=== PATIENT | male | born 1980 | race Caucasian/White ===

== ENCOUNTER 2016-06-22 21:22 | Emergency (ER) | payer BC ==
[~2016-06-22 21:22] MED LIST: BUPR1MIS; BUPR1SUB SL; DICL75 PO; LEVE500 PO; NORC10TA2 PO
[2016-06-22 21:25] VITALS: BP 119/68; PULSE 79; RESP 18; TEMP 97.7; O2SAT 98
[2016-06-22] MEDS ORDERED: SODIUM CHLOR 0.9% 1000 ML INJ 1,000 ML IV ONE (21:30)
[2016-06-22 21:33] VITALS: O2SAT 94
[2016-06-22 21:56] LABS: AUTOMATED NEUTROPHIL # 2.4 TH/MM3 (1.8-7.7); BASOPHIL % 0.5 % (0.0-2.0); EOSINOPHIL # 0.1 TH/MM3 (0-0.4); EOSINOPHIL % 1.9 % (0.0-4.0); HEMATOCRIT 40.3 % (39.0-51.0); HEMO FLAGS DIFF FINAL; LYMPH % 39.9 % (9.0-44.0); MEAN CORPUSCULAR HEMOGLOBIN 29.4 PG (27.0-34.0); MONO % 8.8 % (0.0-8.0); NEUT % 48.9 % (16.0-70.0); PLATELET COUNT 145 TH/MM3 (150-450); RED BLOOD COUNT 4.79 MIL/MM3 (4.50-5.90); RED CELL DISTRIBUTION WIDTH 13.3 % (11.6-17.2); WHITE BLOOD COUNT 4.9 TH/MM3 (4.0-11.0)
--- NOTE | 2016-06-22 21:57 | RADRPT ---
EXAM DATE/TIME: 06/22/2016 21:44 [place] COMPARISON: No previous studies available for comparison. INDICATIONS : Altered mental status, possible overdose. RADIATION DOSE: 47.03 CTDIvol (mGy) MEDICAL HISTORY : Seizures. Substance abuse. SURGICAL HISTORY : None. ENCOUNTER: Initial ACUITY: 1 day PAIN SCALE: 0/10 LOCATION: cranial TECHNIQUE: Multiple contiguous axial images were obtained of the head. Using automated exposure control and adj ustment of the mA and/or kV according to patient size, radiation dose was kept as low as reasonably a chievable to obtain optimal diagnostic quality images. FINDINGS: CEREBRUM: The ventricles are normal for age. No evidence of midline shift, mass lesion, hemorrhage or acute in farction. No extra-axial fluid collections are seen. POSTERIOR FOSSA: The cerebellum and brainstem are intact. The 4th ventricle is midline. The cerebellopontine angle i s unremarkable. EXTRACRANIAL: The visualized portion of the orbits is intact. Old nasal fractures. SKULL: The calvaria is intact. No evidence of skull fracture. CONCLUSION: 1. Unremarkable CT brain. Júnior Miner MD on June 22, 2016 at 21:54 Board Certified Radiologist. This report was verified electronically.
--- NOTE | 2016-06-22 22:04 | PD ---
HPI Chief Complaint: Altered Mental Status Time Seen by Provider: 21:56 Travel History International Travel<30 days: No Contact w/Intl Traveler<30days: No Traveled to known affect area: No History of Present Illness HPI 35-year-old male that presents to the ED for evaluation of fatigue. Apparently patient was found by ambulance sleeping on his car. Apparently patient complained that he's been feeling fatigued has been working a lot. Patient was also found to have an empty bottle of Ambien which is prescribed to him on the of this month. Patient was asked multiple times by me and other staff if he took more than his allow Ambien for the day and he states that now. He does have a remote history of IV drug abuse. He states that he's been feeling fatigued. History is difficult because of patient's somnolence and he doesn't appear to answer questions. Properly. He does answer some yes or no questions and seems to follow some commands but remained sleeping most of the time. Patient is arousable but continues to sleep. Patient denies any complaint to me. No pain. No allergies to medication. No signs of trauma. Again patient' s history is limited secondary to his somnolence. PFSH Past Medical History Autoimmune Disease: No Anxiety: Yes Depression: Yes Cancer: No Cardiovascular Problems: No Endocrine: No Genitourinary: No Immune Disorder: No Implanted Vascular Access Dvce: Yes (RUE PICC LINE) Musculoskeletal: Yes (CHRONIC BACK PAIN) Neurologic: Yes Psychiatric: Yes Reproductive: No Respiratory: No Migraines: Yes Seizures: Yes Tetanus Vaccination: Unknown Influenza Vaccination: No PNEUMOCCOCAL Vaccine (Year): 2 Past Surgical History Abdominal Surgery: No Cardiac Surgery: No Ear Surgery: No Endocrine Surgery: No Eye Surgery: No Genitourinary Surgery: No Gynecologic Surgery: No Neurologic Surgery: Yes (LAMINECTOMY ) Oral Surgery: No Thoracic Surgery: No Social History Alcohol Use: Yes (OCC) Tobacco Use: Yes (PPD) Substance Use: No (previous) Allergies-Medications (Allergen,Severity, Reaction): Coded Allergies: No Known Allergies (Verified , 06/22/16) Reported Meds & Prescriptions Reported Meds & Active Scripts Active Keppra (Levetriacetam) 500 Mg Tab 500 Mg PO BID 30 Days [place] 10-325 mg (Hydrocodone-Acetaminophen) 1 Tab Tab 1 Tab PO Q3H PRN Reported Zubsolv 5.7-1.4 mg 1 Sub Sub 1 Tab SL TID [place] 6.3-1 mg (Buprenorphine HCl-Naloxone HCl) 1 Mis Mis Diclofenac Sodium 75 Mg Tab 75 Mg PO BID Review of Systems ROS Limitations: Intoxication, Poor Historian General / Constitutional: No: Fever, Chills, Weight Gain, Weight Loss, Other Eyes: No: Diploplia, Blurred Vision, Photophobia, Drainage, Redness, Foreign Body Sensation, Pain, Tearing, Blind Spots, Visual changes, Blindness, Other HENT: No: Headaches, Vertigo, Lightheadedness, Sore Throat, Rhinitis, Rhinorrhea, Congestion, Nosebleed, Neck Stiffness, Neck Pain, Masses, Gingival Bleeding, Dental Difficulties, Ear Discharge, Earache, Other Cardiovascular: No: Chest Pain or Discomfort, Palpitations, Irregular Rhythm, Tachycardia, Diaphoresis, Syncope, Dyspnea on exertion, Varicosities, Edema, Cyanosis, Varicosities, Phlebitis, Claudication, Other Respiratory: No: Cough, Shortness of Breath, Wheezing, Sneezing, Orthopnea, Hemoptysis, Stridor, Night Sweats, Pleuritic Pain, Other Gastrointestinal: No: Nausea, Vomiting, Diarrhea, Abdominal Pain, Hematemesis, Hematochezia, Constipation, Changes in Bowel Habits, Indigestion, Dysphagia, Loss of Appetite, Other Genitourinary: No: Urgency, Frequency, Dysuria, Nocturia, Hematuria, Decreased Urinary Output, Oliguria, Hesitancy, Dribbling, Incontinence, Pelvic Pain, Flank Pain, Dyspareunia, Discharge, Dysmenorrhea, Menorrhagia, Metorrhagia, Vaginal Bleeding, Other Musculoskeletal: No: Myalgias, Arthralgias, Limited ROM, Weakness, Cramping, Edema, Pain, Atrophy, Other Skin: No Rash, No Itching, No Dryness, No Lumps, No Hives, No Change in Pigmentation, No Change in nails, No Alopecia, No Lesions, No Breast Lumps, No Breast Tenderness, No Breast Swelling, No Other Neurologic: Positive: Weakness, Change in Mentation, No: Dizziness, Syncope, Focal Abnormalities, Coordination Problem, Tremor, Ataxia, Headache, Slurred Speech, Paresthesia, Incontinence, Seizures, Sensory Disturbance, Other Psychiatric: Positive: Substance Abuse, No: Anxiety, Depression, Suicidal Ideations, Disorder of Thought, Mood Disorder, Homicidal Ideation, Other Endocrine: No: Heat Intolerance, Cold Intolerance, Polyuria, Polydipsia, Other Hematologic/Lymphatic: No: Easy Bruising, Lymph Node Enlargement, Other Physical Exam Exam Limitations: Intoxication, Poor Historian Narrative GENERAL: SKIN: Warm and dry. HEAD: Atraumatic. Normocephalic. EYES: Pupils equal and round. No scleral icterus. No injection or drainage. ENT: No nasal bleeding or discharge. Mucous membranes pink and moist. Tongue is midline. No uvula deviation. NECK: Trachea midline. No JVD. CARDIOVASCULAR: Regular rate and rhythm. No murmurs, S3, S4. RESPIRATORY: No accessory muscle use. Clear to auscultation. Breath sounds equal bilaterally. GASTROINTESTINAL: Abdomen soft, non-tender, nondistended. Hepatic and splenic margins not palpable. MUSCULOSKELETAL: Extremities without clubbing, cyanosis, or edema. No obvious deformities. Full range of motion of the upper and lower extremities bilaterally. Pupils pulses bilaterally. NEUROLOGICAL: Awake and alert to commands but continues to go to sleep. Alert and oriented to person and place. No obvious cranial nerve deficits. Motor grossly within normal limits. Five out of 5 muscle strength in the arms and legs. Normal speech. PSYCHIATRIC: Somnolent mood and affect; insight and judgment unable to asses Data Data Last Documented VS Vital Signs Date Time Temp Pulse Resp B/P Pulse Ox O2 Delivery O2 Flow Rate FiO2 06/22/16 21:33 94 Room Air 06/22/16 21:25 97.7 79 18 119/68 Orders Electrocardiogram (06/22/16 21:30) Complete Blood Count With Diff (06/22/16 21:30) Comprehensive Metabolic Panel (06/22/16 21:30) Prothrombin Time / Inr (Pt) (06/22/16 21:30) Act Partial Throm Time (Ptt) (06/22/16 21:30) Urinalysis - C+S If Indicated (06/22/16 21:30) Ct Brain W/O Iv Contrast(Rout) (06/22/16 21:30) Iv Access Insert/Monitor (06/22/16 21:30) Cath For Specimen (06/22/16 21:30) Ecg Monitoring (06/22/16 21:30) Oximetry (06/22/16 21:30) Sodium Chlor 0.9% 1000 Ml Inj (Ns 1000 M (06/22/16 21:30) Drug Screen, Random Urine (06/22/16 21:30) Alcohol (Ethanol) (06/22/16 21:30) Salicylates (Aspirin) (06/22/16 21:30) Tylenol (Acetaminophen) (06/22/16 21:30) Labs Laboratory Tests Test 06/22/16 06/22/16 21:30 21:50 White Blood Count 4.9 TH/MM3 Red Blood Count 4.79 MIL/MM3 Hemoglobin 14.1 GM/DL Hematocrit 40.3 % Mean Corpuscular Volume 84.0 FL Mean Corpuscular Hemoglobin 29.4 PG Mean Corpuscular Hemoglobin 35.0 % Concent Red Cell Distribution Width 13.3 % Platelet Count 145 TH/MM3 Mean Platelet Volume 8.3 FL Neutrophils (%) (Auto) 48.9 % Lymphocytes (%) (Auto) 39.9 % Monocytes (%) (Auto) 8.8 % Eosinophils (%) (Auto) 1.9 % Basophils (%) (Auto) 0.5 % Neutrophils # (Auto) 2.4 TH/MM3 Lymphocytes # (Auto) 2.0 TH/MM3 Monocytes # (Auto) 0.4 TH/MM3 Eosinophils # (Auto) 0.1 TH/MM3 Basophils # (Auto) 0.0 TH/MM3 CBC Comment DIFF FINAL Differential Comment Prothrombin Time 11.0 SEC Prothromb Time International 1.0 RATIO Ratio Activated Partial 28.7 SEC Thromboplast Time Sodium Level 143 MEQ/L Potassium Level 5.2 MEQ/L Chloride Level 108 MEQ/L Carbon Dioxide Level 25.1 MEQ/L Anion Gap 10 MEQ/L Blood Urea Nitrogen 15 MG/DL Creatinine 0.84 MG/DL Estimat Glomerular Filtration 105 ML/MIN Rate Random Glucose 92 MG/DL Calcium Level 8.7 MG/DL Total Bilirubin 0.7 MG/DL Aspartate Amino Transf 56 U/L (AST/SGOT) Alanine Aminotransferase 48 U/L (ALT/SGPT) Alkaline Phosphatase 67 U/L Total Protein 7.5 GM/DL Albumin 3.9 GM/DL Salicylates Level 2.2 MG/DL Acetaminophen Level LESS THAN 2.0 MCG/ML Ethyl Alcohol Level LESS THAN 3 MG/DL Urine Color YELLOW Urine Turbidity HAZY Urine pH 5.5 Urine Specific [place] 1.024 Urine Protein NEG mg/dL Urine Glucose (UA) NEG mg/dL Urine Ketones 10 mg/dL Urine Occult Blood TRACE Urine Nitrite NEG Urine Bilirubin NEG Urine Urobilinogen LESS THAN 2.0 MG/DL Urine Leukocyte Esterase NEG Urine RBC 4 /hpf Urine WBC 1 /hpf Urine Mucus FEW /lpf Microscopic Urinalysis Comment CULT NOT INDICATED Urine Opiates Screen POS Urine Barbiturates Screen NEG Urine Amphetamines Screen POS Urine Benzodiazepines Screen POS Urine Cocaine Screen POS Urine Cannabinoids Screen NEG MDM Medical Decision Making Medical Screen Exam Complete: Yes Emergency Medical Condition: Yes Medical Record Reviewed: Yes Interpretation(s) CBC & BMP Diagram 06/22/16 21:30 LFTS WNL Tox screen positive for cocaine, opiates, amphetamines, benzos. Urine negative. EKG shows sinus rhythm with no sign of acute ischemia or arrhythmia read by me and attending. PT and PTT within normal limits. Last Impressions Head CT 06/22/162129 Signed Impressions: Service Date/Time: Wednesday, June 22, 2016 21:44 - CONCLUSION: 1. Unremarkable CT brain. Júnior Miner MD Differential Diagnosis Overdose versus somnolence versus fatigue versus substance abuse Narrative Course 35-year-old male that presents to the ED for evaluation of possible upper mental status. Patient was properly examined and was found to have signs and symptoms consistent with appears to be possible overdose. I actually look up patient on the [employer] system for narcotics in [place] and patient has had multiple recent prescriptions of narcotics. I'll from 2 different doctors which appear to be chronic but he does take significant doses of narcotics. Patient completely denies abuse in the Ambien but his whole bottle that was given to him which was 30 pills on the 20 is completely gone. I suspect overdose. At this time patient is arousable with commands as well as with painful stimuli. Labs and imaging will be done. Labs and imaging were unremarkable other than for positive tox screen for benzos, opiates, amphetamines, cocaine. From history and physical this obvious overdose likely accidental. He denies any suicidal ideation. At this time patient is too somnolent to go home. Patient will be allowed to sleep off his intoxication out of the monitor with the clinically sober to go home or someone who is sober can come pick him up. Case will be signed out to my attending pending disposition. Diagnosis Primary Impression: Substance abuse Patient Instructions: General Instructions Additional Instructions: Stop using drugs. Follow with PCP. See ED worsening symptoms. Med/Other Pt SpecificInfo: No Change to Meds Disposition: 01 DISCHARGE HOME Condition: Abdirizak Gutierrez Jun 22, 2016 22:04
--- NOTE | 2016-06-22 22:07 | PD ---
Physical Exam Narrative General: The patient is a well-developed well-nourished male in no acute distress. The patient is drowsy on examination and has to be frequently awakened to answer questions. The patient is cooperative on exam. Head and Neck exam: Head is normocephalic atraumatic. Eyes: EOMI, pupils are equal round and reactive to light. Nose: Midline septum with pink mucous membranes Mouth: Dentition unremarkable. Moist mucus membranes. Posterior oropharynx is not erythematous. No tonsillar hypertrophy. Uvula midline. Airway patent. Neck: No palpable lymphadenopathy. No nuchal rigidity. No thyromegaly. Cardiovascular: Regular rate and rhythm without murmurs, gallops, or rubs. No pulse deficit to the extremities. Lungs: Clear to auscultation bilaterally. No wheezes, rhonchi, or rales. Abdomen: Soft, without tenderness to palpation in all 4 quadrants of the abdomen. No guarding, rebound, or rigidity. Normal bowel sounds are audible. Extremities: No clubbing, cyanosis, or edema. 2+ pulses in all 4 extremities. Back: No spinous process tenderness to palpation. No costovertebral angle tenderness to palpation. Neurologic Exam: Cranial nerves 2-12 were intact on exam. Strength is 5/5 in all 4 extremities. No sensory deficits noted. The patient is oriented to person, place, time, and situation. The patient has slightly slurred speech. Skin Exam: No rash noted. Intact skin that is warm and dry. Data Data Last Documented VS Vital Signs Date Time Temp Pulse Resp B/P Pulse Ox O2 Delivery O2 Flow Rate FiO2 06/22/16 21:33 94 Room Air 06/22/16 21:25 97.7 79 18 119/68 Orders Electrocardiogram (06/22/16 21:30) Complete Blood Count With Diff (06/22/16 21:30) Comprehensive Metabolic Panel (06/22/16 21:30) Prothrombin Time / Inr (Pt) (06/22/16 21:30) Act Partial Throm Time (Ptt) (06/22/16 21:30) Urinalysis - C+S If Indicated (06/22/16 21:30) Ct Brain W/O Iv Contrast(Rout) (06/22/16 21:30) Iv Access Insert/Monitor (06/22/16 21:30) Cath For Specimen (06/22/16 21:30) Ecg Monitoring (06/22/16 21:30) Oximetry (06/22/16 21:30) Sodium Chlor 0.9% 1000 Ml Inj (Ns 1000 M (06/22/16 21:30) Drug Screen, Random Urine (06/22/16 21:30) Alcohol (Ethanol) (06/22/16 21:30) Salicylates (Aspirin) (06/22/16 21:30) Tylenol (Acetaminophen) (06/22/16 21:30) Labs Laboratory Tests Test 06/22/16 06/22/16 21:30 21:50 White Blood Count 4.9 TH/MM3 Red Blood Count 4.79 MIL/MM3 Hemoglobin 14.1 GM/DL Hematocrit 40.3 % Mean Corpuscular Volume 84.0 FL Mean Corpuscular Hemoglobin 29.4 PG Mean Corpuscular Hemoglobin 35.0 % Concent Red Cell Distribution Width 13.3 % Platelet Count 145 TH/MM3 Mean Platelet Volume 8.3 FL Neutrophils (%) (Auto) 48.9 % Lymphocytes (%) (Auto) 39.9 % Monocytes (%) (Auto) 8.8 % Eosinophils (%) (Auto) 1.9 % Basophils (%) (Auto) 0.5 % Neutrophils # (Auto) 2.4 TH/MM3 Lymphocytes # (Auto) 2.0 TH/MM3 Monocytes # (Auto) 0.4 TH/MM3 Eosinophils # (Auto) 0.1 TH/MM3 Basophils # (Auto) 0.0 TH/MM3 CBC Comment DIFF FINAL Differential Comment Prothrombin Time 11.0 SEC Prothromb Time International 1.0 RATIO Ratio Activated Partial 28.7 SEC Thromboplast Time Sodium Level 143 MEQ/L Potassium Level 5.2 MEQ/L Chloride Level 108 MEQ/L Carbon Dioxide Level 25.1 MEQ/L Anion Gap 10 MEQ/L Blood Urea Nitrogen 15 MG/DL Creatinine 0.84 MG/DL Estimat Glomerular Filtration 105 ML/MIN Rate Random Glucose 92 MG/DL Calcium Level 8.7 MG/DL Total Bilirubin 0.7 MG/DL Aspartate Amino Transf 56 U/L (AST/SGOT) Alanine Aminotransferase 48 U/L (ALT/SGPT) Alkaline Phosphatase 67 U/L Total Protein 7.5 GM/DL Albumin 3.9 GM/DL Salicylates Level 2.2 MG/DL Acetaminophen Level LESS THAN 2.0 MCG/ML Ethyl Alcohol Level LESS THAN 3 MG/DL Urine Color YELLOW Urine Turbidity HAZY Urine pH 5.5 Urine Specific [place] 1.024 Urine Protein NEG mg/dL Urine Glucose (UA) NEG mg/dL Urine Ketones 10 mg/dL Urine Occult Blood TRACE Urine Nitrite NEG Urine Bilirubin NEG Urine Urobilinogen LESS THAN 2.0 MG/DL Urine Leukocyte Esterase NEG Urine RBC 4 /hpf Urine WBC 1 /hpf Urine Mucus FEW /lpf Microscopic Urinalysis Comment CULT NOT INDICATED Urine Opiates Screen POS Urine Barbiturates Screen NEG Urine Amphetamines Screen POS Urine Benzodiazepines Screen POS Urine Cocaine Screen POS Urine Cannabinoids Screen NEG [facility] Medical Record Reviewed: Yes Supervised Visit with BK: Yes Interpretation(s) Laboratory Tests Test 06/22/16 06/22/16 21:30 21:50 White Blood Count 4.9 TH/MM3 Red Blood Count 4.79 MIL/MM3 Hemoglobin 14.1 GM/DL Hematocrit 40.3 % Mean Corpuscular Volume 84.0 FL Mean Corpuscular Hemoglobin 29.4 PG Mean Corpuscular Hemoglobin 35.0 % Concent Red Cell Distribution Width 13.3 % Platelet Count 145 TH/MM3 Mean Platelet Volume 8.3 FL Neutrophils (%) (Auto) 48.9 % Lymphocytes (%) (Auto) 39.9 % Monocytes (%) (Auto) 8.8 % Eosinophils (%) (Auto) 1.9 % Basophils (%) (Auto) 0.5 % Neutrophils # (Auto) 2.4 TH/MM3 Lymphocytes # (Auto) 2.0 TH/MM3 Monocytes # (Auto) 0.4 TH/MM3 Eosinophils # (Auto) 0.1 TH/MM3 Basophils # (Auto) 0.0 TH/MM3 CBC Comment DIFF FINAL Differential Comment Prothrombin Time 11.0 SEC Prothromb Time International 1.0 RATIO Ratio Activated Partial 28.7 SEC Thromboplast Time Sodium Level 143 MEQ/L Potassium Level 5.2 MEQ/L Chloride Level 108 MEQ/L Carbon Dioxide Level 25.1 MEQ/L Anion Gap 10 MEQ/L Blood Urea Nitrogen 15 MG/DL Creatinine 0.84 MG/DL Estimat Glomerular Filtration 105 ML/MIN Rate Random Glucose 92 MG/DL Calcium Level 8.7 MG/DL Total Bilirubin 0.7 MG/DL Aspartate Amino Transf 56 U/L (AST/SGOT) Alanine Aminotransferase 48 U/L (ALT/SGPT) Alkaline Phosphatase 67 U/L Total Protein 7.5 GM/DL Albumin 3.9 GM/DL Salicylates Level 2.2 MG/DL Acetaminophen Level LESS THAN 2.0 MCG/ML Ethyl Alcohol Level LESS THAN 3 MG/DL Urine Color YELLOW Urine Turbidity HAZY Urine pH 5.5 Urine Specific [place] 1.024 Urine Protein NEG mg/dL Urine Glucose (UA) NEG mg/dL Urine Ketones 10 mg/dL Urine Occult Blood TRACE Urine Nitrite NEG Urine Bilirubin NEG Urine Urobilinogen LESS THAN 2.0 MG/DL Urine Leukocyte Esterase NEG Urine RBC 4 /hpf Urine WBC 1 /hpf Urine Mucus FEW /lpf Microscopic Urinalysis Comment CULT NOT INDICATED Urine Opiates Screen POS Urine Barbiturates Screen NEG Urine Amphetamines Screen POS Urine Benzodiazepines Screen POS Urine Cocaine Screen POS Urine Cannabinoids Screen NEG Last Impressions Head CT 06/22/162129 Signed Impressions: Service Date/Time: Wednesday, June 22, 2016 21:44 - CONCLUSION: 1. Unremarkable CT brain. Júnior Miner MD Narrative Course I, Dr. Richmond, have reviewed the advance practice practitioner's documentation and am in agreement, met with the patient face to face, made the diagnosis, and the medical decision making was done by me. The patient was initially seen by Shen. Please see his complete history and physical. *My assessment and Findings: The patient is a 35-year-old male who presents to [facility] emergency Department after being found in a [facility] parking lot difficult to arouse. Ambulance services were called and the patient was transported to the hospital. The patient was noted to have an empty bottle of Ambien on his person. He reports that it is his prescription. He denies taking more than the prescribed amount. The patient's bottle was filled approximately a week ago, however now it is empty. The patient's examination is remarkable for being drowsy on examination and frequently falling asleep midsentence or mid exam. The patient has dilated pupils on examination that are reactive to light. The patient has no focal findings on neurologic examination. Laboratory studies have been ordered to further evaluate. CT scan of the brain was read as negative by the reading radiologist. The patient's laboratory studies were remarkable for a urine drug screen that was positive for opiates, benzodiazepines, cocaine, and amphetamines. The patient became increasingly awake and alert. The patient reported that he has a family member that would be able to safely drive him home. The patient's mother arrived at the bedside and will be driving him home. The patient is resting comfortably and feels better, is alert and in no distress. The patients results and examination findings were discussed with the patient. The repeat examination is unremarkable and benign. The history, exam, diagnostic testing, and current condition do not suggest any significant pathology to warrant further testing, continued ED treatment, admission, or surgical evaluation at this point. The vital signs have been stable. The patient does not have uncontrollable pain, intractable vomiting, or other significant symptoms. The patient's condition is stable and appropriate for discharge. The patient will pursue further outpatient evaluation with a primary care physician or other designated or consulting physician as indicated in the discharge instructions. The patient expressed understanding and was agreeable with this plan. Rosaura Ricmhond MD Jun 22, 2016 22:07
[2016-06-22 22:11] LABS: APTT (PATIENT) 28.7 SEC (24.3-30.1)
[2016-06-22 22:21] LABS: ANION GAP 10 MEQ/L (5-15)
[2016-06-22 22:22] LABS: BLOOD, URINE TRACE (NEG); COMMENT (UR) CULT NOT INDICATED; CULTURE IF INDICATED CULT NOT INDICATED; GLUCOSE,URINE NEG (NEG); KETONE, URINE 10 mg/dL (NEG); MUCUS URINE FEW /lpf (OCC); NITRITE,URINE NEG (NEG); PH, URINE 5.5 (5.0-8.5); URINE COLOR YELLOW (YELLW/STRAW)
[2016-06-22 22:25] LABS: ALKALINE PHOSPHATASE 67 U/L (45-117); ALT (GPT) 48 U/L (12-78); AST (GOT) 56 U/L (15-37); BICARBONATE 25.1 MEQ/L (21.0-32.0); BLOOD UREA NITROGEN 15 MG/DL (7-18); CHLORIDE 108 MEQ/L (98-107); GLOMERULAR FILTRATION RATE 105 ML/MIN (>89); SODIUM (NA) 143 MEQ/L (136-145); TOTAL BILIRUBIN ADULT 0.7 MG/DL (0.2-1.0)
[2016-06-22 22:27] LABS: ACETAMINOPHEN LESS THAN 2.0 MCG/ML (10.0-30.0); POTASSIUM 5.2 MEQ/L (3.5-5.1)
[2016-06-22 22:28] LABS: AMPHETAMINE, URINE POS (NEG); BARBITURATES, URINE NEG (NEG); COCAINE, URINE POS (NEG)
--- NOTE | 2016-06-23 12:41 | EKG ---
Date Performed: 06/22/2016 Time Performed: 21:29:04 PTAGE: 35 years EKG: Sinus rhythm NORMAL ECG Compared to prior tracing no significant change PREVIOUS TRACING : 03/12/2015 16.53 DOCTOR: Tamir Moya Interpretating Date/Time 06/23/2016 12:37:04
== END 2016-06-23 | disposition home or self-care (01) ==
LOC: NEPE 21:22
DX: F19.129 Other psychoactive substance abuse with intoxication, unspecified (principal); F17.210 Nicotine dependence, cigarettes, uncomplicated; F32.9 Major depressive disorder, single episode, unspecified
CPT/HCPCS: 70450; 80053; 80307; 80320; 81001; 85025; 85610; 85730; 93005; 99284; J7030; 80329; G0480

== ENCOUNTER 2016-10-26 13:05 | Inpatient (IN) | payer BC ==
[~2016-10-26] VITALS: Ht 180.3 cm; Wt 108.8 kg
[2016-10-26] VITALS (7 sets, daily range): BP systolic 146–177; BP diastolic 96–103; PULSE 74–96; RESP 13–24; TEMP 97.9; O2SAT 96–100
[~2016-10-26 13:05] MED LIST changes: +LACTATED RINGER'S 1000 ML INJ 1,000 ML IV ONE; +NORMOSOL R INJ 1,000 ML IV ONE; +PROPOFOL 200 MG/20 ML AMP IV ONE
[2016-10-26] MEDS ORDERED: DIAZ10 PO (13:45)
[2016-10-26] MEDS ORDERED: TRAM50TA PO (13:46)
[2016-10-26] MEDS ORDERED: toradol (13:46)
--- NOTE | 2016-10-26 14:36 | PD ---
HPI Chief Complaint: Back/ Neck Pain or Injury Time Seen by Provider: 13:55 Travel History International Travel<30 days: No Contact w/Intl Traveler<30days: No Traveled to known affect area: No History of Present Illness HPI Patient is a 35-year-old male with history of IV drug abuse who presents the emergency department with complaint of back pain. 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 About 1.5 weeks ago after said heavy lifting he developed low back pain. This is primarily lumbar and radiates into the right buttock similar to his previous sciatica and does radiate down into the right leg. This has been gradually worsening. Patient takes Suboxone and has been compliant with this. He admits to shooting heroin 4 days ago in an attempt to help with the pain. The pain has been worsening despite all of this. He describes it as a constant throb and ache with zinging type pain down the right leg. He denies any fevers or chills. Patient was seen at [facility] just last night and released at this morning. Mother states that she picked him up and he was not even able to ambulate and therefore drove him straight here. PFSH Past Medical History Autoimmune Disease: No Anxiety: Yes Depression: Yes Cancer: No Cardiovascular Problems: No Endocrine: No Gastrointestinal Disorders: No Genitourinary: No Immune Disorder: No Implanted Vascular Access Dvce: Yes (RUE PICC LINE) Musculoskeletal: Yes (CHRONIC BACK PAIN) Neurologic: Yes Psychiatric: Yes Reproductive: No Respiratory: No Migraines: Yes Seizures: Yes Influenza Vaccination: No PNEUMOCCOCAL Vaccine (Year): 2 Past Surgical History Abdominal Surgery: No Cardiac Surgery: No Ear Surgery: No Endocrine Surgery: No Eye Surgery: No Genitourinary Surgery: No Gynecologic Surgery: No Neurologic Surgery: Yes (LAMINECTOMY ) Oral Surgery: No Thoracic Surgery: No Social History Alcohol Use: Yes (last couple of days) Tobacco Use: Yes (PPD) Substance Use: Yes (Marijuana, IVDU, heroin) Allergies-Medications (Allergen,Severity, Reaction): Coded Allergies: No Known Allergies (Verified , 10/26/16) Reported Meds & Prescriptions Reported Meds & Active Scripts Active Reported [toradol] Valium (Diazepam) 10 Mg Tab 10 Mg PO BID PRN Zubsolv 5.7-1.4 mg 1 Sub Sub 1 Tab SL TID Bunavail 6.3-1 mg (Buprenorphine HCl-Naloxone HCl) 1 Mis Mis Review of Systems ROS Limitations: Poor Historian Except as stated in HPI: all other systems reviewed are Neg Physical Exam Exam Limitations: Poor Historian Narrative GENERAL: Middle-aged male appearing older than stated age in mild distress laying fairly still on bed. SKIN: Focused skin assessment warm/dry. [place] in the bilateral arms HEAD: Normocephalic. EYES: Pupils equal and round. No scleral icterus. No injection or drainage. ENT: Mucous membranes pink and moist. NECK: Supple without midline tenderness to palpation CARDIOVASCULAR: Regular rate and rhythm. No murmur appreciated. RESPIRATORY: No accessory muscle use. Clear to auscultation. Breath sounds equal bilaterally. GASTROINTESTINAL: Abdomen soft, mild diffuse abdominal tenderness to palpation greatest in the right lower quadrant. He has had mild erythema over the right lower quadrant of the abdomen, but does admit to rubbing this area with his hand due to pain. MUSCULOSKELETAL: No midline tenderness to palpation of the thoracic spine. Patient has low lumbar midline tenderness to palpation and right sided sacroiliac tenderness to palpation. Any range of motion of the right hip reproduces patient's pain. The muscle compartments in the right thigh seems somewhat tighter than they do on the left though are not firm. Circumferential measurement of the right thigh is 2 cm greater than the left. Distal sensation and pulses are intact. Range of motion at the knee, ankle are unremarkable. NEUROLOGICAL: Awake and alert. Normal speech. PSYCHIATRIC: insight and judgment poor Data Data Last Documented VS Vital Signs Date Time Temp Pulse Resp B/P Pulse Ox O2 Delivery O2 Flow Rate FiO2 10/26/16 13:06 97.9 96 24 146/102 96 Room Air Orders Complete Blood Count With Diff (10/26/16 14:04) Comprehensive Metabolic Panel (10/26/16 14:04) Lactic Acid Sepsis Protocol (10/26/16 14:04) Urinalysis - C+S If Indicated (10/26/16 14:04) Blood Culture (10/26/16 14:04) Ecg Monitoring (10/26/16 14:04) Iv Access Insert/Monitor (10/26/16 14:04) Oximetry (10/26/16 14:04) Ct Abd/Pel W/O Iv Contrast (10/26/16 14:04) Drug Screen, Random Urine (10/26/16 14:04) Ct Femur W/O Iv Contrast (10/26/16 ) Mri L Spine W&W/O Contrast (10/26/16 ) Mri Pelvis W&W/O Contrast (10/26/16 ) Vascular Access Team Consult/P PRN (10/26/16 14:08) Vascular Poc Ultrasound (10/26/16 ) Hydromorphone Pf Inj (Dilaudid Pf Inj) (10/26/16 15:45) Sodium Chlor 0.9% 1000 Ml Inj (Ns 1000 M (10/26/16 16:45) Sodium Chlor 0.9% 1000 Ml Inj (Ns 1000 M (10/26/16 16:45) Sodium Chlor 0.9% 1000 Ml Inj (Ns 1000 M (10/26/16 16:45) Labs Laboratory Tests Test 10/26/16 10/26/16 14:54 15:01 Lactic Acid Level 2.2 mmol/L White Blood Count 21.2 TH/MM3 Red Blood Count 7.37 MIL/MM3 Hemoglobin 21.1 GM/DL Hematocrit 62.8 % Mean Corpuscular Volume 85.2 FL Mean Corpuscular Hemoglobin 28.6 PG Mean Corpuscular Hemoglobin 33.5 % Concent Red Cell Distribution Width 14.5 % Platelet Count 217 TH/MM3 Mean Platelet Volume 9.0 FL Neutrophils (%) (Auto) 88.8 % Lymphocytes (%) (Auto) 5.9 % Monocytes (%) (Auto) 5.1 % Eosinophils (%) (Auto) 0.1 % Basophils (%) (Auto) 0.1 % Neutrophils # (Auto) 18.8 TH/MM3 Lymphocytes # (Auto) 1.2 TH/MM3 Monocytes # (Auto) 1.1 TH/MM3 Eosinophils # (Auto) 0.0 TH/MM3 Basophils # (Auto) 0.0 TH/MM3 CBC Comment AUTO DIFF Differential Comment AUTO DIFF CONFIRMED Platelet Estimate NORMAL Platelet Morphology Comment NORMAL Total Bilirubin 1.5 MG/DL Alanine Aminotransferase 966 U/L (ALT/SGPT) Alkaline Phosphatase 123 U/L Total Protein 8.4 GM/DL MDM Medical Decision Making Medical Screen Exam Complete: Yes Emergency Medical Condition: Yes Medical Record Reviewed: Yes Differential Diagnosis 35-year-old male with history of IV drug abuse here with acute on chronic back pain radiating into the right buttock and right leg. Differential includes drug -seeking behavior, acute on chronic back pain, discitis, osteomyelitis, epidural abscess, pelvic abscess, infectious sacroiliitis, septic arthritis of the right hip, abscess or necrotizing fasciitis of the thigh. Narrative Course Patient placed on monitor, IV established and blood obtained. CT of the abdomen , pelvis, right femur were obtained showing negative CT abdomen and pelvis but the soft tissues in the right thigh are inflamed and edematous consistent with a myositis or cellulitis. Clinically there is no evidence of cellulitis or erythema of the thigh. Thankfully no radiographic evidence of necrotizing fasciitis. CBC, lactate notable for WBC 21.2, hemoglobin 21.1 likely due to hemoconcentration. There is left shift but no bandemia. Lactate was elevated at 2.2. I specifically with held the administration of antibiotics should there be an epidural abscess that we could obtain cultures prior to antibiotic administration despite his above sepsis criteria. He was given IV fluid resuscitation. CMP, blood cultures, urinalysis and urine drug screen remains pending. Patient was given 0.5 mg Dilaudid for pain so that he may hold still for MRI. MRI of the lumbar spine and pelvis with contrast ordered. The results of this remain pending at the time this dictation and patient will ultimately require admission for sepsis, rule out bacteremia, myositis. Critical Care Narrative Aggregate critical care time was 70 minutes. Time to perform other separately billable procedures was not included in the critical care time. My time did not include minutes spent treating any other patients simultaneously or on activities that did not directly contribute to the patient's treatment. The services I provided to this patient were to treat and/or prevent clinically significant deterioration that could result in: Cardio pulmonary decompensation , bacteremia, , disability I provided critical care services requiring my management, as noted below: Chart data review, documentation time, medication orders and management, vital sign assessments/reviewing monitor data, ordering and reviewing lab tests, ordering and interpreting/reviewing x-rays and diagnostic studies, care of the patient and discussion of the patient with the admitting physicians. Sepsis Criteria SIRS Criteria (2 or more): Heart rate over 90, RR > 20 or PaCO2 < 32, WBC > 10659, < 4000 or > 10% bands Sepsis Criteria (SIRS+source): Infect source susp/known Severe Sepsis (+one): Lactate >2 Criteria Outcome: Meets SIRS criteria, Meets sepsis criteria, Meets severe sepsis criteria Diagnosis Primary Impression: Severe sepsis Additional Impressions: Myositis Qualified Code: M60.051 - Infective myositis of right thigh IV drug abuse Lactic acidosis Leukocytosis Qualified Code: D72.829 - Leukocytosis, unspecified type Admitting Information Admitting Physician Requests: Admit Judit Acosta MD Oct 26, 2016 14:36
--- NOTE | 2016-10-26 15:09 | RADRPT ---
EXAM DATE/TIME: 10/26/2016 14:23 [facility] COMPARISON: No previous studies available for comparison. INDICATIONS : Abdomen pain. ORAL CONTRAST: No oral contrast ingested. RADIATION DOSE: 10.03 CTDIvol (mGy) MEDICAL HISTORY : IV drug user SURGICAL HISTORY : None. ENCOUNTER: Initial ACUITY: 1 day PAIN SCALE: 8/10 LOCATION: Bilateral abdomen TECHNIQUE: Volumetric scanning of the abdomen and pelvis was performed. Using automated exposure control and ad justment of the mA and/or kV according to patient size, radiation dose was kept as low as reasonably achievable to obtain optimal diagnostic quality images. DICOM format image data is available electro nically for review and comparison. FINDINGS: Lung bases are clear. Trace pericardial fluid. No acute findings in the liver, spleen, adrenals, kidn eys or pancreas. No free fluid. No bowel obstruction. No adenopathy. CONCLUSION: 1. No acute findings in abdomen and pelvic CT. Trace pericardial fluid. Pilo Gaona MD on October 26, 2016 at 15:01 Board Certified Radiologist. This report was verified electronically.
--- NOTE | 2016-10-26 15:11 | RADRPT ---
EXAM DATE/TIME: 10/26/2016 14:23 [facility] COMPARISON: No previous studies available for comparison. INDICATIONS : Right femur pain. RADIATION DOSE: 13.03 CTDIvol (mGy) MEDICAL HISTORY : None IV drug user SURGICAL HISTORY : None. ENCOUNTER: Initial ACUITY: 1 day PAIN SCALE: 8/10 LOCATION: Right leg TECHNIQUE: Volumetric scanning of the femur was performed. Using automated exposure control and adjustment of t he mA and/or kV according to patient size, radiation dose was kept as low as reasonably achievable to obtain optimal diagnostic quality images. DICOM format image data is available electronically for review and comparison. FINDINGS: No acute bony abnormalities in the right femur. There is some swelling of the musculature of the righ t thigh and fairly extensive stranding of fat between the muscle fascicles. Etiology unclear but prob ably represents cellulitis or myositis. CONCLUSION: 1. No acute bony abnormality. Muscular edema and edematous changes within the fat especially between the muscle fascicles. Differential diagnosis includes cellulitis and myositis. Pilo Gaona MD on October 26, 2016 at 15:07 Board Certified Radiologist. This report was verified electronically.
[2016-10-26 15:39] LABS: AUTOMATED NEUTROPHIL # 18.8 TH/MM3 (1.8-7.7); BASOPHIL % 0.1 % (0.0-2.0); EOSINOPHIL % 0.1 % (0.0-4.0); HEMATOCRIT 62.8 % (39.0-51.0); LYMPH % 5.9 % (9.0-44.0); LYMPHOCYTE # 1.2 TH/MM3 (1.0-4.8); MEAN CELL VOLUME 85.2 FL (80.0-100.0); MEAN CORPUSCULAR HEMOGLOBIN 28.6 PG (27.0-34.0); MEAN CORPUSCULAR HGB CONC 33.5 % (32.0-36.0); MONO % 5.1 % (0.0-8.0); NEUT % 88.8 % (16.0-70.0); PLATELET COUNT 217 TH/MM3 (150-450); RED BLOOD COUNT 7.37 MIL/MM3 (4.50-5.90); RED CELL DISTRIBUTION WIDTH 14.5 % (11.6-17.2); WHITE BLOOD COUNT 21.2 TH/MM3 (4.0-11.0)
[2016-10-26 15:41] LABS: HEMO FLAGS AUTO DIFF
[2016-10-26] MEDS ORDERED: HYDROmorphone HCL PF 1 MG/ML VIAL IV PUSH ONE (15:45)
[2016-10-26 16:01] LABS: TOTAL BILIRUBIN ADULT 1.5 MG/DL (0.2-1.0)
[2016-10-26 16:16] LABS: PLATELET ESTIMATE SMEAR NORMAL (NORMAL); PLATELET MORPHOLOGY NORMAL (NORMAL); SCAN/DIFF AUTO DIFF CONFIRMED
[2016-10-26] MEDS ORDERED: SODIUM CHLOR 0.9% 1000 ML INJ 1,000 ML IV ONE ×4 (16:45→18:00)
[2016-10-26 17:10] LABS: LACTIC ACID GHOST NOT REPORTABLE
[2016-10-26 17:45] LABS: BICARBONATE 19.2 MEQ/L (21.0-32.0)
[2016-10-26 17:47] LABS: POTASSIUM 6.1 MEQ/L (3.5-5.1)
--- NOTE | 2016-10-26 17:52 | RADRPT ---
EXAM DATE/TIME: 10/26/2016 15:55 [facility] COMPARISON: No previous studies available for comparison. INDICATIONS : Abscess. CONTRAST: 19 cc Omniscan (gadodiamide) IV MEDICAL HISTORY : IVDA SURGICAL HISTORY : Discectomy, cervical. Right elbow. ENCOUNTER: Initial ACUITY: 1 day PAIN SCORE: 5/10 LOCATION: Paraspinal TECHNIQUE: Multiplanar multisequence MRI of the lumbar spine was performed with and without contrast. FINDINGS: There is abnormal enhancement and edema in the lower right erector spinae musculature predominantly a round the L3 and L4 level. There is a small superficial fluid collection measuring less than a centim eter in AP diameter along the dorsal aspect of the right erector spinae musculature. The findings pro bably represent a cellulitis or myositis. No drainable abscess. Within the lumbar spine there is a broad-based right paracentral and right lateral disc protrusion re sulting in mild right lateral recess stenosis and mild right foraminal stenosis. No fracture or spondylolisthesis. No other discrete disc protrusions. Conus medullaris is intact. No evidence for epidural abscess within the lumbar canal. CONCLUSION: 1. Negative for epidural abscess within the lumbar spinal canal. 2. Abnormal edema and enhancement of the right erector spinae musculature especially around the L3 an d L4 level characteristic of a myositis or cellulitis with minimal superficial fluid collection. 3. Broad-based right paracentral and right lateral disc protrusion at L3-4 with encroachment on the r ight lateral recess and right neural foramen. Pilo Gaona MD on October 26, 2016 at 17:41 Board Certified Radiologist. This report was verified electronically.
[2016-10-26 17:57] LABS: CALCIUM-PROTEIN CORRECTED 5.8 MG/DL (8.5-10.1)
[2016-10-26] MEDS ORDERED: PIPERACIL-TAZO 4.5 GM PREMIX 100 ML IV ONE (18:00)
[2016-10-26] MEDS ORDERED: SODIUM BICARBONATE 8.4% INJ 50 MEQ/50 ML SYR IV PUSH ONE ×2 (18:00→22:00)
[2016-10-26] MEDS ORDERED: VANCOMYCIN INJ 1,000 MG in SODIUM CHLOR 0.9% 250 ML INJ 250 ML IV ONE (18:00)
[2016-10-26] MEDS ORDERED: CALCIUM CARBONATE 500 MG CHEWABLE TAB CHEW ONE (18:00)
[2016-10-26] MEDS ORDERED: CALCIUM CHLORIDE 10% SOLN 1 GRAM/10 ML SYR IV PUSH ONE (18:00)
--- NOTE | 2016-10-26 18:04 | RADRPT ---
EXAM DATE/TIME: 10/26/2016 15:55 [facility] COMPARISON: No previous studies available for comparison. INDICATIONS : Osteomyelitis. CONTRAST: 19 cc Omniscan (gadodiamide) IV MEDICAL HISTORY : IVDA SURGICAL HISTORY : Discectomy, cervical. Right elbow. ENCOUNTER: Initial ACUITY: 1 day PAIN SCORE: 5/10 LOCATION: pelvis TECHNIQUE: Multiplanar, multisequence magnetic resonance imaging of the pelvis was performed. FINDINGS: There is extensive abnormal edema and enhancement in the musculature of the pelvis, right greater lef t. This involves most of the gluteal musculature and extends into the upper thigh musculature involvi ng the upper quadriceps and the adductor musculature. There is also involvement of the deep left pelv ic musculature medially. Findings are most characteristic of some form of rhabdomyolysis or diffuse m yositis, possibly even made the innervation myositis. No acute bony abnormality. There is no pelvic f ree fluid. There is also involvement of the lower rectus spinae musculature. CONCLUSION: 1. Extensive abnormal edema, swelling and enhancement of the right sided pelvic musculature as above, also involving the lower right erector spinae and deep medial left pelvic musculature. Primary diffe rential diagnosis is rhabdomyolysis and diffuse myositis. No discrete or loculated abscess or drainable fluid collections. Pilo Gaona MD on October 26, 2016 at 17:50 Board Certified Radiologist. This report was verified electronically.
[2016-10-26] MEDS ORDERED: MORPHINE SULFATE 8 MG/ML INJ IV PUSH ONE (18:15)
[2016-10-26] MEDS ORDERED: MORPHINE SULFATE 8 MG/ML INJ ONE (18:17)
[2016-10-26] MEDS ORDERED: SODIUM BICARBONATE 8.4% INJ 154 MEQ in SODIUM CHLOR 0.9% 1000 ML INJ 846 ML IV SCH (18:49)
--- NOTE | 2016-10-26 19:00 | RADRPT ---
EXAM DATE/TIME: 10/26/2016 18:30 [facility] COMPARISON: No previous studies available for comparison. INDICATIONS : Evaluate central line placement MEDICAL HISTORY : None. SURGICAL HISTORY : Discectomy, cervical. Right elbow ENCOUNTER: Initial ACUITY: 2 days PAIN SCORE: 10/10 LOCATION: Bilateral chest FINDINGS: A single view of the chest demonstrates the lungs to be symmetrically aerated without evidence of mas s, infiltrate or effusion. The cardiomediastinal contours are unremarkable. Left central line tip in superior vena cava. Osseous structures are intact. CONCLUSION: 1. Left central line tip in superior vena cava. No active disease. Pilo Gaona MD on October 26, 2016 at 18:58 Board Certified Radiologist. This report was verified electronically.
[2016-10-26] MEDS ORDERED: GADOBENATE DIM PF 529 MG/ML 20ML VIAL (for RAD MRI) IV ONE (19:05)
[2016-10-26] MEDS ORDERED: LACTULOSE SYRUP 20 GM/30 ML CUP PO PRN (19:15)
[2016-10-26] MEDS ORDERED: MAGNESIUM HYDROXIDE SUSP 30 ML CUP PO PRN (19:15)
[2016-10-26] MEDS ORDERED: CLINDAMYCIN PED INJ PTS< 20 KG 600 MG in SYRINGE/BAG 1 EA IV SCH (19:15)
[2016-10-26] MEDS ORDERED: MISCELLANEOUS NURSING INFORMATION XX SCH (19:15)
[2016-10-26] MEDS ORDERED: SODIUM CHLORIDE 0.9% FLUSH 10 ML FLUSH IV FLUSH PRN (19:15)
[2016-10-26] MEDS ORDERED: CHLORHEXIDINE GLUCONATE 2 % 1 PACK (2 CLOTHS) TOP PRN (19:15)
[2016-10-26] MEDS ORDERED: SENNOSIDES 8.6 MG TAB PO PRN (19:15)
[2016-10-26] MEDS ORDERED: BISACODYL 10 MG SUPP RECTAL PRN (19:15)
[2016-10-26] MEDS ORDERED: SODIUM CHLOR 0.9% 1000 ML INJ 1,000 ML IV SCH (19:15)
--- NOTE | 2016-10-26 19:17 | PD ---
Physical Exam Date Seen by Provider: Oct 26, 2016 Time Seen by Provider: 18:50 Narrative 35-year-old male came into the emergency room for right leg swelling and pain. He is an IV drug abuser. Patient was seen by the previous ER physician and the case was signed out to me to follow-up on the MRI of the pelvis and right lower extremity and admission. Please refer to her history and physical regarding further details. The concern was myositis versus intramuscular abscess. The MRI report came back as extensive edema within the psoas muscle and erector spinae with the differential being myositis versus rhabdomyolysis. I have ordered a fourth liter of IV fluid bolus and IV antibiotic including Zosyn and vancomycin. Patient has been ordered total of 4 L of IV fluid bolus. He is chemistry is grossly abnormal. Mainly is in acute renal failure and elevated LFTs. Electrolytes are abnormal as well. Patient is getting IV calcium gluconate and by mouth calcium. One ampule of sodium bicarbonate IV. I discussed the case with Dr. Alclaa from nephrology. He is in agreement with the entire plan. He will consult on the patient. Right now he is recommending aggressive fluid hydration. Augustin catheter was inserted which yielded dark tea- colored urine total of less than 200 ML. Since patient was a difficult peripheral IV given his IV drug abuse history and he requires. Strips and IV hydration and IV antibiotic I decided to put a central line. Please refer to my procedure note. Patient will be admitted to the ICU. Data Data Last Documented VS Orders Complete Blood Count With Diff (10/26/16 14:04) Comprehensive Metabolic Panel (10/26/16 14:04) Lactic Acid Sepsis Protocol (10/26/16 14:04) Urinalysis - C+S If Indicated (10/26/16 14:04) Blood Culture (10/26/16 14:04) Ecg Monitoring (10/26/16 14:04) Iv Access Insert/Monitor (10/26/16 14:04) Oximetry (10/26/16 14:04) Ct Abd/Pel W/O Iv Contrast (10/26/16 14:04) Drug Screen, Random Urine (10/26/16 14:04) Ct Femur W/O Iv Contrast (10/26/16 ) Mri L Spine W&W/O Contrast (10/26/16 ) Mri Pelvis W&W/O Contrast (10/26/16 ) Vascular Access Team Consult/P PRN (10/26/16 14:08) Vascular Poc Ultrasound (10/26/16 ) Hydromorphone Pf Inj (Dilaudid Pf Inj) (10/26/16 15:45) Sodium Chlor 0.9% 1000 Ml Inj (Ns 1000 M (10/26/16 16:45) Sodium Chlor 0.9% 1000 Ml Inj (Ns 1000 M (10/26/16 16:45) Sodium Chlor 0.9% 1000 Ml Inj (Ns 1000 M (10/26/16 16:45) Creatine Kinase (Cpk) (10/26/16 17:03) Vascular Access Team Consult/P PRN (10/26/16 17:11) Vascular Poc Ultrasound (10/26/16 ) Sodium Chlor 0.9% 1000 Ml Inj (Ns 1000 M (10/26/16 18:00) Piperacil-Tazo 4.5 Gm Premix (Zosyn 4.5 (10/26/16 18:00) Vancomycin Inj (Vancomycin Inj) (10/26/16 18:00) Calcium Chloride Inj (Calcium Chloride I (10/26/16 18:00) Sodium Bicarbonate 8.4% Inj (Sodium Bica (10/26/16 18:00) Calcium Carbonate Chew (Tums Chew) (10/26/16 18:00) Morphine Inj (Morphine Inj) (10/26/16 18:15) Morphine Inj (Morphine Inj) (10/26/16 18:17) Chest, Single Ap (10/26/16 ) Notify Radiology (10/26/16 18:49) ^ Saline Lock (10/26/16 18:49) Sodium Chlor 0.9% 1... W/Sodium Bicarbon (10/26/16 18:49) Gadobenate Dimeglimine Pf Inj (Multihanc (10/26/16 19:05) Clindamycin Ped Inj Pts< 20 Kg (Cleocin (10/26/16 19:15) Admit To Inpatient (10/26/16 ) Code Status (10/26/16 19:07) Vital Signs (Adult) TESS.Q1H (10/26/16 19:07) Activity Bed Rest (10/26/16 19:07) Elevate Head Of Bed (10/26/16 19:07) Neuro Checks . ORDERED (10/26/16 19:07) Intake + Output Q1H (10/26/16 19:07) ^ CVP .CONTINUOUS (10/26/16 19:07) Sodium Chloride 0.9% Flush (Ns Flush) (10/26/16 19:15) Sodium Chloride 0.9% Flush (Ns Flush) (10/26/16 21:00) Pantoprazole Inj (Protonix Inj) (10/27/16 09:00) Ondansetron Inj (Zofran Inj) (10/26/16 19:15) Albuterol Neb (Albuterol Neb) (10/26/16 19:15) Complete Blood Count With Diff (10/27/16 04:00) Comprehensive Metabolic Panel (10/27/16 04:00) Creatine Kinase (Cpk) (10/27/16 06:00) Magnesium (Mg) (10/27/16 04:00) Phosphorus (Po4) (10/27/16 04:00) New Car Driver / Telemetry TESS.Q8H (10/26/16 19:07) Scd Bilateral/Knee High TESS.BID (10/26/16 19:07) ^ Initiate Protocol (10/26/16 19:07) Instruction (10/26/16 19:07) [facility] [place] (10/26/16 19:15) Chlorhexidine 2% Cloth (Chlorhexidine 2% (10/27/16 04:00) Chlorhexidine 2% Cloth (Chlorhexidine 2% (10/26/16 19:15) Mrsa Pcr Surveillance (10/26/16 19:07) Docusate Sodium-Senna (Zoila-Colace) (10/26/16 21:00) Magnesium Hydroxide Liq (Milk Of Magnesi (10/26/16 19:15) Sennosides (Senokot) (10/26/16 19:15) Bisacodyl Supp (Dulcolax Supp) (10/26/16 19:15) Lactulose Liq (Lactulose Liq) (10/26/16 19:15) Inpatient Certification (10/26/16 ) Sodium Chlor 0.9% 1000 Ml Inj (Ns 1000 M (10/26/16 19:15) Admit Order (Ed Use Only) (10/26/16 19:17) CKMB (10/26/16 16:20) CKMB% (10/26/16 16:20) Labs MDM Supervised Visit with BK: No Narrative Course 7:10 PM I discussed the case with Dr. Thornton from ICU who has accepted the patient. My concern at this point is compartment syndrome from the myositis and rhabdomyolysis. I put a call out for general surgery. Awaiting for general surgery to call back. I would recommend assessment for possible fasciotomy if needed near future. Meanwhile I checked his dorsalis pedis pulses with Doppler and they're bilaterally present and equal. 7:18 PM I discussed the case with Dr. Osman from general surgery will come down and see the patient. Patient has been admitted to the ICU at this point. The central line placement was confirmed by the x-ray. No pneumothorax. 8:33 PM I checked the compartment syndrome with Larry. Please refer to my procedure note. Dr. Thornton was in the room as well while this was getting done. 8:[address] Simms just called back and he thinks this has an extremely poor prognosis. He'll come down to see the patient but as per him the involvement of the MRI so extensive that he does not think it is unable to surgical debridement. Awaiting for him to come down and see the patient and talked to the mother. In the meanwhile I have asked the respiratory therapist to do a blood gas on this patient. I let him know about the compartment pressures. Patient appears to be clinically worsened even though his vital signs look stable. He seems more anxious and confused at the same time. My threshold is low to intubate this patient. Awaiting for the blood gas. Critical Care Narrative Aggregate critical care time was 85 minutes. Time to perform other separately billable procedures was not included in the critical care time. My time did not include minutes spent treating any other patients simultaneously or on activities that did not directly contribute to the patient's treatment. The services I provided to this patient were to treat and/or prevent clinically significant deterioration that could result in: Sepsis, rhabdomyolysis, acute renal failure, aggressive fluid management, abnormal electrolytes, compartment syndrome I provided critical care services requiring my management, as noted below: Chart data review, documentation time, medication orders and management, vital sign assessments/reviewing monitor data, ordering and reviewing lab tests, ordering and interpreting/reviewing x-rays and diagnostic studies, care of the patient and discussion of the patient with the admitting physicians. Procedures Procedure Narrative CENTRAL VENOUS LINE: The site was prepped with Betadine and sterilely draped. It was infiltrated with 1% lidocaine plain. The deep vein was cannulated using normal Seldinger technique. A triple lumen central line was placed in the left subclavian site and secured with simple interrupted suture. The site was sterilely dressed. The patient tolerated the procedure well. After the risks and benefits were discussed the following procedure was performed: MODERATE SEDATION: The patient was placed on a cardiac cath tech and pulse oximetry. An ambu bag and suction was immediately available at bedside. The patient was monitored by the nurse. Oxygen saturation , heart rate and blood pressure were monitored. Procedural sedation was acheived using 80 mg of IV propofol . The patient was observed until awake and alert. Procedural Sedation time in attendance was 25 minutes. Compartment syndrome pressure: This was checked by means of Larry. The following compartments were checked: Erector spinae: 13-15 mm H2O Gluteus karly: 28-31 mm H2O Hamstrings: 31 mm H2O Physician Communication Physician Communication Dr. Alcala, Dr. Thornton, Dr. Osman, Dr. Simms Diagnosis Primary Impression: Severe sepsis Additional Impressions: IV drug abuse Leukocytosis Qualified Code: D72.829 - Leukocytosis, unspecified type Myositis Qualified Code: M60.051 - Infective myositis of right thigh Lactic acidosis Acute renal failure Qualified Code: N17.9 - Acute renal failure, unspecified acute renal failure type Hyponatremia Hyperkalemia Rhabdomyolysis Qualified Code: M62.82 - Non-traumatic rhabdomyolysis Elevated LFTs Hypocalcemia Compartment syndrome Qualified Code: M79.A21 - Non-traumatic compartment syndrome of right lower extremity Shock liver Admitting Information Admitting Physician Requests: Admit Shanon Vásquez MD Oct 26, 2016 19:17 Alanine Aminotransferase 966 U/L (ALT/SGPT) Alkaline Phosphatase 123 U/L Total Creatine Kinase 666103 U/L Creatine Kinase MB 1032.4 NG/ML Creatine Kinase MB % 0.3 % Total Protein 8.4 GM/DL Albumin 3.4 GM/DL MDM Supervised Visit with BK: No Narrative Course 7:10 PM I discussed the case with Dr. Thornton from ICU who has accepted the patient. My concern at this point is compartment syndrome from the myositis and rhabdomyolysis. I put a call out for general surgery. Awaiting for general surgery to call back. I would recommend assessment for possible fasciotomy if needed near future. Meanwhile I checked his dorsalis pedis pulses with Doppler and they're bilaterally present and equal. 7:18 PM I discussed the case with Dr. Osman from general surgery will come down and see the patient. Patient has been admitted to the ICU at this point. The central line placement was confirmed by the x-ray. No pneumothorax. 8:33 PM I checked the compartment syndrome with Larry. Please refer to my procedure note. Dr. Thornton was in the room as well while this was getting done. 8:[address] Simms just called back and he thinks this has an extremely poor prognosis. He'll come down to see the patient but as per him the involvement of the MRI so extensive that he does not think it is unable to surgical debridement. Awaiting for him to come down and see the patient and talked to the mother. In the meanwhile I have asked the respiratory therapist to do a blood gas on this patient. I let him know about the compartment pressures. Patient appears to be clinically worsened even though his vital signs look stable. He seems more anxious and confused at the same time. My threshold is low to intubate this patient. Awaiting for the blood gas. Critical Care Narrative Aggregate critical care time was 85 minutes. Time to perform other separately billable procedures was not included in the critical care time. My time did not include minutes spent treating any other patients simultaneously or on activities that did not directly contribute to the patient's treatment. The services I provided to this patient were to treat and/or prevent clinically significant deterioration that could result in: Sepsis, rhabdomyolysis, acute renal failure, aggressive fluid management, abnormal electrolytes, compartment syndrome I provided critical care services requiring my management, as noted below: Chart data review, documentation time, medication orders and management, vital sign assessments/reviewing monitor data, ordering and reviewing lab tests, ordering and interpreting/reviewing x-rays and diagnostic studies, care of the patient and discussion of the patient with the admitting physicians. Procedures Procedure Narrative CENTRAL VENOUS LINE: The site was prepped with Betadine and sterilely draped. It was infiltrated with 1% lidocaine plain. The deep vein was cannulated using normal Seldinger technique. A triple lumen central line was placed in the left subclavian site and secured with simple interrupted suture. The site was sterilely dressed. The patient tolerated the procedure well. After the risks and benefits were discussed the following procedure was performed: MODERATE SEDATION: The patient was placed on a cardiac cath tech and pulse oximetry. An ambu bag and suction was immediately available at bedside. The patient was monitored by the nurse. Oxygen saturation , heart rate and blood pressure were monitored. Procedural sedation was acheived using 80 mg of IV propofol . The patient was observed until awake and alert. Procedural Sedation time in attendance was 25 minutes. Compartment syndrome pressure: This was checked by means of Larry. The following compartments were checked: Erector spinae: 13-15 mm H2O Gluteus karly: 28-31 mm H2O Hamstrings: 31 mm H2O Physician Communication Physician Communication Dr. Alcala, Dr. Thornton, Dr. Osman, Dr. Simms Diagnosis Primary Impression: Severe sepsis Additional Impressions: IV drug abuse Leukocytosis Qualified Code: D72.829 - Leukocytosis, unspecified type Myositis Qualified Code: M60.051 - Infective myositis of right thigh Lactic acidosis Acute renal failure Qualified Code: N17.9 - Acute renal failure, unspecified acute renal failure type Hyponatremia Hyperkalemia Rhabdomyolysis Qualified Code: M62.82 - Non-traumatic rhabdomyolysis Elevated LFTs Hypocalcemia Compartment syndrome Qualified Code: M79.A21 - Non-traumatic compartment syndrome of right lower extremity Shock liver Admitting Information Admitting Physician Requests: Shanon Mcallister MD Oct 26, 2016 19:17
[2016-10-26 19:46] LABS: BACTERIA, URINE FEW /hpf; BLOOD, URINE LARGE (NEG); COMMENT (UR) CATH-CULTURE IND; CULTURE IF INDICATED CATH CULTURE IND; GLUCOSE,URINE NEG (NEG); HYALINE CAST, URINE 3 /lpf (RARE); KETONE, URINE NEG (NEG); MUCUS URINE MOD /lpf (OCC); NITRITE,URINE NEG (NEG); PH, URINE 5.5 (5.0-8.5); SQUAMOUS EPITHELIAL CELL URINE 2 /hpf (0-5); URINE COLOR DARK-BROWN (YELLW/STRAW)
[2016-10-26] MEDS ORDERED: CLINDAMYCIN 600 MG/NS 100 ML IV SCH ×2 (20:00)
[2016-10-26 20:05] LABS: AMPHETAMINE, URINE POS (NEG); BARBITURATES, URINE NEG (NEG); COCAINE, URINE POS (NEG)
[2016-10-26] MEDS ORDERED: PROPOFOL 1000 MG/100 ML INJ 100 ML ONE (20:07)
[2016-10-26 20:26] LABS: CKMB 1032.4 NG/ML (0.5-3.6)
--- NOTE | 2016-10-26 20:31 | HHI.HP ---
HPI Service Critical Care Medicine Primary Care Physician Sergio Cottrell MD Admission Diagnosis sepsis, myositis, rhabdomyolysis, acute renal failure Diagnosis: Travel History International Travel<30 Days: No Contact w/Intl Traveler <30 Da: No Traveled to Known Affected Are: No History of Present Illness 35 old male with past medical history of IV drug use, chronic pain who presented to [facility] emergency department with back pain. 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 He goes to a pain clinic in [place] for suboxone. There he was prescribed 5 day course of prednisone. Pain continued to worsen and he took heroin to self medicate several times in the last week ( states injection site was upper extremity). For 2 days he has had excruciating pain and inability to ambulate. He went to [facility] yesterday and had negative XRay and was given advil. Today pain is much worse, radiates into right leg with right leg parasthesia. On exam he was noted to have firmness and swelling in right paraspinous muscles, buttocks, and hamstring. MRI was obtained. Negative for epidural abscess but there is abnormal enhancement of erector spinae, gluteus karly/medius, thigh that was felt to be related to myositis. There was no fluid collection or abscess noted. WBC is 21.2 with left shift. He has rhabdomyolysis with CPK is >300,000 with BUN 40 and creatinine 4.44. Potassium is 6.1. Transaminase elevated. Compartment pressures obtained in ED showed erector spinae 15, gluteus medius 32 mm Hgb and hamstring 31 mmHg. Orthopaedic surgery consulted. Patient denies fevers. Review of Systems Musculoskeletal: COMPLAINS OF: Joint pain, Muscle aches, Stiffness, Joint Swelling, Back pain Past Family Social History Allergies: Coded Allergies: No Known Allergies (Verified , 10/26/16) Past Medical History Seizures which were felt to be drug related and he has not been on any anticonvulsants for over 2 years Hypertension Drug addiction Past Surgical History Thoracic laminectomy ORIF right elbow Reported Medications Zubsolv one tab sublingual 3 times a day Bunavail Family History Mother denies significant family medical history Social History Smokes one Pack of cigarettes per day Is unemployed. Lives with his mom H/o IVDU including dilaudid and heroin. He has undergone drug rehab three times in the last 10 years. Most recently got out of 30 days of rehabilitation August 04. Intermittent cocaine abuse. UDS positive for cocaine Drink alcohol occasionally Physical Exam Vital Signs Vital Signs Date Time Temp Pulse Resp B/P Pulse Ox O2 Delivery O2 Flow Rate FiO2 10/26/16 17:28 16 10/26/16 17:07 96 10/26/16 13:06 97.9 96 24 146/102 96 Room Air Physical Exam GENERAL: Aggravated male laying in ED stretcher in severe pain. SKIN: Warm and dry. There is no rash or evidence of cellulitis. HEAD: Atraumatic. Normocephalic. EYES: Pupils equal and round. No conjunctival injection is present. No icterus ENT: No nasal bleeding or discharge. Mucous membranes pink and dry. NECK: Trachea midline. No JVD. CARDIOVASCULAR: Tachycardic, regular, sinus tach on the monitor.. No murmurs rubs or gallops. RESPIRATORY: Tachypneic but no accessory muscle use.. Clear to auscultation. Breath sounds equal bilaterally. GASTROINTESTINAL: Abdomen soft, non-tender, nondistended. Bowel sounds present. MUSCULOSKELETAL: There is firmness along right paraspinous muscles. Right buttock feels tense throughout most of gluteus karly.Right hamstring compartment is tense with firm mass-like area in upper hamstring. DP and NUTRITION PROFESSOR pulses are present bilaterally. Severe pain with movement of right extremity and he reports decreased sensation in right foot. He is able to plantar and dorsiflex the foot. Some active right knee flexion though he complains of excruciating pain with any movement of thigh. NEUROLOGICAL: Awake and alert. No obvious cranial nerve deficits. Motor grossly within normal limits. Normal speech. Laboratory Laboratory Tests Test 10/26/16 10/26/16 10/26/16 10/26/16 14:54 15:01 16:20 17:59 Lactic Acid Level 2.2 2.0 White Blood Count 21.2 Red Blood Count 7.37 Hemoglobin 21.1 Hematocrit 62.8 Mean Corpuscular Volume 85.2 Mean Corpuscular Hemoglobin 28.6 Mean Corpuscular Hemoglobin 33.5 Concent Red Cell Distribution Width 14.5 Platelet Count 217 Mean Platelet Volume 9.0 Neutrophils (%) (Auto) 88.8 Lymphocytes (%) (Auto) 5.9 Monocytes (%) (Auto) 5.1 Eosinophils (%) (Auto) 0.1 Basophils (%) (Auto) 0.1 Neutrophils # (Auto) 18.8 Lymphocytes # (Auto) 1.2 Monocytes # (Auto) 1.1 Eosinophils # (Auto) 0.0 Basophils # (Auto) 0.0 CBC Comment AUTO DIFF Differential Comment AUTO DIFF CONFIRMED Platelet Estimate NORMAL Platelet Morphology Comment NORMAL Sodium Level 127 Potassium Level 6.1 Chloride Level 93 Carbon Dioxide Level 19.2 Anion Gap 15 Blood Urea Nitrogen 40 Creatinine 4.44 Estimat Glomerular Filtration 15 Rate Random Glucose 116 Calcium Level 6.2 Protein Corrected Calcium 5.8 Total Bilirubin 1.5 Aspartate Amino Transf 3649 (AST/SGOT) Alanine Aminotransferase 966 (ALT/SGPT) Alkaline Phosphatase 123 Total Creatine Kinase 563938 Creatine Kinase MB 1032.4 Creatine Kinase MB % 0.3 Total Protein 8.4 Albumin 3.4 Test 10/26/16 19:28 Urine Color DARK-BROWN Urine Turbidity CLOUDY Urine pH 5.5 Urine Specific [place] 1.023 Urine Protein 100 Urine Glucose (UA) NEG Urine Ketones NEG Urine Occult Blood LARGE Urine Nitrite NEG Urine Bilirubin NEG Urine Urobilinogen LESS THAN 2.0 Urine Leukocyte Esterase NEG Urine RBC 5 Urine WBC 12 Urine Squamous Epithelial 2 Cells Urine Amorphous Sediment RARE Urine Bacteria FEW Urine Hyaline Casts 3 Urine Mucus MOD Microscopic Urinalysis Comment CATH-CULTURE IND Urine Opiates Screen POS Urine Barbiturates Screen NEG Urine Amphetamines Screen POS Urine Benzodiazepines Screen POS Urine Cocaine Screen POS Urine Cannabinoids Screen NEG Date/Time Procedure Status Source Growth 10/26/16 19:28 Urine Culture Received Urine Catheterized Urine Pending 10/26/16 15:02 Aerobic Blood Culture Received Blood Peripheral Pending 10/26/16 15:02 Anaerobic Blood Culture Received Blood Peripheral Pending Result Diagram: 10/26/16 1501 10/26/16 1620 Septic Shock Reassessment Heart: Other (tachycardic) Lungs: Clear Skin: Warm Peripheral Pulses: Bounding Right Radial Bounding Left Radial Bounding Right Popliteal Bounding Left Dorsalis Pedis Bounding Right Posterior Tibial Bounding Left Posterior Tibial Capillary Refill: Sluggish Assessment and Plan Assessment and Plan Presented to ED and discussed with Dr. Vásquez as she provided procedural sedation and obtained compartment pressures.Discussed with Dr. Simms at bedside in ISC. Patient with myositis and h/o IVDU. Concerning for infectious process, possibly due to hematogenous spread for bacteremia. Alternatively could be due to compartment syndrome after prolonged laying on leg while under influence of narcotics. Blood cultures obtained and treated empirically with vancomycin, clindamycin, zosyn. SAROJ with hyperkalemia. Medically managed hyperkalemia and discussed with anesthesia prior to transition to OR. Preop POC VBG was drawn by MOTORMAN/WOMAN and showed potassium 4.9, lactic acid 1.1, hemoglobin 16.3, pH 7.37/ PaCO2 49/PA O2 of 32/bicarbonate 28. Labs called to anesthesia when resulted. Compartment pressures elevated, fasciotomy and wound vac placed by ortho surgery. Met with patient at bedside upon return from OR. Discussed findings with Dr. Simms. Fasciotomy was performed adductor, quadriceps, gluteus karly/ medius/minimus. Intraoperative cultures obtained from abnormal tissue of gluteus medius and from bursae with abnormal lund fluid. Will remain intubated overnight. Continue to resuscitate, monitor UOP closely. I have discussed probable need for dialysis with patients Mom. Dr. Simms and I have discussed life/limb threatening nature of his condition with her in detail. NEURO: Polysubstance abuse (opiates, amphetamines, cocaine) Fentanyl for analgosedation. Propofol for sedation. RASS -2. RESP: Acute respiratory failure Tobacco abuse Will remain intubated postoperatively. PRVC TV 550 R 18 It 0.7 PEEP 5 Wean FiO2 for sat greater than 92% CXR negative CV: Hemodynamic monitoring via arterial line. GI: OG tube to low intermittent wall suction FEN/RENAL: Acute kidney injury Acute rhabdomyolysis Acute hyperkalemia Hypocalcemia Non-anionic gap metabolic acidemia Given 2 amps Bicarb. On Bicarb drip 150 MEQ @ 150 ml/hr for hyperkalemia/ rhabdo. NS @ 50/hr for total fluid rate 200/hr. Augustin in place and monitoring hourlly UOP. Initially making urine upon return from OR but UOP ultimately ceased and now will likely required dialysis. Discussed with Mom. Nephrology consulted. MSK/ID: Compartment syndrome - gluteus, hamstrings. Myositis Sepsis s/p fasciotomy quadriceps, hamstring, gluteus medius/karly/minimus with wound vac placement 10/26 Dr. Simms. Wound vacs to continuous suction per Dr. Simms. Intraoperative culture obtained from bursa and from gluteus medius. Blood culture and Urine culture obtained Empiric coverage with vancomycin, zosyn, clindamycin due to extensive myofasciitis though not clearly necrotizing on operative findings. Discussed dosing with pharmacy based on creatinine clearance. ID consulted. HEME: HGb 21 on arrival. May have hemoconcentration versus chronic polycythemia though would need to be worked up as outpatient. ENDO: Euglycemic. Low dose insulin sliding scale as indicated . PROPH: Hold on pharmacologic DVT prophylaxis at this time due to surgery. Protonix 40 mg IV daily for stress ulcer prophylaxis. ACCESS: Left subclavian central venous line placed by ED physician 10/26 #1 Radial art line placed in OR 10/26 #1 FULL CODE Patient is critically ill with life and limb threatening process and multiorgan failure that poses risk of deterioration. CCT 130 minutes exclusive of separately billable procedures. Arcelia Thornton MD Oct 26, 2016 20:30
[2016-10-26 20:56] LABS: BLOOD GAS BASE EXCESS -5.6 mmol/L (-2-2); BLOOD GAS CARBOXYHEMOGLOBIN 1.8 % (0-4); BLOOD GAS HCO3 19 mmol/L (22-26); BLOOD GAS METHEMOGLOBIN 0.7 % (0-2); BLOOD GAS O2 HGB SATURATION 93 % (90-100); BLOOD GAS OXYGEN CONTENT 22.1 Vol % (12.0-20.0); BLOOD GAS PCO2 37 mmHg (38-42); BLOOD GAS PO2 82 mmHG (61-120); BLOOD GAS TOTAL HGB 16.8 G/DL (12.0-16.0); CRITICAL VALUE NO; DRAW SITE RT RADIAL; NUMBER OF ARTERIAL PUNCTURES 1; OXYGEN DEVICE ROOM AIR; STAT YES; TEMP CORR TO 98.6; ULNAR PULSE PRESENT
[2016-10-26] MEDS: DOCUSATE SODIUM 50 MG/SENNA 8.6 MG TAB PO SCH (21:00)
[2016-10-26] MEDS: SODIUM CHLORIDE 0.9% FLUSH 10 ML FLUSH IV FLUSH SCH (21:00)
[2016-10-26] MEDS ORDERED: VANCOMYCIN IV ONE (21:45)
[2016-10-26] MEDS ORDERED: SODIUM CHLORIDE 0.9% IV ONE (21:45)
[2016-10-26] MEDS ORDERED: Vancomycin Consult Pharmacy 1 EA OTHER SCH (21:45)
[2016-10-26] MEDS ORDERED: fentaNYL CITRATE 1000 MCG/20 ML VIAL ONE (21:53)
[2016-10-26] MEDS: CLINDAMYCIN INJ 900 MG in SODIUM CHLORIDE 0.9% INJ 100 ML IV SCH (22:00)
[2016-10-26] MEDS ORDERED: ETOMIDATE 20 MG/10 ML VIAL IV PUSH ONE (22:00)
[2016-10-26] MEDS ORDERED: INSULIN HUMAN REGULAR 1,000 UNITS/10 ML VIAL IV PUSH ONE (22:00)
[2016-10-26] MEDS ORDERED: DEXTROSE 50% IN WATER 50 ML VIAL(D50) IV PUSH ONE (22:00)
[2016-10-26] MEDS: SODIUM BICARBONATE 8.4% INJ 150 MEQ in WATER STERILE FOR INJ 850 ML IV SCH (22:00)
[2016-10-26] MEDS ORDERED: ROCURONIUM INJ 50 MG/5 ML VIAL IV ONE (22:00)
[2016-10-26] MEDS ORDERED: GENTAMICIN SULFATE 80 MG/2 ML VIAL ONE (22:08)
--- NOTE | 2016-10-26 22:13 | PD.CONS ---
HPI Service Orthopedic Surgeons Consult Requested By Primary Care Physician Sergio Cottrell MD Admission Diagnosis sepsis, myositis, rhabdomyolysis, acute renal failure Diagnoses: Chief Complaint: Buttock and Thigh incapacitating pain History of Present Illness 35 year old male with 2 to3 week history of increasing debilitating pain. He was seen in [facility] and discharged. Extensive work up in [place] ER with multipole studies. MRIs of Lumbar spine and abdomen revealed extensive muscular edema. Clinical exam consistent with compartment syndrome of thigh and buttock. Past Family Social History Past Medical History IV drug use (heroine) history back surgery Reported Medications see MAR Allergies: Coded Allergies: No Known Allergies (Verified , 10/26/16) Active Ordered Medications Current Medications Medications (Trade) Dose Ordered Sig/Saida Route Start Time Stop Time Status Last Admin (Sodium Bicarbonate 8.4% Inj/NS 1000 ml Inj) 1,000 ml @ 0 mls/hr Q0M IV 10/26/16 18:49 10/26/16 21:15 (NS Flush) 2 ml UNSCH PRN IV FLUSH 10/26/16 19:15 (NS Flush) 2 ml BID IV FLUSH 10/26/16 21:00 (Protonix Inj) 40 mg DAILY IV 10/27/16 09:00 (Zofran Inj) 4 mg Q6H PRN IV 10/26/16 19:15 Miscellaneous Information 1 Q361D XX 10/26/16 19:15 (Chlorhexidine 2% Cloth) 3 pack Taper DAILY@04 TOP 10/27/16 04:00 10/23/17 03:59 (Chlorhexidine 2% Cloth) 3 pack UNSCH PRN TOP 10/26/16 19:15 (Zoila-Colace) 1 tab BID PO 10/26/16 21:00 (Milk Of Magnesia Liq) 30 ml Q12H PRN PO 10/26/16 19:15 (Senokot) 17.2 mg Q12H PRN PO 10/26/16 19:15 (Dulcolax Supp) 10 mg DAILY PRN RECTAL 10/26/16 19:15 Lactulose 30 ml 30 ml DAILY PRN PO 10/26/16 19:15 Clindamycin Phosphate 900 mg/ Sodium Chloride 106 ml @ 208 mls/hr Q8H IV 10/26/16 22:00 Piperacillin Sod/ Tazobactam Sod 50 ml @ 100 mls/hr Q6H IV 10/27/16 00:00 (Vancomycin Consult Pharmacy) 0 ml @ 0 mls/hr UNSCH OTHER 10/26/16 21:45 (Sodium Bicarbonate 8.4% Inj) 100 meq ONCE ONCE IV PUSH 10/26/16 22:00 10/26/16 22:01 (Amidate Inj) 20 mg ONCE ONCE IV PUSH 10/26/16 22:00 10/26/16 22:01 (Zemuron Inj) 50 mg BOLUS ONCE IV 10/26/16 22:00 10/26/16 22:01 (D50w (Vial) Inj) 50 ml ONCE ONCE IV PUSH 10/26/16 22:00 10/26/16 22:01 Insulin Human Regular 10 units 10 units ONCE ONCE IV PUSH 10/26/16 22:00 10/26/16 22:01 Vancomycin HCl 1000 mg/Sodium Chloride 250 ml @ 250 mls/hr ONCE ONCE IV 10/26/16 22:15 10/26/16 23:14 (Sodium Bicarbonate 8.4% Inj/Sterile Water For Inj) 1,000 ml @ 150 mls/hr Q6H40M IV 10/26/16 22:00 Reported Meds & Active Scripts Active Reported [toradol] Valium (Diazepam) 10 Mg Tab 10 Mg PO BID PRN Zubsolv 5.7-1.4 mg 1 Sub Sub 1 Tab SL TID Bunavail 6.3-1 mg (Buprenorphine HCl-Naloxone HCl) 1 Mis Mis Social History IV drug use, tobacco, alcohol and marijuana Patient's mother is at the bedside Physical Exam Vital Signs Vital Signs Date Time Temp Pulse Resp B/P Pulse Ox O2 Delivery O2 Flow Rate FiO2 10/26/16 21:16 80 20 172/103 99 10/26/16 20:10 100 4.00 10/26/16 20:05 80 20 173/103 100 Room Air 10/26/16 17:28 16 10/26/16 17:07 96 10/26/16 13:06 97.9 96 24 146/102 96 Room Air Physical Exam Tense compartments with tenderness involving right anterior thigh, posterior thigh and buttock Unable to actively move his right hip Distal motor and sensory intact distal pulses intact Laboratory Laboratory Tests Test 10/26/16 10/26/16 10/26/16 10/26/16 14:54 15:01 16:20 17:59 Lactic Acid Level 2.2 2.0 White Blood Count 21.2 Red Blood Count 7.37 Hemoglobin 21.1 Hematocrit 62.8 Mean Corpuscular Volume 85.2 Mean Corpuscular Hemoglobin 28.6 Mean Corpuscular Hemoglobin 33.5 Concent Red Cell Distribution Width 14.5 Platelet Count 217 Mean Platelet Volume 9.0 Neutrophils (%) (Auto) 88.8 Lymphocytes (%) (Auto) 5.9 Monocytes (%) (Auto) 5.1 Eosinophils (%) (Auto) 0.1 Basophils (%) (Auto) 0.1 Neutrophils # (Auto) 18.8 Lymphocytes # (Auto) 1.2 Monocytes # (Auto) 1.1 Eosinophils # (Auto) 0.0 Basophils # (Auto) 0.0 CBC Comment AUTO DIFF Differential Comment AUTO DIFF CONFIRMED Platelet Estimate NORMAL Platelet Morphology Comment NORMAL Sodium Level 127 Potassium Level 6.1 Chloride Level 93 Carbon Dioxide Level 19.2 Anion Gap 15 Blood Urea Nitrogen 40 Creatinine 4.44 Estimat Glomerular Filtration 15 Rate Random Glucose 116 Calcium Level 6.2 Protein Corrected Calcium 5.8 Total Bilirubin 1.5 Aspartate Amino Transf 3649 (AST/SGOT) Alanine Aminotransferase 966 (ALT/SGPT) Alkaline Phosphatase 123 Total Creatine Kinase 266796 Creatine Kinase MB 1032.4 Creatine Kinase MB % 0.3 Total Protein 8.4 Albumin 3.4 Test 10/26/16 10/26/16 19:28 20:50 Urine Color DARK-BROWN Urine Turbidity CLOUDY Urine pH 5.5 Urine Specific [place] 1.023 Urine Protein 100 Urine Glucose (UA) NEG Urine Ketones NEG Urine Occult Blood LARGE Urine Nitrite NEG Urine Bilirubin NEG Urine Urobilinogen LESS THAN 2.0 Urine Leukocyte Esterase NEG Urine RBC 5 Urine WBC 12 Urine Squamous Epithelial 2 Cells Urine Amorphous Sediment RARE Urine Bacteria FEW Urine Hyaline Casts 3 Urine Mucus MOD Microscopic Urinalysis Comment CATH-CULTURE IND Urine Opiates Screen POS Urine Barbiturates Screen NEG Urine Amphetamines Screen POS Urine Benzodiazepines Screen POS Urine Cocaine Screen POS Urine Cannabinoids Screen NEG Blood Gas Puncture Site RT RADIAL Blood Gas Patient Temperature 98.6 Blood Gas HCO3 19 Blood Gas Base Excess -5.6 Blood Gas Oxygen Saturation 93 Arterial Blood pH 7.34 Arterial Blood Partial 37 Pressure CO2 Arterial Blood Partial 82 Pressure O2 Arterial Blood Oxygen Content 22.1 Arterial Blood 1.8 Carboxyhemoglobin Arterial Blood Methemoglobin 0.7 Blood Gas Hemoglobin 16.8 Oxygen Delivery Device ROOM AIR Date/Time Procedure Status Source Growth 10/26/16 19:28 Urine Culture Received Urine Catheterized Urine Pending 10/26/16 15:02 Aerobic Blood Culture Received Blood Peripheral Pending 10/26/16 15:02 Anaerobic Blood Culture Received Blood Peripheral Pending Result Diagram: 10/26/16 1501 10/26/16 1620 Assessment & Plan Problem List: (1) Compartment syndrome (2) Myositis (3) IV drug abuse (4) Lactic acidosis (5) Severe sepsis (6) Hyperkalemia (7) Hypocalcemia (8) Hyponatremia (9) Rhabdomyolysis (10) Elevated LFTs (11) Leukocytosis (12) Acute renal failure Assessment and Plan The patient is in critical life threatening condition. Compartment release may improve his survival, but ultimately unclear. Risks and benefits and options were thoroughly discussed among physicians and the patient The decision is to attempt compartment release. We discussed the low possibility of amputation. Informed consent was obtained. Joe Simms MD Oct 26, 2016 22:13
[2016-10-26] MEDS ORDERED: VANCOMYCIN 1,000 MG/NS 250 ML IV ONE ×2 (22:15)
[2016-10-26 22:48] LABS: BLOOD GAS BASE EXCESS -3.9 mmol/L (-2-2); BLOOD GAS CARBOXYHEMOGLOBIN 2.1 % (0-4); BLOOD GAS HCO3 21 mmol/L (22-26); BLOOD GAS METHEMOGLOBIN 1.2 % (0-2); BLOOD GAS O2 HGB SATURATION 96 % (90-100); BLOOD GAS OXYGEN CONTENT 21.4 Vol % (12.0-20.0); BLOOD GAS PCO2 42 mmHg (38-42); BLOOD GAS PO2 193 mmHg (61-120); BLOOD GAS TOTAL HGB 15.7 G/DL (12.0-16.0); CRITICAL VALUE NO; TEMP CORR TO 98.6
[2016-10-26 22:49] LABS: OXYGEN DEVICE OR SETTING; STAT YES
[2016-10-27] VITALS (19 sets, daily range): BP systolic 106–161; BP diastolic 56–101; PULSE 68–78; RESP 18; TEMP 97.9–98.9; O2SAT 100
[2016-10-27 00:33] LABS: BLOOD GAS BASE EXCESS -5.1 mmol/L (-2-2); BLOOD GAS CARBOXYHEMOGLOBIN 1.1 % (0-4); BLOOD GAS HCO3 19 mmol/L (22-26); BLOOD GAS METHEMOGLOBIN 0.7 % (0-2); BLOOD GAS O2 HGB SATURATION 98 % (90-100); BLOOD GAS OXYGEN CONTENT 21.8 Vol % (12.0-20.0); BLOOD GAS PCO2 35 mmHg (38-42); BLOOD GAS PO2 384 mmHG (61-120); BLOOD GAS TOTAL HGB 15.2 G/DL (12.0-16.0); CRITICAL VALUE NO; DRAW SITE ALINE; FIO2 100 %; OXYGEN DEVICE VENTILATOR; STAT NO; TEMP CORR TO 98.6; ULNAR PULSE PRESENT; VENT SETTINGS PRVC18/550/0.7/+5
[2016-10-27] MEDS: fentaNYL DRIP 250 ML IV SCH ×3 (00:35→21:44)
[2016-10-27] MEDS: PROPOFOL 1000 MG/100 ML INJ 100 ML IV SCH ×9 (00:35→23:37)
[2016-10-27 01:23] LABS: HEMATOCRIT 43.9 % (39.0-51.0); MEAN CELL VOLUME 83.7 FL (80.0-100.0); MEAN CORPUSCULAR HEMOGLOBIN 28.8 PG (27.0-34.0); MEAN CORPUSCULAR HGB CONC 34.4 % (32.0-36.0); PLATELET COUNT 177 TH/MM3 (150-450); RED BLOOD COUNT 5.25 MIL/MM3 (4.50-5.90); RED CELL DISTRIBUTION WIDTH 13.9 % (11.6-17.2); REVIEW FLAG FINAL; WHITE BLOOD COUNT 15.9 TH/MM3 (4.0-11.0)
[2016-10-27 01:36] LABS: APTT (PATIENT) 33.3 SEC (24.3-30.1); INTERNATIONAL NORMALIZED RATIO 1.1 RATIO; PROTHROMBIN TIME - PATIENT 12.6 SEC (9.8-11.6)
[2016-10-27 01:59] LABS: BICARBONATE 23.7 MEQ/L (21.0-32.0)
[2016-10-27 02:17] LABS: CALCIUM-PROTEIN CORRECTED 7.5 MG/DL (8.5-10.1)
[2016-10-27] MEDS: SODIUM CHLOR 0.9% 1000 ML INJ 1,000 ML IV SCH ×2 (03:30→21:45)
[2016-10-27] MEDS: CHLORHEXIDINE GLUCONATE 2 % 1 PACK (2 CLOTHS) TOP SCH (03:33)
[2016-10-27 04:05] LABS: AUTOMATED NEUTROPHIL # 11.3 TH/MM3 (1.8-7.7); BASOPHIL % 0.2 % (0.0-2.0); EOSINOPHIL % 0.1 % (0.0-4.0); HEMATOCRIT 42.3 % (39.0-51.0); HEMO FLAGS DIFF FINAL; LYMPH % 13.5 % (9.0-44.0); MEAN CELL VOLUME 83.3 FL (80.0-100.0); MEAN CORPUSCULAR HEMOGLOBIN 28.5 PG (27.0-34.0); MEAN CORPUSCULAR HGB CONC 34.2 % (32.0-36.0); MONO % 8.2 % (0.0-8.0); PLATELET COUNT 170 TH/MM3 (150-450); RED BLOOD COUNT 5.07 MIL/MM3 (4.50-5.90); RED CELL DISTRIBUTION WIDTH 14.2 % (11.6-17.2); WHITE BLOOD COUNT 14.5 TH/MM3 (4.0-11.0)
[2016-10-27] MEDS: SODIUM BICARBONATE 8.4% INJ 150 MEQ in WATER STERILE FOR INJ 850 ML IV SCH ×4 (04:29→19:42)
[2016-10-27] MEDS ORDERED: SODIUM CHLOR 0.9% 1000 ML INJ 1,000 ML IV ONE (04:30)
[2016-10-27] MEDS ORDERED: MIDAZOLAM HCL 5 MG/ML VIAL (1 ML) ONE (05:03)
[2016-10-27] MEDS ORDERED: MIDAZOLAM HCL 2 MG/2 ML VIAL IV PUSH ONE (05:15)
[2016-10-27] MEDS ORDERED: MIDAZOLAM HCL 2 MG/2 ML VIAL IV PUSH PRN (05:15)
[2016-10-27 05:30] LABS: BICARBONATE 21.7 MEQ/L (21.0-32.0); CALCIUM-PROTEIN CORRECTED 7.5 MG/DL (8.5-10.1); MAGNESIUM 1.9 MG/DL (1.5-2.5); POTASSIUM 4.9 MEQ/L (3.5-5.1); TOTAL BILIRUBIN ADULT 0.8 MG/DL (0.2-1.0)
[2016-10-27] MEDS: PIPERACIL-TAZO 2.25 GM PREMIX 50 ML IV SCH ×5 (05:53→23:37)
[2016-10-27] MEDS: CLINDAMYCIN INJ 900 MG in SODIUM CHLORIDE 0.9% INJ 100 ML IV SCH ×3 (05:53→21:46)
--- NOTE | 2016-10-27 07:44 | PD.ORT.PN ---
Subjective Subjective Remarks Intubated/sedated Pt's mother at bedside Objective Vitals Vital Signs Date Time Temp Pulse Resp B/P Pulse Ox O2 Delivery O2 Flow Rate FiO2 10/27/16 06:00 70 10/27/16 04:00 74 10/27/16 04:00 100 10/27/16 04:00 98.4 75 18 115/75 100 10/27/16 03:18 100 100 10/27/16 02:00 75 10/27/16 00:05 100 100 10/27/16 00:00 100 10/27/16 00:00 75 10/27/16 00:00 97.9 78 18 161/101 100 10/26/16 22:15 74 13 177/96 100 10/26/16 22:00 Room Air 10/26/16 22:00 88 10/26/16 21:16 80 20 172/103 99 10/26/16 20:10 100 4.00 10/26/16 20:05 80 20 173/103 100 Room Air 10/26/16 17:28 16 10/26/16 17:07 96 10/26/16 13:06 97.9 96 24 146/102 96 Room Air I/O 10/26/16 10/26/16 10/26/16 10/27/16 10/27/16 10/27/16 07:00 15:00 23:00 07:00 15:00 23:00 Intake Total 2869 ml Output Total 1100 ml Balance 1769 ml Intake IV Total 2869 ml Output Urine Total 400 ml Drainage Total 700 ml # Bowel Movements 0 Result Diagram: 10/27/16 0351 10/27/16 0351 Other Results Laboratory Tests Test 10/27/16 01:00 Prothrombin Time 12.6 SEC (9.8-11.6) Prothromb Time International 1.1 RATIO Ratio Imaging Last 24 hours Impressions Abdomen/Pelvis CT 10/26/16 1404 Signed Impressions: Service Date/Time: Wednesday, October 26, 2016 14:23 - CONCLUSION: 1. No acute findings in abdomen and pelvic CT. Trace pericardial fluid. Pilo Gaona MD Objective Remarks Intubated Right thigh soft to palpation throughout All 3 wound VAC sites intact Distal compartments soft 2+ pulses Assessment & Plan Ortho Post Op Day #: 1 (Right Thigh Irrigation/Debridement and Compartment Releases) Problem List: (1) Compartment syndrome (2) Myositis (3) IV drug abuse (4) Lactic acidosis (5) Severe sepsis (6) Hyperkalemia (7) Hypocalcemia (8) Hyponatremia (9) Rhabdomyolysis (10) Elevated LFTs (11) Leukocytosis (12) Acute renal failure Assessment and Plan Discussed with rv detailer Continue wound VACs Intensive management Monitor Discussed with patient's mother Joe iSmms MD Oct 27, 2016 07:44
[2016-10-27] MEDS: DOCUSATE SODIUM 50 MG/SENNA 8.6 MG TAB PO SCH ×2 (08:10→19:44)
[2016-10-27] MEDS: PANTOPRAZOLE SODIUM 40 MG VIAL IV SCH (08:10)
[2016-10-27] MEDS: CHLORHEXIDINE 0.12% (ORAL KIT) 15 ML CUP MT SCH ×2 (08:10→19:44)
[2016-10-27] MEDS: SODIUM CHLORIDE 0.9% FLUSH 10 ML FLUSH IV FLUSH SCH ×2 (08:10→19:44)
[2016-10-27 08:23] LABS: CKMB 459.8 NG/ML (0.5-3.6)
[2016-10-27] MEDS: MIDAZOLAM 100 MG/NS 100 ML DRIP Premix IV SCH (08:34)
--- NOTE | 2016-10-27 09:18 | MB ---
cc: CASSIDY JACKMAN MD DATE OF CONSULTATION: 10/26/2016 REASON FOR CONSULTATION Acute renal failure management. HISTORY OF PRESENT ILLNESS This is a 35-year-old male with a history of IV drug use and cocaine use. The patient apparently was using cocaine as well as fentanyl and possibly heroin at a friend's house yesterday. He apparently passed out for some unknown duration and woke up. He presented to the emergency room earlier today with right leg swelling and pain. The patient was evaluated in the ER, was found to have findings of compartment syndrome and MRI imaging done. The patient is now being planned for emergent surgery with possible fasciotomy for compartment syndrome in the right leg. The patient has presented with significant renal failure. His previous creatinine was 0.8 in May of this year. He presented with a creatinine of 4.4. He also has a CK level of 328,402 with apparent rhabdomyolysis secondary to cocaine. At this point the patient is complaining of ongoing leg pains. He is in ongoing agony and distress and he is being prepared for surgery. He has maintained some minimal urine output and has been on aggressive fluids since his arrival in the ER earlier today. His electrolytes are concerning for hyperkalemia with potassium of 6.1 and acidosis with bicarbonate of 19.2. At this point he is being resuscitated with aggressive IV fluids. Nephrology was consulted for further evaluation. REVIEW OF SYSTEMS The patient reports having ongoing lower extremity pain at the right leg which he reports is excruciating. The patient denies any chest pains or shortness of breath. However, did use cocaine and had been passed out for at least several hours yesterday. The patient reports some nausea with decreased p.o. intake. No diarrhea. No constipation. No dysuria, although has Augustin in place. Otherwise review of systems negative. PAST MEDICAL HISTORY Includes: 1. Seizure disorder. 2. IV drug abuse. 3. Back pains with laminectomy in the past. SOCIAL HISTORY Positive for cocaine use and alcohol, tobacco, drug use. FAMILY HISTORY Noncontributory. MEDICATIONS AT HOME Unknown. PHYSICAL EXAMINATION VITAL SIGNS: At time of evaluation temperature 97.9, pulse 80, respiratory rate 20, blood pressure 172/103 with pulse ox 99% on 4 liters nasal cannula. GENERAL: Awake, in ongoing distress due to leg pains. HEENT/NECK: Soft, supple. CARDIAC: Tachycardia. PULMONARY: Mild crackles, decreased breath sounds at bases. ABDOMEN: Soft, nontender, nondistended. EXTREMITIES: No edema. However, the patient does have tightness of the right lower extremity consistent with findings of compartment syndrome. LABORATORY FINDINGS Sodium 127, potassium 6.1, chloride 93, bicarb 19.2, BUN 40, creatinine 4.44, glucose 116, calcium corrected is 5.8, AST 3649, ALT 966, alk phos 123. CK is 328,000, albumin 3.4. ASSESSMENT/PLAN 1. Acute kidney injury. The patient had a previous creatinine of 0.8 in May of this year. He has presented with a creatinine of 4.4. He has acute kidney injury secondary to rhabdomyolysis which is apparently due to recent cocaine use. At this point continue with aggressive IV fluids. The patient has been started with bicarbonate at 150 ccs per hour. He is making some dark urine output, it is unclear if this will improve with hydration however, he is likely to advance to some significant ATN. At this point continue with aggressive fluid repletion. The patient is planning to go to the OR emergently for fasciotomy. I discussed this with the ICU team and will continue further medical management at this point. Should he become anuric overnight with worsening management of potassium he will likely need urgent dialysis initiation. However, at this point try to temporize the patient and advance with surgery with IV fluids and continue aggressive fluids and follow up creatinine kinase levels. This was discussed with the patient and his family and he is agreeable to dialysis as necessary. 2. Hyperkalemia. The patient with potassium 6.1, repeat levels will be ordered. Continue with medical management and bicarbonate drip has been ordered as well. 3. Acidosis. The patient had a bicarbonate of 19, this is secondary to renal failure. Continue with bicarbonate drip. May need dialysis if little improvement. 4. Compartment syndrome. The patient is being evaluated with orthopedics. He had a previous MRI imaging which showed findings of myositis versus rhabdomyolysis. He is going for an apparent fasciotomy, continue follow up with orthopedics and continue to be closely monitored. 5. Cocaine use. Encouraged cessation. The patient has used cocaine as well as apparent Fentanyl just yesterday and possible heroin as well. 6. Increased LFTs, likely secondary to shock with drug abuse. Continue to monitor. 7. Hyponatremia. The patient with a sodium of 127, this is secondary to volume with renal failure. Continue with IV fluids at this point and continue to monitor closely. MD LATRICE Quijano/GREER /9:58 PM /8:58 AM MTDJean Pierre
[2016-10-27] MEDS ORDERED: HEPARIN SODIUM - IV 10,000 UNITS/10 ML VIAL ONE (10:43)
--- NOTE | 2016-10-27 11:54 | RADRPT ---
EXAM DATE/TIME: 10/27/2016 11:06 [facility] COMPARISON: CHEST SINGLE AP, October 26, 2016, 18:30. INDICATIONS : Central line placement. MEDICAL HISTORY : IV drug use. SURGICAL HISTORY : Discectomy, cervical. Right elbow surgery. ENCOUNTER: Initial ACUITY: 1 day PAIN SCORE: Non-responsive. LOCATION: chest FINDINGS: A single view of the chest demonstrates the lungs to be symmetrically aerated without evidence of mas s, infiltrate or effusion. Support apparatus including central lines in good position. There is no pneumothorax. The cardiomediastinal contours are unremarkable. Osseous structures are intact. CONCLUSION: Lines in good position without pneumothorax. Darrin Whitney MD FACR on October 27, 2016 at 11:50 Board Certified Radiologist. This report was verified electronically.
--- NOTE | 2016-10-27 12:51 | HHI.NPPN ---
Subjective History of Present Illness Hx of ARF with Rhabdomyolysis, Fasciotomy Objective Data Data 10/26/16 10/27/16 19:00 07:00 Intake Total 2869 ml Output Total 1100 ml Balance 1769 ml Intake IV Total 2869 ml Output Urine Total 400 ml Drainage Total 700 ml # Bowel Movements 0 Vital Signs Date Time Temp Pulse Resp B/P Pulse Ox O2 Delivery O2 Flow Rate FiO2 10/27/16 12:00 75 10/27/16 12:00 100 10/27/16 12:00 98.3 75 18 113/74 100 10/27/16 11:15 100 100 10/27/16 10:00 70 10/27/16 08:00 98.2 70 18 115/64 100 10/27/16 08:00 100 10/27/16 08:00 70 10/27/16 07:43 100 100 10/27/16 07:00 100 Mechanical Ventilator 100 10/27/16 06:00 70 10/27/16 04:00 74 10/27/16 04:00 100 10/27/16 04:00 98.4 75 18 115/75 100 10/27/16 03:18 100 100 10/27/16 02:00 75 10/27/16 00:05 100 100 10/27/16 00:00 100 10/27/16 00:00 75 10/27/16 00:00 97.9 78 18 161/101 100 10/26/16 22:15 74 13 177/96 100 10/26/16 22:00 Room Air 10/26/16 22:00 88 10/26/16 21:16 80 20 172/103 99 10/26/16 20:10 100 4.00 10/26/16 20:10 100 Nasal Cannula 4.00 10/26/16 20:05 80 20 173/103 100 Room Air 10/26/16 17:28 16 10/26/16 17:07 96 10/26/16 13:06 97.9 96 24 146/102 96 Room Air -: 10/27/16 0351 10/27/16 0351 Microbiology 10/26/16 Aerobic Blood Culture - Preliminary, Resulted NO GROWTH IN 1 DAY 10/26/16 Anaerobic Blood Culture - Preliminary, Resulted NO GROWTH IN 1 DAY 10/26/16 Aerobic Blood Culture - Preliminary, Resulted NO GROWTH IN 1 DAY 10/26/16 Anaerobic Blood Culture - Preliminary, Resulted NO GROWTH IN 1 DAY 10/26/16 Urine Culture, Received Pending 10/26/16 Gram Stain - Final, Resulted 10/26/16 Wound Culture, Resulted Pending 10/26/16 Acid Fast Stain, Received Pending 10/26/16 Mycobacterial Culture, Received Pending 10/26/16 Fungal Smear - Final, Resulted NO FUNGAL ELEMENTS SEEN. 10/26/16 Fungal Culture, Resulted Pending 10/26/16 Gram Stain - Final, Resulted 10/26/16 Wound Culture, Resulted Pending 10/26/16 Fungal Smear - Final, Resulted NO FUNGAL ELEMENTS SEEN. 10/26/16 Fungal Culture, Resulted Pending 10/26/16 Acid Fast Stain, Received Pending 10/26/16 Mycobacterial Culture, Received Pending Physical Exam General Appearance: Well Developed Neck Neck Exam: Neck Supple Pulmonary Resp Exam: Clear Bilaterally Cardiology CV Exam: Regular, Normal Sinus Rhythm Gastrointestinal/Abdomen GI Exam: Soft, Non-Tender, Bowel Sounds Present Extremeties Extremities Exam: Trace Edema (Fasciotomy rt leg) Assessment/Plan Problem List: (1) Acute renal failure Plan: Patient is admitted and in severe ARF, getting worse, Hyperkalemia which resolved with medical treatment now requiring Hemodialysis, seen during treatment [facility] [place], UF 2 L tolerating it well continue supportive care next HD in am (2) Compartment syndrome Plan: s/p Fasciotomy (3) Hyperkalemia Plan: resolved (4) Rhabdomyolysis Plan: follow CPK (5) Severe sepsis Plan: follow BC/wound culture Problem Qualifiers (1) Acute renal failure: Qualified Code: N17.9 - Acute renal failure, unspecified acute renal failure type (2) Compartment syndrome: Qualified Code: M79.A21 - Non-traumatic compartment syndrome of right lower extremity (3) Rhabdomyolysis: Qualified Code: M62.82 - Non-traumatic rhabdomyolysis Gonzalo Navarrete MD Oct 27, 2016 12:51
[2016-10-27] MEDS ORDERED: SODIUM CHLOR 0.9% 1000 ML INJ 1,000 ML IV PRN ×3 (12:53)
[2016-10-27] MEDS ORDERED: ONDANSETRON HCL 4 MG/2 ML VIAL IV PRN (13:00)
[2016-10-27] MEDS ORDERED: SODIUM CHLORIDE 0.9% FLUSH 10 ML FLUSH IV FLUSH PRN (13:00)
[2016-10-27] MEDS ORDERED: NITROGLYCERIN 0.4 MG SL 25 TABS/BTL SL PRN (13:00)
[2016-10-27] MEDS ORDERED: ACETAMINOPHEN 325 MG TAB PO PRN (13:00)
[2016-10-27] MEDS ORDERED: ALBUMIN HUMAN 25% 25 GM/100 ML BAGP IV PRN (13:00)
[2016-10-27] MEDS ORDERED: GELATIN 12 MM/7 MM FOAM TOP PRN (13:00)
[2016-10-27] MEDS ORDERED: diphenhydrAMINE HCL 25 MG CAP PO PRN (13:00)
[2016-10-27] MEDS ORDERED: HEPARIN SODIUM - IV 10,000 UNITS/10 ML VIAL IVF PRN (13:00)
[2016-10-27] MEDS ORDERED: MANNITOL 12.5 GM/50 ML VIAL IV PRN (13:00)
--- NOTE | 2016-10-27 14:00 | MP ---
cc: MARGARITA MONTIEL M.D. DATE OF SURGERY: 10/26/2016 PREOPERATIVE DIAGNOSIS Right anterior compartment, posterior compartment, adductor compartment thigh and buttocks compartment syndrome and myositis. POSTOPERATIVE DIAGNOSIS Right anterior compartment, posterior compartment, adductor compartment thigh and buttocks compartment syndrome, infectious trochanteric bursitis and myositis , cultures pending. PROCEDURE Surgical release of anterior thigh compartment, posterior thigh compartment, adductor thigh compartment and gluteus karly, medius and minimus buttocks compartment with trochanteric bursectomy and muscular debridement of gluteus medius obtaining cultures and placement of vacuum-assisted closure device. ANESTHESIA General. SURGEON Margarita Montiel MD CLOTH COVERED HELMET PULLER SURGEON Staff. ESTIMATED BLOOD LOSS 300 cc. SPECIMEN Tissue culture from the trochanteric bursa right hip and intramuscular culture from the gluteus medius. COMPLICATIONS None known. INDICATIONS Sergio Craig is a 35-year-old IV drug user who has had increasing pain in his right thigh, buttocks and low back over the last several weeks. This became critical where he was unable to weight bear. He had apparently already been seen at another hospital at some point and discharged. When he got to the point where he could not walk his mother brought him to [facility] [place]. Extensive work-up with multiple imaging studies including CT scans and including MRI scans as well as laboratory work revealed multiple abnormalities including markedly elevated white count and very poor renal function. MRI scan showed significant intramuscular edema around the right hip primarily involving all the muscles, the anterior compartment, the abductor compartment, the flexors, hamstrings and adductors. He also had a separate area of intramuscular edema in the right side of his spine and also had some edema into the adductor muscles of his left hip. He did have compartment pressure measurement in the emergency room with the highest compartment reading of 32. On clinical examination compartments throughout his anterior thigh, posterior thigh and buttocks region and are extremely tense and the patient is in severe pain and cannot actively move his hip. He does not have significant swelling on the medial aspect of the left thigh. He does not have lower leg involvement. His distal pulses are intact. His distal motor and sensory exam are intact. The patient's condition clinically is most consistent with an infectious process, myositis. We thoroughly discussed the option of medical treatment only versus surgical release of the compartments, a full discussion with the cognos bi developer, the patient and the patient's mother. We thoroughly reviewed are options and believed that the best thing was to proceed with surgical intervention understanding that this is a life and limb threatening condition and that depending on the findings intraoperatively that he may even require a hip disarticulation. There is such a large unknown with this particularly, if this is a bacterial infection, if the antibiotics are already starting to kill and will never be able to culture out, or is it one that will be very difficult to manage with the antibiotics. The plan going into surgery would be to leave him intubated in the ICU to maximize the ability to render care. Also with the plan is to use vacuum-assisted closure device and this can be used until the wounds are closed or there could be separate closure of the wounds if we have good clinical response to this treatment. A detailed informed consent was obtained. DETAILS OF PROCEDURE The patient is brought to the operating room intubated, turned into a lateral decubitus position with a beanbag and axillary roll in place. The anesthesiologist placed an arterial line in the left arm while we were prepping the right thigh, buttocks and right lower extremity. We proceeded with our timeout. The patient was already initiated on IV antibiotics. We made a long lateral incision and took this to the subcutaneous tissue obtaining hemostasis with the use of electrocautery down to the fascial layer and split the fascia and the fascia split by 4-5 cm taking pressure off the muscle. All these muscles that could be visualized appeared red. There was some mild brown discoloration of the bursal tissue directly on the corner of the hip and this had some fluid within it. It did not look particularly purulent but just clear very slightly tanned/brown coloration. We used a rongeur to debride this and send this for tissue culture. Debridement and bursectomy was preformed. We split the fascia all the way up into the gluteus karly musculature and spread the musculature. With this opened up we were able to hand dissect and palpate the entire quadriceps muscle and we released the fascia centrally and the quadriceps felt soft. We palpated proximally and performed a fascial release of the gluteus medius and this muscle had some darker red discoloration possibly representing some necrosis of the muscle. We debrided straight through this muscle down to the gluteus minimus and penetrated this with my finger and released and then gently debrided essentially with a rongeur. There was some serous fluid and this was cultured for routine culture. He still had tightness directly over the hamstring and a separate 12 cm incision was made. This was taken down to the fascial layer with meticulous hemostasis. The fascia was split superiorly and inferiorly and was released and the quality of the muscle looked good. We still had increased tension in the adductor muscles on the medial thigh and again a separate incision was made here and the adductors released and the fascia spread and the muscle belly looked appropriately colored red. We had good hemostasis throughout. We cut our vacuum-assisted sponges throughout and proceeded to apply the -Drape and we used two connectors and one VAC machine and placed this to continuous suction at -125 mm. The patient was maintained intubated, turned supine and returned to the intensive care unit intubated as was planned with sign-off to Dr. Thornton the cognos bi developer. MD MARY Rodriguez/EULA /11:34 PM /1:41 PM MARIANGEL
--- NOTE | 2016-10-27 14:22 | HHI.CCPN ---
Subjective Remarks/Hospital Course 10/26: 35 old male with past medical history of IV drug use, chronic pain who presented to [facility] emergency department with back pain. 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 He goes to a pain clinic in [place] for suboxone. There he was prescribed 5 day course of prednisone. Pain continued to worsen and he took heroin to self medicate several times in the last week (states injection site was upper extremity). For 2 days he has had excruciating pain and inability to ambulate. He went to [facility] yesterday and had negative XRay and was given advil. Today pain is much worse, radiates into right leg with right leg parasthesia. On exam he was noted to have firmness and swelling in right paraspinous muscles, buttocks, and hamstring. MRI was obtained. Negative for epidural abscess but there is abnormal enhancement of erector spinae, gluteus karly/medius, thigh that was felt to be related to myositis. There was no fluid collection or abscess noted. WBC is 21.2 with left shift. He has rhabdomyolysis with CPK is >300,000 with BUN 40 and creatinine 4.44. Potassium is 6.1. Transaminase elevated. Compartment pressures obtained in ED showed erector spinae 15, gluteus medius 32 mm Hgb and hamstring 31 mmHg. Orthopaedic surgery consulted. Patient denies fevers. 10/27: Patient underwent fasciotomy for compartment syndrome by Dr. Betancourt on 10/26 and was postoperatively transferred to ICU kept intubated and sedated on mechanical ventilation. He remained anuric overnight. I placed a right IJ Vas- Cath and patient was started on hemodialysis. Remains sedated, orally intubated on mechanical ventilation. Objective Vital Signs Date Time Temp Pulse Resp B/P Pulse Ox O2 Delivery O2 Flow Rate FiO2 10/27/16 14:00 74 10/27/16 12:00 100 10/27/16 12:00 98.3 18 113/74 100 10/27/16 07:00 Mechanical Ventilator 10/26/16 20:10 4.00 Result Diagram: 10/27/16 0351 10/27/16 0351 Other Results Laboratory Tests Test 10/26/16 10/26/16 10/27/16 20:50 22:32 00:20 Blood Gas Puncture Site RT RADIAL DIAMOND Blood Gas Patient Temperature 98.6 98.6 98.6 Blood Gas HCO3 19 mmol/L 21 mmol/L 19 mmol/L (22-26) (22-26) (22-26) Blood Gas Base Excess -5.6 mmol/L -3.9 mmol/L -5.1 mmol/L (-2-2) (-2-2) (-2-2) Blood Gas Oxygen Saturation 93 % (90-100) 96 % (90-100) 98 % (90-100) Arterial Blood pH 7.34 7.33 7.36 (7.380-7.420) (7.380-7.420) (7.380-7.420) Arterial Blood Partial 37 mmHg (38-42) 42 mmHg (38-42) 35 mmHg (38-42) Pressure CO2 Arterial Blood Partial 82 mmHG 193 mmHg 384 mmHG Pressure O2 (61-120) (61-120) (61-120) Arterial Blood Oxygen Content 22.1 Vol % 21.4 Vol % 21.8 Vol % (12.0-20.0) (12.0-20.0) (12.0-20.0) Arterial Blood 1.8 % (0-4) 2.1 % (0-4) 1.1 % (0-4) Carboxyhemoglobin Arterial Blood Methemoglobin 0.7 % (0-2) 1.2 % (0-2) 0.7 % (0-2) Blood Gas Hemoglobin 16.8 G/DL 15.7 G/DL 15.2 G/DL (12.0-16.0) (12.0-16.0) (12.0-16.0) Oxygen Delivery Device ROOM AIR OR SETTING VENTILATOR Blood Gas Ventilator Setting PRVC18/550/0.7/+5 Blood Gas Inspired Oxygen 100 % Imaging Last Impressions Chest X-Ray 10/27/16 1059 Signed Impressions: Service Date/Time: Thursday, October 27, 2016 11:06 - CONCLUSION: Lines in good position without pneumothorax. Darrin Whitney MD FACR Abdomen/Pelvis CT 10/26/16 1404 Signed Impressions: Service Date/Time: Wednesday, October 26, 2016 14:23 - CONCLUSION: 1. No acute findings in abdomen and pelvic CT. Trace pericardial fluid. Pilo Gaona MD Pelvis MRI 10/26/16 Signed Impressions: Service Date/Time: Wednesday, October 26, 2016 15:55 - CONCLUSION: 1. Extensive abnormal edema, swelling and enhancement of the right sided pelvic musculature as above, also involving the lower right erector spinae and deep medial left pelvic musculature. Primary differential diagnosis is rhabdomyolysis and diffuse myositis. No discrete or loculated abscess or drainable fluid collections. Pilo Gaona MD Lumbar Spine MRI 10/26/16 Signed Impressions: Service Date/Time: Wednesday, October 26, 2016 15:55 - CONCLUSION: 1. Negative for epidural abscess within the lumbar spinal canal. 2. Abnormal edema and enhancement of the right erector spinae musculature especially around the L3 and L4 level characteristic of a myositis or cellulitis with minimal superficial fluid collection. 3. Broad-based right paracentral and right lateral disc protrusion at L3-4 with encroachment on the right lateral recess and right neural foramen. Pilo Gaona MD Lower Extremity CT 10/26/16 Signed Impressions: Service Date/Time: Wednesday, October 26, 2016 14:23 - CONCLUSION: 1. No acute bony abnormality. Muscular edema and edematous changes within the fat especially between the muscle fascicles. Differential diagnosis includes cellulitis and myositis. Pilo Gaona MD Objective Remarks HEENT/ Neuro: Sedated, orally intubated, no pallor, no icterus, tongue/ mucosa moist Neck: No JVD Chest/Pulm: on mech vent, good air entry bilaterally, no wheezing or crackles CVS: S1-S2 regular, no murmur GI/abdomen: soft, nontender, bowel sounds sluggish Extremities: warm bilaterally, no edema. Wound VAC over fasciotomy sites over right thigh anteriorly and posteriorly as well as medially A/P Assessment and Plan 35-year-old male with myositis/fasciitis involving right upper extremity/right erector spinae with compartment syndrome status post fasciotomy, acute renal failure secondary to rhabdomyolysis NEURO: Polysubstance abuse (opiates, amphetamines, cocaine) Fentanyl for analgosedation. Propofol for sedation. Add Versed gtt. Will add methadone 20 mg daily in view of high sedation requirement. Daily sedation vacation starting tomorrow. RASS -2. RESP: Acute respiratory failure Tobacco abuse Will remain intubated postoperatively. PRVC TV 550 R 18 It 0.7 PEEP 5 Wean FiO2 for sat greater than 92% CXR negative. Vent bundle, bronchodilators as needed. Will initiate daily C Pap trials starting tomorrow to decide extubation CV: Hemodynamic monitoring via arterial line. GI: Start tube feeds with Nepro and advanced to goal as tolerated. FEN/RENAL: Acute kidney injury Acute rhabdomyolysis Acute hyperkalemia Hypocalcemia Non-anionic gap metabolic acidemia Given 2 amps Bicarb. On Bicarb drip 150 MEQ @ 150 ml/hr for hyperkalemia/ rhabdo. NS @ 50/hr for total fluid rate 200/hr. Augustin in place and monitoring hourlly UOP. Initially making urine upon return from OR but UOP ultimately ceased and now started on hemodialysis on 10/27. Discussed with Mom. Nephrology consulted and following. MSK/ID: Compartment syndrome - gluteus, hamstrings. Myositis Sepsis s/p fasciotomy quadriceps, hamstring, gluteus medius/karly/minimus with wound vac placement 10/26 Dr. Simms. Wound vacs to continuous suction per Dr. Simms. Intraoperative culture obtained from bursa and from gluteus medius. Blood culture and Urine culture obtained Empiric coverage with vancomycin, zosyn, clindamycin due to extensive myofasciitis though not clearly necrotizing on operative findings. Discussed dosing with pharmacy based on creatinine clearance. ID consulted. HEME: HGb 21 on arrival. May have hemoconcentration versus chronic polycythemia. Follow CBC ENDO: Euglycemic. Low dose insulin sliding scale as indicated . PROPH: Start Lovenox/ SCDs for DVT prophylaxis. Protonix 40 mg IV daily for stress ulcer prophylaxis. ACCESS: Left subclavian central venous line placed by ED physician 10/26 Radial art line placed in OR 10/26 FULL CODE Patient is critically ill with life and limb threatening process and multiorgan failure that poses risk of deterioration. CCT 45 minutes exclusive of separately billable procedures. Jair Jimenez MD Oct 27, 2016 14:22
--- NOTE | 2016-10-27 14:24 | PD.PROCEDR ---
Procedure Note Procedure Preop diagnosis: Acute renal failure, compartment syndrome status post fasciotomy Postop diagnosis: Same Informed consent: Obtained from patient's mother and documented on chart Anesthesia: 1% lidocaine for local infiltration anesthesia Procedure: Dialysis catheter placement Site: Right internal jugular vein Ultrasound guidance : Yes After sterile prepping and draping using 1% lidocaine for local infiltration anesthesia, right internal jugular vein was visualized using an ultrasound was finder and under direct visualization was cannulated using an introducer needle with dark nonpulsatile blood return. A Guidewire was passed through the introducer needle without any resistance and the needle was then removed. After making a skin neck and dilation of tract, a 20 cm dual lumen dialysis catheter was passed over the guidewire by modified seldinger's technique into the right internal jugular vein up to the 19 cm wilmer and the guidewire was then removed. Good blood return obtained through both ports which were then flushed with saline and subsequently hep-locked. After suturing the catheter in place, a Bio- occlusive dressing with biopatch was applied to the site. Post procedure chest x -ray was ordered and reviewed with good placement of [] IJ dialysis catheter with tip overlying SVC, no pneumothorax on postprocedure film. Patient tolerated the procedure well with no immediate complications noted. Jair Jimenez MD Oct 27, 2016 14:24
[2016-10-27] MEDS: METHADONE HCL 10 MG/10 ML ORAL SOLUTION PO SCH (14:52)
[2016-10-27 19:46] LABS: AUTOMATED NEUTROPHIL # 6.1 TH/MM3 (1.8-7.7); BASOPHIL % 0.1 % (0.0-2.0); EOSINOPHIL % 0.2 % (0.0-4.0); HEMATOCRIT 36.5 % (39.0-51.0); HEMO FLAGS DIFF FINAL; LYMPH % 14.4 % (9.0-44.0); LYMPHOCYTE # 1.1 TH/MM3 (1.0-4.8); MEAN CELL VOLUME 82.1 FL (80.0-100.0); MEAN CORPUSCULAR HEMOGLOBIN 29.5 PG (27.0-34.0); MEAN CORPUSCULAR HGB CONC 35.9 % (32.0-36.0); MONO % 7.6 % (0.0-8.0); NEUT % 77.7 % (16.0-70.0); PLATELET COUNT 149 TH/MM3 (150-450); RED BLOOD COUNT 4.45 MIL/MM3 (4.50-5.90); RED CELL DISTRIBUTION WIDTH 14.2 % (11.6-17.2); WHITE BLOOD COUNT 7.8 TH/MM3 (4.0-11.0)
[2016-10-27 20:16] LABS: BICARBONATE 32.1 MEQ/L (21.0-32.0)
[2016-10-27 20:37] LABS: POTASSIUM 4.2 MEQ/L (3.5-5.1)
[2016-10-28] VITALS (19 sets, daily range): BP systolic 100–125; BP diastolic 51–63; PULSE 62–73; RESP 18; TEMP 98.4–99.9; O2SAT 100
[2016-10-28 04:10] LABS: AUTOMATED NEUTROPHIL # 4.1 TH/MM3 (1.8-7.7); BASOPHIL % 0.2 % (0.0-2.0); EOSINOPHIL % 0.7 % (0.0-4.0); HEMATOCRIT 34.7 % (39.0-51.0); HEMO FLAGS DIFF FINAL; LYMPH % 26.3 % (9.0-44.0); LYMPHOCYTE # 1.6 TH/MM3 (1.0-4.8); MEAN CELL VOLUME 82.6 FL (80.0-100.0); MEAN CORPUSCULAR HGB CONC 35.1 % (32.0-36.0); NEUT % 65.8 % (16.0-70.0); PLATELET COUNT 123 TH/MM3 (150-450); RED CELL DISTRIBUTION WIDTH 14.4 % (11.6-17.2); WHITE BLOOD COUNT 6.2 TH/MM3 (4.0-11.0)
[2016-10-28] MEDS: CHLORHEXIDINE GLUCONATE 2 % 1 PACK (2 CLOTHS) TOP SCH (04:10)
[2016-10-28 04:39] LABS: BICARBONATE 30.3 MEQ/L (21.0-32.0)
[2016-10-28 05:36] LABS: CALCIUM-PROTEIN CORRECTED 7.9 MG/DL (8.5-10.1)
[2016-10-28] MEDS: SODIUM BICARBONATE 8.4% INJ 150 MEQ in WATER STERILE FOR INJ 850 ML IV SCH ×2 (05:41→13:57)
[2016-10-28] MEDS: PROPOFOL 1000 MG/100 ML INJ 100 ML IV SCH ×7 (05:41→23:17)
[2016-10-28] MEDS: CLINDAMYCIN INJ 900 MG in SODIUM CHLORIDE 0.9% INJ 100 ML IV SCH ×3 (05:43→21:42)
[2016-10-28] MEDS: PIPERACIL-TAZO 2.25 GM PREMIX 50 ML IV SCH ×2 (05:43→11:33)
[2016-10-28] MEDS: CHLORHEXIDINE 0.12% (ORAL KIT) 15 ML CUP MT SCH ×2 (08:13→20:00)
[2016-10-28] MEDS: DOCUSATE SODIUM 50 MG/SENNA 8.6 MG TAB PO SCH ×2 (08:14→20:27)
[2016-10-28] MEDS: METHADONE HCL 10 MG/10 ML ORAL SOLUTION PO SCH (08:14)
[2016-10-28] MEDS: PANTOPRAZOLE SODIUM 40 MG VIAL IV SCH (08:14)
[2016-10-28] MEDS: SODIUM CHLORIDE 0.9% FLUSH 10 ML FLUSH IV FLUSH SCH ×2 (08:15→20:27)
[2016-10-28 08:32] LABS: CKMB 89.7 NG/ML (0.5-3.6)
--- NOTE | 2016-10-28 11:51 | HHI.NPPN ---
Subjective History of Present Illness Hx of ARF with Rhabdomyolysis, Fasciotomy Objective Data Data 10/27/16 10/28/16 19:00 07:00 Intake Total 2237 ml 4217 ml Output Total 2720 ml 1675.0 ml Balance -483 ml 2542.0 ml Intake IV Total 2237 ml 3667 ml Tube Feeding 460 ml Tube Irrigant 90 ml Output Urine Total 0 ml 25 ml Gastric Drainage Total 150 ml Tube Feeding Residual Discard 0 ml Drainage Total 570 ml 1650 ml Hemodialysis 2000 ml # Bowel Movements 0 0 Vital Signs Date Time Temp Pulse Resp B/P Pulse Ox O2 Delivery O2 Flow Rate FiO2 10/28/16 10:00 66 10/28/16 09:47 18 10/28/16 08:32 100 Ventilator 50 10/28/16 08:32 100 50 10/28/16 08:00 69 10/28/16 08:00 100 10/28/16 08:00 98.6 69 18 120/51 100 10/28/16 07:00 100 Mechanical Ventilator 50 10/28/16 06:00 69 10/28/16 04:05 100 80 10/28/16 04:00 100 10/28/16 04:00 99.0 70 18 100/55 100 10/28/16 04:00 70 10/28/16 02:00 69 10/28/16 01:00 100 100 10/28/16 00:00 73 10/28/16 00:00 100 10/28/16 00:00 99.0 70 18 114/58 100 10/27/16 22:08 100 100 10/27/16 22:00 69 10/27/16 20:00 100 10/27/16 20:00 98.9 68 18 119/56 100 10/27/16 20:00 68 10/27/16 19:22 100 100 10/27/16 19:00 Mechanical Ventilator 10/27/16 18:00 69 10/27/16 16:09 100 100 10/27/16 16:00 98.1 69 18 106/60 100 10/27/16 16:00 69 10/27/16 16:00 100 10/27/16 14:00 74 10/27/16 12:00 75 10/27/16 12:00 100 10/27/16 12:00 98.3 75 18 113/74 100 -: 10/28/16 0345 10/28/16 0345 Physical Exam General Appearance: Well Developed Neck Neck Exam: Neck Supple Pulmonary Resp Exam: Clear Bilaterally Cardiology CV Exam: Regular, Normal Sinus Rhythm Gastrointestinal/Abdomen GI Exam: Soft, Non-Tender, Bowel Sounds Present Extremeties Extremities Exam: Trace Edema (Fasciotomy rt leg) Assessment/Plan Problem List: (1) Acute renal failure Plan: Patient is admitted and in severe ARF, getting worse, Hyperkalemia which resolved with medical treatment now requiring Hemodialysis, continue supportive care HD done 1 L UF d/w mother (2) Compartment syndrome Plan: s/p Fasciotomy (3) Hyperkalemia Plan: resolved (4) Rhabdomyolysis Plan: follow CPK (5) Severe sepsis Plan: follow BC/wound culture Problem Qualifiers (1) Acute renal failure: Qualified Code: N17.9 - Acute renal failure, unspecified acute renal failure type (2) Compartment syndrome: Qualified Code: M79.A21 - Non-traumatic compartment syndrome of right lower extremity (3) Rhabdomyolysis: Qualified Code: M62.82 - Non-traumatic rhabdomyolysis Gonzalo Navarrete MD Oct 28, 2016 11:51
[2016-10-28] MEDS ORDERED: VANCOMYCIN INJ 1,500 MG in SODIUM CHLORID 0.9% 500 ML INJ 500 ML IV ONE (12:00)
--- NOTE | 2016-10-28 13:35 | HHI.CCPN ---
Subjective Remarks/Hospital Course 10/26: 35 old male with past medical history of IV drug use, chronic pain who presented to [facility] emergency department with back pain. 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 He goes to a pain clinic in [place] for suboxone. There he was prescribed 5 day course of prednisone. Pain continued to worsen and he took heroin to self medicate several times in the last week (states injection site was upper extremity). For 2 days he has had excruciating pain and inability to ambulate. He went to [facility] yesterday and had negative XRay and was given advil. Today pain is much worse, radiates into right leg with right leg parasthesia. On exam he was noted to have firmness and swelling in right paraspinous muscles, buttocks, and hamstring. MRI was obtained. Negative for epidural abscess but there is abnormal enhancement of erector spinae, gluteus karly/medius, thigh that was felt to be related to myositis. There was no fluid collection or abscess noted. WBC is 21.2 with left shift. He has rhabdomyolysis with CPK is >300,000 with BUN 40 and creatinine 4.44. Potassium is 6.1. Transaminase elevated. Compartment pressures obtained in ED showed erector spinae 15, gluteus medius 32 mm Hgb and hamstring 31 mmHg. Orthopaedic surgery consulted. Patient denies fevers. 10/27: Patient underwent fasciotomy for compartment syndrome by Dr. Betancourt on 10/26 and was postoperatively transferred to ICU kept intubated and sedated on mechanical ventilation. He remained anuric overnight. I placed a right IJ Vas- Cath and patient was started on hemodialysis. Remains sedated, orally intubated on mechanical ventilation. 10/28: Remains sedated, orally intubated on mechanical ventilation. Started on hemodialysis on 10/27. Dialyzed this morning as well. Wound VAC remains in place over fasciotomy sites. Objective Vital Signs Date Time Temp Pulse Resp B/P Pulse Ox O2 Delivery O2 Flow Rate FiO2 10/28/16 12:45 100 50 10/28/16 12:00 67 10/28/16 12:00 99.1 18 125/56 10/28/16 08:32 Ventilator 10/26/16 20:10 4.00 Intake and Output 10/27/16 10/27/16 10/28/16 08:00 16:00 00:00 Intake Total 2869 ml 2237 ml 2196 ml Output Total 1100 ml 2720 ml 720.0 ml Balance 1769 ml -483 ml 1476.0 ml Result Diagram: 10/28/16 0345 10/28/16 0345 Other Results Microbiology Date/Time Procedure Status Source Growth 10/26/16 19:28 Urine Culture - Final Complete Urine Catheterized Urine NO GROWTH IN 48 HOURS. Imaging Last Impressions Chest X-Ray 10/27/16 1059 Signed Impressions: Service Date/Time: Thursday, October 27, 2016 11:06 - CONCLUSION: Lines in good position without pneumothorax. Darrin Whitney MD FACR Abdomen/Pelvis CT 10/26/16 1404 Signed Impressions: Service Date/Time: Wednesday, October 26, 2016 14:23 - CONCLUSION: 1. No acute findings in abdomen and pelvic CT. Trace pericardial fluid. Pilo Gaona MD Pelvis MRI 10/26/16 0000 Signed Impressions: Service Date/Time: Wednesday, October 26, 2016 15:55 - CONCLUSION: 1. Extensive abnormal edema, swelling and enhancement of the right sided pelvic musculature as above, also involving the lower right erector spinae and deep medial left pelvic musculature. Primary differential diagnosis is rhabdomyolysis and diffuse myositis. No discrete or loculated abscess or drainable fluid collections. Pilo Gaona MD Lumbar Spine MRI 10/26/16 0000 Signed Impressions: Service Date/Time: Wednesday, October 26, 2016 15:55 - CONCLUSION: 1. Negative for epidural abscess within the lumbar spinal canal. 2. Abnormal edema and enhancement of the right erector spinae musculature especially around the L3 and L4 level characteristic of a myositis or cellulitis with minimal superficial fluid collection. 3. Broad-based right paracentral and right lateral disc protrusion at L3-4 with encroachment on the right lateral recess and right neural foramen. Pilo Gaona MD Lower Extremity CT 10/26/16 0000 Signed Impressions: Service Date/Time: Wednesday, October 26, 2016 14:23 - CONCLUSION: 1. No acute bony abnormality. Muscular edema and edematous changes within the fat especially between the muscle fascicles. Differential diagnosis includes cellulitis and myositis. Pilo Gaona MD Objective Remarks HEENT/ Neuro: Sedated, orally intubated, no pallor, no icterus, tongue/ mucosa moist Neck: No JVD Chest/Pulm: on mech vent, good air entry bilaterally, no wheezing or crackles CVS: S1-S2 regular, no murmur GI/abdomen: soft, nontender, bowel sounds sluggish Extremities: warm bilaterally, no edema. Wound VAC over fasciotomy sites over right thigh anteriorly and posteriorly as well as medially A/P Assessment and Plan 35-year-old male with myositis/fasciitis involving right upper extremity/right erector spinae with compartment syndrome status post fasciotomy, acute renal failure secondary to rhabdomyolysis NEURO: Polysubstance abuse (opiates, amphetamines, cocaine) Fentanyl for analgosedation. Propofol for sedation. Versed gtt added 10/27. Started methadone 20 mg daily on 10/27 in view of high sedation requirement. Daily sedation vacation starting tomorrow. RASS -2. RESP: Acute respiratory failure Tobacco abuse Will remain intubated postoperatively. PRVC TV 550 R 18 It 0.7 PEEP 5 Wean FiO2 for sat greater than 92% CXR negative. Vent bundle, bronchodilators as needed. Will initiate daily C Pap trials starting tomorrow to decide extubation CV: Hemodynamic monitoring via arterial line. GI: Continue tube feeds with Nepro and advance to goal as tolerated. FEN/RENAL: Acute kidney injury Acute rhabdomyolysis Acute hyperkalemia Hypocalcemia Non-anionic gap metabolic acidemia Given 2 amps Bicarb. Bicarb drip 150 MEQ @ 150 ml/hr for hyperkalemia/rhabdo which was stopped 10/28. Augustin in place and monitoring hourlly UOP. Initially making urine upon return from OR but UOP ultimately ceased, started on hemodialysis on 10/27. Discussed with Mom on 10/27. Nephrology consulted and following. MSK/ID: Compartment syndrome - gluteus, hamstrings. Myositis Sepsis s/p fasciotomy quadriceps, hamstring, gluteus medius/karly/minimus with wound vac placement 10/26 Dr. Simms. Wound vacs to continuous suction per Dr. Simms. Intraoperative culture obtained from bursa and from gluteus medius. Blood culture and Urine culture obtained Empiric coverage with vancomycin, zosyn, clindamycin due to extensive myofasciitis though not clearly necrotizing on operative findings. Discussed dosing with pharmacy based on creatinine clearance. ID consulted. HEME: HGb 21 on arrival. May have hemoconcentration versus chronic polycythemia. Follow CBC ENDO: Euglycemic. Low dose insulin sliding scale as indicated . PROPH: Start Lovenox/ SCDs for DVT prophylaxis. Protonix 40 mg IV daily for stress ulcer prophylaxis. ACCESS: Left subclavian central venous line placed by ED physician 7/2 Radial art line placed in OR /2 FULL CODE d/w Ortho. CCT 45 minutes exclusive of separately billable procedures. Jair Jimenez MD Oct 28, 2016 13:35
[2016-10-28] MEDS: fentaNYL DRIP 250 ML IV SCH ×2 (13:57→20:28)
--- NOTE | 2016-10-28 16:56 | PD.ID.CON ---
History of Present Illness Service ID Consult Requested By [facility] Reason for Consult Evaluation and Mment of myositis and fascitis plus compartment syndrome. Primary Care Physician Sergio Cottrell MD Diagnoses: History of Present Illness Mr. Craig is a 35-year-old male with past medical history significant for IV drug abuse, chronic pain who is seen by the pain clinic in [facility] for Suboxone. Patient presents to the emergency room at [facility] for pain that started in his low back 2 weeks ago. 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 He was prescribed 5 mg of prednisone in addition to his Suboxone and pain medicines. The pain continued to worsen and he took it upon himself to self medicated with heroin several times in the last week. The reported site of injection per records is upper extremity. For 2 days he had excruciating pain and inability to ambulate. He went to [facility] and negative extremities given Advil. Reportedly the pain got worse reading is to his right leg and had right leg paresthesia. While in the ED he is on examination revealed firmness and swelling in the right paraspinous muscles as well as buttocks and hamstring area. MRI was obtained which was negative for epidural abscess but there was abnormal enhancement of the erector spinae, gluteus karly medius as well as thigh thought to be related to myofascitis. Critical care medicine followed his limb and at some point and there was concern for compartment syndrome based on measurements and patient eventually went to the OR. Intraoperatively there was not much on purulent drainage noted. But Intra-Op cultures were sent and are pending at present time. His initial blood work was significant for a WBC of 21.2 with a leftward shift. He also had rhabdomyolysis with CPK more than 300,000 with a BUN 40 and creatinine of 4.44. His potassium was 6.1 in addition his transaminases were elevated. At the time of my evaluation patient is in the ICU and the surgical care unit. Patient is currently intubated and sedated but still opens his eyes spontaneously and follows simple commands. Patient was noted to be anuric and cr continued to rise and so Nephrology consulted and patient started on Hemodialysis using a Vascath. There is not much respiratory secretions noted on examination. Patient is currently not on any pressors. Infectious disease is consulted for evaluation and management of sepsis, Myofascitis, compartment syndrome. Review of Systems ROS Limitations: Intubated Past Family Social History Allergies: Coded Allergies: No Known Allergies (Verified , 10/26/16) Past Medical History Seizures which were felt to be drug related and he has not been on any anticonvulsants for over 2 years Hypertension Drug addiction Past Surgical History Thoracic laminectomy ORIF right elbow Reported Medications Reported Meds & Active Scripts Active Reported [toradol] Valium (Diazepam) 10 Mg Tab 10 Mg PO BID PRN Zubsolv 5.7-1.4 mg 1 Sub Sub 1 Tab SL TID Bunavail 6.3-1 mg (Buprenorphine HCl-Naloxone HCl) 1 Mis Mis Active Ordered Medications Current Medications Medications (Trade) Dose Ordered Sig/Saida Route Start Time Stop Time Status Last Admin (Sodium Bicarbonate 8.4% Inj/NS 1000 ml Inj) 1,000 ml @ 0 mls/hr Q0M IV 10/26/16 18:49 10/26/16 21:15 (NS Flush) 2 ml UNSCH PRN IV FLUSH 10/26/16 19:15 (NS Flush) 2 ml BID IV FLUSH 10/26/16 21:00 10/28/16 08:15 (Protonix Inj) 40 mg DAILY IV 10/27/16 09:00 10/28/16 08:14 (Zofran Inj) 4 mg Q6H PRN IV 10/26/16 19:15 Miscellaneous Information 1 Q361D XX 10/26/16 19:15 (Chlorhexidine 2% Cloth) 3 pack Taper DAILY@04 TOP 10/27/16 04:00 10/23/17 03:59 10/28/16 04:10 (Chlorhexidine 2% Cloth) 3 pack UNSCH PRN TOP 10/26/16 19:15 (Zoila-Colace) 1 tab BID PO 10/26/16 21:00 10/28/16 08:14 (Milk Of Magnesia Liq) 30 ml Q12H PRN PO 10/26/16 19:15 (Senokot) 17.2 mg Q12H PRN PO 10/26/16 19:15 (Dulcolax Supp) 10 mg DAILY PRN RECTAL 10/26/16 19:15 Lactulose 30 ml 30 ml DAILY PRN PO 10/26/16 19:15 Clindamycin Phosphate 900 mg/ Sodium Chloride 106 ml @ 208 mls/hr Q8H IV 10/26/16 22:00 10/28/16 13:57 Piperacillin Sod/ Tazobactam Sod 50 ml @ 100 mls/hr Q6H IV 10/27/16 00:00 10/28/16 11:33 Pharmacy Profile Note 0 ml @ 0 mls/hr UNSCH OTHER 10/26/16 21:45 Sodium Bicarbonate 150 meq/Sterile Water 1,000 ml @ 150 mls/hr Q6H40M IV 10/26/16 22:00 10/28/16 05:41 Fentanyl Citrate 250 ml @ 0 mls/hr TITRATE IV 10/26/16 23:30 10/28/16 13:57 (Diprivan 1000 Mg/100ml Inj) 100 ml @ 0 mls/hr TITRATE IV 10/26/16 23:30 10/28/16 13:57 Chlorhexidine Gluconate 15 ml 15 ml BID@08,20 MT 10/27/16 08:00 10/28/16 08:13 (NS 1000 ml Inj) 1,000 ml @ 50 mls/hr Q20H IV 10/27/16 03:30 10/27/16 03:30 Midazolam HCl 2 mg 2 mg Q15M PRN IV PUSH 10/27/16 05:15 Midazolam HCl 100 ml @ 0 mls/hr TITRATE IV 10/27/16 08:15 10/27/16 08:34 (NS 1000 ml Inj) 1,000 ml @ 0 mls/hr Q0M PRN IV 10/27/16 12:53 Heparin Sodium (Porcine) 8000 units 8,000 units UNSCH PRN IVF 10/27/16 13:00 Sodium Chloride 1,000 ml @ 200 mls/hr Q5H PRN IV 10/27/16 12:53 (NS 1000 ml Inj) 1,000 ml @ 0 mls/hr Q0M PRN IV 10/27/16 12:53 (Mannitol Inj) 12.5 gm UNSCH PRN IV 10/27/16 13:00 (Albumin 25% Inj) 25 gm UNSCH PRN IV 10/27/16 13:00 (NS Flush) 5 ml UNSCH PRN IV FLUSH 10/27/16 13:00 (Heparin Inj) UNSCH PRN .XX 10/27/16 13:00 (Gentamicin (Dialysis) Inj) 20 mg UNSCH PRN IV 10/27/16 13:00 (Zofran Inj) 4 mg UNSCH PRN IV 10/27/16 13:00 (Tylenol) 650 mg UNSCH PRN PO 10/27/16 13:00 (Benadryl) 25 mg UNSCH PRN PO 10/27/16 13:00 (Nitrostat Sl) 0.4 mg UNSCH PRN SL 10/27/16 13:00 (Catapres) 0.1 mg UNSCH PRN PO 10/27/16 13:00 (Gelfoam 12 Mm/7 Mm Top) 1 foam UNSCH PRN TOP 10/27/16 13:00 (Methadone Liq) 20 mg DAILY PO 10/27/16 15:00 10/28/16 08:14 (Heparin Inj) 5,000 units Q12HR SQ 10/28/16 21:00 Family History Mother denies significant family medical history Social History Smokes one Pack of cigarettes per day Is unemployed. Lives with his mom H/o IVDU including dilaudid and heroin. He has undergone drug rehab three times in the last 10 years. Most recently got out of 30 days of rehabilitation August 04. Intermittent cocaine abuse. UDS positive for cocaine Drink alcohol occasionally Physical Exam Vital Signs Vital Signs Date Time Temp Pulse Resp B/P Pulse Ox O2 Delivery O2 Flow Rate FiO2 10/28/16 16:00 100 10/28/16 16:00 99.9 69 18 118/63 100 10/28/16 16:00 68 10/28/16 14:00 62 10/28/16 12:45 100 50 10/28/16 12:00 67 10/28/16 12:00 100 10/28/16 12:00 99.1 67 18 125/56 100 10/28/16 10:00 66 10/28/16 09:47 18 10/28/16 08:32 100 Ventilator 50 10/28/16 08:32 100 50 10/28/16 08:00 69 10/28/16 08:00 100 10/28/16 08:00 98.6 69 18 120/51 100 10/28/16 07:00 100 Mechanical Ventilator 50 10/28/16 06:00 69 10/28/16 04:05 100 80 10/28/16 04:00 100 10/28/16 04:00 99.0 70 18 100/55 100 10/28/16 04:00 70 10/28/16 02:00 69 10/28/16 01:00 100 100 10/28/16 00:00 73 10/28/16 00:00 100 10/28/16 00:00 99.0 70 18 114/58 100 10/27/16 22:08 100 100 10/27/16 22:00 69 10/27/16 20:00 100 10/27/16 20:00 98.9 68 18 119/56 100 10/27/16 20:00 68 10/27/16 19:22 100 100 10/27/16 19:00 Mechanical Ventilator 10/27/16 18:00 69 Physical Exam GENERAL: This is a well-nourished, well-developed patient, in no apparent distress. SKIN: No rashes, ecchymoses or lesions. Cool and dry. HEAD: Atraumatic. Normocephalic. No temporal or scalp tenderness. EYES: Pupils equal round and reactive. Extraocular motions intact. No scleral icterus. No injection or drainage. ENT: Intubated. NECK: Trachea midline. Supple, nontender, no meningeal signs. CARDIOVASCULAR: Regular rate and rhythm without murmurs, gallops, or rubs. RESPIRATORY: Clear to auscultation. Breath sounds equal bilaterally. No wheezes , rales, or rhonchi. GASTROINTESTINAL: Abdomen soft, non-tender, nondistended. MUSCULOSKELETAL: Right thigh with large area covered and connected to wound vac. Now soft to touch. Tenderness elicited. NEUROLOGICAL: Responds to simple commands. Opens eyes spontaneously. Grossly non focal Psych: cooperative IV line sites with no e.o infection. Laboratory Laboratory Tests Test 10/27/16 10/28/16 19:20 03:45 White Blood Count 7.8 6.2 Red Blood Count 4.45 4.20 Hemoglobin 13.1 12.2 Hematocrit 36.5 34.7 Mean Corpuscular Volume 82.1 82.6 Mean Corpuscular Hemoglobin 29.5 29.0 Mean Corpuscular Hemoglobin 35.9 35.1 Concent Red Cell Distribution Width 14.2 14.4 Platelet Count 149 123 Mean Platelet Volume 8.4 8.7 Neutrophils (%) (Auto) 77.7 65.8 Lymphocytes (%) (Auto) 14.4 26.3 Monocytes (%) (Auto) 7.6 7.0 Eosinophils (%) (Auto) 0.2 0.7 Basophils (%) (Auto) 0.1 0.2 Neutrophils # (Auto) 6.1 4.1 Lymphocytes # (Auto) 1.1 1.6 Monocytes # (Auto) 0.6 0.4 Eosinophils # (Auto) 0.0 0.0 Basophils # (Auto) 0.0 0.0 CBC Comment DIFF FINAL DIFF FINAL Differential Comment Sodium Level 134 136 Potassium Level 4.2 4.0 Chloride Level 95 94 Carbon Dioxide Level 32.1 30.3 Anion Gap 7 12 Blood Urea Nitrogen 49 49 Creatinine 5.74 6.51 Estimat Glomerular Filtration 11 10 Rate Random Glucose 141 118 Calcium Level 6.6 6.5 Protein Corrected Calcium 8.0 7.9 Phosphorus Level 5.5 Total Protein 4.4 4.4 Total Creatine Kinase 86507 Creatine Kinase MB 89.7 Creatine Kinase MB % 0.3 Random Vancomycin Level 18.7 Date/Time Procedure Status Source Growth 10/26/16 22:42 Gram Stain - Final Resulted Wound Other 10/26/16 22:42 Wound Culture - Preliminary Resulted Wound Other NO GROWTH IN 24 HOURS. 10/26/16 22:42 Fungal Smear - Final Resulted Wound Other NO FUNGAL ELEMENTS SEEN. 10/26/16 22:42 Fungal Culture Resulted Wound Other Pending 10/26/16 22:42 Acid Fast Stain - Final Resulted Wound Other NO ACID FAST BACILLI SEEN 10/26/16 22:42 Mycobacterial Culture Resulted Wound Other Pending 10/26/16 19:28 Urine Culture - Final Complete Urine Catheterized Urine NO GROWTH IN 48 HOURS. 10/26/16 15:02 Aerobic Blood Culture - Preliminary Resulted Blood Peripheral NO GROWTH IN 2 DAYS 10/26/16 15:02 Anaerobic Blood Culture - Preliminary Resulted Blood Peripheral NO GROWTH IN 2 DAYS Result Diagram: 10/28/16 0345 10/28/16 0345 Imaging Last Impressions Chest X-Ray 10/27/16 1059 Signed Impressions: Service Date/Time: Thursday, October 27, 2016 11:06 - CONCLUSION: Lines in good position without pneumothorax. Darrin Whitney MD FACR Abdomen/Pelvis CT 10/26/16 1404 Signed Impressions: Service Date/Time: Wednesday, October 26, 2016 14:23 - CONCLUSION: 1. No acute findings in abdomen and pelvic CT. Trace pericardial fluid. Pilo Gaona MD Pelvis MRI 10/26/16 0000 Signed Impressions: Service Date/Time: Wednesday, October 26, 2016 15:55 - CONCLUSION: 1. Extensive abnormal edema, swelling and enhancement of the right sided pelvic musculature as above, also involving the lower right erector spinae and deep medial left pelvic musculature. Primary differential diagnosis is rhabdomyolysis and diffuse myositis. No discrete or loculated abscess or drainable fluid collections. Pilo Gaona MD Lumbar Spine MRI 10/26/16 0000 Signed Impressions: Service Date/Time: Wednesday, October 26, 2016 15:55 - CONCLUSION: 1. Negative for epidural abscess within the lumbar spinal canal. 2. Abnormal edema and enhancement of the right erector spinae musculature especially around the L3 and L4 level characteristic of a myositis or cellulitis with minimal superficial fluid collection. 3. Broad-based right paracentral and right lateral disc protrusion at L3-4 with encroachment on the right lateral recess and right neural foramen. Pilo Gaona MD Lower Extremity CT 10/26/16 0000 Signed Impressions: Service Date/Time: Wednesday, October 26, 2016 14:23 - CONCLUSION: 1. No acute bony abnormality. Muscular edema and edematous changes within the fat especially between the muscle fascicles. Differential diagnosis includes cellulitis and myositis. Pilo Gaona MD Assessment and Plan Assessment and Plan Sepsis present on admission Myofascitis with compartment syndrome. Acute renal failure: sepsis, Acute rhabdomyolysis. Abnormal LFTs: secondary to Rhabdomyolysis. Acute resp failure Acute metabolic encephalopathy. Recs: DC Zosyn IV Continue clindamycin IV Start cefepime IV 1 g IV daily on days of hemodialysis to be given after dialysis. Discontinue vancomycin consult Random vancomycin level in a.m. prior to hemodialysis. ID to dose vancomycin. Follow cultures Follow clinically Case discussed with RN Case discussed with critical care medicine Cameron Operative notes, chart review, medication administration review, renal dose adjustment performed. Critical thinking in decision making. Mara Jimenez MD Oct 28, 2016 16:55
[2016-10-28] MEDS: MIDAZOLAM 100 MG/NS 100 ML DRIP Premix IV SCH (17:25)
[2016-10-28] MEDS: CEFEPIME INJ 1,000 MG in SODIUM CHLORIDE 0.9% INJ 100 ML IV SCH (18:09)
[2016-10-28] MEDS: RESP: ALBUTEROL 2.5 MG/3 ML NEB (PRN) INH ×2 (20:09→23:25)
[2016-10-28] MEDS ORDERED: HEPARIN SODIUM - SQ 10,000 UNITS/ML VIAL SQ SCH (21:00)
--- NOTE | 2016-10-28 22:55 | PD.ORT.PN ---
Subjective Subjective Remarks Intubated/sedated Objective Vitals Vital Signs Date Time Temp Pulse Resp B/P Pulse Ox O2 Delivery O2 Flow Rate FiO2 10/28/16 22:02 100 40 10/28/16 19:32 100 40 10/28/16 19:00 100 Mechanical Ventilator 50 10/28/16 18:00 64 10/28/16 17:26 100 40 10/28/16 16:00 100 10/28/16 16:00 99.9 69 18 118/63 100 10/28/16 16:00 68 10/28/16 14:00 62 10/28/16 12:45 100 50 10/28/16 12:00 67 10/28/16 12:00 100 10/28/16 12:00 99.1 67 18 125/56 100 10/28/16 10:00 66 10/28/16 09:47 18 10/28/16 08:32 100 Ventilator 50 10/28/16 08:32 100 50 10/28/16 08:00 69 10/28/16 08:00 100 10/28/16 08:00 98.6 69 18 120/51 100 10/28/16 07:00 100 Mechanical Ventilator 50 10/28/16 06:00 69 10/28/16 04:05 100 80 10/28/16 04:00 100 10/28/16 04:00 99.0 70 18 100/55 100 10/28/16 04:00 70 10/28/16 02:00 69 10/28/16 01:00 100 100 10/28/16 00:00 73 10/28/16 00:00 100 10/28/16 00:00 99.0 70 18 114/58 100 I/O 10/27/16 10/27/16 10/27/16 10/28/16 10/28/16 10/28/16 07:00 15:00 23:00 07:00 15:00 23:00 Intake Total 2869 ml 2237 ml 2196 ml 2021 ml 1277 ml Output Total 1100 ml 2720 ml 720 ml 955 ml 1660.0 ml 0 ml Balance 1769 ml -483 ml 1476 ml 1066 ml -383.0 ml 0 ml Intake IV Total 2869 ml 2237 ml 1941 ml 1726 ml 953 ml Tube Feeding 195 ml 265 ml 274 ml Tube Irrigant 60 ml 30 ml 50 ml Output Urine Total 400 ml 0 ml 20 ml 5 ml 10 ml Gastric Drainage Total 150 ml Tube Feeding Residual Discard 0 ml 0 ml 0 ml 0 ml Drainage Total 700 ml 570 ml 700 ml 950 ml 650 ml Hemodialysis 2000 ml 1000 ml # Bowel Movements 0 0 0 0 0 Result Diagram: 10/28/16 0345 10/28/16 0345 Imaging Last 24 hours Impressions Abdomen/Pelvis CT 10/26/16 1404 Signed Impressions: Service Date/Time: Wednesday, October 26, 2016 14:23 - CONCLUSION: 1. No acute findings in abdomen and pelvic CT. Trace pericardial fluid. Pilo Gaona MD Objective Remarks Intubated Right thigh soft to palpation throughout All 3 wound VAC sites intact Distal compartments soft 2+ pulses Assessment & Plan Ortho Post Op Day #: 2 Problem List: (1) Compartment syndrome (2) Myositis (3) IV drug abuse (4) Lactic acidosis (5) Severe sepsis (6) Hyperkalemia (7) Hypocalcemia (8) Hyponatremia (9) Rhabdomyolysis (10) Elevated LFTs (11) Leukocytosis (12) Acute renal failure Assessment and Plan S/P Right Anterior, Posterior and Adductor Compartment and Buttock Compartment Releases and Trochanteric Bursectomy and Abductor Debridement Continue wound VACs IV antibiotics Intensive management Plan to extubate tomorrow Monitor Joe Simms MD Oct 28, 2016 22:55
[2016-10-29] VITALS (19 sets, daily range): BP systolic 112–165; BP diastolic 58–85; PULSE 62–89; RESP 17–24; TEMP 98.1–99.6; O2SAT 97–100
[2016-10-29] MEDS: PROPOFOL 1000 MG/100 ML INJ 100 ML IV SCH ×4 (01:52→11:00)
[2016-10-29 03:52] LABS: AUTOMATED NEUTROPHIL # 2.4 TH/MM3 (1.8-7.7); BASOPHIL % 0.4 % (0.0-2.0); EOSINOPHIL # 0.1 TH/MM3 (0-0.4); EOSINOPHIL % 1.5 % (0.0-4.0); HEMATOCRIT 27.7 % (39.0-51.0); LYMPHOCYTE # 1.2 TH/MM3 (1.0-4.8); MEAN CELL VOLUME 84.2 FL (80.0-100.0); MEAN CORPUSCULAR HEMOGLOBIN 29.4 PG (27.0-34.0); MEAN CORPUSCULAR HGB CONC 34.9 % (32.0-36.0); MONO % 5.7 % (0.0-8.0); NEUT % 61.4 % (16.0-70.0); PLATELET COUNT 99 TH/MM3 (150-450); RED BLOOD COUNT 3.29 MIL/MM3 (4.50-5.90); RED CELL DISTRIBUTION WIDTH 14.2 % (11.6-17.2); WHITE BLOOD COUNT 3.9 TH/MM3 (4.0-11.0)
[2016-10-29] MEDS: CHLORHEXIDINE GLUCONATE 2 % 1 PACK (2 CLOTHS) TOP SCH (04:00)
[2016-10-29 04:07] LABS: HEMO FLAGS AUTO DIFF
[2016-10-29] MEDS: CLINDAMYCIN INJ 900 MG in SODIUM CHLORIDE 0.9% INJ 100 ML IV SCH ×3 (05:01→21:32)
[2016-10-29 05:36] LABS: PLATELET ESTIMATE SMEAR LOW (NORMAL); PLATELET MORPHOLOGY NORMAL (NORMAL); SCAN/DIFF AUTO DIFF CONFIRMED
[2016-10-29 07:02] LABS: BICARBONATE 30.1 MEQ/L (21.0-32.0); POTASSIUM 3.7 MEQ/L (3.5-5.1)
[2016-10-29 07:23] LABS: CALCIUM-PROTEIN CORRECTED 8.4 MG/DL (8.5-10.1); TOTAL BILIRUBIN ADULT 0.7 MG/DL (0.2-1.0)
[2016-10-29] MEDS: CHLORHEXIDINE 0.12% (ORAL KIT) 15 ML CUP MT SCH ×2 (07:44→20:00)
[2016-10-29] MEDS: fentaNYL DRIP 250 ML IV SCH (07:54)
[2016-10-29 07:57] LABS: CKMB 17.4 NG/ML (0.5-3.6)
[2016-10-29] MEDS: METHADONE HCL 10 MG/10 ML ORAL SOLUTION PO SCH (08:01)
[2016-10-29] MEDS: SODIUM CHLORIDE 0.9% FLUSH 10 ML FLUSH IV FLUSH SCH ×2 (08:01→21:00)
[2016-10-29] MEDS: PANTOPRAZOLE SODIUM 40 MG VIAL IV SCH (08:01)
[2016-10-29] MEDS: DOCUSATE SODIUM 50 MG/SENNA 8.6 MG TAB PO SCH ×2 (09:00→21:32)
--- NOTE | 2016-10-29 10:03 | RADRPT ---
EXAM DATE/TIME: 10/29/2016 08:56 [facility] COMPARISON: CHEST SINGLE AP, October 27, 2016, 11:06. INDICATIONS : Follow up respiratory failure. MEDICAL HISTORY : Discectomy, cervical. Right elbow. SURGICAL HISTORY : None. ENCOUNTER: Subsequent ACUITY: 4 - 6 days PAIN SCORE: Non-responsive. LOCATION: Bilateral chest FINDINGS: Support apparatus is in good position. Lungs remain clear. The heart and pulmonary vascularity are normal. CONCLUSION: Stable chest. The lungs remain clear. Darrin Whitney MD FACR on October 29, 2016 at 10:00 Board Certified Radiologist. This report was verified electronically.
--- NOTE | 2016-10-29 10:53 | HHI.NPPN ---
Subjective History of Present Illness Hx of ARF with Rhabdomyolysis, Fasciotomy Objective Data Data 10/28/16 10/29/16 19:00 07:00 Intake Total 1277 ml 2215 ml Output Total 1660.0 ml 1350.0 ml Balance -383.0 ml 865.0 ml Intake IV Total 953 ml 1656 ml Tube Feeding 274 ml 499 ml Tube Irrigant 50 ml 60 ml Output Urine Total 10 ml 80 ml Tube Feeding Residual Discard 0 ml 0 ml Drainage Total 650 ml 1270 ml Hemodialysis 1000 ml # Bowel Movements 0 0 Vital Signs Date Time Temp Pulse Resp B/P Pulse Ox O2 Delivery O2 Flow Rate FiO2 10/29/16 10:00 65 10/29/16 08:00 98.9 63 18 131/65 100 10/29/16 08:00 63 10/29/16 08:00 40 10/29/16 07:39 100 40 10/29/16 07:00 100 Mechanical Ventilator 40 10/29/16 06:00 62 10/29/16 04:35 100 40 10/29/16 04:00 62 10/29/16 04:00 98.6 62 18 112/58 100 10/29/16 04:00 40 10/29/16 02:00 66 10/29/16 01:22 100 40 10/29/16 00:00 68 10/29/16 00:00 98.8 67 18 124/60 99 10/29/16 00:00 40 10/28/16 22:02 100 40 10/28/16 22:00 66 10/28/16 20:00 40 10/28/16 20:00 98.4 64 18 116/58 100 10/28/16 20:00 64 10/28/16 19:32 100 40 10/28/16 19:00 100 Mechanical Ventilator 50 10/28/16 18:00 64 10/28/16 17:26 100 40 10/28/16 16:00 100 10/28/16 16:00 99.9 69 18 118/63 100 10/28/16 16:00 68 10/28/16 14:00 62 10/28/16 12:45 100 50 10/28/16 12:00 67 10/28/16 12:00 100 10/28/16 12:00 99.1 67 18 125/56 100 -: 10/29/16 0330 10/29/16 0545 Physical Exam General Appearance: Well Developed Neck Neck Exam: Neck Supple Pulmonary Resp Exam: Clear Bilaterally Cardiology CV Exam: Regular, Normal Sinus Rhythm Gastrointestinal/Abdomen GI Exam: Soft, Non-Tender, Bowel Sounds Present Extremeties Extremities Exam: Trace Edema (Fasciotomy rt leg) Assessment/Plan Problem List: (1) Acute renal failure Plan: Patient is admitted and in severe ARF, now requiring Hemodialysis, continue supportive care HD proceedings noted 3 K UF 3 L as tolerates extubation today Rt leg Fasciotomy (2) Compartment syndrome Plan: s/p Fasciotomy (3) Hyperkalemia Plan: resolved (4) Rhabdomyolysis Plan: follow CPK (5) Severe sepsis Plan: follow BC/wound culture Problem Qualifiers (1) Acute renal failure: Qualified Code: N17.9 - Acute renal failure, unspecified acute renal failure type (2) Compartment syndrome: Qualified Code: M79.A21 - Non-traumatic compartment syndrome of right lower extremity (3) Rhabdomyolysis: Qualified Code: M62.82 - Non-traumatic rhabdomyolysis Gonzalo Navarrete MD Oct 29, 2016 10:53
--- NOTE | 2016-10-29 11:11 | HHI.CCPN ---
Subjective Remarks/Hospital Course 10/26: 35 old male with past medical history of IV drug use, chronic pain who presented to [facility] emergency department with back pain. 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 He goes to a pain clinic in [place] for suboxone. There he was prescribed 5 day course of prednisone. Pain continued to worsen and he took heroin to self medicate several times in the last week (states injection site was upper extremity). For 2 days he has had excruciating pain and inability to ambulate. He went to [facility] yesterday and had negative XRay and was given advil. Today pain is much worse, radiates into right leg with right leg parasthesia. On exam he was noted to have firmness and swelling in right paraspinous muscles, buttocks, and hamstring. MRI was obtained. Negative for epidural abscess but there is abnormal enhancement of erector spinae, gluteus karly/medius, thigh that was felt to be related to myositis. There was no fluid collection or abscess noted. WBC is 21.2 with left shift. He has rhabdomyolysis with CPK is >300,000 with BUN 40 and creatinine 4.44. Potassium is 6.1. Transaminase elevated. Compartment pressures obtained in ED showed erector spinae 15, gluteus medius 32 mm Hgb and hamstring 31 mmHg. Orthopaedic surgery consulted. Patient denies fevers. 10/27: Patient underwent fasciotomy for compartment syndrome by Dr. Betancourt on 10/26 and was postoperatively transferred to ICU kept intubated and sedated on mechanical ventilation. He remained anuric overnight. I placed a right IJ Vas- Cath and patient was started on hemodialysis. Remains sedated, orally intubated on mechanical ventilation. 10/28: Remains sedated, orally intubated on mechanical ventilation. Started on hemodialysis on 10/27. Dialyzed this morning as well. Wound VAC remains in place over fasciotomy sites. 10/29: Remains sedated, orally intubated on mechanical ventilation. Remains on propofol/Versed/fentanyl gtt. Tolerating tube feeds. Wound VAC remains in place over fasciotomy sites. Undergoing hemodialysis this morning. Objective Vital Signs Date Time Temp Pulse Resp B/P Pulse Ox O2 Delivery O2 Flow Rate FiO2 10/29/16 10:00 65 10/29/16 08:00 98.9 18 131/65 100 10/29/16 08:00 40 10/29/16 07:00 Mechanical Ventilator 10/26/16 20:10 4.00 Intake and Output 10/28/16 10/28/16 10/29/16 08:00 16:00 00:00 Intake Total 2021 ml 1277 ml 1263 ml Output Total 955.0 ml 1660.0 ml 675.0 ml Balance 1066.0 ml -383.0 ml 588.0 ml Result Diagram: 10/29/16 0330 10/29/16 0545 Other Results Microbiology Date/Time Procedure Status Source Growth 10/26/16 19:28 Urine Culture - Final Complete Urine Catheterized Urine NO GROWTH IN 48 HOURS. Imaging Last Impressions Chest X-Ray 10/27/16 1059 Signed Impressions: Service Date/Time: Thursday, October 27, 2016 11:06 - CONCLUSION: Lines in good position without pneumothorax. Darrin Whitney MD FACR Abdomen/Pelvis CT 10/26/16 1404 Signed Impressions: Service Date/Time: Wednesday, October 26, 2016 14:23 - CONCLUSION: 1. No acute findings in abdomen and pelvic CT. Trace pericardial fluid. Pilo Gaona MD Pelvis MRI 10/26/16 0000 Signed Impressions: Service Date/Time: Wednesday, October 26, 2016 15:55 - CONCLUSION: 1. Extensive abnormal edema, swelling and enhancement of the right sided pelvic musculature as above, also involving the lower right erector spinae and deep medial left pelvic musculature. Primary differential diagnosis is rhabdomyolysis and diffuse myositis. No discrete or loculated abscess or drainable fluid collections. Pilo Gaona MD Lumbar Spine MRI 10/26/16 0000 Signed Impressions: Service Date/Time: Wednesday, October 26, 2016 15:55 - CONCLUSION: 1. Negative for epidural abscess within the lumbar spinal canal. 2. Abnormal edema and enhancement of the right erector spinae musculature especially around the L3 and L4 level characteristic of a myositis or cellulitis with minimal superficial fluid collection. 3. Broad-based right paracentral and right lateral disc protrusion at L3-4 with encroachment on the right lateral recess and right neural foramen. Pilo Gaona MD Lower Extremity CT 10/26/16 0000 Signed Impressions: Service Date/Time: Wednesday, October 26, 2016 14:23 - CONCLUSION: 1. No acute bony abnormality. Muscular edema and edematous changes within the fat especially between the muscle fascicles. Differential diagnosis includes cellulitis and myositis. Pilo Gaona MD Objective Remarks HEENT/ Neuro: Sedated, orally intubated, no pallor, no icterus, tongue/ mucosa moist Neck: Right IJ Vas-Cath in place Chest/Pulm: on mech vent, good air entry bilaterally, no wheezing or crackles CVS: S1-S2 regular, no murmur GI/abdomen: soft, nontender, bowel sounds sluggish Extremities: warm bilaterally, no edema. Wound VAC over fasciotomy sites over right thigh anteriorly and posteriorly as well as medially A/P Assessment and Plan 35-year-old male with myositis/fasciitis involving right upper extremity/right erector spinae with compartment syndrome status post fasciotomy, acute renal failure secondary to rhabdomyolysis NEURO: Polysubstance abuse (opiates, amphetamines, cocaine) Fentanyl for analgosedation. Propofol for sedation. Versed gtt added 10/27. Started methadone 20 mg daily on 10/27 in view of high sedation requirement. Daily sedation vacation. RASS -2. RESP: Acute respiratory failure Tobacco abuse On mechanical ventilation Wean FiO2 for sat greater than 92% CXR negative. Vent bundle, bronchodilators as needed. Daily C Pap trials to decide extubation CV: Hemodynamic monitoring via arterial line. GI: Continue tube feeds with Nepro and advance to goal as tolerated. FEN/RENAL: Acute kidney injury Acute rhabdomyolysis Acute hyperkalemia Hypocalcemia Non-anionic gap metabolic acidemia Given 2 amps Bicarb. Bicarb drip 150 MEQ @ 150 ml/hr for hyperkalemia/rhabdo which was stopped 10/28. Augustin in place and monitoring hourlly UOP. Initially making urine upon return from OR but UOP ultimately ceased, started on hemodialysis on 10/27. Discussed with Mom on 10/27. Nephrology consulted and following. MSK/ID: Compartment syndrome - gluteus, hamstrings. Myositis Sepsis s/p fasciotomy quadriceps, hamstring, gluteus medius/karly/minimus with wound vac placement 10/26 Dr. Simms. Wound vacs to continuous suction per Dr. Simms. Intraoperative culture obtained from bursa and from gluteus medius. Blood culture and Urine culture obtained Empiric coverage with vancomycin, clindamycin due to extensive myofasciitis though not clearly necrotizing on operative findings. ID consulted. Zosyn switched to cefepime on 10/28 per ID. HEME: Follow CBC. Hold heparin and check for HRT screen in view of thrombocytopenia which is most likely related to sepsis. ENDO: Euglycemic. Low dose insulin sliding scale as indicated . PROPH: SCDs for DVT prophylaxis. Protonix 40 mg IV daily for stress ulcer prophylaxis. Hold heparin in view of thrombocytopenia and check HIT screen ACCESS: Left subclavian central venous line placed by ED physician 10/26 Radial art line placed in OR 10/26. Right IJ vas catheter placed 10/27 FULL CODE CCT 40 minutes exclusive of separately billable procedures. Jair Jimenez MD Oct 29, 2016 11:11
[2016-10-29] MEDS: GENTAMICIN SULFATE (DIALYSIS USE ONLY) 20 MG/2 ML VIAL IV PRN (11:30)
[2016-10-29] MEDS: HEPARIN SODIUM - IV 10,000 UNITS/10 ML VIAL PRN (11:30)
--- NOTE | 2016-10-29 12:49 | ECHRPT ---
Indication: poss. endocarditis CONCLUSIONS There is trace tricuspid valve regurgitation. Normal left ventricular size and wall thickness. The left ventricular systolic function is normal wi th an estimated ejection fraction in the range of 60-65%. Left ventricular diastolic function parameters a re normal. BP: 115 / 64 HR: 70 Rhythm: MEASUREMENTS (Male / Female) Normal Values Technical Quality:Good 2D ECHO LV Diastolic Diameter PLAX 4.1 cm 4.2 - 5.9 / 3.9 - 5.3 cm LV Systolic Diameter PLAX 3.0 cm IVS Diastolic Thickness 1.3 cm 0.6 - 1.0 / 0.6 - 0.9 cm LVPW Diastolic Thickness 1.1 cm 0.6 - 1.0 / 0.6 - 0.9 cm LV Relative Wall Thickness 0.6 RV Internal Dim ED PLAX 2.5 cm M-MODE Aortic Root Diameter MM 3.5 cm LA Systolic Diameter MM 3.5 cm LA Ao Ratio MM 1.0 AV Cusp Separation MM 2.2 cm DOPPLER Mitral E Point Velocity 100.0 cm/s Mitral A Point Velocity 71.9 cm/s Mitral E to A Ratio 1.4 LV E' Lateral Velocity 9.5 cm/s Mitral E to LV E' Lateral Ratio 10.6 TR Peak Velocity 242.0 cm/s TR Peak Gradient 23.4 mmHg FINDINGS LEFT VENTRICLE Normal left ventricular size and wall thickness. The left ventricular systolic function is normal wi th an estimated ejection fraction in the range of 60-65%. Left ventricular diastolic function parameters a re normal. RIGHT VENTRICLE Normal right ventricular size and systolic function. LEFT ATRIUM The left atrial size is normal. RIGHT ATRIUM The right atrial size is normal. There is a catheter present within the right atrial cavity. ATRIAL SEPTUM Normal atrial septal thickness without atrial level shunting by limited color doppler interrogation. AORTA The aortic root and proximal ascending aorta are normal in size on limited imaging. MITRAL VALVE Structurally normal mitral valve. No mitral valve stenosis or regurgitation. AORTIC VALVE Trileaflet aortic valve. No aortic valve stenosis or regurgitation. TRICUSPID VALVE There is trace tricuspid valve regurgitation. Structurally normal tricuspid valve. PULMONARY VALVE No pulmonary valve regurgitation or stenosis. VESSELS The inferior vena cava is normal in size. PERICARDIUM There is no pericardial effusion. Nathan Powell MD, FACC (Electronically Signed) Final Date:29 October 2016 12:47
[2016-10-29] MEDS: cloNIDine HCL 0.1 MG TAB PO PRN ×2 (13:33→15:14)
--- NOTE | 2016-10-29 16:18 | HHI.IDPN ---
Subjective Subjective Remarks Mr. Craig is a 35-year-old male with past medical history significant for IV drug abuse, chronic pain who is seen by the pain clinic in [facility] for Suboxone. Patient presents to the emergency room at [facility] for pain that started in his low back 2 weeks ago. 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 He was prescribed 5 mg of prednisone in addition to his Suboxone and pain medicines. The pain continued to worsen and he took it upon himself to self medicated with heroin several times in the last week. The reported site of injection per records is upper extremity. For 2 days he had excruciating pain and inability to ambulate. He went to [facility] and negative extremities given Advil. Reportedly the pain got worse reading is to his right leg and had right leg paresthesia. While in the ED he is on examination revealed firmness and swelling in the right paraspinous muscles as well as buttocks and hamstring area. MRI was obtained which was negative for epidural abscess but there was abnormal enhancement of the erector spinae, gluteus karly medius as well as thigh thought to be related to myofascitis. Critical care medicine followed his limb and at some point and there was concern for compartment syndrome based on measurements and patient eventually went to the OR. Intraoperatively there was not much on purulent drainage noted. But Intra-Op cultures were sent and are pending at present time. His initial blood work was significant for a WBC of 21.2 with a leftward shift. He also had rhabdomyolysis with CPK more than 300,000 with a BUN 40 and creatinine of 4.44. His potassium was 6.1 in addition his transaminases were elevated. At the time of my evaluation patient is in the ICU and the surgical care unit. Patient is currently intubated and sedated but still opens his eyes spontaneously and follows simple commands. Patient was noted to be anuric and cr continued to rise and so Nephrology consulted and patient started on Hemodialysis using a Vascath. There is not much respiratory secretions noted on examination. Patient is currently not on any pressors. Infectious disease is consulted for evaluation and management of sepsis, Myofascitis, compartment syndrome. Overnight events reviewed. No fever No rash No diarrhea underwent HD today Not on pressors. UO trickle. Alert responds to questions. Admits to IVDA in left forearm. Antibiotics Cefepime IV Clindamycin IV Lines Line sites with no e.o infection. Past Medical History reviewed./ Allergies: Coded Allergies: No Known Allergies (Verified , 10/26/16) Objective . Vital Signs Date Time Temp Pulse Resp B/P Pulse Ox O2 Delivery O2 Flow Rate FiO2 10/29/16 15:34 100 40 10/29/16 14:00 77 10/29/16 12:12 99 40 10/29/16 12:00 72 10/29/16 12:00 98.1 72 18 143/84 100 10/29/16 12:00 40 10/29/16 10:00 65 10/29/16 08:00 98.9 63 18 131/65 100 10/29/16 08:00 63 10/29/16 08:00 40 10/29/16 07:39 100 40 10/29/16 07:00 100 Mechanical Ventilator 40 10/29/16 06:00 62 10/29/16 04:35 100 40 10/29/16 04:00 62 10/29/16 04:00 98.6 62 18 112/58 100 10/29/16 04:00 40 10/29/16 02:00 66 10/29/16 01:22 100 40 10/29/16 00:00 68 10/29/16 00:00 98.8 67 18 124/60 99 10/29/16 00:00 40 10/28/16 22:02 100 40 10/28/16 22:00 66 10/28/16 20:00 40 10/28/16 20:00 98.4 64 18 116/58 100 10/28/16 20:00 64 10/28/16 19:32 100 40 10/28/16 19:00 100 Mechanical Ventilator 50 10/28/16 18:00 64 10/28/16 17:26 100 40 10/28/16 10/28/16 10/29/16 15:00 23:00 07:00 Intake Total 1277 ml 1263 ml 952 ml Output Total 1660.0 ml 675 ml 675 ml Balance -383.0 ml 588 ml 277 ml Intake IV Total 953 ml 965 ml 691 ml Tube Feeding 274 ml 238 ml 261 ml Tube Irrigant 50 ml 60 ml Output Urine Total 10 ml 55 ml 25 ml Tube Feeding Residual Discard 0 ml 0 ml 0 ml Drainage Total 650 ml 620 ml 650 ml Hemodialysis 1000 ml # Bowel Movements 0 0 0 . Laboratory Tests Test 10/27/16 10/28/16 10/29/16 19:20 03:45 03:30 White Blood Count 7.8 TH/MM3 6.2 TH/MM3 3.9 TH/MM3 Red Blood Count 4.45 MIL/MM3 4.20 MIL/MM3 3.29 MIL/MM3 Hemoglobin 13.1 GM/DL 12.2 GM/DL 9.7 GM/DL Hematocrit 36.5 % 34.7 % 27.7 % Mean Corpuscular Volume 82.1 FL 82.6 FL 84.2 FL Mean Corpuscular Hemoglobin 29.5 PG 29.0 PG 29.4 PG Mean Corpuscular Hemoglobin 35.9 % 35.1 % 34.9 % Concent Red Cell Distribution Width 14.2 % 14.4 % 14.2 % Platelet Count 149 TH/MM3 123 TH/MM3 99 TH/MM3 Mean Platelet Volume 8.4 FL 8.7 FL 8.3 FL Neutrophils (%) (Auto) 77.7 % 65.8 % 61.4 % Lymphocytes (%) (Auto) 14.4 % 26.3 % 31.0 % Monocytes (%) (Auto) 7.6 % 7.0 % 5.7 % Eosinophils (%) (Auto) 0.2 % 0.7 % 1.5 % Basophils (%) (Auto) 0.1 % 0.2 % 0.4 % Neutrophils # (Auto) 6.1 TH/MM3 4.1 TH/MM3 2.4 TH/MM3 Lymphocytes # (Auto) 1.1 TH/MM3 1.6 TH/MM3 1.2 TH/MM3 Monocytes # (Auto) 0.6 TH/MM3 0.4 TH/MM3 0.2 TH/MM3 Eosinophils # (Auto) 0.0 TH/MM3 0.0 TH/MM3 0.1 TH/MM3 Basophils # (Auto) 0.0 TH/MM3 0.0 TH/MM3 0.0 TH/MM3 CBC Comment DIFF FINAL DIFF FINAL AUTO DIFF Differential Comment AUTO DIFF CONFIRMED Platelet Estimate LOW Platelet Morphology Comment NORMAL Laboratory Tests Test 10/27/16 10/28/16 10/29/16 19:20 03:45 05:45 Sodium Level 134 MEQ/L 136 MEQ/L 136 MEQ/L Potassium Level 4.2 MEQ/L 4.0 MEQ/L 3.7 MEQ/L Chloride Level 95 MEQ/L 94 MEQ/L 96 MEQ/L Carbon Dioxide Level 32.1 MEQ/L 30.3 MEQ/L 30.1 MEQ/L Anion Gap 7 MEQ/L 12 MEQ/L 10 MEQ/L Blood Urea Nitrogen 49 MG/DL 49 MG/DL 45 MG/DL Creatinine 5.74 MG/DL 6.51 MG/DL 7.39 MG/DL Estimat Glomerular Filtration 11 ML/MIN 10 ML/MIN 9 ML/MIN Rate Random Glucose 141 MG/DL 118 MG/DL 97 MG/DL Calcium Level 6.6 MG/DL 6.5 MG/DL 7.1 MG/DL Protein Corrected Calcium 8.0 MG/DL 7.9 MG/DL 8.4 MG/DL Phosphorus Level 5.5 MG/DL 5.1 MG/DL Total Protein 4.4 GM/DL 4.4 GM/DL 4.8 GM/DL Total Creatine Kinase 84459 U/L 92055 U/L Creatine Kinase MB 89.7 NG/ML 17.4 NG/ML Creatine Kinase MB % 0.3 % 0.1 % Total Bilirubin 0.7 MG/DL Aspartate Amino Transf 671 U/L (AST/SGOT) Alanine Aminotransferase 290 U/L (ALT/SGPT) Alkaline Phosphatase 110 U/L Albumin 2.1 GM/DL Microbiology Date/Time Procedure Status Source Growth 10/26/16 19:28 Urine Culture - Final Complete Urine Catheterized Urine NO GROWTH IN 48 HOURS. 10/26/16 22:42 Gram Stain - Final Resulted Wound Hip 10/26/16 22:42 Wound Culture - Preliminary Resulted Wound Hip NO GROWTH IN 48 HOURS. 10/26/16 22:42 Acid Fast Stain - Final Resulted Wound Hip NO ACID FAST BACILLI SEEN 10/26/16 22:42 Mycobacterial Culture Resulted Wound Hip Pending 10/26/16 22:42 Fungal Smear - Final Resulted Wound Hip NO FUNGAL ELEMENTS SEEN. 10/26/16 22:42 Fungal Culture Resulted Wound Hip Pending 10/26/16 22:42 Gram Stain - Final Resulted Wound Other 10/26/16 22:42 Wound Culture - Preliminary Resulted Wound Other NO GROWTH IN 48 HOURS. 10/26/16 22:42 Fungal Smear - Final Resulted Wound Other NO FUNGAL ELEMENTS SEEN. 10/26/16 22:42 Fungal Culture Resulted Wound Other Pending 10/26/16 22:42 Acid Fast Stain - Final Resulted Wound Other NO ACID FAST BACILLI SEEN 10/26/16 22:42 Mycobacterial Culture Resulted Wound Other Pending Imaging Last Impressions Chest X-Ray 10/29/16 0000 Signed Impressions: Service Date/Time: Saturday, October 29, 2016 08:56 - CONCLUSION: Stable chest. The lungs remain clear. Darrin Whitney MD FACR Abdomen/Pelvis CT 10/26/16 1404 Signed Impressions: Service Date/Time: Wednesday, October 26, 2016 14:23 - CONCLUSION: 1. No acute findings in abdomen and pelvic CT. Trace pericardial fluid. Pilo Gaona MD Pelvis MRI 10/26/16 0000 Signed Impressions: Service Date/Time: Wednesday, October 26, 2016 15:55 - CONCLUSION: 1. Extensive abnormal edema, swelling and enhancement of the right sided pelvic musculature as above, also involving the lower right erector spinae and deep medial left pelvic musculature. Primary differential diagnosis is rhabdomyolysis and diffuse myositis. No discrete or loculated abscess or drainable fluid collections. Pilo Gaona MD Lumbar Spine MRI 10/26/16 0000 Signed Impressions: Service Date/Time: Wednesday, October 26, 2016 15:55 - CONCLUSION: 1. Negative for epidural abscess within the lumbar spinal canal. 2. Abnormal edema and enhancement of the right erector spinae musculature especially around the L3 and L4 level characteristic of a myositis or cellulitis with minimal superficial fluid collection. 3. Broad-based right paracentral and right lateral disc protrusion at L3-4 with encroachment on the right lateral recess and right neural foramen. Pilo Gaona MD Lower Extremity CT 10/26/16 0000 Signed Impressions: Service Date/Time: Wednesday, October 26, 2016 14:23 - CONCLUSION: 1. No acute bony abnormality. Muscular edema and edematous changes within the fat especially between the muscle fascicles. Differential diagnosis includes cellulitis and myositis. Pilo Gaona MD Physical Exam GENERAL: This is a well-nourished, well-developed patient, in no apparent distress. SKIN: No rashes, ecchymoses or lesions. Cool and dry. HEAD: Atraumatic. Normocephalic. No temporal or scalp tenderness. EYES: Pupils equal round and reactive. Extraocular motions intact. No scleral icterus. No injection or drainage. ENT: Intubated. NECK: Trachea midline. Supple, nontender, no meningeal signs. CARDIOVASCULAR: Regular rate and rhythm without murmurs, gallops, or rubs. RESPIRATORY: Clear to auscultation. Breath sounds equal bilaterally. No wheezes , rales, or rhonchi. GASTROINTESTINAL: Abdomen soft, non-tender, nondistended. MUSCULOSKELETAL: Right thigh with large area covered and connected to wound vac. Now soft to touch. Tenderness elicited. NEUROLOGICAL: Responds to simple commands. Opens eyes spontaneously. Grossly non focal Psych: cooperative IV line sites with no e.o infection. Assessment & Plan Remarks Sepsis present on admission Myofascitis with compartment syndrome. Acute renal failure: sepsis, Acute rhabdomyolysis. Abnormal LFTs: secondary to Rhabdomyolysis. Acute resp failure Acute metabolic encephalopathy. Recs: Continue clindamycin IV Continue cefepime IV 1 g IV daily on days of hemodialysis to be given after dialysis. No further vanco needed as cultures negative. Follow cultures Follow clinically Case discussed with RN Case discussed with critical care medicine Mara Macdonald MD Oct 29, 2016 16:18
[2016-10-29] MEDS: CEFEPIME INJ 1,000 MG in SODIUM CHLORIDE 0.9% INJ 100 ML IV SCH (17:09)
[2016-10-29 17:34] LABS: HEPARIN AB OD 0.145 O.D. (0.000-0.300); HEPARIN INDUCED PLATELET AB NEGATIVE (NEGATIVE)
--- NOTE | 2016-10-29 18:08 | PD.ORT.PN ---
Subjective Subjective Remarks Intubated/sedated Objective Vitals Vital Signs Date Time Temp Pulse Resp B/P Pulse Ox O2 Delivery O2 Flow Rate FiO2 10/29/16 16:59 100 Nasal Cannula 3 10/29/16 16:00 99.6 80 24 165/85 100 10/29/16 16:00 80 10/29/16 16:00 40 10/29/16 15:34 100 40 10/29/16 14:00 77 10/29/16 12:12 99 40 10/29/16 12:00 72 10/29/16 12:00 98.1 72 18 143/84 100 10/29/16 12:00 40 10/29/16 10:00 65 10/29/16 08:00 98.9 63 18 131/65 100 10/29/16 08:00 63 10/29/16 08:00 40 10/29/16 07:39 100 40 10/29/16 07:00 100 Mechanical Ventilator 40 10/29/16 06:00 62 10/29/16 04:35 100 40 10/29/16 04:00 62 10/29/16 04:00 98.6 62 18 112/58 100 10/29/16 04:00 40 10/29/16 02:00 66 10/29/16 01:22 100 40 10/29/16 00:00 68 10/29/16 00:00 98.8 67 18 124/60 99 10/29/16 00:00 40 10/28/16 22:02 100 40 10/28/16 22:00 66 10/28/16 20:00 40 10/28/16 20:00 98.4 64 18 116/58 100 10/28/16 20:00 64 10/28/16 19:32 100 40 10/28/16 19:00 100 Mechanical Ventilator 50 I/O 10/28/16 10/28/16 10/28/16 10/29/16 10/29/16 10/29/16 07:00 15:00 23:00 07:00 15:00 23:00 Intake Total 2021 ml 1277 ml 1263 ml 952 ml 885 ml Output Total 955 ml 1660.0 ml 675 ml 675 ml 6820 ml 0 ml Balance 1066 ml -383.0 ml 588 ml 277 ml -5935 ml 0 ml Intake IV Total 1726 ml 953 ml 965 ml 691 ml 633 ml Tube Feeding 265 ml 274 ml 238 ml 261 ml 252 ml Tube Irrigant 30 ml 50 ml 60 ml Output Urine Total 5 ml 10 ml 55 ml 25 ml 20 ml Tube Feeding Residual Discard 0 ml 0 ml 0 ml 0 ml 0 ml 0 ml Drainage Total 950 ml 650 ml 620 ml 650 ml 800 ml Hemodialysis 1000 ml 6000 ml # Bowel Movements 0 0 0 0 Result Diagram: 10/29/16 0330 10/29/16 0545 Imaging Last 24 hours Impressions Abdomen/Pelvis CT 10/26/16 1404 Signed Impressions: Service Date/Time: Wednesday, October 26, 2016 14:23 - CONCLUSION: 1. No acute findings in abdomen and pelvic CT. Trace pericardial fluid. Pilo Gaona MD Objective Remarks Intubated Right thigh soft to palpation throughout All 3 wound VAC sites intact Distal compartments soft 2+ pulses Assessment & Plan Problem List: (1) Compartment syndrome (2) Myositis (3) IV drug abuse (4) Lactic acidosis (5) Severe sepsis (6) Hyperkalemia (7) Hypocalcemia (8) Hyponatremia (9) Rhabdomyolysis (10) Elevated LFTs (11) Leukocytosis (12) Acute renal failure Assessment and Plan POD #3 S/P Right Anterior, Posterior and Adductor Compartment and Buttock Compartment Releases and Trochanteric Bursectomy and Abductor Debridement Continue wound VACs IV antibiotics Intensive management Plan to extubate tomorrow Monitor Joe Simms MD Oct 29, 2016 18:08
[2016-10-29] MEDS: oxyCODONE/ACETAMINOPHEN 10 MG/325 MG TAB PO PRN (23:51)
[2016-10-30] VITALS (14 sets, daily range): BP systolic 122–153; BP diastolic 63–90; PULSE 76–95; RESP 13–19; TEMP 98.3–98.6; O2SAT 92–100
[2016-10-30] MEDS: CHLORHEXIDINE GLUCONATE 2 % 1 PACK (2 CLOTHS) TOP SCH (04:00)
[2016-10-30] MEDS: CLINDAMYCIN INJ 900 MG in SODIUM CHLORIDE 0.9% INJ 100 ML IV SCH ×3 (05:54→21:26)
[2016-10-30] MEDS: CHLORHEXIDINE 0.12% (ORAL KIT) 15 ML CUP MT SCH ×2 (07:48→20:00)
[2016-10-30] MEDS: oxyCODONE/ACETAMINOPHEN 10 MG/325 MG TAB PO PRN ×3 (07:48→19:01)
[2016-10-30] MEDS: SODIUM CHLORIDE 0.9% FLUSH 10 ML FLUSH IV FLUSH SCH ×2 (08:11→21:00)
[2016-10-30] MEDS: DOCUSATE SODIUM 50 MG/SENNA 8.6 MG TAB PO SCH ×2 (08:11→21:00)
[2016-10-30] MEDS: PANTOPRAZOLE SODIUM 40 MG VIAL IV SCH (08:11)
[2016-10-30] MEDS: METHADONE HCL 10 MG/10 ML ORAL SOLUTION PO SCH (08:11)
--- NOTE | 2016-10-30 08:42 | PD.ORT.PN ---
Subjective Subjective Remarks Patient extubated. Alert and oriented. C/o abdominal pain and right thigh pain. Objective Vitals Vital Signs Date Time Temp Pulse Resp B/P Pulse Ox O2 Delivery O2 Flow Rate FiO2 10/30/16 07:00 98 Nasal Cannula 2.00 10/30/16 06:00 87 10/30/16 04:00 86 10/30/16 04:00 98.5 84 18 135/63 92 10/30/16 02:00 98 10/30/16 02:00 79 10/30/16 00:00 80 10/30/16 00:00 98.4 80 19 136/74 100 10/29/16 22:00 80 10/29/16 20:00 82 10/29/16 20:00 98.6 82 17 127/75 99 10/29/16 19:17 97 Nasal Cannula 3.00 10/29/16 19:00 98 Nasal Cannula 2.00 10/29/16 18:50 98 Mechanical Ventilator 2.00 Nasal Cannula 10/29/16 18:00 89 10/29/16 16:59 100 Nasal Cannula 3 10/29/16 16:00 99.6 80 24 165/85 100 10/29/16 16:00 80 10/29/16 16:00 40 10/29/16 15:34 100 40 10/29/16 14:00 77 10/29/16 12:12 99 40 10/29/16 12:00 72 10/29/16 12:00 98.1 72 18 143/84 100 10/29/16 12:00 40 10/29/16 10:00 65 I/O 10/29/16 10/29/16 10/29/16 10/30/16 10/30/16 10/30/16 07:00 15:00 23:00 07:00 15:00 23:00 Intake Total 952 ml 885 ml 269 ml 141 ml Output Total 675 ml 6820 ml 685 ml 800 ml Balance 277 ml -5935 ml -416 ml -659 ml Intake IV Total 691 ml 633 ml 269 ml 141 ml Tube Feeding 261 ml 252 ml Output Urine Total 25 ml 20 ml 35 ml 50 ml Tube Feeding Residual Discard 0 ml 0 ml 0 ml Drainage Total 650 ml 800 ml 650 ml 750 ml Hemodialysis 6000 ml # Bowel Movements 0 2 Result Diagram: 10/29/16 0330 10/29/16 0545 Imaging Last 24 hours Impressions Abdomen/Pelvis CT 10/26/16 1404 Signed Impressions: Service Date/Time: Wednesday, October 26, 2016 14:23 - CONCLUSION: 1. No acute findings in abdomen and pelvic CT. Trace pericardial fluid. Pilo Gaona MD Objective Remarks Right thigh soft to palpation throughout All 3 wound VAC sites intact, serosanguineous drainage Distal compartments soft Decrease sensation to anterior aspect of right foot 2+ pulses Assessment & Plan Problem List: (1) Compartment syndrome (2) Myositis (3) IV drug abuse (4) Lactic acidosis (5) Severe sepsis (6) Hyperkalemia (7) Hypocalcemia (8) Hyponatremia (9) Rhabdomyolysis (10) Elevated LFTs (11) Leukocytosis (12) Acute renal failure Assessment and Plan POD #4 S/P Right Anterior, Posterior and Adductor Compartment and Buttock Compartment Releases and Trochanteric Bursectomy and Abductor Debridement Continue wound VACs IV antibiotics Intensive management Monitor Jann Stanford Oct 30, 2016 08:42 Jann Stanford Oct 30, 2016 08:42
[2016-10-30] MEDS: HEPARIN SODIUM - IV 10,000 UNITS/10 ML VIAL PRN (11:07)
[2016-10-30] MEDS: GENTAMICIN SULFATE (DIALYSIS USE ONLY) 20 MG/2 ML VIAL IV PRN (11:08)
--- NOTE | 2016-10-30 11:17 | HHI.NPPN ---
Subjective History of Present Illness Hx of ARF with Rhabdomyolysis, Fasciotomy Objective Data Data 10/29/16 10/30/16 19:00 07:00 Intake Total 885 ml 410 ml Output Total 3820.0 ml 1485 ml Balance -2935.0 ml -1075 ml Intake IV Total 633 ml 410 ml Tube Feeding 252 ml Output Urine Total 20 ml 85 ml Tube Feeding Residual Discard 0 ml Drainage Total 800 ml 1400 ml Hemodialysis 3000 ml # Bowel Movements 2 Vital Signs Date Time Temp Pulse Resp B/P Pulse Ox O2 Delivery O2 Flow Rate FiO2 10/30/16 08:00 98.3 90 13 129/70 96 10/30/16 08:00 90 10/30/16 07:00 98 Nasal Cannula 2.00 10/30/16 06:00 87 10/30/16 04:00 86 10/30/16 04:00 98.5 84 18 135/63 92 10/30/16 02:00 98 10/30/16 02:00 79 10/30/16 00:00 80 10/30/16 00:00 98.4 80 19 136/74 100 10/29/16 22:00 80 10/29/16 20:00 82 10/29/16 20:00 98.6 82 17 127/75 99 10/29/16 19:17 97 Nasal Cannula 3.00 10/29/16 19:00 98 Nasal Cannula 2.00 10/29/16 18:50 98 Mechanical Ventilator 2.00 Nasal Cannula 10/29/16 18:00 89 10/29/16 16:59 100 Nasal Cannula 3 10/29/16 16:00 99.6 80 24 165/85 100 10/29/16 16:00 80 10/29/16 16:00 40 10/29/16 15:34 100 40 10/29/16 14:00 77 10/29/16 12:12 99 40 10/29/16 12:00 72 10/29/16 12:00 98.1 72 18 143/84 100 10/29/16 12:00 40 -: 10/29/16 0330 10/29/16 0545 Physical Exam General Appearance: Well Developed Neck Neck Exam: Neck Supple Pulmonary Resp Exam: Clear Bilaterally Cardiology CV Exam: Regular, Normal Sinus Rhythm Gastrointestinal/Abdomen GI Exam: Soft, Non-Tender, Bowel Sounds Present Extremeties Extremities Exam: Trace Edema (Fasciotomy rt leg) Assessment/Plan Problem List: (1) Acute renal failure Plan: Patient is admitted and in severe ARF, now requiring Hemodialysis, continue supportive care HD proceedings noted 3 K UF 3 L as tolerates awake and alert Rt leg Fasciotomy (2) Compartment syndrome Plan: s/p Fasciotomy (3) Hyperkalemia Plan: resolved (4) Rhabdomyolysis Plan: follow CPK (5) Severe sepsis Plan: follow BC/wound culture Problem Qualifiers (1) Acute renal failure: Qualified Code: N17.9 - Acute renal failure, unspecified acute renal failure type (2) Compartment syndrome: Qualified Code: M79.A21 - Non-traumatic compartment syndrome of right lower extremity (3) Rhabdomyolysis: Qualified Code: M62.82 - Non-traumatic rhabdomyolysis Gonzalo Navarrete MD Oct 30, 2016 11:17
--- NOTE | 2016-10-30 13:49 | HHI.CCPN ---
Subjective Remarks/Hospital Course 10/26: 35 old male with past medical history of IV drug use, chronic pain who presented to [facility] emergency department with back pain. 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 He goes to a pain clinic in [place] for suboxone. There he was prescribed 5 day course of prednisone. Pain continued to worsen and he took heroin to self medicate several times in the last week (states injection site was upper extremity). For 2 days he has had excruciating pain and inability to ambulate. He went to [facility] yesterday and had negative XRay and was given advil. Today pain is much worse, radiates into right leg with right leg parasthesia. On exam he was noted to have firmness and swelling in right paraspinous muscles, buttocks, and hamstring. MRI was obtained. Negative for epidural abscess but there is abnormal enhancement of erector spinae, gluteus karly/medius, thigh that was felt to be related to myositis. There was no fluid collection or abscess noted. WBC is 21.2 with left shift. He has rhabdomyolysis with CPK is >300,000 with BUN 40 and creatinine 4.44. Potassium is 6.1. Transaminase elevated. Compartment pressures obtained in ED showed erector spinae 15, gluteus medius 32 mm Hgb and hamstring 31 mmHg. Orthopaedic surgery consulted. Patient denies fevers. 10/27: Patient underwent fasciotomy for compartment syndrome by Dr. Betancourt on 10/26 and was postoperatively transferred to ICU kept intubated and sedated on mechanical ventilation. He remained anuric overnight. I placed a right IJ Vas- Cath and patient was started on hemodialysis. Remains sedated, orally intubated on mechanical ventilation. 10/28: Remains sedated, orally intubated on mechanical ventilation. Started on hemodialysis on 10/27. Dialyzed this morning as well. Wound VAC remains in place over fasciotomy sites. 10/29: Remains sedated, orally intubated on mechanical ventilation. Remains on propofol/Versed/fentanyl gtt. Tolerating tube feeds. Wound VAC remains in place over fasciotomy sites. Undergoing hemodialysis this morning. 10/30: Extubated on 10/29. Currently on room air. Complaining of some pain over right lower x-ray surgical site as well as abdominal cramping this morning. Objective Vital Signs Date Time Temp Pulse Resp B/P Pulse Ox O2 Delivery O2 Flow Rate FiO2 10/30/16 12:29 98.4 81 15 122/84 99 10/30/16 07:00 Nasal Cannula 2.00 10/29/16 16:00 40 Intake and Output 10/29/16 10/29/16 10/30/16 08:00 16:00 00:00 Intake Total 952 ml 885 ml 269 ml Output Total 675.0 ml 3820.0 ml 685 ml Balance 277.0 ml -2935.0 ml -416 ml Result Diagram: 10/29/16 0330 10/29/16 0545 Imaging Last Impressions Chest X-Ray 10/27/16 1059 Signed Impressions: Service Date/Time: Thursday, October 27, 2016 11:06 - CONCLUSION: Lines in good position without pneumothorax. Darrin Whitney MD FACR Abdomen/Pelvis CT 10/26/16 1404 Signed Impressions: Service Date/Time: Wednesday, October 26, 2016 14:23 - CONCLUSION: 1. No acute findings in abdomen and pelvic CT. Trace pericardial fluid. Pilo Gaona MD Pelvis MRI 10/26/16 0000 Signed Impressions: Service Date/Time: Wednesday, October 26, 2016 15:55 - CONCLUSION: 1. Extensive abnormal edema, swelling and enhancement of the right sided pelvic musculature as above, also involving the lower right erector spinae and deep medial left pelvic musculature. Primary differential diagnosis is rhabdomyolysis and diffuse myositis. No discrete or loculated abscess or drainable fluid collections. Pilo Gaona MD Lumbar Spine MRI 10/26/16 0000 Signed Impressions: Service Date/Time: Wednesday, October 26, 2016 15:55 - CONCLUSION: 1. Negative for epidural abscess within the lumbar spinal canal. 2. Abnormal edema and enhancement of the right erector spinae musculature especially around the L3 and L4 level characteristic of a myositis or cellulitis with minimal superficial fluid collection. 3. Broad-based right paracentral and right lateral disc protrusion at L3-4 with encroachment on the right lateral recess and right neural foramen. Pilo Gaona MD Lower Extremity CT 10/26/16 0000 Signed Impressions: Service Date/Time: [place], October 26, 2016 14:23 - CONCLUSION: 1. No acute bony abnormality. Muscular edema and edematous changes within the fat especially between the muscle fascicles. Differential diagnosis includes cellulitis and myositis. Pilo Gaona MD Objective Remarks HEENT/ Neuro: Awake alert oriented 3, pallor present, no icterus, tongue/ mucosa moist Neck: Right IJ Vas-Cath in place Chest/Pulm: good air entry bilaterally, no wheezing or crackles CVS: S1-S2 regular, no murmur GI/abdomen: soft, nontender, bowel sounds sluggish Extremities: warm bilaterally, no edema. Wound VAC over fasciotomy sites over right thigh anteriorly and posteriorly as well as medially A/P Assessment and Plan 35-year-old male with myositis/fasciitis involving right upper extremity/right erector spinae with compartment syndrome status post fasciotomy, acute renal failure secondary to rhabdomyolysis NEURO: Polysubstance abuse (opiates, amphetamines, cocaine) Fentanyl for analgosedation. Off propofol and Versed since 10/29 following extubation. Started methadone 20 mg daily on 10/27. Continue fentanyl/Percocet when necessary for pain. RESP: Acute respiratory failure Tobacco abuse Extubated on 10/29, currently on room air. CXR negative. CV: HTN Elevated blood pressure noted. Will initiate amlodipine 5 mg daily. GI: Advance by mouth diet as tolerated. FEN/RENAL: Acute kidney injury Acute rhabdomyolysis Acute hyperkalemia Hypocalcemia Non-anionic gap metabolic acidemia Given 2 amps Bicarb. Bicarb drip 150 MEQ @ 150 ml/hr for hyperkalemia/rhabdo which was stopped 10/28. Augustin in place and monitoring hourlly UOP. Initially making urine upon return from OR but UOP ultimately ceased, started on hemodialysis on 10/27. Nephrology consulted and following. MSK/ID: Compartment syndrome - gluteus, hamstrings. Myositis Sepsis s/p fasciotomy quadriceps, hamstring, gluteus medius/karly/minimus with wound vac placement 10/26 Dr. Simms. Wound vacs to continuous suction per Dr. Simms. Intraoperative culture obtained from bursa and from gluteus medius. Blood culture and Urine culture obtained - all cultures negative so far Empiric coverage with vancomycin, clindamycin due to extensive myofasciitis though not clearly necrotizing on operative findings. ID consulted. Zosyn switched to cefepime on 10/28 per ID. HEME: Follow CBC. Thrombocytopenia most likely related to sepsis. Hit screen negative. Will resume heparin subcutaneously. ENDO: Euglycemic. Low dose insulin sliding scale as indicated . PROPH: SCDs for DVT prophylaxis. Protonix 40 mg IV daily for stress ulcer prophylaxis. Resume heparin for DVT prophylaxis as hit screen negative ACCESS: Left subclavian central venous line placed by ED physician 10/26 Radial art line placed in OR 10/26 - to be discontinued on 10/30. Right IJ vas catheter placed 10/27 FULL CODE Jair Jimenez MD Oct 30, 2016 13:49
[2016-10-30] MEDS: CEFEPIME INJ 1,000 MG in SODIUM CHLORIDE 0.9% INJ 100 ML IV SCH (17:54)
--- NOTE | 2016-10-30 19:08 | PD.ORT.PN ---
Subjective Subjective Remarks POD 4 s/p I&D and fasciotomy right thigh by Dr Simms Objective Vitals Vital Signs Date Time Temp Pulse Resp B/P Pulse Ox O2 Delivery O2 Flow Rate FiO2 10/30/16 18:00 93 10/30/16 16:00 84 10/30/16 16:00 98.6 95 16 137/71 99 10/30/16 14:00 85 10/30/16 12:29 98.4 81 15 122/84 99 10/30/16 12:00 88 10/30/16 10:00 76 10/30/16 08:00 98.3 90 13 129/70 96 10/30/16 08:00 90 10/30/16 07:00 98 Nasal Cannula 2.00 10/30/16 06:00 87 10/30/16 04:00 86 10/30/16 04:00 98.5 84 18 135/63 92 10/30/16 02:00 98 10/30/16 02:00 79 10/30/16 00:00 80 10/30/16 00:00 98.4 80 19 136/74 100 10/29/16 22:00 80 10/29/16 20:00 82 10/29/16 20:00 98.6 82 17 127/75 99 10/29/16 19:17 97 Nasal Cannula 3.00 I/O 10/29/16 10/29/16 10/29/16 10/30/16 10/30/16 10/30/16 07:00 15:00 23:00 07:00 15:00 23:00 Intake Total 952 ml 885 ml 269 ml 141 ml 1172 ml Output Total 675 ml 3820 ml 685 ml 800 ml 4200 ml Balance 277 ml -2935 ml -416 ml -659 ml -3028 ml Intake Oral 1000 ml IV Total 691 ml 633 ml 269 ml 141 ml 172 ml Tube Feeding 261 ml 252 ml Output Urine Total 25 ml 20 ml 35 ml 50 ml 50 ml Stool Total 300 ml Tube Feeding Residual Discard 0 ml 0 ml 0 ml Drainage Total 650 ml 800 ml 650 ml 750 ml 850 ml Hemodialysis 3000 ml 3000 ml # Bowel Movements 0 2 3 Result Diagram: 10/29/16 0330 10/29/16 0545 Imaging Last 24 hours Impressions Abdomen/Pelvis CT 10/26/16 1404 Signed Impressions: Service Date/Time: Wednesday, October 26, 2016 14:23 - CONCLUSION: 1. No acute findings in abdomen and pelvic CT. Trace pericardial fluid. Pilo Gaona MD Objective Remarks Right thigh soft to palpation throughout All 3 wound VAC sites intact, serosanguineous drainage Distal compartments soft Decrease sensation to anterior aspect of right foot 2+ pulses Assessment & Plan Problem List: (1) Compartment syndrome (2) Myositis (3) IV drug abuse (4) Lactic acidosis (5) Severe sepsis (6) Hyperkalemia (7) Hypocalcemia (8) Hyponatremia (9) Rhabdomyolysis (10) Elevated LFTs (11) Leukocytosis (12) Acute renal failure Assessment and Plan POD #4 S/P Right Anterior, Posterior and Adductor Compartment and Buttock Compartment Releases and Trochanteric Bursectomy and Abductor Debridement Continue wound VACs IV antibiotics Intensive management Monitor npo after MN sign consents surgery tomorrow for wound closure Edenilson Womack Oct 30, 2016 19:08
[2016-10-30] MEDS: TEMAZEPAM 15 MG CAP PO PRN (21:52)
[2016-10-31] VITALS (9 sets, daily range): BP systolic 138–155; BP diastolic 64–89; PULSE 80–93; RESP 15–26; TEMP 98.1–98.9; O2SAT 95–99
[2016-10-31 04:00] LABS: AUTOMATED NEUTROPHIL # 5.5 TH/MM3 (1.8-7.7); BASOPHIL % 0.2 % (0.0-2.0); EOSINOPHIL # 0.1 TH/MM3 (0-0.4); EOSINOPHIL % 1.1 % (0.0-4.0); HEMO FLAGS DIFF FINAL; LYMPH % 13.1 % (9.0-44.0); LYMPHOCYTE # 0.9 TH/MM3 (1.0-4.8); MEAN CELL VOLUME 83.3 FL (80.0-100.0); MEAN CORPUSCULAR HEMOGLOBIN 28.6 PG (27.0-34.0); MEAN CORPUSCULAR HGB CONC 34.3 % (32.0-36.0); MONO % 8.1 % (0.0-8.0); NEUT % 77.5 % (16.0-70.0); PLATELET COUNT 116 TH/MM3 (150-450); RED BLOOD COUNT 3.48 MIL/MM3 (4.50-5.90); WHITE BLOOD COUNT 7.1 TH/MM3 (4.0-11.0)
[2016-10-31] MEDS: CHLORHEXIDINE GLUCONATE 2 % 1 PACK (2 CLOTHS) TOP SCH (04:00)
[2016-10-31 04:31] LABS: ALT (GPT) 259 U/L (12-78); ANION GAP 9 MEQ/L (5-15); AST (GOT) 531 U/L (15-37); BICARBONATE 30.3 MEQ/L (21.0-32.0); BLOOD UREA NITROGEN 38 MG/DL (7-18); CHLORIDE 93 MEQ/L (98-107); GLOMERULAR FILTRATION RATE 9 ML/MIN (>89); POTASSIUM 4.1 MEQ/L (3.5-5.1); SODIUM (NA) 132 MEQ/L (136-145)
[2016-10-31 04:45] LABS: ALKALINE PHOSPHATASE 119 U/L (45-117); CREATINE KINASE 6803 U/L (39-308); TOTAL BILIRUBIN ADULT 0.7 MG/DL (0.2-1.0)
[2016-10-31 05:00] LABS: CKMB 6.7 NG/ML (0.5-3.6)
[2016-10-31] MEDS: CLINDAMYCIN INJ 900 MG in SODIUM CHLORIDE 0.9% INJ 100 ML IV SCH ×3 (06:30→21:54)
[2016-10-31] MEDS: CHLORHEXIDINE 0.12% (ORAL KIT) 15 ML CUP MT SCH ×2 (08:00→20:00)
[2016-10-31] MEDS: PANTOPRAZOLE SODIUM 40 MG VIAL IV SCH (08:14)
[2016-10-31] MEDS: DOCUSATE SODIUM 50 MG/SENNA 8.6 MG TAB PO SCH ×3 (08:15→21:00)
[2016-10-31] MEDS: METHADONE HCL 10 MG/10 ML ORAL SOLUTION PO SCH (08:16)
[2016-10-31] MEDS: SODIUM CHLORIDE 0.9% FLUSH 10 ML FLUSH IV FLUSH SCH ×2 (09:00→21:32)
[2016-10-31] MEDS ORDERED: PROPOFOL 200 MG/20 ML AMP IV ONE (09:58)
[2016-10-31] MEDS ORDERED: ONDANSETRON HCL 4 MG/2 ML VIAL IV PUSH ONE (09:58)
[2016-10-31] MEDS ORDERED: LACTATED RINGER'S 1000 ML INJ 1,000 ML IV ONE (09:58)
--- NOTE | 2016-10-31 11:00 | HHI.CCPN ---
Subjective Remarks/Hospital Course 10/26: 35 old male with past medical history of IV drug use, chronic pain who presented to [facility] emergency department with back pain. 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 He goes to a pain clinic in [place] for suboxone. There he was prescribed 5 day course of prednisone. Pain continued to worsen and he took heroin to self medicate several times in the last week (states injection site was upper extremity). For 2 days he has had excruciating pain and inability to ambulate. He went to [facility] yesterday and had negative XRay and was given advil. Today pain is much worse, radiates into right leg with right leg parasthesia. On exam he was noted to have firmness and swelling in right paraspinous muscles, buttocks, and hamstring. MRI was obtained. Negative for epidural abscess but there is abnormal enhancement of erector spinae, gluteus karly/medius, thigh that was felt to be related to myositis. There was no fluid collection or abscess noted. WBC is 21.2 with left shift. He has rhabdomyolysis with CPK is >300,000 with BUN 40 and creatinine 4.44. Potassium is 6.1. Transaminase elevated. Compartment pressures obtained in ED showed erector spinae 15, gluteus medius 32 mm Hgb and hamstring 31 mmHg. Orthopaedic surgery consulted. Patient denies fevers. 10/27: Patient underwent fasciotomy for compartment syndrome by Dr. Betancourt on 10/26 and was postoperatively transferred to ICU kept intubated and sedated on mechanical ventilation. He remained anuric overnight. I placed a right IJ Vas- Cath and patient was started on hemodialysis. Remains sedated, orally intubated on mechanical ventilation. 10/28: Remains sedated, orally intubated on mechanical ventilation. Started on hemodialysis on 10/27. Dialyzed this morning as well. Wound VAC remains in place over fasciotomy sites. 10/29: Remains sedated, orally intubated on mechanical ventilation. Remains on propofol/Versed/fentanyl gtt. Tolerating tube feeds. Wound VAC remains in place over fasciotomy sites. Undergoing hemodialysis this morning. 10/30: Extubated on 10/29. Currently on room air. Complaining of some pain over right lower x-ray surgical site as well as abdominal cramping this morning. 10/31: Resting comfortably on room air. Awaiting surgery for wound closure with orthopedics. Objective Vital Signs Date Time Temp Pulse Resp B/P Pulse Ox O2 Delivery O2 Flow Rate FiO2 10/31/16 06:00 89 10/31/16 04:00 98.3 15 151/89 97 10/30/16 19:00 Room Air 10/30/16 07:00 2.00 10/29/16 16:00 40 Intake and Output 10/30/16 10/30/16 10/31/16 08:00 16:00 00:00 Intake Total 141 ml 1172 ml 1356 ml Output Total 800 ml 4200 ml 545 ml Balance -659 ml -3028 ml 811 ml Result Diagram: 10/31/16 0345 10/31/16 0345 Imaging Last Impressions Chest X-Ray 10/27/16 1059 Signed Impressions: Service Date/Time: Thursday, October 27, 2016 11:06 - CONCLUSION: Lines in good position without pneumothorax. Darrin Whitney MD FACR Abdomen/Pelvis CT 10/26/16 1404 Signed Impressions: Service Date/Time: Wednesday, October 26, 2016 14:23 - CONCLUSION: 1. No acute findings in abdomen and pelvic CT. Trace pericardial fluid. Pilo Gaona MD Pelvis MRI 10/26/16 0000 Signed Impressions: Service Date/Time: Wednesday, October 26, 2016 15:55 - CONCLUSION: 1. Extensive abnormal edema, swelling and enhancement of the right sided pelvic musculature as above, also involving the lower right erector spinae and deep medial left pelvic musculature. Primary differential diagnosis is rhabdomyolysis and diffuse myositis. No discrete or loculated abscess or drainable fluid collections. Pilo Gaona MD Lumbar Spine MRI 10/26/16 0000 Signed Impressions: Service Date/Time: Wednesday, October 26, 2016 15:55 - CONCLUSION: 1. Negative for epidural abscess within the lumbar spinal canal. 2. Abnormal edema and enhancement of the right erector spinae musculature especially around the L3 and L4 level characteristic of a myositis or cellulitis with minimal superficial fluid collection. 3. Broad-based right paracentral and right lateral disc protrusion at L3-4 with encroachment on the right lateral recess and right neural foramen. Pilo Gaona MD Lower Extremity CT 10/26/16 0000 Signed Impressions: Service Date/Time: Wednesday, October 26, 2016 14:23 - CONCLUSION: 1. No acute bony abnormality. Muscular edema and edematous changes within the fat especially between the muscle fascicles. Differential diagnosis includes cellulitis and myositis. Pilo Gaona MD Objective Remarks HEENT/ Neuro: Awake alert oriented 3, pallor present, no icterus, tongue/ mucosa moist Neck: Right IJ Vas-Cath in place Chest/Pulm: good air entry bilaterally, no wheezing or crackles CVS: S1-S2 regular, no murmur GI/abdomen: soft, nontender, bowel sounds sluggish Extremities: warm bilaterally, no edema. Wound VAC over fasciotomy sites over right thigh anteriorly and posteriorly as well as medially A/P Assessment and Plan 35-year-old male with myositis/fasciitis involving right upper extremity/right erector spinae with compartment syndrome status post fasciotomy, acute renal failure secondary to rhabdomyolysis NEURO: Polysubstance abuse (opiates, amphetamines, cocaine) Fentanyl for analgosedation. Off propofol and Versed since 10/29 following extubation. Started methadone 20 mg daily on 10/27. Continue fentanyl/Percocet when necessary for pain. RESP: Acute respiratory failure Tobacco abuse Extubated on 10/29, currently on room air. CXR negative. CV: HTN Elevated blood pressure noted. We will initiate Amlodipine 5 mg daily if needed. GI: Advance by mouth diet as tolerated. Currently nothing by mouth for wound closure FEN/RENAL: Acute kidney injury Acute rhabdomyolysis Acute hyperkalemia Hypocalcemia Non-anionic gap metabolic acidemia Given 2 amps Bicarb. Bicarb drip 150 MEQ @ 150 ml/hr for hyperkalemia/rhabdo which was stopped 10/28. Augustin in place and monitoring hourlly UOP. Initially making urine upon return from OR but UOP ultimately ceased, started on hemodialysis on 10/27. Nephrology consulted and following. Making some urine now. MSK/ID: Compartment syndrome - gluteus, hamstrings. Myositis Sepsis s/p fasciotomy quadriceps, hamstring, gluteus medius/karly/minimus with wound vac placement 10/26 Dr. Simms. Wound vacs to continuous suction per Dr. Simms. Awaiting surgery today for wound closure per orthopedics. Intraoperative culture obtained from bursa and from gluteus medius. Blood culture and Urine culture obtained - all cultures negative so far Empiric coverage with vancomycin, clindamycin due to extensive myofasciitis though not clearly necrotizing on operative findings. ID consulted. Zosyn switched to cefepime on 10/28 per ID. HEME: Follow CBC. Thrombocytopenia most likely related to sepsis. Hit screen negative. Will resume heparin subcutaneously. ENDO: Euglycemic. Low dose insulin sliding scale as indicated . PROPH: SCDs for DVT prophylaxis. Protonix 40 mg IV daily for stress ulcer prophylaxis. Resume heparin for DVT prophylaxis as hit screen negative ACCESS: Left subclavian central venous line placed by ED physician 10/26 Radial art line placed in OR 10/26 - to be discontinued on 10/30. Right IJ vas catheter placed 10/27 FULL CODE We'll consult and transfer to hospitalist service for further medical management. Critical care will be signing off. Please reconsult if needed. Jair Jimenez MD Oct 31, 2016 11:00
[2016-10-31] MEDS: oxyCODONE/ACETAMINOPHEN 10 MG/325 MG TAB PO PRN (11:01)
[2016-10-31] MEDS: oxyCODONE/ACETAMINOPHEN 10 MG/325 MG TAB PO SCH ×3 (12:00→23:52)
--- NOTE | 2016-10-31 13:11 | HHI.NPPN ---
Subjective History of Present Illness Hx of ARF with Rhabdomyolysis, Fasciotomy Objective Data Data 10/30/16 10/31/16 19:00 07:00 Intake Total 1172 ml 1626 ml Output Total 4200 ml 1195 ml Balance -3028 ml 431 ml Intake Oral 1000 ml 1200 ml IV Total 172 ml 426 ml Output Urine Total 50 ml 95 ml Stool Total 300 ml Drainage Total 850 ml 1100 ml Hemodialysis 3000 ml # Bowel Movements 3 1 Vital Signs Date Time Temp Pulse Resp B/P Pulse Ox O2 Delivery O2 Flow Rate FiO2 10/31/16 06:00 89 10/31/16 04:00 80 10/31/16 04:00 98.3 80 15 151/89 97 10/31/16 02:00 88 10/31/16 00:00 98.1 82 15 138/77 98 10/31/16 00:00 86 10/30/16 22:00 82 10/30/16 20:00 84 10/30/16 20:00 98.3 84 17 153/90 95 10/30/16 19:00 94 Room Air 10/30/16 18:00 93 10/30/16 16:00 84 10/30/16 16:00 98.6 95 16 137/71 99 10/30/16 14:00 85 -: 10/31/16 0345 10/31/16 0345 Physical Exam General Appearance: Well Developed Neck Neck Exam: Neck Supple Pulmonary Resp Exam: Clear Bilaterally Cardiology CV Exam: Regular, Normal Sinus Rhythm Gastrointestinal/Abdomen GI Exam: Soft, Non-Tender, Bowel Sounds Present Extremeties Extremities Exam: Trace Edema (Fasciotomy rt leg) Assessment/Plan Problem List: (1) Acute renal failure Plan: Patient is admitted and in severe ARF, now requiring Hemodialysis, continue supportive care HD next tomorrow Rt leg Fasciotomy for wound closure diarrhea check cdiff (2) Compartment syndrome Plan: s/p Fasciotomy (3) Hyperkalemia Plan: resolved (4) Rhabdomyolysis Plan: follow CPK (5) Severe sepsis Plan: follow BC/wound culture Problem Qualifiers (1) Acute renal failure: Qualified Code: N17.9 - Acute renal failure, unspecified acute renal failure type (2) Compartment syndrome: Qualified Code: M79.A21 - Non-traumatic compartment syndrome of right lower extremity (3) Rhabdomyolysis: Qualified Code: M62.82 - Non-traumatic rhabdomyolysis Gonzalo Navarrete MD Oct 31, 2016 13:11
[2016-10-31] MEDS ORDERED: GENTAMICIN SULFATE 80 MG/2 ML VIAL ONE ×2 (13:47→13:51)
[2016-10-31] MEDS ORDERED: MIDAZOLAM HCL 2 MG/2 ML VIAL ONE (13:51)
[2016-10-31] MEDS ORDERED: fentaNYL CITRATE 250 MCG/5 ML AMP ONE ×3 (13:52→16:48)
[2016-10-31] MEDS ORDERED: FAMOTIDINE 20 MG/2 ML VIAL ONE (13:52)
[2016-10-31] MEDS ORDERED: CLINDAMYCIN PHOS 600 MG/4 ML VIAL ONE (14:29)
[2016-10-31] MEDS ORDERED: GENTAMICIN SULFATE 80 MG/2 ML VIAL IRRIGATION ONE (15:06)
[2016-10-31] MEDS ORDERED: LACTATED RINGER'S 1000 ML INJ 1,000 ML IV SCH (15:33)
--- NOTE | 2016-10-31 15:40 | PD.OP ---
cc: Dickson Walker MD Operative Report Date of Surgery: Oct 31, 2016 Preoperative Diagnosis: Right hip and leg infection with compartment syndrome Postoperative Diagnosis: Procedure: Irrigation and debridement of right hip, irrigation debridement of right thigh, closure of lateral hip and thigh wound, closure of medial thigh wound, application wound VAC dressing Surgeon: Dickson Walker Shove Up(s): LORE Cain PA-C The surgical procedure was assisted by my physician diploma dental assistant. My P.A. presence was necessary throughout this case for the manipulation and positioning of the surgical extremity. My P.A. was assisting me throughout the duration of this procedure. The skill set of a physician diploma dental assistant was medically necessary to complete this procedure. During the surgical case the hematology technologist was working at the back table and the physician diploma dental assistant was directly assisting me. Operation and Findings: Sergio is a 35-year-old male who presented emergency room 4 days ago. He has evidence of infection and department syndrome. He was taken to the operating room by Dr. Joe Simms for emergent fasciotomies with irrigation debridement of hip and thigh. Informed consent was obtained preoperatively and operative site was marked. He was brought opposite room. His given IV sedation and general anesthesia. Right leg and hip were prepped with alcohol followed by Hibiclens and draped usual sterile fashion. Timeout procedure was performed. He is on scheduled IV antibiotics. Procedure began with debridement of the each of the wounds. There was no long lateral hip and thigh incision. A portion of the abductor muscles were debrided. Overall the muscles appear to be healthy and viable. There is no purulence or gross signs of infection. Skin subcutaneous tissue fascia and muscle were sharply debrided with scalpel and rongeur. Wound was thoroughly reirrigated. The posterior wound was also debrided. Skin subcutaneous tissue and fascia were sharply debrided with scalpel. Overall wound appeared to be healthy and viable tissue. Next attention was turned to the anterior wound. The anterior wound did have a small area of necrotic adductor muscle. This was debrided. Wounds now thoroughly irrigated with pulsatile lavage. Nexus was turned to closure the lateral wound. The fascial layer was closed with #1 PDS. Fascia was closed oh without significant tension or pressure. Subcutaneous tissues closed with 3-0 PDS. Skin was closed with 3-0 nylon and crystal. A combination of retention suture and vertical mattress sutures were utilized. Next attention was turned to the medial wound. The medial wound was also closed with 3-0 PDS. Examination of crystal and 3-0 nylon were used to close the skin. Comminution retention suture and vertical mattress suture were utilized. Skin edges were completely closed with minimal skin tension. Next attention was turned towards application wound VAC dressing. The posterior wound was not closable. A VAC dressing was cut to fit the wound. VAC dressing was sealed appropriately. Sterile dressings were applied. Patient was transferred to recovery room in stable condition. Dickson Walker MD Oct 31, 2016 15:40
[2016-10-31] MEDS ORDERED: *MEPERIDINE 25 MG INJ VIAL PERIprocedural Use ONLY ONE (16:29)
[2016-10-31] MEDS ORDERED: DO NOT ADM ANY ANTICOAGULANT DRUGS PRN ×2 (16:33→17:45)
[2016-10-31] MEDS: ONDANSETRON HCL 4 MG/2 ML VIAL IV PRN (18:19)
[2016-10-31] MEDS: CEFEPIME INJ 1,000 MG in SODIUM CHLORIDE 0.9% INJ 100 ML IV SCH (19:24)
[2016-10-31] MEDS ORDERED: KETOROLAC TROMETHAMINE 30 MG/ML (IVP) VIAL IVP SCH (22:00)
[2016-10-31] MEDS: TEMAZEPAM 15 MG CAP PO PRN (23:23)
[2016-11-01] VITALS (11 sets, daily range): BP systolic 143–159; BP diastolic 65–88; PULSE 74–100; RESP 18–25; TEMP 97.9–98.9; O2SAT 98–100
[2016-11-01 03:42] LABS: C. DIFF EPI 027 PRESUMPTIVE NEGATIVE (NEGATIVE); C. DIFF TOXIN PCR NEGATIVE (NEGATIVE)
[2016-11-01] MEDS: CHLORHEXIDINE GLUCONATE 2 % 1 PACK (2 CLOTHS) TOP SCH (04:00)
[2016-11-01 05:14] LABS: AUTOMATED NEUTROPHIL # 5.6 TH/MM3 (1.8-7.7); BASOPHIL % 0.2 % (0.0-2.0); EOSINOPHIL # 0.1 TH/MM3 (0-0.4); EOSINOPHIL % 0.8 % (0.0-4.0); HEMATOCRIT 24.1 % (39.0-51.0); HEMO FLAGS DIFF FINAL; LYMPH % 13.5 % (9.0-44.0); MEAN CELL VOLUME 82.6 FL (80.0-100.0); MEAN CORPUSCULAR HEMOGLOBIN 28.9 PG (27.0-34.0); MONO % 9.4 % (0.0-8.0); NEUT % 76.1 % (16.0-70.0); PLATELET COUNT 129 TH/MM3 (150-450); RED BLOOD COUNT 2.92 MIL/MM3 (4.50-5.90); RED CELL DISTRIBUTION WIDTH 14.1 % (11.6-17.2); WHITE BLOOD COUNT 7.4 TH/MM3 (4.0-11.0)
[2016-11-01] MEDS: CLINDAMYCIN INJ 900 MG in SODIUM CHLORIDE 0.9% INJ 100 ML IV SCH ×3 (05:22→21:52)
[2016-11-01 06:14] LABS: BICARBONATE 25.7 MEQ/L (21.0-32.0)
[2016-11-01 06:29] LABS: POTASSIUM 4.4 MEQ/L (3.5-5.1)
[2016-11-01] MEDS: oxyCODONE/ACETAMINOPHEN 10 MG/325 MG TAB PO SCH ×4 (06:36→23:59)
[2016-11-01 07:05] LABS: CKMB 5.1 NG/ML (0.5-3.6)
[2016-11-01] MEDS: CHLORHEXIDINE 0.12% (ORAL KIT) 15 ML CUP MT SCH ×2 (08:00→20:00)
[2016-11-01] MEDS: METHADONE HCL 10 MG/10 ML ORAL SOLUTION PO SCH (08:56)
[2016-11-01] MEDS: PANTOPRAZOLE SOD 20 MG DELAYED RELEASE TAB PO SCH (08:57)
[2016-11-01] MEDS: DOCUSATE SODIUM 50 MG/SENNA 8.6 MG TAB PO SCH ×2 (09:00→20:40)
[2016-11-01] MEDS: SODIUM CHLORIDE 0.9% FLUSH 10 ML FLUSH IV FLUSH SCH ×2 (09:00→20:40)
--- NOTE | 2016-11-01 09:21 | PD.ORT.PN ---
Subjective Subjective Remarks Moderate pain that 'comes and goes'. No new radiating leg pain. Undergoing dialysis without any complaints. Questions about condition but no new concerns. No new CP, SOB or abd pain. Objective Vitals Vital Signs Date Time Temp Pulse Resp B/P Pulse Ox O2 Delivery O2 Flow Rate FiO2 11/01/16 06:00 76 11/01/16 04:00 88 11/01/16 04:00 88 23 154/67 11/01/16 02:56 26 11/01/16 02:00 82 11/01/16 00:00 98.9 84 25 143/83 11/01/16 00:00 84 10/31/16 20:00 98.9 92 24 155/64 10/31/16 20:00 92 10/31/16 17:07 98.1 93 18 151/70 95 10/31/16 17:00 97.8 91 15 136/64 99 Nasal Cannula 2 10/31/16 16:45 96 15 145/84 99 Nasal Cannula 2 10/31/16 16:29 97.4 97 15 151/94 99 Nasal Cannula 2 10/31/16 12:00 98.4 85 18 142/72 99 10/31/16 10:00 89 I/O 10/31/16 10/31/16 10/31/16 11/01/16 11/01/16 11/01/16 07:00 15:00 23:00 07:00 15:00 23:00 Intake Total 270 ml 240 ml 1399 ml 625 ml Output Total 650 ml 850 ml 275 ml 200 ml Balance -380 ml -610 ml 1124 ml 425 ml Intake Oral 200 ml 240 ml 240 ml 500 ml IV Total 70 ml 0 ml 159 ml 125 ml Other 1000 ml Output Urine Total 50 ml 100 ml 175 ml 100 ml Drainage Total 600 ml 750 ml 50 ml 100 ml Estimated Blood Loss 50 ml # Bowel Movements 1 3 0 1 Result Diagram: 11/01/160 11/01/16 0440 Imaging Last 24 hours Impressions Abdomen/Pelvis CT 10/26/16 1404 Signed Impressions: Service Date/Time: Wednesday, October 26, 2016 14:23 - CONCLUSION: 1. No acute findings in abdomen and pelvic CT. Trace pericardial fluid. Pilo Gaona MD Objective Remarks Sitting up in bed NAD Undergoing dialysis RLE Right thigh soft to palpation throughout All 3 wound VAC sites intact, serosanguineous drainage Distal compartments soft Decrease sensation to anterior aspect of right foot 2+ pulses Assessment & Plan Problem List: (1) Compartment syndrome (2) Myositis (3) IV drug abuse (4) Lactic acidosis (5) Severe sepsis (6) Hyperkalemia (7) Hypocalcemia (8) Hyponatremia (9) Rhabdomyolysis (10) Elevated LFTs (11) Leukocytosis (12) Acute renal failure Assessment and Plan POD #6 S/P Right Anterior, Posterior and Adductor Compartment and Buttock Compartment Releases and Trochanteric Bursectomy and Abductor Debridement pod#1 s/p Revision Right thigh I&D, partial closure wounds, VAC placement Continue wound VAC. Dressing changes as ordered. Progressive WBing. OOB w assistance order entered at request of PT. IV antibiotics Intensive care management Monitor Candi Agrawal Nov 01, 2016 09:21
--- NOTE | 2016-11-01 11:38 | HHI.NPPN ---
Subjective History of Present Illness Hx of ARF with Rhabdomyolysis, Fasciotomy Interval History Oliguric, dialysis today. Objective Data Data 10/31/16 11/01/16 19:00 07:00 Intake Total 1240 ml 1024 ml Output Total 1000 ml 325 ml Balance 240 ml 699 ml Intake Oral 240 ml 740 ml IV Total 0 ml 284 ml Other 1000 ml Output Urine Total 200 ml 175 ml Drainage Total 750 ml 150 ml Estimated Blood Loss 50 ml # Bowel Movements 3 1 Vital Signs Date Time Temp Pulse Resp B/P Pulse Ox O2 Delivery O2 Flow Rate FiO2 11/01/16 10:00 76 11/01/16 09:56 22 11/01/16 09:56 22 11/01/16 08:00 97.9 79 23 159/82 98 11/01/16 08:00 79 11/01/16 06:00 76 11/01/16 04:00 88 11/01/16 04:00 88 23 154/67 11/01/16 02:00 82 11/01/16 00:00 98.9 84 25 143/83 11/01/16 00:00 84 10/31/16 20:00 98.9 92 24 155/64 10/31/16 20:00 92 10/31/16 17:07 98.1 93 18 151/70 95 10/31/16 17:00 97.8 91 15 136/64 99 Nasal Cannula 2 10/31/16 16:45 96 15 145/84 99 Nasal Cannula 2 10/31/16 16:29 97.4 97 15 151/94 99 Nasal Cannula 2 10/31/16 12:00 98.4 85 18 142/72 99 -: 11/01/16 0440 11/01/16 0440 Physical Exam General Appearance: Well Developed Neck Neck Exam: Neck Supple Pulmonary Resp Exam: Clear Bilaterally Cardiology CV Exam: Regular, Normal Sinus Rhythm Gastrointestinal/Abdomen GI Exam: Soft, Non-Tender, Bowel Sounds Present Extremeties Extremities Exam: Trace Edema (Fasciotomy rt leg) Assessment/Plan Problem List: (1) Acute renal failure Plan: Patient is admitted and in severe ARF, now requiring Hemodialysis, continue supportive care HD today. s/p Rt leg Fasciotomy Diarrhea: C.diff negative. (2) Compartment syndrome Plan: s/p Fasciotomy (3) Hyperkalemia Plan: resolved (4) Rhabdomyolysis Plan: follow CPK, improved. (5) Severe sepsis Plan: follow BC/wound culture Problem Qualifiers (1) Acute renal failure: Qualified Code: N17.9 - Acute renal failure, unspecified acute renal failure type (2) Compartment syndrome: Qualified Code: M79.A21 - Non-traumatic compartment syndrome of right lower extremity (3) Rhabdomyolysis: Qualified Code: M62.82 - Non-traumatic rhabdomyolysis Jonathan Valverde MD Nov 01, 2016 11:38
--- NOTE | 2016-11-01 13:35 | HHI.PR ---
Subjective Remarks Patient reports he is doing OK. He is sitting in the chair. Still having pain but not worse. ЕКАТЕРИНА RN. Objective Vitals Vital Signs Date Time Temp Pulse Resp B/P Pulse Ox O2 Delivery O2 Flow Rate FiO2 11/01/16 12:00 74 11/01/16 12:00 98.3 100 19 155/65 98 11/01/16 10:00 76 11/01/16 09:56 22 11/01/16 09:56 22 11/01/16 08:00 97.9 79 23 159/82 98 11/01/16 08:00 79 11/01/16 06:00 76 11/01/16 04:00 88 11/01/16 04:00 88 23 154/67 11/01/16 02:00 82 11/01/16 00:00 98.9 84 25 143/83 11/01/16 00:00 84 10/31/16 20:00 98.9 92 24 155/64 10/31/16 20:00 92 10/31/16 17:07 98.1 93 18 151/70 95 10/31/16 17:00 97.8 91 15 136/64 99 Nasal Cannula 2 10/31/16 16:45 96 15 145/84 99 Nasal Cannula 2 10/31/16 16:29 97.4 97 15 151/94 99 Nasal Cannula 2 I/O 10/31/16 10/31/16 10/31/16 11/01/16 11/01/16 11/01/16 07:00 15:00 23:00 07:00 15:00 23:00 Intake Total 270 ml 240 ml 1399 ml 625 ml Output Total 650 ml 850 ml 275 ml 200 ml 2000 ml Balance -380 ml -610 ml 1124 ml 425 ml -2000 ml Intake Oral 200 ml 240 ml 240 ml 500 ml IV Total 70 ml 0 ml 159 ml 125 ml Other 1000 ml Output Urine Total 50 ml 100 ml 175 ml 100 ml Drainage Total 600 ml 750 ml 50 ml 100 ml Hemodialysis 2000 ml Estimated Blood Loss 50 ml # Bowel Movements 1 3 0 1 Result Diagram: 11/01/16 0440 11/01/16 0440 Imaging Last Impressions Chest X-Ray 10/29/16 0000 Signed Impressions: Service Date/Time: Saturday, October 29, 2016 08:56 - CONCLUSION: Stable chest. The lungs remain clear. Darrin Whitney MD FACR Abdomen/Pelvis CT 10/26/16 1404 Signed Impressions: Service Date/Time: Wednesday, October 26, 2016 14:23 - CONCLUSION: 1. No acute findings in abdomen and pelvic CT. Trace pericardial fluid. Pilo Gaona MD Pelvis MRI 10/26/16 0000 Signed Impressions: Service Date/Time: Wednesday, October 26, 2016 15:55 - CONCLUSION: 1. Extensive abnormal edema, swelling and enhancement of the right sided pelvic musculature as above, also involving the lower right erector spinae and deep medial left pelvic musculature. Primary differential diagnosis is rhabdomyolysis and diffuse myositis. No discrete or loculated abscess or drainable fluid collections. Pilo Gaona MD Lumbar Spine MRI 10/26/16 0000 Signed Impressions: Service Date/Time: Wednesday, October 26, 2016 15:55 - CONCLUSION: 1. Negative for epidural abscess within the lumbar spinal canal. 2. Abnormal edema and enhancement of the right erector spinae musculature especially around the L3 and L4 level characteristic of a myositis or cellulitis with minimal superficial fluid collection. 3. Broad-based right paracentral and right lateral disc protrusion at L3-4 with encroachment on the right lateral recess and right neural foramen. Pilo Gaona MD Lower Extremity CT 10/26/16 0000 Signed Impressions: Service Date/Time: Wednesday, October 26, 2016 14:23 - CONCLUSION: 1. No acute bony abnormality. Muscular edema and edematous changes within the fat especially between the muscle fascicles. Differential diagnosis includes cellulitis and myositis. Pilo Gaona MD Objective Remarks GENERAL: This is a well-nourished, well-developed patient, in no apparent distress. CARDIOVASCULAR: Normal rate and regular rhythm without murmurs, gallops, or rubs. RESPIRATORY: Good respiratory efforts. Breath sounds equal and clear to auscultation bilaterally. GASTROINTESTINAL: Abdomen soft, non-tender, non-distended. Normal active bowel sounds MUSCULOSKELETAL: Patient has a postoperative dressing/Alejandro wrap of the right thigh, wound VAC in place. Neurovascularly intact at the foot bilaterally. On the right there is 2+ pitting edema of the extremity. NEURO: Alert & Oriented x4 to person, place, time, situation. Moves all ext x4 PSYCH: Appropriate mood and affect. A/P Assessment and Plan 35-year-old male IV drug user admitted with compartment syndrome status post fasciotomy, myositis, acute renal failure secondary to rhabdomyolysis presumably from polysubstance use. Compartment syndrome, right anterior, posterior, adductor, buttock compartment: Status post fasciotomy and revision. Wound VAC in place. -Orthopedic surgery following. Continue wound VAC. Pain control is challenging given the patient's known history of opiate abuse and methadone use. --PT as tolerated Myositis Sepsis s/p fasciotomy quadriceps, hamstring, gluteus medius/karly/minimus with wound vac placement 10/26 Dr. Simms. Wound vacs to continuous suction per Dr. Simms. Intraoperative culture obtained from bursa and from gluteus medius. Blood culture and Urine culture obtained - all cultures negative so far Empiric coverage with vancomycin, clindamycin due to extensive myofasciitis though not clearly necrotizing on operative findings. ID consulted. Zosyn switched to cefepime on 10/28 per ID. Acute kidney injury Acute rhabdomyolysis Acute hyperkalemia Hypocalcemia Non-anionic gap metabolic acidemia Given 2 amps Bicarb. Bicarb drip 150 MEQ @ 150 ml/hr for hyperkalemia/rhabdo which was stopped 10/28. Augustin in place and monitoring hourly UOP. Initially making urine upon return from OR but UOP ultimately ceased, started on hemodialysis on 10/27. Nephrology consulted and following. Making some urine now. Polysubstance abuse (opiates, amphetamines, cocaine) Started methadone 20 mg daily on 10/27. Continue fentanyl/Percocet when necessary for pain. Will need to wean off as tolerated. Acute respiratory failure Tobacco abuse Extubated on 10/29, currently on room air. CXR negative. HTN Probably related to pain. BP acceptable, continue to monitor. PROPH: SCDs for DVT prophylaxis. Protonix 40 mg IV daily for stress ulcer prophylaxis. Resume heparin for DVT prophylaxis as hit screen negative ACCESS: Left subclavian central venous line placed by ED physician 10/26 . Right IJ vas catheter placed 10/27 FULL CODE Discharge Planning OK to transfer to floor. Lisset Barcenas MD Nov 01, 2016 13:35
[2016-11-01] MEDS: CEFEPIME INJ 1,000 MG in SODIUM CHLORIDE 0.9% INJ 100 ML IV SCH (18:03)
[2016-11-01] MEDS: HYDROmorphone HCL PF 1 MG/ML VIAL IV PUSH PRN (20:41)
[2016-11-01] MEDS: TEMAZEPAM 15 MG CAP PO PRN (21:56)
[2016-11-02] VITALS: BP 156/84; PULSE 80; RESP 20; TEMP 97.8; O2SAT 99
[2016-11-02] MEDS: HYDROmorphone HCL PF 1 MG/ML VIAL IV PUSH PRN ×3 (00:39→08:49)
[2016-11-02] MEDS: CHLORHEXIDINE GLUCONATE 2 % 1 PACK (2 CLOTHS) TOP SCH (04:00)
[2016-11-02 05:01] LABS: HEMATOCRIT 22.7 % (39.0-51.0); MEAN CELL VOLUME 82.6 FL (80.0-100.0); MEAN CORPUSCULAR HEMOGLOBIN 29.3 PG (27.0-34.0); MEAN CORPUSCULAR HGB CONC 35.5 % (32.0-36.0); PLATELET COUNT 137 TH/MM3 (150-450); RED BLOOD COUNT 2.75 MIL/MM3 (4.50-5.90); RED CELL DISTRIBUTION WIDTH 14.1 % (11.6-17.2); REVIEW FLAG FINAL; WHITE BLOOD COUNT 7.5 TH/MM3 (4.0-11.0)
[2016-11-02 05:14] LABS: BICARBONATE 28.4 MEQ/L (21.0-32.0); POTASSIUM 4.1 MEQ/L (3.5-5.1)
[2016-11-02] MEDS: oxyCODONE/ACETAMINOPHEN 10 MG/325 MG TAB PO SCH ×3 (05:55→18:38)
[2016-11-02] MEDS: CLINDAMYCIN INJ 900 MG in SODIUM CHLORIDE 0.9% INJ 100 ML IV SCH ×2 (05:55→15:26)
[2016-11-02 08:00] VITALS: BP 150/80; PULSE 90; RESP 17; TEMP 97.7; O2SAT 97
[2016-11-02] MEDS: CHLORHEXIDINE 0.12% (ORAL KIT) 15 ML CUP MT SCH ×2 (08:00→19:14)
[2016-11-02] MEDS: DOCUSATE SODIUM 50 MG/SENNA 8.6 MG TAB PO SCH ×2 (08:49→19:19)
[2016-11-02] MEDS: PANTOPRAZOLE SOD 20 MG DELAYED RELEASE TAB PO SCH (08:49)
[2016-11-02] MEDS: SODIUM CHLORIDE 0.9% FLUSH 10 ML FLUSH IV FLUSH SCH ×2 (08:50→19:37)
--- NOTE | 2016-11-02 09:07 | PD.ORT.PN ---
Subjective Subjective Remarks Pain decreasing. Patient appears comfortable in bed. He ambulated yesterday Objective Vitals Vital Signs Date Time Temp Pulse Resp B/P Pulse Ox O2 Delivery O2 Flow Rate FiO2 11/02/16 08:00 97.7 90 17 150/80 97 11/02/16 06:53 18 11/02/16 05:09 18 11/02/16 00:00 97.8 80 20 156/84 99 11/01/16 20:30 98.4 81 18 159/88 100 11/01/16 18:00 90 11/01/16 16:00 98.3 84 20 147/84 98 11/01/16 16:00 89 11/01/16 14:00 82 11/01/16 12:00 74 11/01/16 12:00 98.3 100 19 155/65 98 11/01/16 10:00 76 11/01/16 09:56 22 11/01/16 09:56 22 I/O 11/01/16 11/01/16 11/01/16 11/02/16 11/02/16 11/02/16 07:00 15:00 23:00 07:00 15:00 23:00 Intake Total 625 ml 1200 ml 240 ml 440 ml Output Total 200 ml 2525 ml 100 ml 325 ml Balance 425 ml -1325 ml 140 ml 115 ml Intake Oral 500 ml 1100 ml 240 ml 240 ml IV Total 125 ml 100 ml 200 ml Output Urine Total 100 ml 175 ml 0 ml 250 ml Drainage Total 100 ml 350 ml 100 ml 75 ml Hemodialysis 2000 ml # Bowel Movements 1 0 0 2 Result Diagram: 11/02/16 0439 11/02/16 0439 Imaging Last 24 hours Impressions Abdomen/Pelvis CT 10/26/16 1404 Signed Impressions: Service Date/Time: Wednesday, October 26, 2016 14:23 - CONCLUSION: 1. No acute findings in abdomen and pelvic CT. Trace pericardial fluid. Pilo Gaona MD Objective Remarks Sitting up in bed NAD RLE Right thigh soft to palpation throughout All 3 wound VAC sites intact, serosanguineous drainage Distal compartments soft Decrease sensation to anterior aspect of right foot 2+ pulses Assessment & Plan Problem List: (1) Compartment syndrome (2) Myositis (3) IV drug abuse (4) Lactic acidosis (5) Severe sepsis (6) Hyperkalemia (7) Hypocalcemia (8) Hyponatremia (9) Rhabdomyolysis (10) Elevated LFTs (11) Leukocytosis (12) Acute renal failure Assessment and Plan POD #7 S/P Right Anterior, Posterior and Adductor Compartment and Buttock Compartment Releases and Trochanteric Bursectomy and Abductor Debridement pod#1 s/p Revision Right thigh I&D, partial closure wounds, VAC placement Continue wound VAC. Dressing changes as ordered. Progressive WBing. OOB w assistance order entered at request of PT. IV antibiotics Intensive care management Monitor Creatinine appears to have peaked and beginning to show signs of renal recovery Rickie Dewitt MD Nov 02, 2016 09:07
--- NOTE | 2016-11-02 10:06 | HHI.PR ---
Subjective Remarks Patient started on IV Dilaudid overnight because fentanyl could not be given on the floor. He reports his pain is controlled today. He was up ambulating yesterday. No fevers or chills. We discussed weaning off IV pain medications at length. He is agreeable. Objective Vitals Vital Signs Date Time Temp Pulse Resp B/P Pulse Ox O2 Delivery O2 Flow Rate FiO2 11/02/16 08:00 97.7 90 17 150/80 97 11/02/16 06:53 18 11/02/16 05:09 18 11/02/16 00:00 97.8 80 20 156/84 99 11/01/16 20:30 98.4 81 18 159/88 100 11/01/16 18:00 90 11/01/16 16:00 98.3 84 20 147/84 98 11/01/16 16:00 89 11/01/16 14:00 82 11/01/16 12:00 74 11/01/16 12:00 98.3 100 19 155/65 98 I/O 11/01/16 11/01/16 11/01/16 11/02/16 11/02/16 11/02/16 07:00 15:00 23:00 07:00 15:00 23:00 Intake Total 625 ml 1200 ml 240 ml 440 ml Output Total 200 ml 2525 ml 100 ml 325 ml Balance 425 ml -1325 ml 140 ml 115 ml Intake Oral 500 ml 1100 ml 240 ml 240 ml IV Total 125 ml 100 ml 200 ml Output Urine Total 100 ml 175 ml 0 ml 250 ml Drainage Total 100 ml 350 ml 100 ml 75 ml Hemodialysis 2000 ml # Bowel Movements 1 0 0 2 Result Diagram: 11/02/16 0439 11/02/16 0439 Objective Remarks GENERAL: This is a well-nourished, well-developed patient, in no apparent distress. CARDIOVASCULAR: Normal rate and regular rhythm without murmurs, gallops, or rubs. RESPIRATORY: Good respiratory efforts. Breath sounds equal and clear to auscultation bilaterally. GASTROINTESTINAL: Abdomen soft, non-tender, non-distended. Normal active bowel sounds MUSCULOSKELETAL: Patient has a postoperative dressing/Alejandro wrap of the right thigh, wound VAC in place. Neurovascularly intact at the foot bilaterally. On the right there is 2+ pitting edema of the extremity. NEURO: Alert & Oriented x4 to person, place, time, situation. Moves all ext x4 PSYCH: Appropriate mood and affect. A/P Assessment and Plan 35-year-old male IV drug user admitted with compartment syndrome status post fasciotomy, myositis, acute renal failure secondary to rhabdomyolysis presumably from polysubstance use. Compartment syndrome, right anterior, posterior, adductor, buttock compartment: Status post fasciotomy and revision. Wound VAC in place. -Orthopedic surgery following. Continue wound VAC. Pain control is challenging given the patient's known history of opiate abuse and methadone use. Patient came from the ICU on Fentanyl, schedule Percocet and methadone. Will discontinue IV Dilaudid and change to morphine as needed only. I discussed with the patient at length about the goals to wean off narcotics by the time of discharge. He is agreeable. Needs daily assessment to continue to wean off narcotics. --PT as tolerated Myositis Sepsis s/p fasciotomy quadriceps, hamstring, gluteus medius/karly/minimus with wound vac placement 10/26 Dr. Simms. Wound vacs to continuous suction per Dr. Simms. Intraoperative culture obtained from bursa and from gluteus medius. Blood culture and Urine culture obtained - all cultures negative so far Empiric coverage with vancomycin, clindamycin due to extensive myofasciitis though not clearly necrotizing on operative findings. ID consulted. Zosyn switched to cefepime on 10/28 per ID. Acute kidney injury Acute rhabdomyolysis Acute hyperkalemia Hypocalcemia Non-anionic gap metabolic acidemia Given 2 amps Bicarb. Bicarb drip 150 MEQ @ 150 ml/hr for hyperkalemia/rhabdo which was stopped 10/28. Augustin in place and monitoring hourly UOP. Initially making urine upon return from OR but UOP ultimately ceased, started on hemodialysis on 10/27. Nephrology consulted and following. Making some urine now. Continue hemodialysis per nephrology. Polysubstance abuse (opiates, amphetamines, cocaine) Started methadone 20 mg daily on 10/27. Continue methadone and Percocet for now. Wean off as tolerated depending on whether or not he has repeat procedures planned per orthopedics. Acute respiratory failure Tobacco abuse Extubated on 10/29, currently on room air. CXR negative. HTN Probably related to pain. BP acceptable, continue to monitor. PROPH: SCDs for DVT prophylaxis. Heparin for DVT prophylaxis ACCESS: Left subclavian central venous line placed by ED physician 10/26 . Right IJ vas catheter placed 10/27 FULL CODE Discharge Planning Continue inpatient care. Lisset Barcenas MD Nov 02, 2016 10:06
[2016-11-02] MEDS: METHADONE HCL 10 MG/10 ML ORAL SOLUTION PO SCH (10:20)
[2016-11-02] MEDS ORDERED: oxyCODONE/ACETAMINOPHEN 10 MG/325 MG TAB PO PRN (11:15)
[2016-11-02 12:00] VITALS: BP 161/92; PULSE 85; RESP 17; TEMP 96.8; O2SAT 100
[2016-11-02 16:00] VITALS: BP 160/92; PULSE 76; RESP 18; TEMP 96.9; O2SAT 97
[2016-11-02] MEDS: CEFEPIME INJ 1,000 MG in SODIUM CHLORIDE 0.9% INJ 100 ML IV SCH (16:58)
[2016-11-02] MEDS: MORPHINE SULFATE 4 MG/ML INJ IV PUSH PRN ×2 (16:58→21:04)
[2016-11-02] MEDS: ONDANSETRON HCL 4 MG/2 ML VIAL IV PRN (19:21)
[2016-11-02 21:09] VITALS: RESP 18
[2016-11-02] MEDS ORDERED: metroNIDAZOLE 500 MG TAB PO SCH (22:00)
== END 2016-11-02 21:28 | disposition short-term general hospital (02) | DRG 853 ==
LOC: NEPD 13:05 → NEDA 19:19 → N03B 21:23 → N07A 11-01 20:09
PROVIDERS: ADMIT Hospitalist; ATTEND Hospitalist
PROC: 0KNQ0ZZ Release Right Upper Leg Muscle, Open Approach (ICD-10-PCS; 2016-10-26)
PROC: 0KNQ0ZZ Release Right Upper Leg Muscle, Open Approach (ICD-10-PCS; 2016-10-26)
PROC: 0KNQ0ZZ Release Right Upper Leg Muscle, Open Approach (ICD-10-PCS; 2016-10-26)
PROC: 0KBQ0ZZ Excision of Right Upper Leg Muscle, Open Approach (ICD-10-PCS; 2016-10-26)
PROC: 05H633Z Insertion of Infusion Device into Left Subclavian Vein, Percutaneous Approach (ICD-10-PCS; 2016-10-26)
PROC: 0T9B70Z Drainage of Bladder with Drainage Device, Via Natural or Artificial Opening (ICD-10-PCS; 2016-10-26)
PROC: 5A1945Z Respiratory Ventilation, 24-96 Consecutive Hours (ICD-10-PCS; 2016-10-26)
PROC: 0MTL0ZZ Resection of Right Hip Bursa and Ligament, Open Approach (ICD-10-PCS; principal; 2016-10-26 22:07)
PROC: 05HM33Z Insertion of Infusion Device into Right Internal Jugular Vein, Percutaneous Approach (ICD-10-PCS; 2016-10-27)
PROC: 5A1D60Z (ICD-10-PCS; 2016-10-27)
PROC: 0KBQ0ZZ Excision of Right Upper Leg Muscle, Open Approach (ICD-10-PCS; 2016-10-31)
DX: A41.9 Sepsis, unspecified organism (principal); G93.41 Metabolic encephalopathy; J96.00 Acute respiratory failure, unspecified whether with hypoxia or hypercapnia; N17.9 Acute kidney failure, unspecified; M60.051 Infective myositis, right thigh; M71.151 Other infective bursitis, right hip; M79.A21 Nontraumatic compartment syndrome of right lower extremity; R34 Anuria and oliguria; E87.2 Acidosis; M62.82 Rhabdomyolysis; E87.1 Hypo-osmolality and hyponatremia; E83.51 Hypocalcemia; F17.210 Nicotine dependence, cigarettes, uncomplicated; F19.10 Other psychoactive substance abuse, uncomplicated; E87.5 Hyperkalemia; R65.20 Severe sepsis without septic shock; F14.10 Cocaine abuse, uncomplicated; I10 Essential (primary) hypertension; R79.89 Other specified abnormal findings of blood chemistry; R20.2 Paresthesia of skin; R10.9 Unspecified abdominal pain; R19.7 Diarrhea, unspecified
CPT/HCPCS: 20950; 36556; 36600; 71010; 72158; 72197; 73700; 74176; 76937; 80048; 80053; 80074; 80202; 80307; 81001; 82550; 82552; 82805; 83605; 83735; 84100; 84155; 85014; 85025; 85027; 85610; 85730; 86022; 86703; 87015; 87040; 87070; 87086; 87102; 87116; 87205; 87206; 87493; 87641; 90935; 93306; 94002; 94003; 94640; 94664; 96374; 96375; 99152; A9577; C9113; J0692; J1170; J1580; J1644; J1815; J2175; J2250; J2270; J2405; J2543; J3010; J3370; J7030; J7040; J7050; J7120; J7613

== ENCOUNTER 2016-11-03 09:00 | Inpatient (IN) | payer BC ==
[~2016-11-03] VITALS: Ht 182.9 cm; Wt 105.4 kg
[~2016-11-03 09:00] MED LIST changes: +DIAZ10 PO; -DICL75 PO; -LACTATED RINGER'S 1000 ML INJ 1,000 ML IV ONE; -LEVE500 PO; -NORC10TA2 PO; -NORMOSOL R INJ 1,000 ML IV ONE; -PROPOFOL 200 MG/20 ML AMP IV ONE; +toradol
[2016-11-03] MEDS ORDERED: NALOXONE HCL 0.4 MG/ML AMP IV PRN (13:15)
[2016-11-03] MEDS ORDERED: SENNOSIDES 8.6 MG TAB PO PRN (13:15)
[2016-11-03] MEDS ORDERED: ACETAMINOPHEN 325 MG TAB PO PRN ×2 (13:15→18:45)
[2016-11-03] MEDS ORDERED: LACTULOSE SYRUP 20 GM/30 ML CUP PO PRN (13:15)
[2016-11-03] MEDS ORDERED: MAGNESIUM HYDROXIDE SUSP 30 ML CUP PO PRN (13:15)
[2016-11-03] MEDS ORDERED: BISACODYL 10 MG SUPP RECTAL PRN (13:15)
--- NOTE | 2016-11-03 13:15 | HHI.HP ---
HPI Service [facility] Primary Care Physician Sergio Cottrell MD Admission Diagnosis Diagnoses: Chief Complaint: right hip, leg infection, compartment syndrome. Travel History International Travel<30 Days: No Contact w/Intl Traveler <30 Da: No Traveled to Known Affected Are: No History of Present Illness Mr. Craig is a 35-year-old male with a history of IV drug use who was transferred back to [place] from [facility] after an inadvertent transfer to [facility]. Patient originally presented to [place] on 2016 due to back pain that started 2 weeks before presentation to the ED. He goes to a pain clinic in [place] for suboxone. There he was prescribed 5 day course of prednisone. Pain continued to worsen and he took heroin to self medicate several times in the last week (states injection site was upper extremity). For 2 days prior to coming to the hospital patient experienced excruciating pain and inability to ambulate. MRI was negative for epidural abscess. However abnormal enhancement of erector spinae, gluteus karly/ medius and thigh were felt to be related to myositis. On 10/27/2016 orthopedic surgery performed surgical release of anterior thigh compartment, posterior thigh compartment, adductor thigh compartment and gluteus karly, medius and minimus buttocks compartment with trochanteric bursectomy and muscular debridement of gluteus medius. On 10/31/2016 patient underwent irrigation and debridement of right hip, irrigation debridement of right thigh, closure of lateral hip and thigh wound as well as wound VAC placement. During previous admission, nephrology was following closely with regards to acute renal failure requiring dialysis. Infectious disease followed patient closely as well. Today, patient was seen after he was transferred back to [facility]. He denies any chest pain, shortness of breath, fever or chills. He reports lack of appetite. No changes in bladder or bowel habits. Review of Systems Except as stated in HPI: all other systems reviewed are Neg Past Family Social History Past Medical History Seizures which were felt to be drug related and he has not been on any anticonvulsants for over 2 years Hypertension Drug addiction Past Surgical History Thoracic laminectomy ORIF right elbow Allergies: Coded Allergies: No Known Allergies (Verified , 10/26/16) Family History Dad's side of the family - Diabetes. Social History Patient was smoking 1 ppd prior to hospitalization. He has been using IV drugs for many years. Did some rehab but relapsed. No alcohol use. Physical Exam Vital Signs Temperature 97.3F, pulse 82, respiration 18, blood pressure 153/82, pulse oximetry 99% on room air. Physical Exam GENERAL: This is a well-nourished, well-developed patient, in no apparent distress. SKIN: No rashes, ecchymoses or lesions. Warm and dry. HEAD: Atraumatic. Normocephalic. No temporal or scalp tenderness. EYES: Pupils equal round and reactive. No injection or drainage. ENT: Nose without bleeding, purulent drainage or septal hematoma. Airway patent. NECK: Trachea midline. No lymphadenopathy. Supple, nontender, no meningeal signs. CARDIOVASCULAR: Regular rate and rhythm without murmurs, gallops, or rubs. No JVD. RESPIRATORY: Clear to auscultation. Breath sounds equal bilaterally. No wheezes , rales, or rhonchi. GASTROINTESTINAL: Abdomen soft, non-tender, nondistended. No guarding. MUSCULOSKELETAL: Extremities without clubbing, cyanosis, or edema. Right leg s/ p surgical interventions, wound vac in place. NEUROLOGICAL: Awake and alert. Cranial nerves II through XII intact. No focal neurological deficits. Normal speech. Laboratory CBC - WBC 8.4, hemoglobin 9.7, hematocrit 28.2, MCV 84.4, platelets 189. CMP - sodium 129, potassium 4.9, chloride 90, BUN 77, creatinine 11.63, estimated GFR 5, random glucose 82, AST 138, ALP 128, alkaline phosphatase 70. Assessment and Plan Assessment and Plan 35-year-old male IV drug user admitted with compartment syndrome status post fasciotomy, myositis, acute renal failure secondary to rhabdomyolysis presumably from polysubstance use. After for an inadvertent transfer to [facility], patient was transferred back to [place] today 11/03/2016. Compartment syndrome, right anterior, posterior, adductor, buttock compartment: Status post fasciotomy and revision. Wound VAC in place. - Will re-consult Orthopedic surgery. Continue wound VAC. - Pain control with acetaminophen, Percocet, Dilaudid IV when necessary. - PT as tolerated Myositis Sepsis - s/p fasciotomy quadriceps, hamstring, gluteus medius/karly/minimus with wound vac placement 10/26 Dr. Simms. Wound vacs to continuous suction - Intraoperative culture obtained from bursa and from gluteus medius. Blood culture and Urine culture obtained - all cultures negative so far - Re-consulted infectious disease. Per infectious disease, continue cefepime 1 g 24 hours, metronidazole 500 mg by mouth every 8 hours. Acute renal failure - Reconsult nephrology for follow-up and dialysis. Full code. Physician Certification 2 Midnight Certification Type: Admission for Inpatient Services Order for Inpatient Services The services are ordered in accordance with Medicare regulations or non- Medicare payer requirements, as applicable. In the case of services not specified as inpatient-only, they are appropriately provided as inpatient services in accordance with the 2-midnight benchmark. Estimated LOS (days): 2 days is the estimated time the patient will need to remain in the hospital, assuming treatment plan goals are met and no additional complications. Post-Hospital Plan: Home Khang Armijo DO Nov 03, 2016 1:15 pm Hypertension Probably related to pain. BP acceptable, continue to monitor. Full code. Physician Certification Order for Inpatient Services The services are ordered in accordance with Medicare regulations or non- Medicare payer requirements, as applicable. In the case of services not specified as inpatient-only, they are appropriately provided as inpatient services in accordance with the 2-midnight benchmark. days is the estimated time the patient will need to remain in the hospital, assuming treatment plan goals are met and no additional complications. Khang Armijo DO Nov 03, 2016 13:15
[2016-11-03] MEDS: ONDANSETRON HCL 4 MG/2 ML VIAL IVP PRN (14:29)
[2016-11-03] MEDS: metroNIDAZOLE 500 MG TAB PO SCH ×2 (14:29→20:53)
[2016-11-03] MEDS: oxyCODONE/ACETAMINOPHEN 10 MG/325 MG TAB PO PRN ×2 (14:29→20:53)
[2016-11-03 14:49] LABS: AUTOMATED NEUTROPHIL # 6.3 TH/MM3 (1.8-7.7); BASOPHIL % 0.3 % (0.0-2.0); EOSINOPHIL # 0.1 TH/MM3 (0-0.4); EOSINOPHIL % 1.4 % (0.0-4.0); HEMATOCRIT 28.2 % (39.0-51.0); LYMPH % 14.1 % (9.0-44.0); LYMPHOCYTE # 1.2 TH/MM3 (1.0-4.8); MEAN CELL VOLUME 84.4 FL (80.0-100.0); MEAN CORPUSCULAR HEMOGLOBIN 29.2 PG (27.0-34.0); MEAN CORPUSCULAR HGB CONC 34.6 % (32.0-36.0); MONO % 9.3 % (0.0-8.0); NEUT % 74.9 % (16.0-70.0); PLATELET COUNT 189 TH/MM3 (150-450); RED BLOOD COUNT 3.34 MIL/MM3 (4.50-5.90); RED CELL DISTRIBUTION WIDTH 14.1 % (11.6-17.2); WHITE BLOOD COUNT 8.4 TH/MM3 (4.0-11.0)
[2016-11-03 14:54] LABS: HEMO FLAGS AUTO DIFF
[2016-11-03] MEDS: CEFEPIME INJ 1,000 MG in SODIUM CHLORIDE 0.9% INJ 100 ML IV SCH (15:09)
[2016-11-03] MEDS: HYDROmorphone HCL PF 1 MG/ML VIAL IV PUSH PRN ×3 (15:09→23:47)
--- NOTE | 2016-11-03 15:42 | PD.ID.CON ---
History of Present Illness Service ID Consult Requested By Reason for Consult Evaluation and Mment of Infected Pyomyofascitis. Primary Care Physician Sergio Cottrell MD Diagnoses: History of Present Illness Mr. Craig is a 35-year-old male with past medical history significant for IV drug abuse, chronic pain who is seen by the pain clinic in [facility] for Suboxone. Patient presents to the emergency room at [facility] for pain that started in his low back 2 weeks ago. 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 He was prescribed 5 mg of prednisone in addition to his Suboxone and pain medicines. The pain continued to worsen and he took it upon himself to self medicated with heroin several times in the last week. The reported site of injection per records is upper extremity. During this admission patient was admitted to the ICU, intubated, underwent HD for rhabdomyolysis related ARF. Patient underwent intra-operative wash debridement and wash out of the infected appearing sites in the RLE. He demonstrated signs of acute compartment syndrome which was the trigger for the surgery. Infectious disease is consulted for evaluation and management of sepsis, Myofascitis, compartment syndrome. Review of Systems Constitutional: DENIES: Diaphoretic episodes, Fatigue, Fever, Weight gain, Weight loss, Chills, Dizziness, Change in appetite, Night Sweats Endocrine: DENIES: Heat/cold intolerance, Polydipsia, Polyuria, Polyphagia Eyes: DENIES: Blurred vision, Diplopia, Eye inflammation, Eye pain, Vision loss , Photosensitivity, Double Vision Ears, nose, mouth, throat: DENIES: Tinnitus, Hearing loss, Vertigo, Nasal discharge, Oral lesions, Throat pain, Hoarseness, Ear Pain, Running Nose, Epistaxis, Sinus Pain, Toothache, Odynophagia Respiratory: DENIES: Apneas, Cough, Snoring, Wheezing, Hemoptysis, Sputum production, Shortness of breath Cardiovascular: DENIES: Chest pain, Palpitations, Syncope, Dyspnea on Exertion , PND, Lower Extremity Edema, Orthopnea, Claudication Gastrointestinal: DENIES: Abdominal pain, Black stools, Bloody stools, Constipation, Diarrhea, Nausea, Vomiting, Difficulty Swallowing, Anorexia Genitourinary: DENIES: Sexual dysfunction, Urinary frequency, Urinary incontinence, Urgency, Hematuria, Dysuria, Nocturia, Penile Discharge, Testicular Pain, Testicular Swelling Musculoskeletal: DENIES: Joint pain, Muscle aches, Stiffness, Joint Swelling, Back pain, Neck pain Integumentary: DENIES: Abnormal pigmentation, Nail changes, Pruritus, Rash Hematologic/lymphatic: DENIES: Bruising, Lymphadenopathy Immunologic/allergic: DENIES: Eczema, Urticaria Neurologic: DENIES: Abnormal gait, Headache, Localized weakness, Paresthesias, Seizures, Speech Problems, Tremor, Poor Balance Psychiatric: DENIES: Anxiety, Confusion, Mood changes, Depression, Hallucinations, Agitation, Suicidal Ideation, Homicidal Ideation, Delusions Except as stated in HPI: all other systems reviewed are Neg Past Family Social History Allergies: Coded Allergies: No Known Allergies (Verified , 10/26/16) Past Medical History Seizures which were felt to be drug related and he has not been on any anticonvulsants for over 2 years Hypertension Drug addiction Past Surgical History Thoracic laminectomy ORIF right elbow Reported Medications Reported Meds & Active Scripts Active Reported [toradol] Valium (Diazepam) 10 Mg Tab 10 Mg PO BID PRN Zubsolv 5.7-1.4 mg 1 Sub Sub 1 Tab SL TID Bunavail 6.3-1 mg (Buprenorphine HCl-Naloxone HCl) 1 Mis Mis Active Ordered Medications Current Medications Medications (Trade) Dose Ordered Sig/Saida Route Start Time Stop Time Status Last Admin (NS Flush) 2 ml UNSCH PRN IV FLUSH 11/03/16 13:15 (NS Flush) 2 ml BID IV FLUSH 11/03/16 21:00 11/04/16 08:12 (Tylenol) 650 mg Q4H PRN PO 11/03/16 13:15 (Zofran Inj) 4 mg Q6H PRN IVP 11/03/16 13:15 11/04/16 05:48 (Percocet 10-325 Mg) 1 tab Q6H PRN PO 11/03/16 13:15 11/04/16 08:11 (Narcan Inj) 0.4 mg UNSCH PRN IV 11/03/16 13:15 (Zoila-Colace) 1 tab BID PO 11/03/16 21:00 11/03/16 19:45 (Milk Of Magnesia Liq) 30 ml Q12H PRN PO 11/03/16 13:15 (Senokot) 17.2 mg Q12H PRN PO 11/03/16 13:15 (Dulcolax Supp) 10 mg DAILY PRN RECTAL 11/03/16 13:15 (Lactulose Liq) 30 ml DAILY PRN PO 11/03/16 13:15 Hydromorphone HCl 0.5 mg 0.5 mg Q4H PRN IV PUSH 11/03/16 13:15 11/04/16 05:43 (Maxipime Inj/NS Inj) 100 ml @ 200 mls/hr Q24H IV 11/03/16 17:00 11/03/16 15:09 (Flagyl) 500 mg Q8HR PO 11/03/16 14:00 11/04/16 05:42 Lactobacillus Acidophilus 1 tab 1 tab TID PO 11/03/16 18:00 11/04/16 08:11 (NS 1000 ml Inj) 1,000 ml @ 0 mls/hr Q0M PRN IV 11/03/16 18:40 Heparin Sodium (Porcine) 8000 units 8,000 units UNSCH PRN IVF 11/03/16 18:45 Sodium Chloride 1,000 ml @ 200 mls/hr Q5H PRN IV 11/03/16 18:40 (NS 1000 ml Inj) 1,000 ml @ 0 mls/hr Q0M PRN IV 11/03/16 18:40 (Mannitol Inj) 12.5 gm UNSCH PRN IV 11/03/16 18:45 (Albumin 25% Inj) 25 gm UNSCH PRN IV 11/03/16 18:45 (NS Flush) 5 ml UNSCH PRN IV FLUSH 11/03/16 18:45 (Heparin Inj) UNSCH PRN .XX 11/03/16 18:45 (Gentamicin (Dialysis) Inj) 20 mg UNSCH PRN IV 11/03/16 18:45 (Zofran Inj) 4 mg UNSCH PRN IV 11/03/16 18:45 (Tylenol) 650 mg UNSCH PRN PO 11/03/16 18:45 (Benadryl) 25 mg UNSCH PRN PO 11/03/16 18:45 (Nitrostat Sl) 0.4 mg UNSCH PRN SL 11/03/16 18:45 (Catapres) 0.1 mg UNSCH PRN PO 11/03/16 18:45 (Epogen Inj) 10,000 units UNSCH PRN IV 11/03/16 18:45 (Gelfoam 12 Mm/7 Mm Top) 1 foam UNSCH PRN TOP 11/03/16 18:45 Family History reviewed Social History Smokes one Pack of cigarettes per day Is unemployed. Lives with his mom H/o IVDU including dilaudid and heroin. He has undergone drug rehab three times in the last 10 years. Most recently got out of 30 days of rehabilitation August 04. Intermittent cocaine abuse. UDS positive for cocaine Drink alcohol occasionally Physical Exam Vital Signs Vital signs reviewed and stable at time of my visit. UO 200 cc in bag. Physical Exam GENERAL: This is a well-nourished, well-developed patient, in no apparent distress. SKIN: No rashes, ecchymoses or lesions. Cool and dry. HEAD: Atraumatic. Normocephalic. No temporal or scalp tenderness. EYES: Pupils equal round and reactive. Extraocular motions intact. No scleral icterus. No injection or drainage. ENT: Nose without bleeding, purulent drainage or septal hematoma. Throat without erythema, tonsillar hypertrophy or exudate. Uvula midline. Airway patent. NECK: Trachea midline. No JVD or lymphadenopathy. Supple, nontender, no meningeal signs. CARDIOVASCULAR: Regular rate and rhythm without murmurs, gallops, or rubs. RESPIRATORY: Clear to auscultation. Breath sounds equal bilaterally. No wheezes , rales, or rhonchi. GASTROINTESTINAL: Abdomen soft, non-tender, nondistended. No hepato-splenomegaly , or palpable masses. No guarding. MUSCULOSKELETAL: Right thigh with dressings/vac connection noted. No signs of progression of infection. NEUROLOGICAL: Awake and alert. Grossly non focal. Psych: pleasant IV line sites with no e.o infection. Laboratory Laboratory Tests Test 11/03/16 14:28 White Blood Count 8.4 Red Blood Count 3.34 Hemoglobin 9.7 Hematocrit 28.2 Mean Corpuscular Volume 84.4 Mean Corpuscular Hemoglobin 29.2 Mean Corpuscular Hemoglobin 34.6 Concent Red Cell Distribution Width 14.1 Platelet Count 189 Mean Platelet Volume 8.2 Neutrophils (%) (Auto) 74.9 Lymphocytes (%) (Auto) 14.1 Monocytes (%) (Auto) 9.3 Eosinophils (%) (Auto) 1.4 Basophils (%) (Auto) 0.3 Neutrophils # (Auto) 6.3 Lymphocytes # (Auto) 1.2 Monocytes # (Auto) 0.8 Eosinophils # (Auto) 0.1 Basophils # (Auto) 0.0 CBC Comment AUTO DIFF Result Diagram: 11/03/16 1428 Assessment and Plan Assessment and Plan Pyomyofascitis Rhabdomyolysis acute s/p surgical debridements for compartment syndrome/pyomyofascitis. Acute renal failure Recs Restart Cefepime IV Start flagyl oral Radha Reyes to get stat labs and place renal and ortho consults. Radha pt about ID plan. He was thankful of care provided. Mara Jimenez MD Nov 03, 2016 15:42
[2016-11-03 15:44] LABS: SCAN/DIFF AUTO DIFF CONFIRMED
[2016-11-03 15:45] LABS: ALKALINE PHOSPHATASE 70 U/L (45-117); ALT (GPT) 128 U/L (12-78); ANION GAP 15 MEQ/L (5-15); AST (GOT) 138 U/L (15-37); BICARBONATE 23.9 MEQ/L (21.0-32.0); BLOOD UREA NITROGEN 77 MG/DL (7-18); CHLORIDE 90 MEQ/L (98-107); GLOMERULAR FILTRATION RATE 5 ML/MIN (>89); POTASSIUM 4.9 MEQ/L (3.5-5.1); SODIUM (NA) 129 MEQ/L (136-145); TOTAL BILIRUBIN ADULT 0.7 MG/DL (0.2-1.0)
[2016-11-03 16:00] VITALS: BP 153/82; PULSE 82; RESP 18; TEMP 97.3; O2SAT 99
--- NOTE | 2016-11-03 18:39 | PD.CONS ---
HPI Service Nephrology Consult Requested By Dr. Armijo Reason for Consult Acute renal failure on dialysis Primary Care Physician Sergio Cottrell MD History of Present Illness 35-year-old the male with a history of rhabdomyolysis, status post fasciotomy on the right who was inadvertently sent to [facility], he is now back he received his dialysis on Thursday, patient states that he was confused why he was transferred however he was sent back once it was realized that he is not the right patient. Review of Systems Constitutional: COMPLAINS OF: Fatigue Musculoskeletal: COMPLAINS OF: Joint pain, Muscle aches Past Family Social History Allergies: Coded Allergies: No Known Allergies (Verified , 10/26/16) Past Medical History Back pain Fasciitis on the right leg Past Surgical History Status post right leg fasciotomy Active Ordered Medications Current Medications Medications (Trade) Dose Ordered Sig/Saida Route Start Time Stop Time Status Last Admin (NS Flush) 2 ml UNSCH PRN IV FLUSH 11/03/16 13:15 (NS Flush) 2 ml BID IV FLUSH 11/03/16 21:00 (Tylenol) 650 mg Q4H PRN PO 11/03/16 13:15 (Zofran Inj) 4 mg Q6H PRN IVP 11/03/16 13:15 11/03/16 14:29 (Percocet 10-325 Mg) 1 tab Q6H PRN PO 11/03/16 13:15 11/03/16 14:29 (Narcan Inj) 0.4 mg UNSCH PRN IV 11/03/16 13:15 (Zoila-Colace) 1 tab BID PO 11/03/16 21:00 (Milk Of Magnesia Liq) 30 ml Q12H PRN PO 11/03/16 13:15 (Senokot) 17.2 mg Q12H PRN PO 11/03/16 13:15 (Dulcolax Supp) 10 mg DAILY PRN RECTAL 11/03/16 13:15 (Lactulose Liq) 30 ml DAILY PRN PO 11/03/16 13:15 Hydromorphone HCl 0.5 mg 0.5 mg Q4H PRN IV PUSH 11/03/16 13:15 11/03/16 15:09 (Maxipime Inj/NS Inj) 100 ml @ 200 mls/hr Q24H IV 11/03/16 17:00 11/03/16 15:09 (Flagyl) 500 mg Q8HR PO 11/03/16 14:00 11/03/16 14:29 (Lactinex) 1 tab TID PO 11/03/16 18:00 UNV Family History Noncontributory Social History History of drug abuse Physical Exam Vital Signs Vital Signs Date Time Temp Pulse Resp B/P Pulse Ox O2 Delivery O2 Flow Rate FiO2 11/03/16 16:00 97.3 82 18 153/82 99 Physical Exam GENERAL: Well-nourished, well-developed patient. SKIN: Warm and dry. HEAD: Normocephalic. EYES: No scleral icterus. No injection or drainage. NECK: Supple, trachea midline. No JVD or lymphadenopathy. CARDIOVASCULAR: Regular rate and rhythm without murmurs, gallops, or rubs. RESPIRATORY: Breath sounds equal bilaterally. No accessory muscle use. GASTROINTESTINAL: Abdomen soft, non-tender, nondistended. EXTREMITIES: No cyanosis, right leg has dressing on NEUROLOGICAL: Awake, alert, and oriented x 3. Non-focal. Laboratory Laboratory Tests Test 11/03/16 14:28 White Blood Count 8.4 Red Blood Count 3.34 Hemoglobin 9.7 Hematocrit 28.2 Mean Corpuscular Volume 84.4 Mean Corpuscular Hemoglobin 29.2 Mean Corpuscular Hemoglobin 34.6 Concent Red Cell Distribution Width 14.1 Platelet Count 189 Mean Platelet Volume 8.2 Neutrophils (%) (Auto) 74.9 Lymphocytes (%) (Auto) 14.1 Monocytes (%) (Auto) 9.3 Eosinophils (%) (Auto) 1.4 Basophils (%) (Auto) 0.3 Neutrophils # (Auto) 6.3 Lymphocytes # (Auto) 1.2 Monocytes # (Auto) 0.8 Eosinophils # (Auto) 0.1 Basophils # (Auto) 0.0 CBC Comment AUTO DIFF Differential Comment AUTO DIFF CONFIRMED Sodium Level 129 Potassium Level 4.9 Chloride Level 90 Carbon Dioxide Level 23.9 Anion Gap 15 Blood Urea Nitrogen 77 Creatinine 11.63 Estimat Glomerular Filtration 5 Rate Random Glucose 82 Calcium Level 8.3 Total Bilirubin 0.7 Aspartate Amino Transf 138 (AST/SGOT) Alanine Aminotransferase 128 (ALT/SGPT) Alkaline Phosphatase 70 Total Protein 5.8 Albumin 2.5 Result Diagram: 11/03/16 1428 11/03/16 1428 Assessment and Plan Problem List: (1) Acute renal failure Plan: Patient will need to hemodialysis on Thursday and and Saturdays I will resume his previous orders (2) Compartment syndrome Plan: Orthopedic is following (3) Hyponatremia Plan: Due to renal failure (4) Rhabdomyolysis Plan: As above Gonzalo Navarrete MD Nov 03, 2016 18:39
[2016-11-03] MEDS ORDERED: SODIUM CHLOR 0.9% 1000 ML INJ 1,000 ML IV PRN ×3 (18:40)
[2016-11-03] MEDS ORDERED: ALBUMIN HUMAN 25% 25 GM/100 ML BAGP IV PRN (18:45)
[2016-11-03] MEDS ORDERED: MANNITOL 12.5 GM/50 ML VIAL IV PRN (18:45)
[2016-11-03] MEDS ORDERED: SODIUM CHLORIDE 0.9% FLUSH 10 ML FLUSH IV FLUSH PRN (18:45)
[2016-11-03] MEDS ORDERED: diphenhydrAMINE HCL 25 MG CAP PO PRN (18:45)
[2016-11-03] MEDS ORDERED: GELATIN 12 MM/7 MM FOAM TOP PRN (18:45)
[2016-11-03] MEDS ORDERED: NITROGLYCERIN 0.4 MG SL 25 TABS/BTL SL PRN (18:45)
[2016-11-03] MEDS ORDERED: ONDANSETRON HCL 4 MG/2 ML VIAL IV PRN (18:45)
[2016-11-03] MEDS ORDERED: HEPARIN SODIUM - IV 10,000 UNITS/10 ML VIAL IVF PRN (18:45)
[2016-11-03] MEDS ORDERED: cloNIDine HCL 0.1 MG TAB PO PRN (18:45)
[2016-11-03] MEDS: LACTOBACILLUS ACIDOPHILUS TAB PO SCH (19:45)
[2016-11-03] MEDS: DOCUSATE SODIUM 50 MG/SENNA 8.6 MG TAB PO SCH (19:45)
[2016-11-03] MEDS: SODIUM CHLORIDE 0.9% FLUSH 10 ML FLUSH IV FLUSH SCH (19:45)
[2016-11-03 20:00] VITALS: BP 141/86; PULSE 87; RESP 20; TEMP 98.2; O2SAT 98
[2016-11-03 20:47] VITALS: O2SAT 100
[2016-11-04] VITALS: BP 155/89; PULSE 86; RESP 20; TEMP 97.2; O2SAT 98
[2016-11-04] MEDS: oxyCODONE/ACETAMINOPHEN 10 MG/325 MG TAB PO PRN ×5 (03:48→20:50)
[2016-11-04] MEDS: metroNIDAZOLE 500 MG TAB PO SCH ×3 (05:42→20:50)
[2016-11-04] MEDS: HYDROmorphone HCL PF 1 MG/ML VIAL IV PUSH PRN ×5 (05:43→23:29)
[2016-11-04] MEDS: ONDANSETRON HCL 4 MG/2 ML VIAL IVP PRN ×2 (05:48→20:50)
--- NOTE | 2016-11-04 07:26 | PD.ORT.PN ---
Subjective Subjective Remarks s/p I&D with wound closures and vac change to right leg doing well. pain controlled. no complaints Objective Vitals Vital Signs Date Time Temp Pulse Resp B/P Pulse Ox O2 Delivery O2 Flow Rate FiO2 11/04/16 00:00 97.2 86 20 155/89 98 11/03/16 20:47 100 21 11/03/16 20:00 98.2 87 20 141/86 98 11/03/16 16:00 97.3 82 18 153/82 99 I/O 11/03/16 11/03/16 11/03/16 11/04/16 11/04/16 11/04/16 07:00 15:00 23:00 07:00 15:00 23:00 Intake Total 236 ml 360 ml 120 ml Output Total 960 ml 125 ml Balance 236 ml -600 ml -5 ml Intake Oral 360 ml 120 ml IV Total 236 ml Output Urine Total 600 ml 0 ml Drainage Total 360 ml 125 ml Result Diagram: 11/03/16 1428 11/03/16 1428 Objective Remarks RLE: +vac. good seal. remaining dressings clean and dry. intact. thigh supple. NVI distally. Assessment & Plan Assessment and Plan 1) Right Leg compartment syndrome s/p fasciotomies with subsequent wound closures and vac application -NPO -sign consents -surgery today for I&D and possible skin grafting right leg Edenilson Womack Nov 04, 2016 07:26
[2016-11-04 08:00] VITALS: BP 159/79; PULSE 83; RESP 17; TEMP 96.1; O2SAT 98
[2016-11-04] MEDS: DOCUSATE SODIUM 50 MG/SENNA 8.6 MG TAB PO SCH ×2 (08:10→20:50)
[2016-11-04] MEDS: LACTOBACILLUS ACIDOPHILUS TAB PO SCH ×3 (08:11→16:41)
[2016-11-04] MEDS: SODIUM CHLORIDE 0.9% FLUSH 10 ML FLUSH IV FLUSH SCH ×2 (08:12→20:50)
[2016-11-04] MEDS: HEPARIN SODIUM - IV 10,000 UNITS/10 ML VIAL PRN (10:30)
[2016-11-04] MEDS: EPOETIN ALFA 10,000 UNITS/ML VIAL IV PRN (10:31)
[2016-11-04] MEDS: GENTAMICIN SULFATE (DIALYSIS USE ONLY) 20 MG/2 ML VIAL IV PRN (10:31)
--- NOTE | 2016-11-04 13:06 | HHI.PR ---
Subjective Remarks Follow-up for renal failure, compartment syndrome. Patient is doing well. No fever or chills. He complains of significant pain on his right lower extremity. Objective Vitals Vital Signs Date Time Temp Pulse Resp B/P Pulse Ox O2 Delivery O2 Flow Rate FiO2 11/04/16 08:00 96.1 83 17 159/79 98 11/04/16 00:00 97.2 86 20 155/89 98 11/03/16 20:47 100 21 11/03/16 20:00 98.2 87 20 141/86 98 11/03/16 16:00 97.3 82 18 153/82 99 I/O 11/03/16 11/03/16 11/03/16 11/04/16 11/04/16 11/04/16 07:00 15:00 23:00 07:00 15:00 23:00 Intake Total 236 ml 360 ml 120 ml Output Total 960 ml 125 ml 3000 ml Balance 236 ml -600 ml -5 ml -3000 ml Intake Oral 360 ml 120 ml IV Total 236 ml Output Urine Total 600 ml 0 ml Drainage Total 360 ml 125 ml Hemodialysis 3000 ml Result Diagram: 11/03/16 1428 11/03/16 1428 Objective Remarks GENERAL: Alert, oriented 3, NAD. SKIN: Warm and dry. HEAD: Normocephalic. EYES: No scleral icterus. No injection or drainage. NECK: Supple, trachea midline. No JVD or lymphadenopathy. CARDIOVASCULAR: Regular rate and rhythm without murmurs, gallops, or rubs. RESPIRATORY: Breath sounds equal bilaterally. No accessory muscle use. GASTROINTESTINAL: Abdomen soft, non-tender, nondistended. MUSCULOSKELETAL: No cyanosis, or edema. Right leg s/p surgical interventions, wound vac in place. BACK: Nontender without obvious deformity. No CVA tenderness. Procedures None. A/P Assessment and Plan 35-year-old male IV drug user admitted with compartment syndrome status post fasciotomy, myositis, acute renal failure secondary to rhabdomyolysis presumably from polysubstance use. After for an inadvertent transfer to [facility], patient was transferred back to [place] today 11/03/2016. Compartment syndrome, right anterior, posterior, adductor, buttock compartment: Status post fasciotomy and revision. Wound VAC in place. - Orthopedic surgery following. Continue wound VAC. Possible I&D tomorrow. - Pain control with acetaminophen, Percocet, Dilaudid IV when necessary. - PT as tolerated Myositis Sepsis - s/p fasciotomy quadriceps, hamstring, gluteus medius/karly/minimus with wound vac placement 10/26 Dr. Simms. Wound vacs to continuous suction - Intraoperative culture obtained from bursa and from gluteus medius. Blood culture and Urine culture obtained - all cultures negative so far - Re-consulted infectious disease. Per infectious disease, continue cefepime 1 g 24 hours, metronidazole 500 mg by mouth every 8 hours. Acute renal failure - Reconsulted nephrology for follow-up and dialysis. Patient received dialysis today. Full code. Khang Armijo DO Nov 04, 2016 1:06 pm
--- NOTE | 2016-11-04 13:25 | HHI.NPPN ---
Subjective History of Present Illness Hx of ARF Rhabdo Objective Data Data 11/03/16 11/04/16 19:00 07:00 Intake Total 236 ml 480 ml Output Total 1085 ml Balance 236 ml -605 ml Intake Oral 480 ml IV Total 236 ml Output Urine Total 600 ml Drainage Total 485 ml Vital Signs Date Time Temp Pulse Resp B/P Pulse Ox O2 Delivery O2 Flow Rate FiO2 11/04/16 08:00 96.1 83 17 159/79 98 11/04/16 00:00 97.2 86 20 155/89 98 11/03/16 20:47 100 21 11/03/16 20:00 98.2 87 20 141/86 98 11/03/16 16:00 97.3 82 18 153/82 99 -: 11/03/16 1428 11/03/16 1428 Physical Exam General Appearance: Well Developed, Well Nourished Neck Neck Exam: Neck Supple Pulmonary Resp Exam: Clear Bilaterally, Breath Sounds Equal Cardiology CV Exam: Regular, Normal Sinus Rhythm Gastrointestinal/Abdomen GI Exam: Soft, Non-Tender, Bowel Sounds Present Extremeties Extremities Exam: Moderate Edema Assessment/Plan Problem List: (1) Acute renal failure Plan: Patient on hemodialysis on Thursday and and Saturdays had HD today UF 3 L follow BMP passing more urine (2) Compartment syndrome Plan: Orthopedic is following (3) Hyponatremia Plan: Due to renal failure (4) Rhabdomyolysis Plan: As above Gonzalo Navarrete MD Nov 04, 2016 13:25
[2016-11-04] MEDS: CEFEPIME INJ 1,000 MG in SODIUM CHLORIDE 0.9% INJ 100 ML IV SCH (15:33)
[2016-11-04 16:00] VITALS: BP 137/73; PULSE 91; RESP 17; TEMP 96.4; O2SAT 94
[2016-11-04 20:00] VITALS: BP 157/82; PULSE 85; RESP 17; TEMP 98.8; O2SAT 99
[2016-11-05] VITALS: BP 144/79; PULSE 85; RESP 17; TEMP 99.6; O2SAT 98
[2016-11-05] MEDS: oxyCODONE/ACETAMINOPHEN 10 MG/325 MG TAB PO PRN ×4 (02:20→20:30)
[2016-11-05] MEDS: HYDROmorphone HCL PF 1 MG/ML VIAL IV PUSH PRN ×5 (03:28→22:47)
[2016-11-05 04:12] LABS: POTASSIUM 3.9 MEQ/L (3.5-5.1)
[2016-11-05 04:32] LABS: CALCIUM-PROTEIN CORRECTED 8.6 MG/DL (8.5-10.1)
[2016-11-05] MEDS: metroNIDAZOLE 500 MG TAB PO SCH ×3 (04:52→20:30)
--- NOTE | 2016-11-05 06:46 | PD.ORT.PN ---
Subjective Subjective Remarks s/p I&D with wound closures and vac change to right leg doing well. pain controlled. no complaints Objective Vitals Vital Signs Date Time Temp Pulse Resp B/P Pulse Ox O2 Delivery O2 Flow Rate FiO2 11/05/16 03:20 16 11/05/16 00:00 99.6 85 17 144/79 98 11/04/16 20:00 98.8 85 17 157/82 99 11/04/16 16:00 96.4 91 17 137/73 94 11/04/16 08:00 96.1 83 17 159/79 98 I/O 11/04/16 11/04/16 11/04/16 11/05/16 11/05/16 11/05/16 07:00 15:00 23:00 07:00 15:00 23:00 Intake Total 120 ml 240 ml 240 ml 0 ml Output Total 125 ml 3500 ml 850 ml 150 ml Balance -5 ml -3260 ml -610 ml -150 ml Intake Oral 120 ml 240 ml 240 ml 0 ml IV Total 0 ml Output Urine Total 0 ml 500 ml 650 ml 150 ml Drainage Total 125 ml 200 ml Hemodialysis 3000 ml # Bowel Movements 0 Result Diagram: 11/03/16 1428 11/05/16 0330 Objective Remarks RLE: +vac. good seal. remaining dressings clean and dry. intact. thigh supple. NVI distally. Assessment & Plan Assessment and Plan 1) Right Leg compartment syndrome s/p fasciotomies with subsequent wound closures and vac application -NPO -sign consents -surgery today for I&D and possible skin grafting right leg -surgery postponed yesterday. planned for today Edenilson Womack Nov 05, 2016 06:46
[2016-11-05] MEDS ORDERED: ACETAMINOPHEN 1000 MG/100 ML VIAL IV ONE (07:09)
[2016-11-05] MEDS ORDERED: DEXAMETHASONE SOD PHOS 4 MG/ML VIAL ONE (07:10)
[2016-11-05] MEDS ORDERED: FAMOTIDINE 20 MG/2 ML VIAL ONE (07:10)
[2016-11-05] MEDS ORDERED: MIDAZOLAM HCL 2 MG/2 ML VIAL ONE (07:10)
[2016-11-05] MEDS ORDERED: SODIUM CHLOR 0.9% 250 ML INJ 250 ML ONE (07:12)
[2016-11-05] MEDS ORDERED: GENTAMICIN SULFATE 80 MG/2 ML VIAL ONE (07:12)
[2016-11-05] MEDS ORDERED: VANCOMYCIN HCL 1000 MG VIAL ONE (07:12)
[2016-11-05] MEDS ORDERED: LIDOCAINE 2% JELLY 30 ML TUBE ONE (07:55)
[2016-11-05] MEDS ORDERED: MINERAL OIL 10 ML VIAL ONE (07:55)
[2016-11-05] MEDS ORDERED: ceFAZolin INJ 1,000 MG VIAL IV ONE (08:18)
[2016-11-05] MEDS: LACTATED RINGER'S 1000 ML INJ 1,000 ML IV SCH ×3 (08:27→20:31)
--- NOTE | 2016-11-05 08:33 | PD.OP ---
cc: Dickson Walker MD Operative Report Date of Surgery: Nov 05, 2016 Preoperative Diagnosis: Right thigh infection with open wound Postoperative Diagnosis: Procedure: Irrigation and excisional debridement of right thigh, application wound VAC dressing Surgeon: Dickson Walker Reheater(s): LORE Cain PA-C The surgical procedure was assisted by my physician assistant store leader. My P.A. presence was necessary throughout this case for the manipulation and positioning of the surgical extremity. My P.A. was assisting me throughout the duration of this procedure. The skill set of a physician assistant store leader was medically necessary to complete this procedure. During the surgical case the surgical services tech was working at the back table and the physician assistant store leader was directly assisting me. Operation and Findings: Sergio is a 35-year-old male who presented emergency room 10 days ago. He has evidence of infection and compartment syndrome. He was taken to the operating room by Dr. Joe Simms for emergent fasciotomies with irrigation debridement of hip and thigh. He has had a secondary surgery for repeat irrigation and debridement with partial closure of incisions. Informed consent was obtained preoperatively and operative site was marked. He was brought opposite room. His given IV sedation and general anesthesia. Right leg and hip were prepped with alcohol followed by Hibiclens and draped usual sterile fashion. Timeout procedure was performed. He is on scheduled IV antibiotics. Procedure began with debridement of the posterior thigh wound. Overall the muscles appear to be healthy and viable. There is no purulence or gross signs of infection. Skin subcutaneous tissue fascia and muscle were sharply debrided with scalpel and rongeur. Wound was thoroughly reirrigated. Wounds now thoroughly irrigated with pulsatile lavage. Next attention was turned towards application wound VAC dressing. The posterior wound was not closable. A VAC dressing was cut to fit the wound. VAC dressing was sealed appropriately. Sterile dressings were applied. Patient was transferred to recovery room in stable condition. Dickson Walker MD Nov 05, 2016 08:33
[2016-11-05] MEDS ORDERED: DO NOT ADM ANY ANTICOAGULANT DRUGS PRN (08:57)
[2016-11-05] MEDS: DOCUSATE SODIUM 50 MG/SENNA 8.6 MG TAB PO SCH ×2 (09:00→20:30)
[2016-11-05] MEDS ORDERED: fentaNYL CITRATE 250 MCG/5 ML AMP ONE (09:06)
[2016-11-05] MEDS ORDERED: *MEPERIDINE 25 MG INJ VIAL PERIprocedural Use ONLY ONE (09:16)
[2016-11-05] MEDS: LACTOBACILLUS ACIDOPHILUS TAB PO SCH ×3 (10:00→16:07)
[2016-11-05] MEDS: SODIUM CHLORIDE 0.9% FLUSH 10 ML FLUSH IV FLUSH SCH ×2 (10:01→20:31)
[2016-11-05 12:00] VITALS: BP 144/81; PULSE 88; RESP 18; TEMP 95.8; O2SAT 94
[2016-11-05] MEDS ORDERED: ONDANSETRON HCL 4 MG/2 ML VIAL IV PUSH ONE (12:00)
[2016-11-05] MEDS ORDERED: PROPOFOL 200 MG/20 ML AMP IV ONE (12:00)
[2016-11-05 16:00] VITALS: BP 140/81; PULSE 78; RESP 18; TEMP 97.1; O2SAT 99
[2016-11-05] MEDS: CEFEPIME INJ 1,000 MG in SODIUM CHLORIDE 0.9% INJ 100 ML IV SCH (16:06)
[2016-11-05 17:27] VITALS: O2SAT 99
--- NOTE | 2016-11-05 19:48 | HHI.PR ---
Subjective Remarks Follow-up for renal failure, compartment syndrome. Patient underwent I&D today. No fever, chills. Complains of a lot of pain. Objective Vitals Vital Signs Date Time Temp Pulse Resp B/P Pulse Ox O2 Delivery O2 Flow Rate FiO2 11/05/16 17:27 99 21 11/05/16 16:00 97.1 78 18 140/81 99 11/05/16 12:00 95.8 88 18 144/81 94 11/05/16 10:36 21 11/05/16 09:45 97.6 85 16 152/74 98 Room Air 11/05/16 09:30 86 15 148/75 97 Room Air 11/05/16 09:15 88 15 152/73 96 Room Air 11/05/16 09:00 89 15 151/74 96 Room Air 11/05/16 08:57 97.4 96 16 144/82 100 Nasal Cannula 3 11/05/16 03:20 16 11/05/16 00:00 99.6 85 17 144/79 98 11/04/16 20:00 98.8 85 17 157/82 99 I/O 11/04/16 11/04/16 11/04/16 11/05/16 11/05/16 11/05/16 07:00 15:00 23:00 07:00 15:00 23:00 Intake Total 120 ml 240 ml 240 ml 0 ml 690 ml 100 ml Output Total 125 ml 3500 ml 850 ml 150 ml 475 ml Balance -5 ml -3260 ml -610 ml -150 ml 215 ml 100 ml Intake Oral 120 ml 240 ml 240 ml 0 ml 340 ml IV Total 0 ml 50 ml 100 ml Other 300 ml Output Urine Total 0 ml 500 ml 650 ml 150 ml 375 ml Drainage Total 125 ml 200 ml 100 ml Hemodialysis 3000 ml # Bowel Movements 0 2 Result Diagram: 11/03/16 1428 11/05/16 0330 Objective Remarks GENERAL: Alert, oriented 3, NAD. SKIN: Warm and dry. HEAD: Normocephalic. EYES: No scleral icterus. No injection or drainage. NECK: Supple, trachea midline. No JVD or lymphadenopathy. CARDIOVASCULAR: Regular rate and rhythm without murmurs, gallops, or rubs. RESPIRATORY: Breath sounds equal bilaterally. No accessory muscle use. GASTROINTESTINAL: Abdomen soft, non-tender, nondistended. MUSCULOSKELETAL: No cyanosis, or edema. Right leg s/p surgical interventions, wound vac in place. BACK: Nontender without obvious deformity. No CVA tenderness. Procedures None. A/P Assessment and Plan 35-year-old male IV drug user admitted with compartment syndrome status post fasciotomy, myositis, acute renal failure secondary to rhabdomyolysis presumably from polysubstance use. After for an inadvertent transfer to [facility], patient was transferred back to [place] today 11/03/2016. Compartment syndrome, right anterior, posterior, adductor, buttock compartment: Status post fasciotomy and revision. Wound VAC in place. - Orthopedic surgery following. Continue wound VAC. s/p I&D of right thigh today. - Pain control with acetaminophen, Percocet, Dilaudid IV when necessary. - PT as tolerated Myositis Sepsis - s/p fasciotomy quadriceps, hamstring, gluteus medius/karly/minimus with wound vac placement 10/26 Dr. Simms. Wound vacs to continuous suction - Intraoperative culture obtained from bursa and from gluteus medius. Blood culture and Urine culture obtained - all cultures negative so far - Re-consulted infectious disease. Per infectious disease, continue cefepime 1 g 24 hours, metronidazole 500 mg by mouth every 8 hours. Acute renal failure - Reconsulted nephrology for follow-up and dialysis. Dialysis per Nephrology. Full code. Consider heparin SQ tomorrow (11/06/2016). Khang Armijo DO Nov 05, 2016 7:48 pm
[2016-11-05 20:00] VITALS: BP 144/75; PULSE 90; RESP 17; TEMP 98.3; O2SAT 100
[2016-11-06] VITALS: BP 146/79; PULSE 81; RESP 17; TEMP 98.7; O2SAT 100
[2016-11-06] MEDS: oxyCODONE/ACETAMINOPHEN 10 MG/325 MG TAB PO PRN ×5 (00:28→20:20)
[2016-11-06] MEDS: HYDROmorphone HCL PF 1 MG/ML VIAL IV PUSH PRN ×6 (02:51→23:20)
[2016-11-06 04:00] VITALS: BP 138/66; PULSE 88; RESP 17; TEMP 98.5; O2SAT 98
[2016-11-06] MEDS: metroNIDAZOLE 500 MG TAB PO SCH ×3 (06:14→20:19)
--- NOTE | 2016-11-06 06:50 | PD.ORT.PN ---
Subjective Subjective Remarks s/p I&D with wound closures and vac change to right leg - POD 1 doing well. pain controlled. no complaints Objective Vitals Vital Signs Date Time Temp Pulse Resp B/P Pulse Ox O2 Delivery O2 Flow Rate FiO2 11/06/16 04:00 98.5 88 17 138/66 98 11/06/16 00:00 98.7 81 17 146/79 100 11/05/16 20:00 98.3 90 17 144/75 100 11/05/16 17:27 99 21 11/05/16 16:00 97.1 78 18 140/81 99 11/05/16 12:00 95.8 88 18 144/81 94 11/05/16 10:36 21 11/05/16 09:45 97.6 85 16 152/74 98 Room Air 11/05/16 09:30 86 15 148/75 97 Room Air 11/05/16 09:15 88 15 152/73 96 Room Air 11/05/16 09:00 89 15 151/74 96 Room Air 11/05/16 08:57 97.4 96 16 144/82 100 Nasal Cannula 3 I/O 11/05/16 11/05/16 11/05/16 11/06/16 11/06/16 11/06/16 07:00 15:00 23:00 07:00 15:00 23:00 Intake Total 0 ml 690 ml 340 ml 240 ml Output Total 150 ml 475 ml 300 ml 700 ml Balance -150 ml 215 ml 40 ml -460 ml Intake Oral 0 ml 340 ml 240 ml 240 ml IV Total 0 ml 50 ml 100 ml 0 ml Other 300 ml Output Urine Total 150 ml 375 ml 300 ml 500 ml Drainage Total 100 ml 200 ml # Bowel Movements 2 Result Diagram: 11/03/16 1428 11/05/16 0330 Objective Remarks RLE: +vac. good seal. remaining dressings clean and dry. intact. thigh supple. NVI distally. Assessment & Plan Assessment and Plan 1) Right Leg compartment syndrome s/p fasciotomies with subsequent wound closures and vac application -maintain vac right leg on 100mmHg, intermittent, 3:1 -daily dressing changes to lateral and groin wounds -will plan for OR mon/ for I&D and possible skin graft -NPO after MN on thursday -consents on chart Edenilson Womack Nov 06, 2016:50
[2016-11-06 08:00] VITALS: BP 134/72; PULSE 92; RESP 17; TEMP 97; O2SAT 98
[2016-11-06] MEDS: LACTOBACILLUS ACIDOPHILUS TAB PO SCH ×3 (08:05→16:13)
[2016-11-06] MEDS: SODIUM CHLORIDE 0.9% FLUSH 10 ML FLUSH IV FLUSH SCH ×2 (08:05→20:28)
[2016-11-06] MEDS: DOCUSATE SODIUM 50 MG/SENNA 8.6 MG TAB PO SCH ×2 (08:05→20:29)
[2016-11-06] MEDS: GENTAMICIN SULFATE (DIALYSIS USE ONLY) 20 MG/2 ML VIAL IV PRN (10:06)
[2016-11-06] MEDS: HEPARIN SODIUM - IV 10,000 UNITS/10 ML VIAL PRN (10:06)
--- NOTE | 2016-11-06 10:40 | HHI.NPPN ---
Subjective History of Present Illness Hx of ARF Rhabdo Additional Remarks late entry for 11/05 visit Objective Data Data 11/05/16 11/06/16 19:00 07:00 Intake Total 790 ml 480 ml Output Total 475 ml 1000 ml Balance 315 ml -520 ml Intake Oral 340 ml 480 ml IV Total 150 ml 0 ml Other 300 ml Output Urine Total 375 ml 800 ml Drainage Total 100 ml 200 ml # Bowel Movements 2 Vital Signs Date Time Temp Pulse Resp B/P Pulse Ox O2 Delivery O2 Flow Rate FiO2 11/06/16 08:00 97.0 92 17 134/72 98 11/06/16 04:00 98.5 88 17 138/66 98 11/06/16 00:00 98.7 81 17 146/79 100 11/05/16 20:00 98.3 90 17 144/75 100 11/05/16 17:27 99 21 11/05/16 16:00 97.1 78 18 140/81 99 11/05/16 12:00 95.8 88 18 144/81 94 -: 11/03/16 1428 11/05/16 0330 Physical Exam General Appearance: Well Developed, Well Nourished Neck Neck Exam: Neck Supple Pulmonary Resp Exam: Clear Bilaterally, Breath Sounds Equal Cardiology CV Exam: Regular, Normal Sinus Rhythm Gastrointestinal/Abdomen GI Exam: Soft, Non-Tender, Bowel Sounds Present Extremeties Extremities Exam: Moderate Edema Assessment/Plan Problem List: (1) Acute renal failure Plan: Patient on hemodialysis on Thursday and and Saturdays had HD yesterday UF 3 L follow BMP passing more urine (2) Compartment syndrome Plan: Orthopedic is following (3) Hyponatremia Plan: Due to renal failure (4) Rhabdomyolysis Plan: As above Gonzalo Navarrete MD Nov 06, 2016 10:40
--- NOTE | 2016-11-06 10:41 | HHI.NPPN ---
Subjective History of Present Illness Hx of ARF Rhabdo Objective Data Data 11/05/16 11/06/16 19:00 07:00 Intake Total 790 ml 480 ml Output Total 475 ml 1000 ml Balance 315 ml -520 ml Intake Oral 340 ml 480 ml IV Total 150 ml 0 ml Other 300 ml Output Urine Total 375 ml 800 ml Drainage Total 100 ml 200 ml # Bowel Movements 2 Vital Signs Date Time Temp Pulse Resp B/P Pulse Ox O2 Delivery O2 Flow Rate FiO2 11/06/16 08:00 97.0 92 17 134/72 98 11/06/16 04:00 98.5 88 17 138/66 98 11/06/16 00:00 98.7 81 17 146/79 100 11/05/16 20:00 98.3 90 17 144/75 100 11/05/16 17:27 99 21 11/05/16 16:00 97.1 78 18 140/81 99 11/05/16 12:00 95.8 88 18 144/81 94 -: 11/03/16 1428 11/05/16 0330 Physical Exam General Appearance: Well Developed, Well Nourished Neck Neck Exam: Neck Supple Pulmonary Resp Exam: Clear Bilaterally, Breath Sounds Equal Cardiology CV Exam: Regular, Normal Sinus Rhythm Gastrointestinal/Abdomen GI Exam: Soft, Non-Tender, Bowel Sounds Present Extremeties Extremities Exam: Moderate Edema Assessment/Plan Problem List: (1) Acute renal failure Plan: Patient on hemodialysis on Thursday and and Saturdays seen at hemodialysis UF 1 L DC Augustin catheter follow BMP passing more urine (2) Compartment syndrome Plan: Orthopedic is following (3) Hyponatremia Plan: Due to renal failure (4) Rhabdomyolysis Plan: As above Gonzalo Navarrete MD Nov 06, 2016 10:41
[2016-11-06 12:00] VITALS: BP 162/81; PULSE 84; RESP 17; TEMP 96.4; O2SAT 99
[2016-11-06] MEDS: LACTATED RINGER'S 1000 ML INJ 1,000 ML IV SCH ×2 (12:18→20:29)
--- NOTE | 2016-11-06 15:56 | HHI.IDPN ---
Subjective Subjective Remarks History of Present Illness Mr. Craig is a 35-year-old male with past medical history significant for IV drug abuse, chronic pain who is seen by the pain clinic in [facility] for Suboxone. Patient presents to the emergency room at [facility] for pain that started in his low back 2 weeks ago. 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 He was prescribed 5 mg of prednisone in addition to his Suboxone and pain medicines. The pain continued to worsen and he took it upon himself to self medicated with heroin several times in the last week. The reported site of injection per records is upper extremity. During this admission patient was admitted to the ICU, intubated, underwent HD for rhabdomyolysis related ARF. Patient underwent intra-operative wash debridement and wash out of the infected appearing sites in the RLE. He demonstrated signs of acute compartment syndrome which was the trigger for the surgery. Infectious disease is consulted for evaluation and management of sepsis, Myofascitis, compartment syndrome. Overnight events reviewed No fevers No rash No diarrhea Antibiotics Cefepime IV Flagyl oral Lines Line sites with no e.o infection Past Medical History reviewed Allergies: Coded Allergies: No Known Allergies (Verified , 10/26/16) Objective . Vital Signs Date Time Temp Pulse Resp B/P Pulse Ox O2 Delivery O2 Flow Rate FiO2 11/06/16 12:00 96.4 84 17 162/81 99 11/06/16 08:00 97.0 92 17 134/72 98 11/06/16 04:00 98.5 88 17 138/66 98 11/06/16 00:00 98.7 81 17 146/79 100 11/05/16 20:00 98.3 90 17 144/75 100 11/05/16 17:27 99 21 11/05/16 16:00 97.1 78 18 140/81 99 11/05/16 11/05/16 11/06/16 15:00 23:00 07:00 Intake Total 690 ml 340 ml 240 ml Output Total 475 ml 300 ml 700 ml Balance 215 ml 40 ml -460 ml Intake Oral 340 ml 240 ml 240 ml IV Total 50 ml 100 ml 0 ml Other 300 ml Output Urine Total 375 ml 300 ml 500 ml Drainage Total 100 ml 200 ml # Bowel Movements 2 . Laboratory Tests Test 11/05/16 03:30 Sodium Level 132 MEQ/L Potassium Level 3.9 MEQ/L Chloride Level 94 MEQ/L Carbon Dioxide Level 27.0 MEQ/L Anion Gap 11 MEQ/L Blood Urea Nitrogen 61 MG/DL Creatinine 9.47 MG/DL Estimat Glomerular Filtration 6 ML/MIN Rate Random Glucose 95 MG/DL Calcium Level 7.4 MG/DL Protein Corrected Calcium 8.6 MG/DL Total Protein 4.9 GM/DL Physical Exam GENERAL: This is a well-nourished, well-developed patient, in no apparent distress. SKIN: No rashes, ecchymoses or lesions. Cool and dry. HEAD: Atraumatic. Normocephalic. No temporal or scalp tenderness. EYES: Pupils equal round and reactive. Extraocular motions intact. No scleral icterus. No injection or drainage. ENT: Nose without bleeding, purulent drainage or septal hematoma. Throat without erythema, tonsillar hypertrophy or exudate. Uvula midline. Airway patent. NECK: Trachea midline. No JVD or lymphadenopathy. Supple, nontender, no meningeal signs. CARDIOVASCULAR: Regular rate and rhythm without murmurs, gallops, or rubs. RESPIRATORY: Clear to auscultation. Breath sounds equal bilaterally. No wheezes , rales, or rhonchi. GASTROINTESTINAL: Abdomen soft, non-tender, nondistended. No hepato-splenomegaly , or palpable masses. No guarding. MUSCULOSKELETAL: Right thigh with dressings/vac connection noted. No signs of progression of infection. NEUROLOGICAL: Awake and alert. Grossly non focal. Psych: pleasant IV line sites with no e.o infection. Assessment & Plan Remarks Pyomyofascitis Rhabdomyolysis acute s/p surgical debridements for compartment syndrome/pyomyofascitis. Acute renal failure Recs Continue Cefepime IV Continue flagyl oral Radha Forbes and Case management current issues such as HD need and further surgeries. Radha pt and mother in room about ID plan. She was thankful of care provided. I will be OOT from 11/07/16 to 11/16/2016. to cover for me. Mara Jimenez MD Nov 06, 2016 15:56
[2016-11-06 16:00] VITALS: BP 152/81; PULSE 85; RESP 16; TEMP 98.2; O2SAT 99
[2016-11-06] MEDS: CEFEPIME INJ 1,000 MG in SODIUM CHLORIDE 0.9% INJ 100 ML IV SCH (16:13)
--- NOTE | 2016-11-06 16:42 | HHI.PR ---
Subjective Remarks Follow-up for renal failure, compartment syndrome. Patient seen and examined, mother at bedside. Patient continues to complain of continued pain. Tolerating PO intake, denies any ab pain, n/v or diarrhea. RN at bedside, loose BMs noted. Denies any recent fever, chills, cough, shortness of breath, headache, lightheadedness. Objective Vitals Vital Signs Date Time Temp Pulse Resp B/P Pulse Ox O2 Delivery O2 Flow Rate FiO2 11/06/16 16:00 98.2 85 16 152/81 99 11/06/16 12:00 96.4 84 17 162/81 99 11/06/16 08:00 97.0 92 17 134/72 98 11/06/16 04:00 98.5 88 17 138/66 98 11/06/16 00:00 98.7 81 17 146/79 100 11/05/16 20:00 98.3 90 17 144/75 100 11/05/16 17:27 99 21 I/O 11/05/16 11/05/16 11/05/16 11/06/16 11/06/16 11/06/16 07:00 15:00 23:00 07:00 15:00 23:00 Intake Total 0 ml 690 ml 340 ml 240 ml 500 ml 100 ml Output Total 150 ml 475 ml 300 ml 700 ml 1400 ml 50 ml Balance -150 ml 215 ml 40 ml -460 ml -900 ml 50 ml Intake Oral 0 ml 340 ml 240 ml 240 ml 500 ml IV Total 0 ml 50 ml 100 ml 0 ml 100 ml Other 300 ml Output Urine Total 150 ml 375 ml 300 ml 500 ml 300 ml Drainage Total 100 ml 200 ml 100 ml 50 ml Hemodialysis 1000 ml # Bowel Movements 2 0 1 Result Diagram: 11/03/16 1428 11/05/16 0330 Objective Remarks GENERAL: Well-developed male patient, lying in bed with pain noted to operative site. SKIN: Warm and dry. Right wound vac in place. HEAD: Normocephalic. EYES: No injection or drainage. NECK: Supple, trachea midline. No JVD. CARDIOVASCULAR: Regular rate and rhythm. No murmur appreciated. RESPIRATORY:CTA. GASTROINTESTINAL: Abdomen soft, non-tender, nondistended. Bowel sounds active x 4. EXTREMITIES: No cyanosis, clubbing. NEUROLOGICAL: No obvious focal deficit. Awake, alert, and oriented x3. Speech clear. Procedures None. A/P Assessment and Plan 35-year-old male IV drug user admitted with compartment syndrome status post fasciotomy, myositis, acute renal failure secondary to rhabdomyolysis presumably from polysubstance use. After for an inadvertent transfer to [facility] , patient was transferred back to [place] today 11/03/2016. Compartment syndrome, right anterior, posterior, adductor, buttock compartment: Status post fasciotomy and revision. Wound VAC in place. - Orthopedic surgery following. Continue wound VAC s/p I&D of right thigh today. - Pain control with acetaminophen, Percocet, Dilaudid IV when necessary. - PT as tolerated. Myositis Sepsis - s/p fasciotomy quadriceps, hamstring, gluteus medius/karly/minimus with wound vac placement 10/26 Dr. Simms. Wound vacs to continuous suction - Intraoperative culture obtained from bursa and from gluteus medius. Blood culture and Urine culture obtained - all cultures negative so far - Re-consulted infectious disease. Per infectious disease, continue cefepime 1 g 24 hours, metronidazole 500 mg by mouth every 8 hours. Acute renal failure - Reconsulted nephrology for follow-up and dialysis. Dialysis T//THU per Nephrology. DVT Prophylaxis: Start on Heparin until Thursday am then hold in prep for surgery Thursday. Full code. Candi Bean Nov 06, 2016 16:42
[2016-11-06] MEDS ORDERED: ENOXAPARIN SODIUM 40 MG/0.4 ML SYRINGE SQ SCH (17:00)
[2016-11-06 20:17] VITALS: BP 165/86; PULSE 78; RESP 18; TEMP 96; O2SAT 97
[2016-11-06] MEDS: HEPARIN SODIUM - SQ 10,000 UNITS/ML VIAL SQ SCH (20:19)
[2016-11-07] VITALS (7 sets, daily range): BP systolic 141–165; BP diastolic 71–84; PULSE 77–90; RESP 16–20; TEMP 96.7–99.5; O2SAT 95–100
[2016-11-07] MEDS: oxyCODONE/ACETAMINOPHEN 10 MG/325 MG TAB PO PRN ×6 (00:39→23:03)
[2016-11-07] MEDS: HYDROmorphone HCL PF 1 MG/ML VIAL IV PUSH PRN ×5 (05:50→22:18)
[2016-11-07] MEDS: metroNIDAZOLE 500 MG TAB PO SCH ×3 (05:50→21:16)
[2016-11-07 06:48] LABS: AUTOMATED NEUTROPHIL # 4.3 TH/MM3 (1.8-7.7); BASOPHIL % 0.5 % (0.0-2.0); EOSINOPHIL # 0.2 TH/MM3 (0-0.4); EOSINOPHIL % 2.9 % (0.0-4.0); LYMPH % 21.6 % (9.0-44.0); LYMPHOCYTE # 1.4 TH/MM3 (1.0-4.8); MEAN CELL VOLUME 85.7 FL (80.0-100.0); MEAN CORPUSCULAR HEMOGLOBIN 29.1 PG (27.0-34.0); MONO % 8.1 % (0.0-8.0); NEUT % 66.9 % (16.0-70.0); PLATELET COUNT 276 TH/MM3 (150-450); RED BLOOD COUNT 2.13 MIL/MM3 (4.50-5.90); RED CELL DISTRIBUTION WIDTH 14.9 % (11.6-17.2); WHITE BLOOD COUNT 6.5 TH/MM3 (4.0-11.0)
[2016-11-07 06:52] LABS: HEMO FLAGS AUTO DIFF
[2016-11-07 06:57] LABS: HEMATOCRIT 18.3 % (39.0-51.0)
[2016-11-07 07:08] LABS: BICARBONATE 27.2 MEQ/L (21.0-32.0); POTASSIUM 3.8 MEQ/L (3.5-5.1)
--- NOTE | 2016-11-07 07:11 | PD.ORT.PN ---
Subjective Subjective Remarks s/p I&D with wound closures and vac change to right leg - POD 2 doing well. pain controlled. no complaints Objective Vitals Vital Signs Date Time Temp Pulse Resp B/P Pulse Ox O2 Delivery O2 Flow Rate FiO2 11/07/16 00:25 99.5 78 17 155/71 96 11/06/16 20:17 96.0 78 18 165/86 97 11/06/16 16:00 98.2 85 16 152/81 99 11/06/16 12:00 96.4 84 17 162/81 99 11/06/16 08:00 97.0 92 17 134/72 98 I/O 11/06/16 11/06/16 11/06/16 11/07/16 11/07/16 11/07/16 07:00 15:00 23:00 07:00 15:00 23:00 Intake Total 240 ml 500 ml 580 ml 380 ml Output Total 700 ml 1400 ml 550 ml 480 ml Balance -460 ml -900 ml 30 ml -100 ml Intake Oral 240 ml 500 ml 480 ml 380 ml IV Total 0 ml 100 ml Output Urine Total 500 ml 300 ml 500 ml 480 ml Drainage Total 200 ml 100 ml 50 ml Hemodialysis 1000 ml # Bowel Movements 0 1 Result Diagram: 11/07/16 0550 11/05/16 0330 Objective Remarks RLE: +vac. good seal. remaining dressings clean and dry. intact. thigh supple. NVI distally. Assessment & Plan Assessment and Plan 1) Right Leg compartment syndrome s/p fasciotomies with subsequent wound closures and vac application - POD 2 -maintain vac right leg on 100mmHg, intermittent, 3:1 -daily dressing changes to lateral and groin wounds -will plan for OR thu/ for I&D and possible skin graft -NPO after MN on thursday -consents on chart Edenilson Womack Nov 07, 2016 07:11
[2016-11-07] MEDS: DOCUSATE SODIUM 50 MG/SENNA 8.6 MG TAB PO SCH ×2 (08:33→21:00)
[2016-11-07] MEDS: LACTOBACILLUS ACIDOPHILUS TAB PO SCH ×3 (08:34→18:02)
[2016-11-07] MEDS: SODIUM CHLORIDE 0.9% FLUSH 10 ML FLUSH IV FLUSH SCH ×2 (08:35→21:17)
[2016-11-07] MEDS: HEPARIN SODIUM - SQ 10,000 UNITS/ML VIAL SQ SCH ×2 (08:35→21:16)
[2016-11-07 09:34] LABS: PLATELET ESTIMATE SMEAR NORMAL (NORMAL); PLATELET MORPHOLOGY NORMAL (NORMAL); SCAN/DIFF AUTO DIFF CONFIRMED
[2016-11-07] MEDS ORDERED: SODIUM CHLOR 0.9% 250 ML INJ 250 ML IV ONE (10:00)
[2016-11-07] MEDS: LACTATED RINGER'S 1000 ML INJ 1,000 ML IV SCH ×2 (10:27→20:27)
--- NOTE | 2016-11-07 12:47 | HHI.PR ---
Subjective Remarks Follow-up for anemia No obvious bleeding, no diarrhea, melena or hematochezia. No abdominal pain. No fever. Objective Vitals Vital Signs Date Time Temp Pulse Resp B/P Pulse Ox O2 Delivery O2 Flow Rate FiO2 11/07/16 12:00 97.3 78 17 141/79 100 11/07/16 08:00 96.7 90 16 152/78 97 11/07/16 00:25 99.5 78 17 155/71 96 11/06/16 20:17 96.0 78 18 165/86 97 11/06/16 16:00 98.2 85 16 152/81 99 I/O 11/06/16 11/06/16 11/06/16 11/07/16 11/07/16 11/07/16 06:59 14:59 22:59 06:59 14:59 22:59 Intake Total 240 ml 500 ml 580 ml 380 ml Output Total 700 ml 1400 ml 550 ml 680 ml Balance -460 ml -900 ml 30 ml -300 ml Intake Oral 240 ml 500 ml 480 ml 380 ml IV Total 0 ml 100 ml Output Urine Total 500 ml 300 ml 500 ml 480 ml Drainage Total 200 ml 100 ml 50 ml 200 ml Hemodialysis 1000 ml # Bowel Movements 0 1 Result Diagram: 11/07/16 0550 11/07/16 0550 Objective Remarks GENERAL: Well-developed male patient, lying in bed with pain noted to operative site. SKIN: Warm and dry. Right wound vac in place. CARDIOVASCULAR: Regular rate and rhythm. No murmur appreciated. RESPIRATORY: Clear breath sounds GASTROINTESTINAL: Abdomen soft, non-tender, nondistended. Bowel sounds active x 4. Right thigh wound VAC in place, mildly swollen, mildly tender NEUROLOGICAL: No obvious focal deficit. Awake, alert, and oriented x3. Speech clear. Procedures None. A/P Assessment and Plan 35-year-old male IV drug user admitted with compartment syndrome status post fasciotomy, myositis, acute renal failure secondary to rhabdomyolysis presumably from polysubstance use. After for an inadvertent transfer to [facility], patient was transferred back to [place] today 11/03/2016. Compartment syndrome, right anterior, posterior, adductor, buttock compartment: Status post fasciotomy and revision. Wound VAC in place. - Orthopedic surgery following. Continue wound VAC s/p I&D of right thigh, repeat surgery on Thursday/Thursday. - Pain control with acetaminophen, Percocet, Dilaudid IV when necessary. - PT as tolerated. Myositis Sepsis - s/p fasciotomy quadriceps, hamstring, gluteus medius/karly/minimus with wound vac placement 10/26 Dr. Simms. Wound vacs to continuous suction - Intraoperative culture obtained from bursa and from gluteus medius. Blood culture and Urine culture obtained - all cultures negative so far - Re-consulted infectious disease. Per infectious disease, continue cefepime 1 g 24 hours, metronidazole 500 mg by mouth every 8 hours. Acute renal failure - Reconsulted nephrology for follow-up and dialysis. Dialysis T//THU per Nephrology. For dialysis tomorrow. Anemia-no bleeding source, transfuse 1 unit of packed red blood cells, recheck CBC tomorrow. DVT Prophylaxis: Start on Heparin until Thursday am then hold in prep for surgery Thursday. Full code. Hasmukh Forbes MD Nov 07, 2016 12:47
[2016-11-07] MEDS: CEFEPIME INJ 1,000 MG in SODIUM CHLORIDE 0.9% INJ 100 ML IV SCH (18:53)
--- NOTE | 2016-11-07 19:22 | HHI.NPPN ---
Subjective History of Present Illness Hx of ARF Rhabdo Objective Data Data 11/06/16 11/07/16 19:00 07:00 Intake Total 600 ml 860 ml Output Total 1450 ml 1180 ml Balance -850 ml -320 ml Intake Oral 500 ml 860 ml IV Total 100 ml Output Urine Total 300 ml 980 ml Drainage Total 150 ml 200 ml Hemodialysis 1000 ml # Bowel Movements 1 Vital Signs Date Time Temp Pulse Resp B/P Pulse Ox O2 Delivery O2 Flow Rate FiO2 11/07/16 16:00 97.9 77 17 155/83 100 11/07/16 15:08 97.6 77 18 155/82 100 11/07/16 14:51 97.9 77 17 155/83 100 11/07/16 12:00 97.3 78 17 141/79 100 11/07/16 08:00 96.7 90 16 152/78 97 11/07/16 00:25 99.5 78 17 155/71 96 11/06/16 20:17 96.0 78 18 165/86 97 -: 11/07/16 0550 11/07/16 0550 Physical Exam General Appearance: Well Developed, Well Nourished Neck Neck Exam: Neck Supple Pulmonary Resp Exam: Clear Bilaterally, Breath Sounds Equal Cardiology CV Exam: Regular, Normal Sinus Rhythm Gastrointestinal/Abdomen GI Exam: Soft, Non-Tender, Bowel Sounds Present Extremeties Extremities Exam: Moderate Edema Assessment/Plan Problem List: (1) Acute renal failure Plan: Patient on hemodialysis on Thursday and and Saturdays Hemoglobin dropped received 1 unit of blood he is getting Epogen follow BMP passing more urine (2) Compartment syndrome Plan: Orthopedic is following (3) Hyponatremia Plan: Due to renal failure (4) Rhabdomyolysis Plan: As above Gonzalo Navarrete MD Nov 07, 2016 19:21
[2016-11-08 00:17] VITALS: BP 160/76; PULSE 83; RESP 18; TEMP 98.9; O2SAT 98
[2016-11-08] MEDS: HYDROmorphone HCL PF 1 MG/ML VIAL IV PUSH PRN ×5 (02:27→21:28)
[2016-11-08] MEDS: oxyCODONE/ACETAMINOPHEN 10 MG/325 MG TAB PO PRN ×2 (04:55→09:08)
[2016-11-08] MEDS: metroNIDAZOLE 500 MG TAB PO SCH ×3 (04:55→20:19)
[2016-11-08] MEDS: LACTATED RINGER'S 1000 ML INJ 1,000 ML IV SCH ×2 (04:56→16:27)
[2016-11-08 06:47] LABS: AUTOMATED NEUTROPHIL # 5.6 TH/MM3 (1.8-7.7); BASOPHIL % 0.3 % (0.0-2.0); EOSINOPHIL # 0.2 TH/MM3 (0-0.4); EOSINOPHIL % 2.1 % (0.0-4.0); LYMPH % 18.5 % (9.0-44.0); LYMPHOCYTE # 1.4 TH/MM3 (1.0-4.8); MEAN CELL VOLUME 86.8 FL (80.0-100.0); MEAN CORPUSCULAR HEMOGLOBIN 30.4 PG (27.0-34.0); MEAN CORPUSCULAR HGB CONC 35.1 % (32.0-36.0); MONO % 6.4 % (0.0-8.0); NEUT % 72.7 % (16.0-70.0); PLATELET COUNT 300 TH/MM3 (150-450); RED BLOOD COUNT 2.41 MIL/MM3 (4.50-5.90); RED CELL DISTRIBUTION WIDTH 15.3 % (11.6-17.2); WHITE BLOOD COUNT 7.8 TH/MM3 (4.0-11.0)
[2016-11-08 07:02] LABS: HEMO FLAGS AUTO DIFF
[2016-11-08 07:04] LABS: BICARBONATE 24.9 MEQ/L (21.0-32.0); POTASSIUM 3.9 MEQ/L (3.5-5.1)
[2016-11-08 07:06] LABS: HEMATOCRIT 20.9 % (39.0-51.0)
[2016-11-08 08:00] VITALS: BP 155/87; PULSE 79; RESP 18; TEMP 97.9; O2SAT 100
[2016-11-08] MEDS: DOCUSATE SODIUM 50 MG/SENNA 8.6 MG TAB PO SCH ×2 (08:06→20:19)
[2016-11-08] MEDS: LACTOBACILLUS ACIDOPHILUS TAB PO SCH ×3 (08:06→17:15)
[2016-11-08] MEDS: HEPARIN SODIUM - SQ 10,000 UNITS/ML VIAL SQ SCH (08:07)
[2016-11-08] MEDS: SODIUM CHLORIDE 0.9% FLUSH 10 ML FLUSH IV FLUSH SCH ×2 (08:07→20:20)
[2016-11-08 09:11] LABS: SCAN/DIFF AUTO DIFF CONFIRMED
--- NOTE | 2016-11-08 09:22 | HHI.PR ---
Subjective Remarks Follow-up for myositis No fever overnight, no nausea or vomiting. Still complaining of right thigh pain, uncontrolled blood present regimen. No diarrhea. Good urine output Objective Vitals Vital Signs Date Time Temp Pulse Resp B/P Pulse Ox O2 Delivery O2 Flow Rate FiO2 11/08/16 08:00 97.9 79 18 155/87 100 11/08/16 00:17 98.9 83 18 160/76 98 11/07/16 20:06 99.0 79 20 165/84 95 11/07/16 16:00 97.9 77 17 155/83 100 11/07/16 15:08 97.6 77 18 155/82 100 11/07/16 14:51 97.9 77 17 155/83 100 11/07/16 12:00 97.3 78 17 141/79 100 I/O 11/07/16 11/07/16 11/07/16 11/08/16 11/08/16 11/08/16 07:00 15:00 23:00 07:00 15:00 23:00 Intake Total 380 ml 800 ml 830 ml 280 ml Output Total 680 ml 700 ml 900 ml 450 ml Balance -300 ml 100 ml -70 ml -170 ml Intake Oral 380 ml 450 ml 480 ml 280 ml IV Total 350 ml 100 ml 0 ml Packed Cells 250 ml Output Urine Total 480 ml 700 ml 400 ml 300 ml Drainage Total 200 ml 500 ml 150 ml # Bowel Movements 0 Result Diagram: 11/08/16 0530 11/08/16 0530 Objective Remarks GENERAL: Not in distress. SKIN: Warm and dry. Right wound vac in place. CARDIOVASCULAR: Regular rate and rhythm. No murmur appreciated. RESPIRATORY: Clear breath sounds GASTROINTESTINAL: Abdomen soft, non-tender, nondistended. Bowel sounds active x 4. Right thigh wound VAC in place, mild swelling, tenderness and palpation, mild warmth. NEUROLOGICAL: No obvious focal deficit. Awake, alert, and oriented x3. Speech clear. Procedures None. A/P Problem List: (1) Substance abuse ICD Code: F19.10 Status: Chronic (2) Rhabdomyolysis ICD Code: M62.82 Status: Acute (3) Compartment syndrome ICD Code: T79.A0XA Status: Acute (4) Acute renal failure ICD Code: N17.9 Status: Acute (5) Severe sepsis ICD Code: A41.9 Status: Acute (6) Myositis ICD Code: M60.9 Status: Acute Assessment and Plan This is a 35-year-old male IV drug user admitted with compartment syndrome status post fasciotomy, myositis, acute renal failure secondary to rhabdomyolysis presumably from polysubstance use. After for an inadvertent transfer to [facility], patient was transferred back to [place] 11/03/2016. Compartment syndrome, right anterior, posterior, adductor, buttock compartment: Status post fasciotomy and revision. Wound VAC in place. - Orthopedic surgery following. Continue wound VAC s/p I&D of right thigh, repeat surgery on Thursday/Thursday. - Pain control with acetaminophen, decrease bursa Percocet, start long- acting oxycodone, Dilaudid when needed, Taper soon. - PT as tolerated. Sepsis, secondary to myositis - s/p fasciotomy quadriceps, hamstring, gluteus medius/karly/minimus with wound vac placement 10/26 Dr. Simms. Wound vacs to continuous suction - Intraoperative culture obtained from bursa and from gluteus medius. Blood culture and Urine culture obtained - all cultures negative so far - Per infectious disease, continue cefepime 1 g 24 hours, metronidazole 500 mg by mouth every 8 hours. Acute renal failure - Reconsulted nephrology for follow-up and dialysis. Dialysis T//SAT per Nephrology. For dialysis tomorrow/when necessary. Anemia-no bleeding source, transfuse 1 unit of packed red blood cells, hemoglobin stable. DVT Prophylaxis: Heparin Full code. Discharge Planning Once cleared by infectious disease and surgery Hasmukh Forbes MD Nov 08, 2016 09:22
[2016-11-08] MEDS: EPOETIN ALFA 10,000 UNITS/ML VIAL IV PRN (11:58)
[2016-11-08] MEDS: GENTAMICIN SULFATE (DIALYSIS USE ONLY) 20 MG/2 ML VIAL IV PRN (11:58)
[2016-11-08] MEDS: HEPARIN SODIUM - IV 10,000 UNITS/10 ML VIAL PRN (11:59)
--- NOTE | 2016-11-08 12:06 | HHI.NPPN ---
Subjective History of Present Illness Hx of ARF Rhabdo Objective Data Data 11/07/16 11/08/16 19:00 07:00 Intake Total 800 ml 1110 ml Output Total 700 ml 1350 ml Balance 100 ml -240 ml Intake Oral 450 ml 760 ml IV Total 350 ml 100 ml Packed Cells 250 ml Output Urine Total 700 ml 700 ml Drainage Total 650 ml # Bowel Movements 0 Vital Signs Date Time Temp Pulse Resp B/P Pulse Ox O2 Delivery O2 Flow Rate FiO2 11/08/16 08:00 97.9 79 18 155/87 100 11/08/16 00:17 98.9 83 18 160/76 98 11/07/16 20:06 99.0 79 20 165/84 95 11/07/16 16:00 97.9 77 17 155/83 100 11/07/16 15:08 97.6 77 18 155/82 100 11/07/16 14:51 97.9 77 17 155/83 100 -: 11/08/16 0530 11/08/16 0530 Physical Exam General Appearance: Well Developed, Well Nourished Neck Neck Exam: Neck Supple Pulmonary Resp Exam: Clear Bilaterally, Breath Sounds Equal Cardiology CV Exam: Regular, Normal Sinus Rhythm Gastrointestinal/Abdomen GI Exam: Soft, Non-Tender, Bowel Sounds Present Extremeties Extremities Exam: Moderate Edema Assessment/Plan Problem List: (1) Acute renal failure Plan: Patient on hemodialysis on Thursday and and Saturdays seen at dialysis UF 3 L muscles cramps as UF was 4 L cut it to 3 L cr high passing more urine (2) Compartment syndrome Plan: Orthopedic is following (3) Hyponatremia Plan: Due to renal failure (4) Rhabdomyolysis Plan: As above Gonzalo Navarrete MD Nov 08, 2016 12:06
[2016-11-08 13:05] VITALS: BP 156/86; PULSE 78; RESP 16; TEMP 96.9; O2SAT 99
[2016-11-08] MEDS: oxyCODONE HCL 10 MG CONTROLLED RELEASE TAB PO SCH ×2 (14:21→22:34)
[2016-11-08 16:00] VITALS: BP 137/78; PULSE 95; RESP 18; TEMP 99.4; O2SAT 95
[2016-11-08] MEDS: CEFEPIME INJ 1,000 MG in SODIUM CHLORIDE 0.9% INJ 100 ML IV SCH (17:16)
[2016-11-08 20:00] VITALS: BP 160/88; PULSE 88; RESP 19; TEMP 97.8; O2SAT 100
[2016-11-08] MEDS: ACETAMINOPHEN/HYDROcodone 325 MG/5 MG TAB PO PRN (20:19)
--- NOTE | 2016-11-08 20:39 | PD.ORT.PN ---
Subjective Post Op Day #: 3 Subjective Remarks Pt laying in bed accompanied by his mother. Pt admits he blacked out for 3 days due to drug use prior to this hospitalization and does not remember what he did to his right lower extremity. He is concerned that he is not able to move his right lower extremity well and has increased swelling and pain over his right ankle. Admits pain is otherwise controlled. Objective Vitals Vital Signs Date Time Temp Pulse Resp B/P Pulse Ox O2 Delivery O2 Flow Rate FiO2 11/08/16 16:00 99.4 95 18 137/78 95 11/08/16 13:05 96.9 78 16 156/86 99 11/08/16 08:00 97.9 79 18 155/87 100 11/08/16 00:17 98.9 83 18 160/76 98 I/O 11/07/16 11/07/16 11/07/16 11/08/16 11/08/16 11/08/16 07:00 15:00 23:00 07:00 15:00 23:00 Intake Total 380 ml 800 ml 830 ml 280 ml 300 ml Output Total 680 ml 700 ml 900 ml 450 ml 3250 ml Balance -300 ml 100 ml -70 ml -170 ml -2950 ml Intake Oral 380 ml 450 ml 480 ml 280 ml IV Total 350 ml 100 ml 0 ml 300 ml Packed Cells 250 ml Output Urine Total 480 ml 700 ml 400 ml 300 ml Drainage Total 200 ml 500 ml 150 ml 250 ml Hemodialysis 3000 ml # Bowel Movements 0 Result Diagram: 11/08/16 0530 11/08/16 0530 Imaging Right Leg compartment syndrome s/p fasciotomies with subsequent wound closures and vac application Objective Remarks RLE: +vac. good seal. remaining dressings clean and dry. intact. thigh supple. calf soft. Able to move his distal digits. Able to plantar flex. Unable to dorsiflex ankle. 1/5 dorsiflexion strength noted. NVI distally. Assessment & Plan Ortho Post Op Day #: 3 Problem List: (1) Compartment syndrome (2) Rhabdomyolysis (3) Substance abuse (4) IV drug abuse Assessment and Plan 1) Right Leg compartment syndrome s/p fasciotomies with subsequent wound closures and vac application - POD 3 -maintain vac right leg on 100mmHg, intermittent, 3:1 -daily dressing changes to lateral and groin wounds - xrays of right ankle ordered, will review with pt tomorrow. -will plan for OR thu/ for I&D and possible skin graft -NPO after MN on thursday -consents on chart Anny Bowman Nov 08, 2016 20:39
--- NOTE | 2016-11-08 21:24 | RADRPT ---
EXAM DATE/TIME: 11/08/2016 20:48 [facility] COMPARISON: No previous studies available for comparison. INDICATIONS : Patient fell on ankle. MEDICAL HISTORY : None. SURGICAL HISTORY : Discectomy, cervical. Right elbow. ENCOUNTER: Subsequent ACUITY: 2 days PAIN SCORE: 9/10 LOCATION: Right ankle. FINDINGS: No definite fractures, or dislocations are identified. No definite lytic or sclerotic lesion is seen . The joint spaces are well maintained. CONCLUSION: Unremarkable study. Holly Hallman MD on November 08, 2016 at 21:22 Board Certified Radiologist. This report was verified electronically.
[2016-11-09] VITALS (7 sets, daily range): BP systolic 137–173; BP diastolic 74–92; PULSE 72–88; RESP 18–20; TEMP 97–99.9; O2SAT 96–100
[2016-11-09] MEDS: HYDROmorphone HCL PF 1 MG/ML VIAL IV PUSH PRN ×5 (01:49→20:04)
[2016-11-09] MEDS: LACTATED RINGER'S 1000 ML INJ 1,000 ML IV SCH ×2 (02:27→07:57)
[2016-11-09] MEDS: ACETAMINOPHEN/HYDROcodone 325 MG/5 MG TAB PO PRN ×4 (02:32→21:11)
[2016-11-09] MEDS: oxyCODONE HCL 10 MG CONTROLLED RELEASE TAB PO SCH ×3 (05:52→22:12)
[2016-11-09] MEDS: metroNIDAZOLE 500 MG TAB PO SCH ×3 (05:52→20:01)
[2016-11-09] MEDS: SODIUM CHLORIDE 0.9% FLUSH 10 ML FLUSH IV FLUSH SCH ×2 (08:37→20:00)
[2016-11-09] MEDS: LACTOBACILLUS ACIDOPHILUS TAB PO SCH ×3 (08:37→16:00)
[2016-11-09] MEDS: DOCUSATE SODIUM 50 MG/SENNA 8.6 MG TAB PO SCH ×2 (08:37→20:01)
--- NOTE | 2016-11-09 10:28 | HHI.PR ---
Subjective Remarks Follow-up on patient with myositis, compartment syndrome. Patient seen and examined today. Patient denies any acute medical complaints. Reports his pain is fairly well-controlled at present. Denies any headache or dizziness. Denies any fever, chills, nausea, vomiting, shortness of breath, chest pain or abdominal pain. Denies any diarrhea or constipation. Objective Vitals Vital Signs Date Time Temp Pulse Resp B/P Pulse Ox O2 Delivery O2 Flow Rate FiO2 11/09/16 09:17 98.0 77 18 173/92 100 11/09/16 08:00 98.0 77 18 173/92 100 11/09/16 00:01 99.9 87 19 137/74 97 11/08/16 20:00 97.8 88 19 160/88 100 11/08/16 16:00 99.4 95 18 137/78 95 11/08/16 13:05 96.9 78 16 156/86 99 I/O 11/08/16 11/08/16 11/08/16 11/09/16 11/09/16 11/09/16 07:00 15:00 23:00 07:00 15:00 23:00 Intake Total 280 ml 300 ml 240 ml 480 ml Output Total 450 ml 3250 ml 400 ml 550 ml Balance -170 ml -2950 ml -160 ml -70 ml Intake Oral 280 ml 240 ml 480 ml IV Total 0 ml 300 ml Output Urine Total 300 ml 400 ml 300 ml Drainage Total 150 ml 250 ml 250 ml Hemodialysis 3000 ml # Bowel Movements 0 0 Result Diagram: 11/08/16 0530 11/08/16 0530 Imaging Last Impressions Ankle X-Ray 11/08/16 0000 Signed Impressions: Service Date/Time: Tuesday, November 08, 2016 20:48 - CONCLUSION: Unremarkable study. Holly Hallman MD Objective Remarks GENERAL: Well-nourished, well-developed patient in NAD. Awake and alert. SKIN: Warm and dry. Right wound vac in place. Dressing C/D/I. HEENT: Normocephalic. Atraumatic. EOMI. MMM. CARDIOVASCULAR: Regular rate and rhythm. S1, S2 noted. No murmur appreciated. RESPIRATORY: No accessory muscle use. Clear to auscultation. Breath sounds equal bilaterally. GASTROINTESTINAL: Abdomen soft, non-tender, nondistended. Normoactive bowel sounds x4. MUSCULOSKELETAL: Right thigh wound VAC in place. 2+ pitting edema right lower leg. Some tenderness to palpation right thigh. Right calf nontender. NEUROLOGICAL: Awake and alert. Able to move all extremities. Normal speech. Procedures None. Medications and IVs Current Medications Medications (Trade) Dose Ordered Sig/Saida Route Start Time Stop Time Status Last Admin (NS Flush) 2 ml UNSCH PRN IV FLUSH 11/03/16 13:15 (NS Flush) 2 ml BID IV FLUSH 11/03/16 21:00 11/09/16 08:37 (Tylenol) 650 mg Q4H PRN PO 11/03/16 13:15 (Zofran Inj) 4 mg Q6H PRN IVP 11/03/16 13:15 11/04/16 20:50 (Narcan Inj) 0.4 mg UNSCH PRN IV 11/03/16 13:15 (Zoila-Colace) 1 tab BID PO 11/03/16 21:00 11/08/16 20:19 (Milk Of Magnesia Liq) 30 ml Q12H PRN PO 11/03/16 13:15 (Senokot) 17.2 mg Q12H PRN PO 11/03/16 13:15 (Dulcolax Supp) 10 mg DAILY PRN RECTAL 11/03/16 13:15 Lactulose 30 ml 30 ml DAILY PRN PO 11/03/16 13:15 (Maxipime Inj/NS Inj) 100 ml @ 200 mls/hr Q24H IV 11/03/16 17:00 11/08/16 17:16 (Flagyl) 500 mg Q8HR PO 11/03/16 14:00 11/09/16 05:52 Lactobacillus Acidophilus 1 tab 1 tab TID PO 11/03/16 18:00 11/09/16 08:37 (NS 1000 ml Inj) 1,000 ml @ 0 mls/hr Q0M PRN IV 11/03/16 18:40 Heparin Sodium (Porcine) 8000 units 8,000 units UNSCH PRN IVF 11/03/16 18:45 Sodium Chloride 1,000 ml @ 200 mls/hr Q5H PRN IV 11/03/16 18:40 11/06/16 10:06 (NS 1000 ml Inj) 1,000 ml @ 0 mls/hr Q0M PRN IV 11/03/16 18:40 (Mannitol Inj) 12.5 gm UNSCH PRN IV 11/03/16 18:45 (Albumin 25% Inj) 25 gm UNSCH PRN IV 11/03/16 18:45 (NS Flush) 5 ml UNSCH PRN IV FLUSH 11/03/16 18:45 (Heparin Inj) UNSCH PRN .XX 11/03/16 18:45 11/08/16 11:59 (Gentamicin (Dialysis) Inj) 20 mg UNSCH PRN IV 11/03/16 18:45 11/08/16 11:58 (Zofran Inj) 4 mg UNSCH PRN IV 11/03/16 18:45 (Tylenol) 650 mg UNSCH PRN PO 11/03/16 18:45 (Benadryl) 25 mg UNSCH PRN PO 11/03/16 18:45 11/08/16 20:29 (Nitrostat Sl) 0.4 mg UNSCH PRN SL 11/03/16 18:45 (Catapres) 0.1 mg UNSCH PRN PO 11/03/16 18:45 11/08/16 11:58 (Epogen Inj) 10,000 units UNSCH PRN IV 11/03/16 18:45 11/08/16 11:58 (Gelfoam 12 Mm/7 Mm Top) 1 foam UNSCH PRN TOP 11/03/16 18:45 Hydromorphone HCl 1 mg 1 mg Q4H PRN IV PUSH 11/04/16 17:15 11/09/16 07:16 (Lr 1000 ml Inj) 1,000 ml @ 100 mls/hr Q10H IV 11/05/16 08:27 (OxyCONTIN CR) 10 mg Q8HR PO 11/08/16 14:00 11/09/16 05:52 ([place] 5-325 Mg) 1 tab Q6H PRN PO 11/08/16 09:30 11/09/16 08:37 A/P Problem List: (1) Substance abuse ICD Code: F19.10 Status: Chronic (2) Rhabdomyolysis ICD Code: M62.82 Status: Acute (3) Compartment syndrome ICD Code: T79.A0XA Status: Acute (4) Acute renal failure ICD Code: N17.9 Status: Acute (5) Severe sepsis ICD Code: A41.9 Status: Acute (6) Myositis ICD Code: M60.9 Status: Acute Assessment and Plan This is a 35-year-old male IV drug user admitted with compartment syndrome status post fasciotomy, myositis, acute renal failure secondary to rhabdomyolysis presumably from polysubstance use. After for an inadvertent transfer to [facility], patient was transferred back to [place] 11/03/2016. Compartment syndrome, right anterior, posterior, adductor, buttock compartment: Status post fasciotomy and revision. Wound VAC in place. - Orthopedic surgery following. Continue wound VAC s/p I&D of right thigh, repeat surgery on Thursday/Thursday - patient may have wound vac discontinued. - Pain controlled with current regimen Oxycontin 10mg po q8hr, [place] 5/325mg q6h prn and Dilaudid for breakthrough pain. Also Tylenol prn. - Continue participation with physical therapy. - NPO after MN - C/O right ankle pain. Right ankle xray, images personally reviewed, unremarkable Right LE edema - likely related to above - Doppler US ordered to r/o DVT Elevated BP - no documented history of hypertension - D/C IVF - Clonidine prn - monitor BP Sepsis, secondary to myositis - s/p fasciotomy quadriceps, hamstring, gluteus medius/karly/minimus with wound vac placement 10/26 Dr. Simms. Wound vac to continuous suction - Intraoperative culture obtained from bursa and from gluteus medius. Blood culture and Urine culture obtained - all cultures negative so far - Per infectious disease, continue cefepime 1 g 24 hours, metronidazole 500 mg by mouth every 8 hours. Acute renal failure secondary to rhabdomyolysis - Reconsulted nephrology for follow-up and dialysis. Dialysis T//THU per Nephrology. - s/p dialysis yesterday - Continue with HD per Nephro's recommendations. - obtain CK level Anemia - no bleeding source - transfused 1 unit of packed red blood cells - hemoglobin 6.2 --> 7.3, todays lab pending - Epogen given yesterday Transaminitis - Repeat liver function test to monitor Constipation - Miralax added - continue with Pericolace - monitor for BM DVT Prophylaxis: Heparin Full code. Discussed with patient and Dr. Forbes Discharge Planning Discharge dependent on clearance by infectious disease and surgery Kelly Martin Nov 09, 2016 10:28
[2016-11-09] MEDS ORDERED: POLYETHYLENE GLYCOL 17 GM PKG PO ONE (11:00)
[2016-11-09 11:25] LABS: ALT (GPT) 23 U/L (12-78); ANION GAP 10 MEQ/L (5-15); AST (GOT) 45 U/L (15-37); BICARBONATE 27.6 MEQ/L (21.0-32.0); BLOOD UREA NITROGEN 54 MG/DL (7-18); CHLORIDE 96 MEQ/L (98-107); GLOMERULAR FILTRATION RATE 7 ML/MIN (>89); MAGNESIUM 2.1 MG/DL (1.5-2.5); SODIUM (NA) 134 MEQ/L (136-145)
[2016-11-09 11:40] LABS: ALKALINE PHOSPHATASE 57 U/L (45-117); TOTAL BILIRUBIN ADULT 0.3 MG/DL (0.2-1.0)
--- NOTE | 2016-11-09 12:15 | PD.ORT.PN ---
Subjective Post Op Day #: 4 Subjective Remarks Pt laying in bed awake and alert. Pt admits right lower extremity is well controlled and he is able to move it a little better. Negative ankle x-rays were reviewed with patient and most likely cause for decreased strength/ swelling in ankle. No other complaints at this time. Objective Vitals Vital Signs Date Time Temp Pulse Resp B/P Pulse Ox O2 Delivery O2 Flow Rate FiO2 11/09/16 09:17 98.0 77 18 173/92 100 11/09/16 08:00 98.0 77 18 173/92 100 11/09/16 00:01 99.9 87 19 137/74 97 11/08/16 20:00 97.8 88 19 160/88 100 11/08/16 16:00 99.4 95 18 137/78 95 11/08/16 13:05 96.9 78 16 156/86 99 I/O 11/08/16 11/08/16 11/08/16 11/09/16 11/09/16 11/09/16 06:59 14:59 22:59 06:59 14:59 22:59 Intake Total 280 ml 300 ml 240 ml 480 ml Output Total 450 ml 3250 ml 400 ml 550 ml Balance -170 ml -2950 ml -160 ml -70 ml Intake Oral 280 ml 240 ml 480 ml IV Total 0 ml 300 ml Output Urine Total 300 ml 400 ml 300 ml Drainage Total 150 ml 250 ml 250 ml Hemodialysis 3000 ml # Bowel Movements 0 0 Result Diagram: 11/08/16 0530 11/09/16 1030 Imaging Last Impressions Ankle X-Ray 11/08/16 0000 Signed Impressions: Service Date/Time: Tuesday, November 08, 2016 20:48 - CONCLUSION: Unremarkable study. Holly Hallman MD Procedures Right Leg compartment syndrome s/p fasciotomies with subsequent wound closures and vac application Objective Remarks RLE: +vac. good seal. remaining dressings clean and dry. intact. thigh supple. calf soft. Able to move his distal digits. Able to plantar flex. Able to dorsiflex ankle today. 4-/5 dorsiflexion strength noted. NVI distally. Assessment & Plan Ortho Post Op Day #: 4 Problem List: (1) Compartment syndrome (2) Rhabdomyolysis (3) Substance abuse (4) IV drug abuse Assessment and Plan 1) Right Leg compartment syndrome s/p fasciotomies with subsequent wound closures and vac application - POD 4 -maintain vac right leg on 100mmHg, intermittent, 3:1 -daily dressing changes to lateral and groin wounds - Negative ankle xrays reviewed. -will plan for OR thu/ for I&D and possible skin graft -NPO after MN on thursday -consents on chart Anny Bowman Nov 09, 2016 12:15
--- NOTE | 2016-11-09 12:33 | RADRPT ---
EXAM DATE/TIME: 11/09/2016 10:34 [facility] COMPARISON: No previous studies available for comparison. INDICATIONS : Right leg swelling. MEDICAL HISTORY : Hypertension. Renal failure, acute. Head trauma. Migraines. SURGICAL HISTORY : Right leg fasciotomy and multiple debridements with wound vac. ENCOUNTER: Initial ACUITY: 2 weeks PAIN SCORE: 9/10 LOCATION: Right leg. TECHNIQUE: Venous ultrasound of the leg was performed from the inguinal ligament to the proximal calf. Real-time, color Doppler and spectral tracing, compression and augmentation techniques were us ed. FINDINGS: There is normal compressibility of the deep venous system from the inguinal region to the proximal ca lf. No echogenic clot is seen in the lumen of the common femoral, femoral, popliteal, and posterior tibial veins. There is a normal response of the venous system to proximal and distal augmentation an d respiration. A medial thigh incision is identified. There is a fluid collection beneath the incision measuring 8.5 cm in length by 1.3 cm in depth. CONCLUSION: No evidence of DVT. Medial thigh incision with underlying fluid collection. Sandro Luis MD on November 09, 2016 at 12:30 Board Certified Radiologist. This report was verified electronically.
[2016-11-09 14:03] LABS: AUTOMATED NEUTROPHIL # 4.1 TH/MM3 (1.8-7.7); BASOPHIL % 0.7 % (0.0-2.0); EOSINOPHIL # 0.2 TH/MM3 (0-0.4); EOSINOPHIL % 2.7 % (0.0-4.0); HEMATOCRIT 22.2 % (39.0-51.0); LYMPH % 18.7 % (9.0-44.0); LYMPHOCYTE # 1.1 TH/MM3 (1.0-4.8); MEAN CORPUSCULAR HGB CONC 34.1 % (32.0-36.0); NEUT % 70.9 % (16.0-70.0); PLATELET COUNT 288 TH/MM3 (150-450); RED BLOOD COUNT 2.53 MIL/MM3 (4.50-5.90); RED CELL DISTRIBUTION WIDTH 15.9 % (11.6-17.2); WHITE BLOOD COUNT 5.8 TH/MM3 (4.0-11.0)
[2016-11-09 14:24] LABS: HEMO FLAGS AUTO DIFF
--- NOTE | 2016-11-09 14:39 | HHI.NPPN ---
Subjective History of Present Illness Hx of ARF Rhabdo Objective Data Data 11/08/16 11/09/16 19:00 07:00 Intake Total 300 ml 720 ml Output Total 3250 ml 950 ml Balance -2950 ml -230 ml Intake Oral 720 ml IV Total 300 ml Output Urine Total 700 ml Drainage Total 250 ml 250 ml Hemodialysis 3000 ml # Bowel Movements 0 Vital Signs Date Time Temp Pulse Resp B/P Pulse Ox O2 Delivery O2 Flow Rate FiO2 11/09/16 12:00 97.0 76 18 160/83 100 11/09/16 09:17 98.0 77 18 173/92 100 11/09/16 08:00 98.0 77 18 173/92 100 11/09/16 00:01 99.9 87 19 137/74 97 11/08/16 20:00 97.8 88 19 160/88 100 11/08/16 16:00 99.4 95 18 137/78 95 -: 11/09/16 1335 11/09/16 1030 Physical Exam General Appearance: Well Developed, Well Nourished Neck Neck Exam: Neck Supple Pulmonary Resp Exam: Clear Bilaterally, Breath Sounds Equal Cardiology CV Exam: Regular, Normal Sinus Rhythm Gastrointestinal/Abdomen GI Exam: Soft, Non-Tender, Bowel Sounds Present Extremeties Extremities Exam: Moderate Edema Assessment/Plan Problem List: (1) Acute renal failure Plan: Patient on hemodialysis on Thursday and and Saturdays cr declining postdialysis continue to monitor BMP Anemia getting Epogen passing more urine (2) Compartment syndrome Plan: Orthopedic is following (3) Hyponatremia Plan: Due to renal failure (4) Rhabdomyolysis Plan: As above Gonzalo Navarrete MD Nov 09, 2016 14:39
[2016-11-09 14:50] LABS: PLATELET ESTIMATE SMEAR NORMAL (NORMAL); PLATELET MORPHOLOGY NORMAL (NORMAL); SCAN/DIFF AUTO DIFF CONFIRMED
[2016-11-09] MEDS: CEFEPIME INJ 1,000 MG in SODIUM CHLORIDE 0.9% INJ 100 ML IV SCH (16:01)
[2016-11-10] VITALS: BP 141/70; PULSE 92; RESP 20; TEMP 96.2; O2SAT 99
[2016-11-10] MEDS: HYDROmorphone HCL PF 1 MG/ML VIAL IV PUSH PRN ×5 (00:42→22:31)
[2016-11-10] MEDS: SODIUM CHLORIDE 0.9% FLUSH 10 ML FLUSH IV FLUSH PRN ×2 (00:43→05:39)
[2016-11-10] MEDS: oxyCODONE HCL 10 MG CONTROLLED RELEASE TAB PO SCH ×3 (04:40→22:00)
[2016-11-10] MEDS: ACETAMINOPHEN/HYDROcodone 325 MG/5 MG TAB PO PRN ×3 (04:40→20:14)
[2016-11-10] MEDS: metroNIDAZOLE 500 MG TAB PO SCH ×3 (04:40→20:13)
[2016-11-10 08:00] VITALS: BP 157/82; PULSE 92; RESP 16; TEMP 97.5; O2SAT 97
[2016-11-10] MEDS ORDERED: LIDOCAINE 2% JELLY 30 ML TUBE ONE (08:02)
[2016-11-10] MEDS ORDERED: MINERAL OIL 10 ML VIAL ONE (08:02)
[2016-11-10] MEDS ORDERED: GENTAMICIN SULFATE 80 MG/2 ML VIAL ONE (08:02)
[2016-11-10] MEDS: POLYETHYLENE GLYCOL 17 GM PKG PO SCH (09:00)
[2016-11-10] MEDS: LACTOBACILLUS ACIDOPHILUS TAB PO SCH ×3 (09:00→16:49)
[2016-11-10] MEDS: DOCUSATE SODIUM 50 MG/SENNA 8.6 MG TAB PO SCH ×2 (09:00→21:00)
[2016-11-10] MEDS: LACTATED RINGER'S 1000 ML INJ 1,000 ML IV SCH ×2 (09:30→19:30)
--- NOTE | 2016-11-10 09:35 | PD.OP ---
cc: Dickson Walker MD Operative Report Date of Surgery: Nov 10, 2016 Preoperative Diagnosis: Open right thigh wound Postoperative Diagnosis: Procedure: Irrigation and debridement of right thigh wound, split-thickness skin graft 200 cm Anesthesia: Gen. Surgeon: Dickson Walker Certified Real Estate Appraiser(s): LORE Dong PA-C The surgical procedure was assisted by my physician special events assistant. My P.A. presence was necessary throughout this case for the manipulation and positioning of the surgical extremity. My P.A. was assisting me throughout the duration of this procedure. The skill set of a physician special events assistant was medically necessary to complete this procedure. During the surgical case the neurosurgical nurse was working at the back table and the physician special events assistant was directly assisting me for the duration of this procedure Operation and Findings: Patient brought to operating room and given IV sedation and general anesthesia. Timeout procedure was performed. IV antibiotics were administered. Patient was positioned in a lateral decubitus position. The right leg was prepped with alcohol followed by Hibiclens and draped in usual sterile fashion. Procedure began with irrigation and debridement of the open wound. Skin subcutaneous tissue and fascia were sharply debrided. Overall the wound was healthy. A excisional debridement was performed. Muscle appeared be healthy and viable. There was granulation tissue forming. Wound was now thoroughly irrigated with sterile saline. Next was turned to skin grafting. Using the Vick dermatome set at 0.015 skin graft was obtained from the thigh using the 4 inch guard. Skin graft was now meshed at a ratio of 1-2. The skin graft was now placed over the open wound. Skin graft was stapled into position. The open wound was completely covered. Skin graft was now covered with Xeroform. A VAC dressing was cut to fit over the wound. VAC dressing was sealed appropriately. A compressive dressing was applied. VAC dressing was set on continuous. Patient was awakened and transferred to recovery in stable condition. Dickson Walker MD Nov 10, 2016 09:35
[2016-11-10] MEDS ORDERED: DO NOT ADM ANY ANTICOAGULANT DRUGS PRN (10:00)
[2016-11-10] MEDS ORDERED: *morphine SULFATE 8 MG/ML PERIprocedure ONLY ONE ×3 (10:03→10:30)
[2016-11-10] MEDS ORDERED: MIDAZOLAM HCL 2 MG/2 ML VIAL ONE (10:04)
[2016-11-10] MEDS ORDERED: fentaNYL CITRATE 250 MCG/5 ML AMP ONE (10:04)
[2016-11-10] MEDS ORDERED: *HYDROmorphone PF 1 MG VIAL PERIprocedural Use ONLY ONE (10:37)
[2016-11-10] MEDS ORDERED: *LABETALOL HCL 100 MG/20 ML VIAL PERIprocedural Use ONLY ONE (10:47)
[2016-11-10 12:00] VITALS: BP 154/97; PULSE 82; RESP 18; TEMP 96.6; O2SAT 100
[2016-11-10] MEDS ORDERED: PROPOFOL 200 MG/20 ML AMP IV ONE (12:00)
[2016-11-10] MEDS ORDERED: ONDANSETRON HCL 4 MG/2 ML VIAL IV PUSH ONE (12:00)
[2016-11-10] MEDS: SODIUM CHLORIDE 0.9% FLUSH 10 ML FLUSH IV FLUSH SCH ×2 (12:57→21:00)
--- NOTE | 2016-11-10 14:19 | HHI.NPPN ---
Subjective History of Present Illness Hx of ARF Rhabdo Objective Data Data 11/09/16 11/10/16 19:00 07:00 Intake Total 1000 ml 120 ml Output Total 450 ml 450 ml Balance 550 ml -330 ml Intake Oral 1000 ml 120 ml IV Total 0 ml Output Urine Total 300 ml Drainage Total 450 ml 150 ml Vital Signs Date Time Temp Pulse Resp B/P Pulse Ox O2 Delivery O2 Flow Rate FiO2 11/10/16 12:00 96.6 82 18 154/97 100 11/10/16 10:58 97.4 74 22 161/97 99 Room Air 11/10/16 10:45 76 22 177/100 98 Room Air 11/10/16 10:30 75 22 174/103 99 Room Air 11/10/16 10:15 76 22 168/105 99 Room Air 11/10/16 10:00 97.4 86 22 156/92 100 Room Air 11/10/16 08:00 97.5 92 16 157/82 97 11/10/16 00:00 96.2 92 20 141/70 99 11/09/16 20:00 98.0 88 20 158/83 100 11/09/16 17:13 153/83 11/09/16 16:00 98.3 72 18 153/85 96 -: 11/09/16 1335 11/09/16 1030 Physical Exam General Appearance: Well Developed, Well Nourished Neck Neck Exam: Neck Supple Pulmonary Resp Exam: Clear Bilaterally, Breath Sounds Equal Cardiology CV Exam: Regular, Normal Sinus Rhythm Gastrointestinal/Abdomen GI Exam: Soft, Non-Tender, Bowel Sounds Present Extremeties Extremities Exam: Moderate Edema Assessment/Plan Problem List: (1) Acute renal failure Plan: Patient on hemodialysis on Thursday and and Saturdays Urine output has dropped check BMP he'll likely need dialysis again tomorrow Anemia getting Epogen (2) Compartment syndrome Plan: Orthopedic is following (3) Hyponatremia Plan: Due to renal failure (4) Rhabdomyolysis Plan: As above Gonzalo Navarrete MD Nov 10, 2016 14:19
--- NOTE | 2016-11-10 14:40 | HHI.PR ---
Subjective Remarks Follow-up for compartment syndrome. Patient just returned from the OR. He had no complaints. He has pain at the wound site. Otherwise no other complaints. His mom stated that patient is depressed and wants a psychiatrist to see patient. Patient denied any depression. He does state that he has low an energy and does not have the will to do anything. Patient denied any suicidal or homicidal ideations. Objective Vitals Vital Signs Date Time Temp Pulse Resp B/P Pulse Ox O2 Delivery O2 Flow Rate FiO2 11/10/16 12:00 96.6 82 18 154/97 100 11/10/16 10:58 97.4 74 22 161/97 99 Room Air 11/10/16 10:45 76 22 177/100 98 Room Air 11/10/16 10:30 75 22 174/103 99 Room Air 11/10/16 10:15 76 22 168/105 99 Room Air 11/10/16 10:00 97.4 86 22 156/92 100 Room Air 11/10/16 08:00 97.5 92 16 157/82 97 11/10/16 00:00 96.2 92 20 141/70 99 11/09/16 20:00 98.0 88 20 158/83 100 11/09/16 17:13 153/83 11/09/16 16:00 98.3 72 18 153/85 96 I/O 11/09/16 11/09/16 11/09/16 11/10/16 11/10/16 11/10/16 07:00 15:00 23:00 07:00 15:00 23:00 Intake Total 480 ml 1000 ml 120 ml 0 ml 230 ml Output Total 550 ml 450 ml 250 ml 200 ml 10 ml Balance -70 ml 550 ml -130 ml -200 ml 220 ml Intake Oral 480 ml 1000 ml 120 ml 0 ml IV Total 0 ml 0 ml 30 ml Other 200 ml Output Urine Total 300 ml 200 ml 100 ml Drainage Total 250 ml 450 ml 50 ml 100 ml Estimated Blood Loss 10 ml # Bowel Movements 0 Result Diagram: 11/09/16 1335 11/09/16 1030 Objective Remarks GENERAL: in NAD SKIN: Warm and dry. HEAD: Normocephalic. EYES: No scleral icterus. No injection or drainage. NECK: Supple, trachea midline. No JVD or lymphadenopathy. CARDIOVASCULAR: Regular rate and rhythm without murmurs, gallops, or rubs. RESPIRATORY: Breath sounds equal bilaterally. No accessory muscle use. GASTROINTESTINAL: Abdomen soft, non-tender, nondistended. MUSCULOSKELETAL: Right lateral upper thigh with wound VAC in place. BACK: Nontender without obvious deformity. No CVA tenderness. Psych: flat affect Procedures None. Medications and IVs Current Medications Sodium Chloride (NS Flush) 2 ml UNSCH PRN IV FLUSH FLUSH AFTER USING IV ACCESS Last administered on 11/10/16 05:39; Start 11/03/16 at 13:15 Sodium Chloride (NS Flush) 2 ml BID IV FLUSH Last administered on 11/10/16 12: 57; Start 11/03/16 at 21:00 Acetaminophen (Tylenol) 650 mg Q4H PRN PO Headache, fever, pain 1-4; Start 02/10 at 13:15 Ondansetron HCl (Zofran Inj) 4 mg Q6H PRN IVP NAUSEA OR VOMITING Last administered on 11/04/16 20:50; Start 11/03/16 at 13:15 Oxycodone/ Acetaminophen (Percocet 10-325 Mg) 1 tab Q6H PRN PO PAIN SCALE 5 TO 10 Last administered on 11/04/16 12:56; Start 11/03/16 at 13:15; Stop 11/04/16 at 13:22; Status DC Naloxone HCl (Narcan Inj) 0.4 mg UNSCH PRN IV SEE LABEL COMMENTS; Start at 13:15 Senna/Docusate Sodium (Zoila-Colace) 1 tab BID PO Last administered on 20:19; Start 11/03/16 at 21:00 Magnesium Hydroxide (Milk Of Magnesia Liq) 30 ml Q12H PRN PO MILD - MODERATE CONSTIPATION; Start 11/03/16 at 13:15 Sennosides (Senokot) 17.2 mg Q12H PRN PO MODERATE - SEVERE CONSTIPATION; Start 11/03/16 at 13:15 Bisacodyl (Dulcolax Supp) 10 mg DAILY PRN RECTAL SEVERE CONSITIPATION; Start at 13:15 Lactulose (Lactulose Liq) 30 ml DAILY PRN PO SEVERE CONSITIPATION; Start at 13:15 Hydromorphone HCl 0.5 mg 0.5 mg Q4H PRN IV PUSH BREAKTHROUGH PAIN Last administered on 11/04/16 11:02; Start 11/03/16 at 13:15; Stop 11/04/16 at 13:22 ; Status DC Cefepime HCl/ Sodium Chloride (Maxipime Inj/NS Inj) 100 ml @ 200 mls/hr Q24H IV Last administered on 11/09/16 16:01; Start 11/03/16 at 17:00 Metronidazole (Flagyl) 500 mg Q8HR PO Last administered on 11/10/16 12:56; Start 11/03/16 at 14:00 Lactobacillus Acidophilus 1 tab 1 tab TID PO Last administered on 11/10/16 12: 56; Start 11/03/16 at 18:00 Sodium Chloride (NS 1000 ml Inj) 1,000 ml @ 0 mls/hr Q0M PRN IV For Prime & Rinse Back; Start 11/03/16 at 18:40 Heparin Sodium (Porcine) 8000 units 8,000 units UNSCH PRN IVF WITH DIALYSIS; Start 11/03/16 at 18:45 Sodium Chloride 1,000 ml @ 200 mls/hr Q5H PRN IV WITH DIALYSIS Last administered on 11/06/16 10:06; Start 11/03/16 at 18:40 Sodium Chloride (NS 1000 ml Inj) 1,000 ml @ 0 mls/hr Q0M PRN IV WITH DIALYSIS; Start 11/03/16 at 18:40 Mannitol (Mannitol Inj) 12.5 gm UNSCH PRN IV WITH DIALYSIS; Start 11/03/16 at 18:45 Albumin Human (Albumin 25% Inj) 25 gm UNSCH PRN IV WITH DIALYSIS; Start at 18:45 Sodium Chloride (NS Flush) 5 ml UNSCH PRN IV FLUSH WITH DIALYSIS; Start at 18:45 Heparin Sodium (Porcine) (Heparin Inj) UNSCH PRN .XX WITH DIALYSIS Last administered on 11/08/16 11:59; Start 11/03/16 at 18:45 Gentamicin Sulfate (Gentamicin (Dialysis) Inj) 20 mg UNSCH PRN IV WITH DIALYSIS Last administered on 11/08/16 11:58; Start 11/03/16 at 18:45 Ondansetron HCl (Zofran Inj) 4 mg UNSCH PRN IV WITH DIALYSIS; Start 11/03/16 at 18:45 Acetaminophen (Tylenol) 650 mg UNSCH PRN PO for headach, pain, temp > 101F; Start 11/03/16 at 18:45 Diphenhydramine HCl (Benadryl) 25 mg UNSCH PRN PO for hives/itching/ anaphylaxis Last administered on 11/08/16 20:29; Start 11/03/16 at 18:45 Nitroglycerin (Nitrostat Sl) 0.4 mg UNSCH PRN SL CHEST PAIN; Start 11/03/16 at 18:45 Clonidine (Catapres) 0.1 mg UNSCH PRN PO for BP > 180/100 X 2 readings Last administered on 11/08/16 11:58; Start 11/03/16 at 18:45 Epoetin Shaquille (Epogen Inj) 10,000 units UNSCH PRN IV WITH DIALYSIS Last administered on 11/08/16 11:58; Start 11/03/16 at 18:45 Gelatin (Gelfoam 12 Mm/7 Mm Top) 1 foam UNSCH PRN TOP SEE LABEL COMMENTS; Start 11/03/16 at 18:45 Hydromorphone HCl (Dilaudid Pf Inj) 1 mg Q4H PRN IV PUSH BREAKTHROUGH PAIN Last administered on 11/10/16 14:34; Start 11/04/16 at 17:15 Oxycodone/ Acetaminophen (Percocet 10-325 Mg) 1 tab Q4H PRN PO PAIN SCALE 5 TO 10 Last administered on 11/08/16 09:08; Start 11/04/16 at 17:15; Stop 11/08/16 at 09:19; Status DC Acetaminophen (Ofirmev Inj) 1,000 mg STK-MED ONCE IV ; Start 11/05/16 at 07:09; Stop 11/05/16 at 07:10; Status DC Midazolam HCl (Versed Inj) 2 mg STK-MED ONCE .ROUTE ; Start 11/05/16 at 07:10; Stop 11/05/16 at 07:11; Status DC Dexamethasone Sodium Phosphate (Decadron Inj) 4 mg STK-MED ONCE .ROUTE ; Start 11/05/16 at 07:10; Stop 11/05/16 at 07:11; Status DC Famotidine (Pepcid Inj) 20 mg STK-MED ONCE .ROUTE ; Start 11/05/16 at 07:10; Stop 11/05/16 at 07:11; Status DC Vancomycin HCl (Vancomycin Inj) 1,000 mg STK-MED ONCE .ROUTE Last administered on 11/05/16 08:18; Start 11/05/16 at 07:12; Stop 11/05/16 at 07:13; Status DC Gentamicin Sulfate 240 mg 240 mg STK-MED ONCE .ROUTE Last administered on 08:19; Start 11/05/16 at 07:12; Stop 11/05/16 at 07:13; Status DC Sodium Chloride (NS 250 ml Inj) 250 ml @ As Directed STK-MED ONCE .ROUTE Last administered on 11/05/16 08:18; Start 11/05/16 at 07:12; Stop 11/05/16 at 07:13 ; Status DC Lidocaine HCl (Xylocaine 2% Jelly) 30 applic STK-MED ONCE .ROUTE ; Start at 07:55; Stop 11/05/16 at 07:56; Status DC Mineral Oil 10 ml 10 ml STK-MED ONCE .ROUTE ; Start 11/05/16 at 07:55; Stop 04/12 at 07:56; Status DC Lactated Ringer's (Lr 1000 ml Inj) 1,000 ml @ 100 mls/hr Q10H IV ; Start at 08:27; Stop 11/09/16 at 12:40; Status DC Cefazolin Sodium (Ancef Inj) 2,000 mg STK-MED ONCE IV Last administered on 11/05 08:18; Start 11/05/16 at 08:18; Stop 11/05/16 at 08:38; Status DC Fentanyl Citrate (fentaNYL INJ) 250 mcg STK-MED ONCE .ROUTE ; Start 11/05/16 at 09:06; Stop 11/05/16 at 09:07; Status DC Meperidine HCl (*DEMEROL INJ PERIprocedural ONLY) 25 mg STK-MED ONCE .ROUTE Last administered on 11/05/16 09:16; Start 11/05/16 at 09:16; Stop 11/05/16 at 09:17; Status DC Miscellaneous Information ALL NURSING DEPARTME... UNSCH PRN .XX SEE LABEL COMMENTS; Start 11/05/16 at 08:57; Stop 11/06/16 at 08:56; Status DC Enoxaparin Sodium (Lovenox Inj) 30 mg Q24H SQ ; Start 11/06/16 at 17:00; Stop at 17:00; Status DC Heparin Sodium (Porcine) 5000 units 5,000 units Q12HR SQ Last administered on 08:07; Start 11/06/16 at 21:00; Stop 11/08/16 at 09:00; Status DC Sodium Chloride (NS 250 ml Inj) 250 ml @ 15 mls/hr ONCE ONCE IV Last administered on 11/07/16 14:47; Start 11/07/16 at 10:00; Stop 11/08/16 at 02:39 ; Status DC Oxycodone HCl (OxyCONTIN CR) 10 mg Q8HR PO Last administered on 11/10/16 12:56 ; Start 11/08/16 at 14:00 Acetaminophen/ Hydrocodone Bitart ([place] 5-325 Mg) 1 tab Q6H PRN PO pain 3-10 Last administered on 11/10/16 13:48; Start 11/08/16 at 09:30 Polyethylene Glycol (Miralax) 17 gm ONCE ONCE PO Last administered on 11:05; Start 11/09/16 at 11:00; Stop 11/09/16 at 11:01; Status DC Polyethylene Glycol (Miralax) 17 gm DAILY PO ; Start 11/10/16 at 09:00 Lidocaine HCl (Xylocaine 2% Jelly) 30 applic STK-MED ONCE .ROUTE ; Start at 08:02; Stop 11/10/16 at 08:03; Status DC Mineral Oil (Muri-Lube Oil) 10 ml STK-MED ONCE .ROUTE ; Start 11/10/16 at 08:02 ; Stop 11/10/16 at 08:03; Status DC Gentamicin Sulfate 240 mg 240 mg STK-MED ONCE .ROUTE Last administered on 09:08; Start 11/10/16 at 08:02; Stop 11/10/16 at 08:03; Status DC Lactated Ringer's (Lr 1000 ml Inj) 1,000 ml @ 100 mls/hr Q10H IV ; Start at 09:30 Morphine Sulfate (*morphine INJ PERIprocedure ONLY) 8 mg STK-MED ONCE .ROUTE Last administered on 11/10/16 10:03; Start 11/10/16 at 10:03; Stop 11/10/16 at 10:04; Status DC Midazolam HCl (Versed Inj) 2 mg STK-MED ONCE .ROUTE ; Start 11/10/16 at 10:04; Stop 11/10/16 at 10:05; Status DC Fentanyl Citrate (fentaNYL INJ) 250 mcg STK-MED ONCE .ROUTE ; Start 11/10/16 at 10:04; Stop 11/10/16 at 10:05; Status DC Morphine Sulfate (*morphine INJ PERIprocedure ONLY) 8 mg STK-MED ONCE .ROUTE Last administered on 11/10/16 10:21; Start 11/10/16 at 10:21; Stop 11/10/16 at 10:22; Status DC Morphine Sulfate (*morphine INJ PERIprocedure ONLY) 8 mg STK-MED ONCE .ROUTE Last administered on 11/10/16 10:30; Start 11/10/16 at 10:30; Stop 11/10/16 at 10:31; Status DC Hydromorphone HCl (*DILAUDID PF INJ PERIprocedural ONLY) 1 mg STK-MED ONCE .ROUTE Last administered on 11/10/16 10:37; Start 11/10/16 at 10:37; Stop at 10:38; Status DC Labetalol HCl (*TRANDATE INJ PERIprocedural Use ONLY) 100 mg STK-MED ONCE .ROUTE ; Start 11/10/16 at 10:47; Stop 11/10/16 at 10:48; Status DC Miscellaneous Information ALL NURSING DEPARTME... UNSCH PRN .XX SEE LABEL COMMENTS; Start 11/10/16 at 10:00; Stop 11/11/16 at 09:59 A/P Problem List: (1) Substance abuse ICD Code: F19.10 Status: Chronic (2) Rhabdomyolysis ICD Code: M62.82 Status: Acute (3) Compartment syndrome ICD Code: T79.A0XA Status: Acute (4) Acute renal failure ICD Code: N17.9 Status: Acute (5) Severe sepsis ICD Code: A41.9 Status: Acute (6) Myositis ICD Code: M60.9 Status: Acute Assessment and Plan This is a 35-year-old male IV drug user admitted with compartment syndrome status post fasciotomy, myositis, acute renal failure secondary to rhabdomyolysis presumably from polysubstance use. After for an inadvertent transfer to [facility], patient was transferred back to [place] 11/03/2016. Compartment syndrome, right anterior, posterior, adductor, buttock compartment: Status post fasciotomy and revision. - Orthopedic surgery following. Continue wound VAC s/p I&D of right thigh, repeat surgery on Thursday/Thursday - patient may have wound vac discontinued. - s/p Irrigation and debridement of right thigh wound, split-thickness skin graft 200 cm 11/10/[address] Wakefield. - Pain controlled with current regimen Oxycontin 10mg po q8hr, [place] 5/325mg q6h prn and Dilaudid for breakthrough pain. Also Tylenol prn. Right LE edema - likely related to above - Doppler US negative. Elevated BP - no documented history of hypertension - D/C IVF - Clonidine prn - monitor BP Sepsis, secondary to myositis - s/p fasciotomy quadriceps, hamstring, gluteus medius/karly/minimus with wound vac placement 10/26 Dr. Simms. Wound vac to continuous suction - Intraoperative culture obtained from bursa and from gluteus medius. Blood culture and Urine culture obtained - all cultures negative so far - Per infectious disease, continue cefepime 1 g 24 hours, metronidazole 500 mg by mouth every 8 hours. Acute renal failure secondary to rhabdomyolysis - Reconsulted nephrology for follow-up and dialysis. Dialysis T//THU per Nephrology. - s/p dialysis yesterday - Continue with HD per Nephro's recommendations. Anemia - no bleeding source - transfused 1 unit of packed red blood cells - hemoglobin 6.2 --> 7.3 -At the moment hemoglobin is stable. Continue to monitor. Transfuse as needed if hemoglobin is less than 7. - Epogen given yesterday Transaminitis - Resolved. Constipation - Miralax added - continue with Pericolace - monitor for BM ? depression -consult psychiatrist. DVT Prophylaxis: Heparin Full code. Sirena Pinto MD Nov 10, 2016 14:40
[2016-11-10 16:00] VITALS: BP 141/70; PULSE 87; RESP 18; TEMP 97.8; O2SAT 96
[2016-11-10] MEDS: CEFEPIME INJ 1,000 MG in SODIUM CHLORIDE 0.9% INJ 100 ML IV SCH (16:48)
[2016-11-10 20:00] VITALS: BP 165/80; PULSE 85; RESP 20; TEMP 98.8; O2SAT 100
[2016-11-11] VITALS: BP 171/88; PULSE 86; RESP 20; TEMP 98; O2SAT 98
[2016-11-11] MEDS: ACETAMINOPHEN/HYDROcodone 325 MG/5 MG TAB PO PRN ×3 (02:25→18:40)
[2016-11-11] MEDS: HYDROmorphone HCL PF 1 MG/ML VIAL IV PUSH PRN ×3 (03:44→12:24)
[2016-11-11 04:00] VITALS: BP 160/87; PULSE 86; RESP 20; TEMP 98.8; O2SAT 100
[2016-11-11] MEDS: LACTATED RINGER'S 1000 ML INJ 1,000 ML IV SCH ×3 (05:30→19:33)
[2016-11-11] MEDS: metroNIDAZOLE 500 MG TAB PO SCH ×3 (05:30→22:40)
[2016-11-11] MEDS: oxyCODONE HCL 10 MG CONTROLLED RELEASE TAB PO SCH ×3 (05:30→22:40)
[2016-11-11] MEDS: LACTOBACILLUS ACIDOPHILUS TAB PO SCH ×3 (07:48→18:40)
[2016-11-11] MEDS: DOCUSATE SODIUM 50 MG/SENNA 8.6 MG TAB PO SCH ×2 (07:48→21:00)
[2016-11-11] MEDS: SODIUM CHLORIDE 0.9% FLUSH 10 ML FLUSH IV FLUSH SCH ×2 (07:48→21:00)
[2016-11-11] MEDS: POLYETHYLENE GLYCOL 17 GM PKG PO SCH (07:48)
[2016-11-11 08:00] VITALS: BP 161/88; PULSE 83; RESP 18; TEMP 96.9; O2SAT 99
--- NOTE | 2016-11-11 10:24 | HHI.PR ---
Subjective Remarks f/u wound Patient complaining of pain at the wound site. he stated his UOP is improving. He remains afebrile. Otherwise no other complaints. Nurse stated that lab was unable to get any blood secondary to resistance asking for Cathflo. Otherwise no other complaints. Objective Vitals Vital Signs Date Time Temp Pulse Resp B/P Pulse Ox O2 Delivery O2 Flow Rate FiO2 11/11/16 08:00 96.9 83 18 161/88 99 11/11/16 04:00 98.8 86 20 160/87 100 11/11/16 00:00 98.0 86 20 171/88 98 11/10/16 20:00 98.8 85 20 165/80 100 11/10/16 16:00 97.8 87 18 141/70 96 11/10/16 12:00 96.6 82 18 154/97 100 11/10/16 10:58 97.4 74 22 161/97 99 Room Air 11/10/16 10:45 76 22 177/100 98 Room Air 11/10/16 10:30 75 22 174/103 99 Room Air I/O 11/10/16 11/10/16 11/10/16 11/11/16 11/11/16 11/11/16 07:00 15:00 23:00 07:00 15:00 23:00 Intake Total 0 ml 710 ml Output Total 200 ml 270 ml Balance -200 ml 440 ml Intake Oral 0 ml 480 ml IV Total 0 ml 30 ml Other 200 ml Output Urine Total 100 ml 250 ml Drainage Total 100 ml 10 ml Estimated Blood Loss 10 ml # Bowel Movements 0 Result Diagram: 11/09/16 1335 11/09/16 1030 Objective Remarks GENERAL: in NAD SKIN: Warm and dry. HEAD: Normocephalic. EYES: No scleral icterus. No injection or drainage. NECK: Supple, trachea midline. No JVD or lymphadenopathy. CARDIOVASCULAR: Regular rate and rhythm without murmurs, gallops, or rubs. RESPIRATORY: Breath sounds equal bilaterally. No accessory muscle use. GASTROINTESTINAL: Abdomen soft, non-tender, nondistended. MUSCULOSKELETAL: Right lateral upper thigh with wound VAC in place. BACK: Nontender without obvious deformity. No CVA tenderness. Psych: flat affect Procedures None. Medications and IVs Current Medications Sodium Chloride (NS Flush) 2 ml UNSCH PRN IV FLUSH FLUSH AFTER USING IV ACCESS Last administered on 11/10/16 05:39; Start 11/03/16 at 13:15 Sodium Chloride (NS Flush) 2 ml BID IV FLUSH Last administered on 11/11/16 07: 48; Start 11/03/16 at 21:00 Acetaminophen (Tylenol) 650 mg Q4H PRN PO Headache, fever, pain 1-4; Start 02/10 at 13:15 Ondansetron HCl (Zofran Inj) 4 mg Q6H PRN IVP NAUSEA OR VOMITING Last administered on 11/04/16 20:50; Start 11/03/16 at 13:15 Oxycodone/ Acetaminophen (Percocet 10-325 Mg) 1 tab Q6H PRN PO PAIN SCALE 5 TO 10 Last administered on 11/04/16 12:56; Start 11/03/16 at 13:15; Stop 11/04/16 at 13:22; Status DC Naloxone HCl (Narcan Inj) 0.4 mg UNSCH PRN IV SEE LABEL COMMENTS; Start at 13:15 Senna/Docusate Sodium (Zoila-Colace) 1 tab BID PO Last administered on 07:48; Start 11/03/16 at 21:00 Magnesium Hydroxide (Milk Of Magnesia Liq) 30 ml Q12H PRN PO MILD - MODERATE CONSTIPATION; Start 11/03/16 at 13:15 Sennosides (Senokot) 17.2 mg Q12H PRN PO MODERATE - SEVERE CONSTIPATION; Start 11/03/16 at 13:15 Bisacodyl (Dulcolax Supp) 10 mg DAILY PRN RECTAL SEVERE CONSITIPATION; Start at 13:15 Lactulose (Lactulose Liq) 30 ml DAILY PRN PO SEVERE CONSITIPATION; Start at 13:15 Hydromorphone HCl 0.5 mg 0.5 mg Q4H PRN IV PUSH BREAKTHROUGH PAIN Last administered on 11/04/16 11:02; Start 11/03/16 at 13:15; Stop 11/04/16 at 13:22 ; Status DC Cefepime HCl/ Sodium Chloride (Maxipime Inj/NS Inj) 100 ml @ 200 mls/hr Q24H IV Last administered on 11/10/16 16:48; Start 11/03/16 at 17:00 Metronidazole (Flagyl) 500 mg Q8HR PO Last administered on 11/11/16 05:30; Start 11/03/16 at 14:00 Lactobacillus Acidophilus 1 tab 1 tab TID PO Last administered on 11/11/16 07: 48; Start 11/03/16 at 18:00 Sodium Chloride (NS 1000 ml Inj) 1,000 ml @ 0 mls/hr Q0M PRN IV For Prime & Rinse Back; Start 11/03/16 at 18:40 Heparin Sodium (Porcine) 8000 units 8,000 units UNSCH PRN IVF WITH DIALYSIS; Start 11/03/16 at 18:45 Sodium Chloride 1,000 ml @ 200 mls/hr Q5H PRN IV WITH DIALYSIS Last administered on 11/06/16 10:06; Start 11/03/16 at 18:40 Sodium Chloride (NS 1000 ml Inj) 1,000 ml @ 0 mls/hr Q0M PRN IV WITH DIALYSIS; Start 11/03/16 at 18:40 Mannitol (Mannitol Inj) 12.5 gm UNSCH PRN IV WITH DIALYSIS; Start 11/03/16 at 18:45 Albumin Human (Albumin 25% Inj) 25 gm UNSCH PRN IV WITH DIALYSIS; Start at 18:45 Sodium Chloride (NS Flush) 5 ml UNSCH PRN IV FLUSH WITH DIALYSIS; Start at 18:45 Heparin Sodium (Porcine) (Heparin Inj) UNSCH PRN .XX WITH DIALYSIS Last administered on 11/08/16 11:59; Start 11/03/16 at 18:45 Gentamicin Sulfate (Gentamicin (Dialysis) Inj) 20 mg UNSCH PRN IV WITH DIALYSIS Last administered on 11/08/16 11:58; Start 11/03/16 at 18:45 Ondansetron HCl (Zofran Inj) 4 mg UNSCH PRN IV WITH DIALYSIS; Start 11/03/16 at 18:45 Acetaminophen (Tylenol) 650 mg UNSCH PRN PO for headach, pain, temp > 101F; Start 11/03/16 at 18:45 Diphenhydramine HCl (Benadryl) 25 mg UNSCH PRN PO for hives/itching/ anaphylaxis Last administered on 11/08/16 20:29; Start 11/03/16 at 18:45 Nitroglycerin (Nitrostat Sl) 0.4 mg UNSCH PRN SL CHEST PAIN; Start 11/03/16 at 18:45 Clonidine (Catapres) 0.1 mg UNSCH PRN PO for BP > 180/100 X 2 readings Last administered on 11/08/16 11:58; Start 11/03/16 at 18:45 Epoetin Shaquille (Epogen Inj) 10,000 units UNSCH PRN IV WITH DIALYSIS Last administered on 11/08/16 11:58; Start 11/03/16 at 18:45 Gelatin (Gelfoam 12 Mm/7 Mm Top) 1 foam UNSCH PRN TOP SEE LABEL COMMENTS; Start 11/03/16 at 18:45 Hydromorphone HCl (Dilaudid Pf Inj) 1 mg Q4H PRN IV PUSH BREAKTHROUGH PAIN Last administered on 11/11/16 08:33; Start 11/04/16 at 17:15 Oxycodone/ Acetaminophen (Percocet 10-325 Mg) 1 tab Q4H PRN PO PAIN SCALE 5 TO 10 Last administered on 11/08/16 09:08; Start 11/04/16 at 17:15; Stop 11/08/16 at 09:19; Status DC Acetaminophen (Ofirmev Inj) 1,000 mg STK-MED ONCE IV ; Start 11/05/16 at 07:09; Stop 11/05/16 at 07:10; Status DC Midazolam HCl (Versed Inj) 2 mg STK-MED ONCE .ROUTE ; Start 11/05/16 at 07:10; Stop 11/05/16 at 07:11; Status DC Dexamethasone Sodium Phosphate (Decadron Inj) 4 mg STK-MED ONCE .ROUTE ; Start 11/05/16 at 07:10; Stop 11/05/16 at 07:11; Status DC Famotidine (Pepcid Inj) 20 mg STK-MED ONCE .ROUTE ; Start 11/05/16 at 07:10; Stop 11/05/16 at 07:11; Status DC Vancomycin HCl (Vancomycin Inj) 1,000 mg STK-MED ONCE .ROUTE Last administered on 11/05/16 08:18; Start 11/05/16 at 07:12; Stop 11/05/16 at 07:13; Status DC Gentamicin Sulfate 240 mg 240 mg STK-MED ONCE .ROUTE Last administered on 08:19; Start 11/05/16 at 07:12; Stop 11/05/16 at 07:13; Status DC Sodium Chloride (NS 250 ml Inj) 250 ml @ As Directed STK-MED ONCE .ROUTE Last administered on 11/05/16 08:18; Start 11/05/16 at 07:12; Stop 11/05/16 at 07:13 ; Status DC Lidocaine HCl (Xylocaine 2% Jelly) 30 applic STK-MED ONCE .ROUTE ; Start at 07:55; Stop 11/05/16 at 07:56; Status DC Mineral Oil 10 ml 10 ml STK-MED ONCE .ROUTE ; Start 11/05/16 at 07:55; Stop 04/12 at 07:56; Status DC Lactated Ringer's (Lr 1000 ml Inj) 1,000 ml @ 100 mls/hr Q10H IV ; Start at 08:27; Stop 11/09/16 at 12:40; Status DC Cefazolin Sodium (Ancef Inj) 2,000 mg STK-MED ONCE IV Last administered on 11/05 08:18; Start 11/05/16 at 08:18; Stop 11/05/16 at 08:38; Status DC Fentanyl Citrate (fentaNYL INJ) 250 mcg STK-MED ONCE .ROUTE ; Start 11/05/16 at 09:06; Stop 11/05/16 at 09:07; Status DC Meperidine HCl (*DEMEROL INJ PERIprocedural ONLY) 25 mg STK-MED ONCE .ROUTE Last administered on 11/05/16 09:16; Start 11/05/16 at 09:16; Stop 11/05/16 at 09:17; Status DC Miscellaneous Information ALL NURSING DEPARTME... UNSCH PRN .XX SEE LABEL COMMENTS; Start 11/05/16 at 08:57; Stop 11/06/16 at 08:56; Status DC Enoxaparin Sodium (Lovenox Inj) 30 mg Q24H SQ ; Start 11/06/16 at 17:00; Stop at 17:00; Status DC Heparin Sodium (Porcine) 5000 units 5,000 units Q12HR SQ Last administered on 08:07; Start 11/06/16 at 21:00; Stop 11/08/16 at 09:00; Status DC Sodium Chloride (NS 250 ml Inj) 250 ml @ 15 mls/hr ONCE ONCE IV Last administered on 11/07/16 14:47; Start 11/07/16 at 10:00; Stop 11/08/16 at 02:39 ; Status DC Oxycodone HCl (OxyCONTIN CR) 10 mg Q8HR PO Last administered on 11/11/16 05:30 ; Start 11/08/16 at 14:00 Acetaminophen/ Hydrocodone Bitart ([place] 5-325 Mg) 1 tab Q6H PRN PO pain 3-10 Last administered on 11/11/16 02:25; Start 11/08/16 at 09:30 Polyethylene Glycol (Miralax) 17 gm ONCE ONCE PO Last administered on 11:05; Start 11/09/16 at 11:00; Stop 11/09/16 at 11:01; Status DC Polyethylene Glycol (Miralax) 17 gm DAILY PO Last administered on 11/11/16 07: 48; Start 11/10/16 at 09:00 Lidocaine HCl (Xylocaine 2% Jelly) 30 applic STK-MED ONCE .ROUTE ; Start at 08:02; Stop 11/10/16 at 08:03; Status DC Mineral Oil (Muri-Lube Oil) 10 ml STK-MED ONCE .ROUTE ; Start 11/10/16 at 08:02 ; Stop 11/10/16 at 08:03; Status DC Gentamicin Sulfate 240 mg 240 mg STK-MED ONCE .ROUTE Last administered on 09:08; Start 11/10/16 at 08:02; Stop 11/10/16 at 08:03; Status DC Lactated Ringer's (Lr 1000 ml Inj) 1,000 ml @ 100 mls/hr Q10H IV ; Start at 09:30 Morphine Sulfate (*morphine INJ PERIprocedure ONLY) 8 mg STK-MED ONCE .ROUTE Last administered on 11/10/16 10:03; Start 11/10/16 at 10:03; Stop 11/10/16 at 10:04; Status DC Midazolam HCl (Versed Inj) 2 mg STK-MED ONCE .ROUTE ; Start 11/10/16 at 10:04; Stop 11/10/16 at 10:05; Status DC Fentanyl Citrate (fentaNYL INJ) 250 mcg STK-MED ONCE .ROUTE ; Start 11/10/16 at 10:04; Stop 11/10/16 at 10:05; Status DC Morphine Sulfate (*morphine INJ PERIprocedure ONLY) 8 mg STK-MED ONCE .ROUTE Last administered on 11/10/16t 10:21; Start 11/10/16 at 10:21; Stop 11/10/16 at 10:22; Status DC Morphine Sulfate (*morphine INJ PERIprocedure ONLY) 8 mg STK-MED ONCE .ROUTE Last administered on 11/10/16 10:30; Start 11/10/16 at 10:30; Stop 11/10/16 at 10:31; Status DC Hydromorphone HCl (*DILAUDID PF INJ PERIprocedural ONLY) 1 mg STK-MED ONCE .ROUTE Last administered on 11/10/16 10:37; Start 11/10/16 at 10:37; Stop at 10:38; Status DC Labetalol HCl (*TRANDATE INJ PERIprocedural Use ONLY) 100 mg STK-MED ONCE .ROUTE ; Start 11/10/16 at 10:47; Stop 11/10/16 at 10:48; Status DC Miscellaneous Information ALL NURSING DEPARTME... UNSCH PRN .XX SEE LABEL COMMENTS; Start 11/10/16 at 10:00; Stop 11/11/16 at 09:59; Status DC Alteplase, Recombinant (Cathflo Activase Inj) 2 mg ONCE ONCE INTRACATH ; Start 11/11/16 at 10:30; Stop 11/11/16 at 10:31; Status UNV A/P Problem List: (1) Substance abuse ICD Code: F19.10 Status: Chronic (2) Rhabdomyolysis ICD Code: M62.82 Status: Acute (3) Compartment syndrome ICD Code: T79.A0XA Status: Acute (4) Acute renal failure ICD Code: N17.9 Status: Acute (5) Severe sepsis ICD Code: A41.9 Status: Acute (6) Myositis ICD Code: M60.9 Status: Acute Assessment and Plan This is a 35-year-old male IV drug user admitted with compartment syndrome status post fasciotomy, myositis, acute renal failure secondary to rhabdomyolysis presumably from polysubstance use. After for an inadvertent transfer to [facility], patient was transferred back to [place] 11/03/2016. Compartment syndrome, right anterior, posterior, adductor, buttock compartment: Status post fasciotomy and revision. - Orthopedic surgery following. Continue wound VAC s/p I&D of right thigh, repeat surgery on Thursday/Thursday - patient may have wound vac discontinued. - s/p Irrigation and debridement of right thigh wound, split-thickness skin graft 200 cm 11/10/[address] Wakefield. - Pain controlled with current regimen Oxycontin 10mg po q8hr, [place] 5/325mg q6h prn and Dilaudid for breakthrough pain. Also Tylenol prn. Right LE edema - likely related to above - Doppler US negative. Elevated BP - no documented history of hypertension - D/C IVF - Clonidine prn - monitor BP Sepsis, secondary to myositis - s/p fasciotomy quadriceps, hamstring, gluteus medius/karly/minimus with wound vac placement 10/26 Dr. Simms. Wound vac to continuous suction - Intraoperative culture obtained from bursa and from gluteus medius. Blood culture and Urine culture obtained - all cultures negative so far - Per infectious disease, continue cefepime 1 g 24 hours, metronidazole 500 mg by mouth every 8 hours. Acute renal failure secondary to rhabdomyolysis - Reconsulted nephrology for follow-up and dialysis. Dialysis T//THU per Nephrology. - s/p dialysis - Continue with HD per Nephro's recommendations. -may need dialysis but no labs obtained yet. d/w nurse. try cathflo. Anemia - no bleeding source - transfused 1 unit of packed red blood cells - hemoglobin 6.2 --> 7.3 -At the moment hemoglobin is stable. Continue to monitor. Transfuse as needed if hemoglobin is less than 7. - Epogen given yesterday Transaminitis - Resolved. Constipation - Miralax added - continue with Pericolace - monitor for BM ? depression -pending consult from psychiatrist. DVT Prophylaxis: Heparin Full code. Sirena Pinto MD Nov 11, 2016 10:24
[2016-11-11] MEDS ORDERED: ALTEPLASE RECOMBINANT 2 MG VIAL INTRACATH ONE (10:30)
[2016-11-11 12:00] VITALS: BP 171/93; PULSE 76; RESP 19; TEMP 96.5; O2SAT 100
--- NOTE | 2016-11-11 13:31 | HHI.NPPN ---
Subjective History of Present Illness Hx of ARF Rhabdo Objective Data Data 11/10/16 11/11/16 18:59 06:59 Intake Total 710 ml Output Total 270 ml Balance 440 ml Intake Oral 480 ml IV Total 30 ml Other 200 ml Output Urine Total 250 ml Drainage Total 10 ml Estimated Blood Loss 10 ml # Bowel Movements 0 Vital Signs Date Time Temp Pulse Resp B/P Pulse Ox O2 Delivery O2 Flow Rate FiO2 11/11/16 12:00 96.5 76 19 171/93 100 11/11/16 08:00 96.9 83 18 161/88 99 11/11/16 04:00 98.8 86 20 160/87 100 11/11/16 00:00 98.0 86 20 171/88 98 11/10/16 20:00 98.8 85 20 165/80 100 11/10/16 16:00 97.8 87 18 141/70 96 -: 11/09/16 1335 11/09/16 1030 Physical Exam General Appearance: Well Developed, Well Nourished Neck Neck Exam: Neck Supple Pulmonary Resp Exam: Clear Bilaterally, Breath Sounds Equal Cardiology CV Exam: Regular, Normal Sinus Rhythm Gastrointestinal/Abdomen GI Exam: Soft, Non-Tender, Bowel Sounds Present Extremeties Extremities Exam: Moderate Edema Assessment/Plan Problem List: (1) Acute renal failure Plan: Patient on hemodialysis on Thursday and and Saturdays Urine output picked up per patient await BMP and may need HD Anemia getting Epogen (2) Compartment syndrome Plan: Orthopedic is following (3) Hyponatremia Plan: Due to renal failure (4) Rhabdomyolysis Plan: As above Gonzalo Navarrete MD Nov 11, 2016 13:31
[2016-11-11 14:01] LABS: HEMATOCRIT 21.3 % (39.0-51.0); MEAN CELL VOLUME 87.4 FL (80.0-100.0); MEAN CORPUSCULAR HEMOGLOBIN 30.7 PG (27.0-34.0); MEAN CORPUSCULAR HGB CONC 35.1 % (32.0-36.0); PLATELET COUNT 232 TH/MM3 (150-450); RED BLOOD COUNT 2.44 MIL/MM3 (4.50-5.90); RED CELL DISTRIBUTION WIDTH 15.8 % (11.6-17.2); REVIEW FLAG FINAL; WHITE BLOOD COUNT 6.1 TH/MM3 (4.0-11.0)
[2016-11-11 14:27] LABS: BICARBONATE 25.9 MEQ/L (21.0-32.0)
--- NOTE | 2016-11-11 15:42 | PD.ORT.PN ---
Subjective Subjective Remarks Resting comfortably Objective Vitals Vital Signs Date Time Temp Pulse Resp B/P Pulse Ox O2 Delivery O2 Flow Rate FiO2 11/11/16 12:00 96.5 76 19 171/93 100 11/11/16 08:00 96.9 83 18 161/88 99 11/11/16 04:00 98.8 86 20 160/87 100 11/11/16 00:00 98.0 86 20 171/88 98 11/10/16 20:00 98.8 85 20 165/80 100 11/10/16 16:00 97.8 87 18 141/70 96 I/O 11/10/16 11/10/16 11/10/16 11/11/16 11/11/16 11/11/16 07:00 15:00 23:00 07:00 15:00 23:00 Intake Total 0 ml 710 ml 240 ml Output Total 200 ml 270 ml 875 ml Balance -200 ml 440 ml -635 ml Intake Oral 0 ml 480 ml 240 ml IV Total 0 ml 30 ml Other 200 ml Output Urine Total 100 ml 250 ml 800 ml Drainage Total 100 ml 10 ml 75 ml Estimated Blood Loss 10 ml # Bowel Movements 0 0 Result Diagram: 11/11/16 1322 11/11/16 1322 Imaging Last Impressions Ankle X-Ray 11/08/16 0000 Signed Impressions: Service Date/Time: Tuesday, November 08, 2016 20:48 - CONCLUSION: Unremarkable study. Holly Hallman MD Procedures Right Leg compartment syndrome s/p fasciotomies with subsequent wound closures and vac application Objective Remarks RLE: +vac. good seal. remaining dressings clean and dry. intact. thigh supple. calf soft.good cap refills. minimal sensation and movement distally Assessment & Plan Problem List: (1) Compartment syndrome (2) Rhabdomyolysis (3) Substance abuse (4) IV drug abuse Assessment and Plan 1) Right Leg compartment syndrome s/p fasciotomies with subsequent wound closures and vac application with split thickness skin graft- POD 1 -maintain vac right leg on 100mmHg,continuous 3:1 -daily dressing changes to lateral and groin wounds -will plan for removal of wound vac on Thursday over STSG Sean Alvarez Jr. Nov 11, 2016 15:42
[2016-11-11] MEDS ORDERED: clonazePAM 0.5 MG TAB PO ONE (16:00)
--- NOTE | 2016-11-11 16:08 | PD.PSY.CON ---
Provisional Diagnosis Admission Date Nov 03, 2016 at 13:13 [place] I. 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 Deferred [place] III. 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 After for an inadvertent transfer to [facility], patient was transferred back to [facility] 11/03/2016. Consulted to psychiatry due to depressive symptoms and anxiety. On psychiatric evaluation today patient is guarded, but cooperative. Patient says that he has been feeling depressed due to his current medical situation. He says that he has been in the hospital for a long time. He also says that he doesn't know what happened with pain in the future if he cannot use his right leg. He feels very guilty about being killing himself by using drugs. He also feels guilty for putting his mother in some much suffering for all these years. He says that he has been in a lot of pain and he feels that medical team are not doing enough to control it. He also reports sad mood, difficulty sleeping at night, anxiety during the day, hopelessness, helplessness , but he denies suicidal and was ideation, he denies visual and auditory hallucinations. He says that he has been in psychotropics in the past that have been helpful for him. He says that he was in diazepam wants to sleep and for anxiety and it Was very helpful. patient is oriented 3, no delirium, no fluctuation of consciousness present. Review of Systems Constitutional: DENIES: Diaphoretic episodes, Fatigue, Fever, Weight gain, Weight loss, Chills, Dizziness, Change in appetite, Night Sweats Endocrine: DENIES: Heat/cold intolerance, Polydipsia, Polyuria, Polyphagia Eyes: DENIES: Blurred vision, Diplopia, Eye inflammation, Eye pain, Vision loss , Photosensitivity, Double Vision Ears, nose, mouth, throat: DENIES: Tinnitus, Hearing loss, Vertigo, Nasal discharge, Oral lesions, Throat pain, Hoarseness, Ear Pain, Running Nose, Epistaxis, Sinus Pain, Toothache, Odynophagia Respiratory: DENIES: Apneas, Cough, Snoring, Wheezing, Hemoptysis, Sputum production, Shortness of breath Cardiovascular: DENIES: Chest pain, Palpitations, Syncope, Dyspnea on Exertion , PND, Lower Extremity Edema, Orthopnea, Claudication Musculoskeletal: DENIES: Joint pain, Muscle aches, Stiffness, Joint Swelling, Back pain, Neck pain Integumentary: DENIES: Abnormal pigmentation, Nail changes, Pruritus, Rash Hematologic/lymphatic: DENIES: Bruising, Lymphadenopathy Immunologic/allergic: DENIES: Eczema, Urticaria Psychiatric: COMPLAINS OF: Anxiety, Mood changes, Depression Past Family Social History Coded Allergies: No Known Allergies (Verified , 10/26/16) Reported Medications [toradol] No Conflict Check 10/26/16 Diazepam (Valium)10 Mg Tab10 Mg PO BID PRN (PAIN SCALE 5 TO 10) #1 TAB Ref 0 10/26/16 Zubsolv 5.7-1.4 mg 1 Sub Sub1 Tab SL TID 03/12/15 Buprenorphine HCl-Naloxone HCl ([place]av[place] 6.3-1 mg)1 Mis Mis 03/12/15 Current Medications Medications (Trade) Dose Ordered Sig/Saida Route Start Time Stop Time Status Last Admin (NS Flush) 2 ml UNSCH PRN IV FLUSH 11/03/16 13:15 11/10/16 05:39 (NS Flush) 2 ml BID IV FLUSH 11/03/16 21:00 11/11/16 07:48 (Tylenol) 650 mg Q4H PRN PO 11/03/16 13:15 (Zofran Inj) 4 mg Q6H PRN IVP 11/03/16 13:15 11/04/16 20:50 (Narcan Inj) 0.4 mg UNSCH PRN IV 11/03/16 13:15 (Zoila-Colace) 1 tab BID PO 11/03/16 21:00 11/11/16 07:48 (Milk Of Magnesia Liq) 30 ml Q12H PRN PO 11/03/16 13:15 (Senokot) 17.2 mg Q12H PRN PO 11/03/16 13:15 (Dulcolax Supp) 10 mg DAILY PRN RECTAL 11/03/16 13:15 Lactulose 30 ml 30 ml DAILY PRN PO 11/03/16 13:15 (Maxipime Inj/NS Inj) 100 ml @ 200 mls/hr Q24H IV 11/03/16 17:00 11/10/16 16:48 (Flagyl) 500 mg Q8HR PO 11/03/16 14:00 11/11/16 12:23 Lactobacillus Acidophilus 1 tab 1 tab TID PO 11/03/16 18:00 11/11/16 11:13 (NS 1000 ml Inj) 1,000 ml @ 0 mls/hr Q0M PRN IV 11/03/16 18:40 Heparin Sodium (Porcine) 8000 units 8,000 units UNSCH PRN IVF 11/03/16 18:45 Sodium Chloride 1,000 ml @ 200 mls/hr Q5H PRN IV 11/03/16 18:40 11/06/16 10:06 (NS 1000 ml Inj) 1,000 ml @ 0 mls/hr Q0M PRN IV 11/03/16 18:40 (Mannitol Inj) 12.5 gm UNSCH PRN IV 11/03/16 18:45 (Albumin 25% Inj) 25 gm UNSCH PRN IV 11/03/16 18:45 (NS Flush) 5 ml UNSCH PRN IV FLUSH 11/03/16 18:45 (Heparin Inj) UNSCH PRN .XX 11/03/16 18:45 11/08/16 11:59 (Gentamicin (Dialysis) Inj) 20 mg UNSCH PRN IV 11/03/16 18:45 11/08/16 11:58 (Zofran Inj) 4 mg UNSCH PRN IV 11/03/16 18:45 (Tylenol) 650 mg UNSCH PRN PO 11/03/16 18:45 (Benadryl) 25 mg UNSCH PRN PO 11/03/16 18:45 11/08/16 20:29 (Nitrostat Sl) 0.4 mg UNSCH PRN SL 11/03/16 18:45 (Catapres) 0.1 mg UNSCH PRN PO 11/03/16 18:45 11/08/16 11:58 (Epogen Inj) 10,000 units UNSCH PRN IV 11/03/16 18:45 11/08/16 11:58 (Gelfoam 12 Mm/7 Mm Top) 1 foam UNSCH PRN TOP 11/03/16 18:45 (Dilaudid Pf Inj) 1 mg Q4H PRN IV PUSH 11/04/16 17:15 11/11/16 12:24 (OxyCONTIN CR) 10 mg Q8HR PO 11/08/16 14:00 11/11/16 12:23 ([place] 5-325 Mg) 1 tab Q6H PRN PO 11/08/16 09:30 11/11/16 11:13 Polyethylene Glycol 17 gm 17 gm DAILY PO 11/10/16 09:00 11/11/16 07:48 (Lr 1000 ml Inj) 1,000 ml @ 100 mls/hr Q10H IV 11/10/16 09:30 Family History His father was an alcoholic and a drug addict Social History Patient was born and raised here in [place], he lives with his mother a new [place], unemployed, single, highest level of education is high school Patient's Strengths (min. 2) Mother's support Physical Exam A physical exam the patient doesn't present any tremors, no psychomotor retardation or agitation, no withdrawal symptoms, no EPS Vital Signs Vital Signs Date Time Temp Pulse Resp B/P Pulse Ox O2 Delivery O2 Flow Rate FiO2 11/11/16 12:00 96.5 76 19 171/93 100 11/10/16 10:58 Room Air I/O 11/10/16 11/10/16 11/10/16 07:59 15:59 23:59 Intake Total 0 ml 710 ml Output Total 200 ml 270 ml Balance -200 ml 440 ml Mental Status Examination Appearance man, age appearing, good hygiene, hospital [facility], guarded, but cooperative Speech: Unremarkable Orientation: x3 Memory: Unremarkable Thought Process: Logical, Goal Directed Thought Content: Unremarkable Language Adequate, with good grammar structure Fund of Knowledge Adequate for level of education Hallucination Type: None Attention and Concentration: Good Suicidal Ideation: No Previous Suicide Attempts: Yes Homicidal Ideation: No Insight: Good Judgment: WNL Affect: Irritable Mood: Sad Motor Activity: Normal gait Assessment & Plan Problem List: (1) Adjustment disorder with mixed anxiety and depressed mood Assessment & Plan: On psychiatric evaluation today the patient reports symptoms of mild to moderate depression and anxiety mostly related with his current medical situation, length of hospitalization, financial and family problems. Patient also reports that his depression and anxiety are directly related with undertreated pain and increased insomnia. He denies suicidal and homicidal ideation, he denies visual and auditory hallucinations. He is oriented 3, no delirium present. Will order trazodone 100 mg at bedtime to help with sleep and with the depression, will add clonazepam 0.5 mg twice a day for his anxiety. Extensive psychoeducation, support, motivation provided. We' ll follow-up.. ICD Code: F43.23 Assessment & Plan Estimated LOS: Cristino Palafox MD Nov 11, 2016 16:08
--- NOTE | 2016-11-11 16:32 | HHI.IDPN ---
Subjective Subjective Remarks ID X cover for Dr Jimenez chart reviewed Mr. Craig is a 35-year-old male with past medical history significant for IV drug abuse, chronic pain who is seen by the pain clinic in [facility] for Suboxone. Patient presents to the emergency room at [facility] for pain that started in his low back 2 weeks ago. 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 He was prescribed 5 mg of prednisone in addition to his Suboxone and pain medicines. The pain continued to worsen and he took it upon himself to self medicated with heroin several times in the last week. The reported site of injection per records is upper extremity. During this admission patient was admitted to the ICU, intubated, underwent HD for rhabdomyolysis related ARF. Patient underwent intra-operative wash debridement and wash out of the infected appearing sites in the RLE. He demonstrated signs of acute compartment syndrome which was the trigger for the surgery. Co R thigh pain Overnight events reviewed No fevers No rash No diarrhea Antibiotics Cefepime IV Flagyl oral Lines Line sites with no e.o infection Past Medical History reviewed Allergies: Coded Allergies: No Known Allergies (Verified , 10/26/16) Objective . Vital Signs Date Time Temp Pulse Resp B/P Pulse Ox O2 Delivery O2 Flow Rate FiO2 11/11/16 12:00 96.5 76 19 171/93 100 11/11/16 08:00 96.9 83 18 161/88 99 11/11/16 04:00 98.8 86 20 160/87 100 11/11/16 00:00 98.0 86 20 171/88 98 11/10/16 20:00 98.8 85 20 165/80 100 11/10/16 11/10/16 11/11/16 15:00 23:00 07:00 Intake Total 710 ml Output Total 270 ml Balance 440 ml Intake Oral 480 ml IV Total 30 ml Other 200 ml Output Urine Total 250 ml Drainage Total 10 ml Estimated Blood Loss 10 ml # Bowel Movements 0 . Laboratory Tests Test 11/11/16 13:22 White Blood Count 6.1 TH/MM3 Red Blood Count 2.44 MIL/MM3 Hemoglobin 7.5 GM/DL Hematocrit 21.3 % Mean Corpuscular Volume 87.4 FL Mean Corpuscular Hemoglobin 30.7 PG Mean Corpuscular Hemoglobin 35.1 % Concent Red Cell Distribution Width 15.8 % Platelet Count 232 TH/MM3 Mean Platelet Volume 7.4 FL Laboratory Tests Test 11/11/16 13:22 Sodium Level 131 MEQ/L Potassium Level 4.0 MEQ/L Chloride Level 97 MEQ/L Carbon Dioxide Level 25.9 MEQ/L Anion Gap 8 MEQ/L Blood Urea Nitrogen 72 MG/DL Creatinine 10.81 MG/DL Estimat Glomerular Filtration 5 ML/MIN Rate Random Glucose 108 MG/DL Calcium Level 7.8 MG/DL Imaging Last Impressions Lower Extremity Ultrasound 11/09/16 0000 Signed Impressions: Service Date/Time: Wednesday, November 09, 2016 10:34 - CONCLUSION: No evidence of DVT. Medial thigh incision with underlying fluid collection. Sandro Luis MD Ankle X-Ray 11/08/16 0000 Signed Impressions: Service Date/Time: Tuesday, November 08, 2016 20:48 - CONCLUSION: Unremarkable study. Holly Hallman MD Physical Exam GENERAL: This is a well-nourished, well-developed patient, in no apparent distress. R IJ vascath in place SKIN: No rashes, ecchymoses or lesions. Cool and dry. HEAD: Atraumatic. Normocephalic. No temporal or scalp tenderness. CARDIOVASCULAR: Regular rate and rhythm without murmurs, gallops, or rubs. RESPIRATORY: Clear to auscultation. Breath sounds equal bilaterally. No wheezes , rales, or rhonchi. GASTROINTESTINAL: Abdomen soft, non-tender, nondistended. No hepato-splenomegaly , or palpable masses. No guarding. MUSCULOSKELETAL: Right thigh with dressings/vac connection noted. Tight edema,incisions with serous discharge; tender to palpation VAC with serosang d/c NEUROLOGICAL: Awake and alert. Grossly non focal. Psych: pleasant IV line sites with no e.o infection. Assessment & Plan Remarks Pyomyofascitis Rhabdomyolysis acute s/p surgical debridements for compartment syndrome/pyomyofascitis. Acute renal failure Recs Continue Cefepime IV Continue flagyl oral Vanco Roseanne Coleman MD Nov 11, 2016 16:32
[2016-11-11] MEDS ORDERED: VANCOMYCIN INJ 1,000 MG in SODIUM CHLOR 0.9% 250 ML INJ 250 ML IV ONE (16:45)
[2016-11-11] MEDS: HEPARIN SODIUM - IV 10,000 UNITS/10 ML VIAL PRN (18:18)
[2016-11-11] MEDS: GENTAMICIN SULFATE (DIALYSIS USE ONLY) 20 MG/2 ML VIAL IV PRN (18:19)
[2016-11-11] MEDS: EPOETIN ALFA 10,000 UNITS/ML VIAL IV PRN (18:19)
[2016-11-11] MEDS: CEFEPIME INJ 1,000 MG in SODIUM CHLORIDE 0.9% INJ 100 ML IV SCH (18:40)
[2016-11-11] MEDS: traZODone HCL 100 MG TAB PO SCH (20:05)
[2016-11-11 20:17] VITALS: BP 149/96; PULSE 89; RESP 18; TEMP 98.6; O2SAT 95
[2016-11-12 00:15] VITALS: BP 159/90; PULSE 100; RESP 18; TEMP 98.7; O2SAT 95
[2016-11-12] MEDS: HYDROmorphone HCL PF 1 MG/ML VIAL IV PUSH PRN ×6 (02:02→22:22)
[2016-11-12] MEDS: ACETAMINOPHEN/HYDROcodone 325 MG/5 MG TAB PO PRN ×2 (03:10→08:57)
[2016-11-12] MEDS: metroNIDAZOLE 500 MG TAB PO SCH ×3 (05:44→21:27)
[2016-11-12] MEDS: oxyCODONE HCL 10 MG CONTROLLED RELEASE TAB PO SCH ×3 (05:45→21:27)
[2016-11-12 08:00] VITALS: BP 199/93; PULSE 85; RESP 18; TEMP 98.3; O2SAT 99
[2016-11-12] MEDS: LACTOBACILLUS ACIDOPHILUS TAB PO SCH ×3 (08:57→17:19)
[2016-11-12] MEDS: POLYETHYLENE GLYCOL 17 GM PKG PO SCH (09:00)
[2016-11-12] MEDS: DOCUSATE SODIUM 50 MG/SENNA 8.6 MG TAB PO SCH ×2 (09:00→20:11)
[2016-11-12] MEDS: SODIUM CHLORIDE 0.9% FLUSH 10 ML FLUSH IV FLUSH SCH ×2 (09:02→21:32)
--- NOTE | 2016-11-12 10:41 | HHI.PR ---
Subjective Remarks Follow-up for wound Patient continues to complain about pain at the wound site. He stated that Copake does not work for him. When I mentioned that he is also on Dilaudid and that that is pretty strong medication he stated that he has a high tolerance. He also asked for Klonopin. He stated that the psychiatrist told that he can have some but he has not received any. He stated that the trazodone only helped a little bit. Otherwise he remains afebrile yet no other complaints. Objective Vitals Vital Signs Date Time Temp Pulse Resp B/P Pulse Ox O2 Delivery O2 Flow Rate FiO2 11/12/16 08:00 98.3 85 18 199/93 99 11/12/16 00:15 98.7 100 18 159/90 95 11/11/16 20:17 98.6 89 18 149/96 95 11/11/16 12:00 96.5 76 19 171/93 100 I/O 11/11/16 11/11/16 11/11/16 11/12/16 11/12/16 11/12/16 07:00 15:00 23:00 07:00 15:00 23:00 Intake Total 240 ml 480 ml 240 ml Output Total 875 ml 3450 ml 400 ml Balance -635 ml -2970 ml -160 ml Intake Oral 240 ml 480 ml 240 ml Output Urine Total 800 ml 450 ml 400 ml Drainage Total 75 ml Hemodialysis 3000 ml # Voids 1 # Bowel Movements 0 1 Result Diagram: 11/11/16 1322 11/11/16 1322 Objective Remarks GENERAL: in NAD SKIN: Warm and dry. HEAD: Normocephalic. EYES: No scleral icterus. No injection or drainage. NECK: Supple, trachea midline. No JVD or lymphadenopathy. CARDIOVASCULAR: Regular rate and rhythm without murmurs, gallops, or rubs. RESPIRATORY: Breath sounds equal bilaterally. No accessory muscle use. GASTROINTESTINAL: Abdomen soft, non-tender, nondistended. MUSCULOSKELETAL: Right lateral upper thigh with wound VAC in place. BACK: Nontender without obvious deformity. No CVA tenderness. Psych: flat affect Procedures None. Medications and IVs Current Medications Sodium Chloride (NS Flush) 2 ml UNSCH PRN IV FLUSH FLUSH AFTER USING IV ACCESS Last administered on 11/10/16t 05:39; Start 11/03/16 at 13:15 Sodium Chloride (NS Flush) 2 ml BID IV FLUSH Last administered on 11/12/16 09: 02; Start 11/03/16 at 21:00 Acetaminophen (Tylenol) 650 mg Q4H PRN PO Headache, fever, pain 1-4; Start 02/10 at 13:15 Ondansetron HCl (Zofran Inj) 4 mg Q6H PRN IVP NAUSEA OR VOMITING Last administered on 11/04/16 20:50; Start 11/03/16 at 13:15 Oxycodone/ Acetaminophen (Percocet 10-325 Mg) 1 tab Q6H PRN PO PAIN SCALE 5 TO 10 Last administered on 11/04/16 12:56; Start 11/03/16 at 13:15; Stop 11/04/16 at 13:22; Status DC Naloxone HCl (Narcan Inj) 0.4 mg UNSCH PRN IV SEE LABEL COMMENTS; Start at 13:15 Senna/Docusate Sodium (Zoila-Colace) 1 tab BID PO Last administered on 07:48; Start 11/03/16 at 21:00 Magnesium Hydroxide (Milk Of Magnesia Liq) 30 ml Q12H PRN PO MILD - MODERATE CONSTIPATION; Start 11/03/16 at 13:15 Sennosides (Senokot) 17.2 mg Q12H PRN PO MODERATE - SEVERE CONSTIPATION; Start 11/03/16 at 13:15 Bisacodyl (Dulcolax Supp) 10 mg DAILY PRN RECTAL SEVERE CONSITIPATION; Start at 13:15 Lactulose (Lactulose Liq) 30 ml DAILY PRN PO SEVERE CONSITIPATION; Start at 13:15 Hydromorphone HCl 0.5 mg 0.5 mg Q4H PRN IV PUSH BREAKTHROUGH PAIN Last administered on 11/04/16 11:02; Start 11/03/16 at 13:15; Stop 11/04/16 at 13:22 ; Status DC Cefepime HCl/ Sodium Chloride (Maxipime Inj/NS Inj) 100 ml @ 200 mls/hr Q24H IV Last administered on 11/11/16 18:40; Start 11/03/16 at 17:00 Metronidazole (Flagyl) 500 mg Q8HR PO Last administered on 11/12/16 05:44; Start 11/03/16 at 14:00 Lactobacillus Acidophilus 1 tab 1 tab TID PO Last administered on 11/12/16 08: 57; Start 11/03/16 at 18:00 Sodium Chloride (NS 1000 ml Inj) 1,000 ml @ 0 mls/hr Q0M PRN IV For Prime & Rinse Back; Start 11/03/16 at 18:40; Stop 11/12/16 at 10:15; Status DC Heparin Sodium (Porcine) 8000 units 8,000 units UNSCH PRN IVF WITH DIALYSIS; Start 11/03/16 at 18:45 Sodium Chloride 1,000 ml @ 200 mls/hr Q5H PRN IV WITH DIALYSIS Last administered on 11/06/16 10:06; Start 11/03/16 at 18:40; Stop 11/12/16 at 10:15 ; Status DC Sodium Chloride (NS 1000 ml Inj) 1,000 ml @ 0 mls/hr Q0M PRN IV WITH DIALYSIS; Start 11/03/16 at 18:40; Stop 11/12/16 at 10:15; Status DC Mannitol (Mannitol Inj) 12.5 gm UNSCH PRN IV WITH DIALYSIS; Start 11/03/16 at 18:45 Albumin Human (Albumin 25% Inj) 25 gm UNSCH PRN IV WITH DIALYSIS; Start at 18:45 Sodium Chloride (NS Flush) 5 ml UNSCH PRN IV FLUSH WITH DIALYSIS; Start at 18:45 Heparin Sodium (Porcine) (Heparin Inj) UNSCH PRN .XX WITH DIALYSIS Last administered on 11/11/16 18:18; Start 11/03/16 at 18:45 Gentamicin Sulfate (Gentamicin (Dialysis) Inj) 20 mg UNSCH PRN IV WITH DIALYSIS Last administered on 11/11/16 18:19; Start 11/03/16 at 18:45 Ondansetron HCl (Zofran Inj) 4 mg UNSCH PRN IV WITH DIALYSIS; Start 11/03/16 at 18:45 Acetaminophen (Tylenol) 650 mg UNSCH PRN PO for headach, pain, temp > 101F; Start 11/03/16 at 18:45 Diphenhydramine HCl (Benadryl) 25 mg UNSCH PRN PO for hives/itching/ anaphylaxis Last administered on 11/08/16 20:29; Start 11/03/16 at 18:45 Nitroglycerin (Nitrostat Sl) 0.4 mg UNSCH PRN SL CHEST PAIN; Start 11/03/16 at 18:45 Clonidine (Catapres) 0.1 mg UNSCH PRN PO for BP > 180/100 X 2 readings Last administered on 11/08/16 11:58; Start 11/03/16 at 18:45 Epoetin Shaquille (Epogen Inj) 10,000 units UNSCH PRN IV WITH DIALYSIS Last administered on 11/11/16 18:19; Start 11/03/16 at 18:45 Gelatin (Gelfoam 12 Mm/7 Mm Top) 1 foam UNSCH PRN TOP SEE LABEL COMMENTS; Start 11/03/16 at 18:45 Hydromorphone HCl (Dilaudid Pf Inj) 1 mg Q4H PRN IV PUSH BREAKTHROUGH PAIN Last administered on 11/12/16 10:06; Start 11/04/16 at 17:15 Oxycodone/ Acetaminophen (Percocet 10-325 Mg) 1 tab Q4H PRN PO PAIN SCALE 5 TO 10 Last administered on 11/08/16 09:08; Start 11/04/16 at 17:15; Stop 11/08/16 at 09:19; Status DC Acetaminophen (Ofirmev Inj) 1,000 mg STK-MED ONCE IV ; Start 11/05/16 at 07:09; Stop 11/05/16 at 07:10; Status DC Midazolam HCl (Versed Inj) 2 mg STK-MED ONCE .ROUTE ; Start 11/05/16 at 07:10; Stop 11/05/16 at 07:11; Status DC Dexamethasone Sodium Phosphate (Decadron Inj) 4 mg STK-MED ONCE .ROUTE ; Start 11/05/16 at 07:10; Stop 11/05/16 at 07:11; Status DC Famotidine (Pepcid Inj) 20 mg STK-MED ONCE .ROUTE ; Start 11/05/16 at 07:10; Stop 11/05/16 at 07:11; Status DC Vancomycin HCl (Vancomycin Inj) 1,000 mg STK-MED ONCE .ROUTE Last administered on 11/05/16 08:18; Start 11/05/16 at 07:12; Stop 11/05/16 at 07:13; Status DC Gentamicin Sulfate 240 mg 240 mg STK-MED ONCE .ROUTE Last administered on 08:19; Start 11/05/16 at 07:12; Stop 11/05/16 at 07:13; Status DC Sodium Chloride (NS 250 ml Inj) 250 ml @ As Directed STK-MED ONCE .ROUTE Last administered on 11/05/16 08:18; Start 11/05/16 at 07:12; Stop 11/05/16 at 07:13 ; Status DC Lidocaine HCl (Xylocaine 2% Jelly) 30 applic STK-MED ONCE .ROUTE ; Start at 07:55; Stop 11/05/16 at 07:56; Status DC Mineral Oil 10 ml 10 ml STK-MED ONCE .ROUTE ; Start 11/05/16 at 07:55; Stop 04/12 at 07:56; Status DC Lactated Ringer's (Lr 1000 ml Inj) 1,000 ml @ 100 mls/hr Q10H IV ; Start at 08:27; Stop 11/09/16 at 12:40; Status DC Cefazolin Sodium (Ancef Inj) 2,000 mg STK-MED ONCE IV Last administered on 11/05 08:18; Start 11/05/16 at 08:18; Stop 11/05/16 at 08:38; Status DC Fentanyl Citrate (fentaNYL INJ) 250 mcg STK-MED ONCE .ROUTE ; Start 11/05/16 at 09:06; Stop 11/05/16 at 09:07; Status DC Meperidine HCl (*DEMEROL INJ PERIprocedural ONLY) 25 mg STK-MED ONCE .ROUTE Last administered on 11/05/16 09:16; Start 11/05/16 at 09:16; Stop 11/05/16 at 09:17; Status DC Miscellaneous Information ALL NURSING DEPARTME... UNSCH PRN .XX SEE LABEL COMMENTS; Start 11/05/16 at 08:57; Stop 11/06/16 at 08:56; Status DC Enoxaparin Sodium (Lovenox Inj) 30 mg Q24H SQ ; Start 11/06/16 at 17:00; Stop at 17:00; Status DC Heparin Sodium (Porcine) 5000 units 5,000 units Q12HR SQ Last administered on 08:07; Start 11/06/16 at 21:00; Stop 11/08/16 at 09:00; Status DC Sodium Chloride (NS 250 ml Inj) 250 ml @ 15 mls/hr ONCE ONCE IV Last administered on 11/07/16 14:47; Start 11/07/16 at 10:00; Stop 11/08/16 at 02:39 ; Status DC Oxycodone HCl (OxyCONTIN CR) 10 mg Q8HR PO Last administered on 11/12/16 05:45 ; Start 11/08/16 at 14:00 Acetaminophen/ Hydrocodone Bitart (Copake 5-325 Mg) 1 tab Q6H PRN PO pain 3-10 Last administered on 11/12/16 08:57; Start 11/08/16 at 09:30; Stop 11/12/16 at 10:34; Status DC Polyethylene Glycol (Miralax) 17 gm ONCE ONCE PO Last administered on 11:05; Start 11/09/16 at 11:00; Stop 11/09/16 at 11:01; Status DC Polyethylene Glycol (Miralax) 17 gm DAILY PO Last administered on 11/11/16 07: 48; Start 11/10/16 at 09:00 Lidocaine HCl (Xylocaine 2% Jelly) 30 applic STK-MED ONCE .ROUTE ; Start at 08:02; Stop 11/10/16 at 08:03; Status DC Mineral Oil (Muri-Lube Oil) 10 ml STK-MED ONCE .ROUTE ; Start 11/10/16 at 08:02 ; Stop 11/10/16 at 08:03; Status DC Gentamicin Sulfate 240 mg 240 mg STK-MED ONCE .ROUTE Last administered on 09:08; Start 11/10/16 at 08:02; Stop 11/10/16 at 08:03; Status DC Lactated Ringer's (Lr 1000 ml Inj) 1,000 ml @ 100 mls/hr Q10H IV ; Start at 09:30; Stop 11/12/16 at 10:15; Status DC Morphine Sulfate (*morphine INJ PERIprocedure ONLY) 8 mg STK-MED ONCE .ROUTE Last administered on 11/10/16 10:03; Start 11/10/16 at 10:03; Stop 11/10/16 at 10:04; Status DC Midazolam HCl (Versed Inj) 2 mg STK-MED ONCE .ROUTE ; Start 11/10/16 at 10:04; Stop 11/10/16 at 10:05; Status DC Fentanyl Citrate (fentaNYL INJ) 250 mcg STK-MED ONCE .ROUTE ; Start 11/10/16 at 10:04; Stop 11/10/16 at 10:05; Status DC Morphine Sulfate (*morphine INJ PERIprocedure ONLY) 8 mg STK-MED ONCE .ROUTE Last administered on 11/10/16 10:21; Start 11/10/16 at 10:21; Stop 11/10/16 at 10:22; Status DC Morphine Sulfate (*morphine INJ PERIprocedure ONLY) 8 mg STK-MED ONCE .ROUTE Last administered on 11/10/16 10:30; Start 11/10/16 at 10:30; Stop 11/10/16 at 10:31; Status DC Hydromorphone HCl (*DILAUDID PF INJ PERIprocedural ONLY) 1 mg STK-MED ONCE .ROUTE Last administered on 11/10/16 10:37; Start 11/10/16 at 10:37; Stop at 10:38; Status DC Labetalol HCl (*TRANDATE INJ PERIprocedural Use ONLY) 100 mg STK-MED ONCE .ROUTE ; Start 11/10/16 at 10:47; Stop 11/10/16 at 10:48; Status DC Miscellaneous Information ALL NURSING DEPARTME... UNSCH PRN .XX SEE LABEL COMMENTS; Start 11/10/16 at 10:00; Stop 11/11/16 at 09:59; Status DC Alteplase, Recombinant (Cathflo Activase Inj) 2 mg ONCE ONCE INTRACATH Last administered on 11/11/16 11:16; Start 11/11/16 at 10:30; Stop 11/11/16 at 10:50 ; Status DC Trazodone HCl (Desyrel) 100 mg HS PO Last administered on 11/11/16 20:05; Start 11/11/16 at 21:00 Clonazepam 0.5 mg 0.5 mg ONCE ONCE PO Last administered on 11/11/16t 18:40; Start 11/11/16 at 16:00; Stop 11/11/16 at 16:30; Status DC Vancomycin HCl/ Sodium Chloride (Vancomycin Inj/ NS 250 ml Inj) 250 ml @ 250 mls/hr ONCE ONCE IV Last administered on 11/11/16t 18:39; Start 11/11/16 at 16 :45; Stop 11/11/16 at 17:44; Status DC Amlodipine Besylate (Norvasc) 5 mg DAILY PO ; Start 11/12/16 at 10:15 Oxycodone/ Acetaminophen (Percocet 5-325 Mg) 1 tab Q4H PRN PO pain 1-7; Start 11/12/16 at 10:45; Status UNV Oxycodone/ Acetaminophen (Percocet 5-325 Mg) 2 tab Q4H PRN PO pain 8-10; Start 11/12/16 at 10:45; Status UNV A/P Problem List: (1) Substance abuse ICD Code: F19.10 Status: Chronic (2) Rhabdomyolysis ICD Code: M62.82 Status: Acute (3) Compartment syndrome ICD Code: T79.A0XA Status: Acute (4) Acute renal failure ICD Code: N17.9 Status: Acute (5) Severe sepsis ICD Code: A41.9 Status: Acute (6) Myositis ICD Code: M60.9 Status: Acute Assessment and Plan This is a 35-year-old male IV drug user admitted with compartment syndrome status post fasciotomy, myositis, acute renal failure secondary to rhabdomyolysis presumably from polysubstance use. After for an inadvertent transfer to [facility], patient was transferred back to [place] 11/03/2016. Compartment syndrome, right anterior, posterior, adductor, buttock compartment: Status post fasciotomy and revision. - Orthopedic surgery following. Continue wound VAC s/p I&D of right thigh, repeat surgery on Thursday/Thursday - patient may have wound vac discontinued. - s/p Irrigation and debridement of right thigh wound, split-thickness skin graft 200 cm 11/10/[address] Wakefield. Patient scheduled for wound VAC change on Thursday. - Will change pain medication to Percocet. Patient told will need to wean off of Dilaudid. Right LE edema - likely related to above - Doppler US negative. Elevated BP - no documented history of hypertension - D/C IVF - Will add amlodipine. Sepsis, secondary to myositis - s/p fasciotomy quadriceps, hamstring, gluteus medius/karly/minimus with wound vac placement 10/26 Dr. Simms. Wound vac to continuous suction - Intraoperative culture obtained from bursa and from gluteus medius. Blood culture and Urine culture obtained - all cultures negative so far - Per infectious disease, continue cefepime 1 g 24 hours, metronidazole 500 mg by mouth every 8 hours. Acute renal failure secondary to rhabdomyolysis - Reconsulted nephrology for follow-up and dialysis. Dialysis T//THU per Nephrology. - s/p dialysis - Continue with HD per Nephro's recommendations. Anemia - no bleeding source - transfused 1 unit of packed red blood cells - hemoglobin 6.2 --> 7.3 -At the moment hemoglobin is stable. Continue to monitor. Transfuse as needed if hemoglobin is less than 7. - Epogen given yesterday Transaminitis - Resolved. Constipation - Miralax added - continue with Pericolace - monitor for BM ? depression -pending consult from psychiatrist. DVT Prophylaxis: Heparin Full code. Sirena Pinto MD Nov 12, 2016 10:41
[2016-11-12] MEDS ORDERED: oxyCODONE/ACETAMINOPHEN 5 MG/325 MG TAB PO PRN (10:45)
[2016-11-12] MEDS: amLODIPine BESYLATE 5 MG TAB PO SCH (11:07)
[2016-11-12 12:00] VITALS: BP 161/89; PULSE 92; RESP 20; TEMP 98.1; O2SAT 99
[2016-11-12] MEDS: oxyCODONE/ACETAMINOPHEN 5 MG/325 MG TAB PO PRN ×2 (15:38→21:31)
[2016-11-12 16:00] VITALS: BP 165/92; PULSE 89; RESP 17; TEMP 98.8; O2SAT 100
--- NOTE | 2016-11-12 16:47 | HHI.NPPN ---
Subjective History of Present Illness Hx of ARF Rhabdo Objective Data Data 11/11/16 11/12/16 19:00 07:00 Intake Total 240 ml 720 ml Output Total 4025 ml 700 ml Balance -3785 ml 20 ml Intake Oral 240 ml 720 ml Output Urine Total 950 ml 700 ml Drainage Total 75 ml Hemodialysis 3000 ml # Voids 1 # Bowel Movements 0 1 Vital Signs Date Time Temp Pulse Resp B/P Pulse Ox O2 Delivery O2 Flow Rate FiO2 11/12/16 12:00 98.1 92 20 161/89 99 11/12/16 08:00 98.3 85 18 199/93 99 11/12/16 00:15 98.7 100 18 159/90 95 11/11/16 20:17 98.6 89 18 149/96 95 -: 11/11/16 1322 11/11/16 1322 Physical Exam General Appearance: Well Developed, Well Nourished Neck Neck Exam: Neck Supple Pulmonary Resp Exam: Clear Bilaterally, Breath Sounds Equal Cardiology CV Exam: Regular, Normal Sinus Rhythm Gastrointestinal/Abdomen GI Exam: Soft, Non-Tender, Bowel Sounds Present Extremeties Extremities Exam: Moderate Edema Assessment/Plan Problem List: (1) Acute renal failure Plan: Patient on hemodialysis on Thursday and and Saturdays remains dialysis dependant next Rx in am Urine output picked up per patient BMP Anemia getting Epogen (2) Compartment syndrome Plan: Orthopedic is following (3) Hyponatremia Plan: Due to renal failure (4) Rhabdomyolysis Plan: As above Gonzalo Navarrete MD Nov 12, 2016 16:47
[2016-11-12] MEDS: clonazePAM 0.5 MG TAB PO PRN (17:04)
[2016-11-12] MEDS: CEFEPIME INJ 1,000 MG in SODIUM CHLORIDE 0.9% INJ 100 ML IV SCH (17:12)
[2016-11-12 20:09] VITALS: BP 160/83; PULSE 100; RESP 18; TEMP 98.9; O2SAT 94
[2016-11-12] MEDS: traZODone HCL 100 MG TAB PO SCH (21:27)
[2016-11-12 23:59] VITALS: BP 157/81; PULSE 83; RESP 18; TEMP 98.3; O2SAT 95
[2016-11-13] MEDS: HYDROmorphone HCL PF 1 MG/ML VIAL IV PUSH PRN ×5 (03:00→22:34)
[2016-11-13] MEDS: metroNIDAZOLE 500 MG TAB PO SCH ×3 (05:50→22:02)
[2016-11-13] MEDS: oxyCODONE/ACETAMINOPHEN 5 MG/325 MG TAB PO PRN ×4 (05:51→21:21)
[2016-11-13] MEDS: oxyCODONE HCL 10 MG CONTROLLED RELEASE TAB PO SCH ×3 (05:51→22:02)
[2016-11-13 06:23] LABS: AUTOMATED NEUTROPHIL # 5.4 TH/MM3 (1.8-7.7); BASOPHIL # 0.1 TH/MM3 (0-0.2); BASOPHIL % 0.8 % (0.0-2.0); EOSINOPHIL # 0.1 TH/MM3 (0-0.4); EOSINOPHIL % 1.8 % (0.0-4.0); HEMATOCRIT 21.5 % (39.0-51.0); HEMO FLAGS DIFF FINAL; LYMPH % 12.2 % (9.0-44.0); LYMPHOCYTE # 0.8 TH/MM3 (1.0-4.8); MEAN CELL VOLUME 87.8 FL (80.0-100.0); MEAN CORPUSCULAR HEMOGLOBIN 30.4 PG (27.0-34.0); MEAN CORPUSCULAR HGB CONC 34.6 % (32.0-36.0); MONO % 6.5 % (0.0-8.0); NEUT % 78.7 % (16.0-70.0); PLATELET COUNT 224 TH/MM3 (150-450); RED BLOOD COUNT 2.45 MIL/MM3 (4.50-5.90); RED CELL DISTRIBUTION WIDTH 15.8 % (11.6-17.2); WHITE BLOOD COUNT 6.8 TH/MM3 (4.0-11.0)
[2016-11-13 07:10] LABS: BICARBONATE 25.3 MEQ/L (21.0-32.0); POTASSIUM 3.8 MEQ/L (3.5-5.1)
[2016-11-13] MEDS: DOCUSATE SODIUM 50 MG/SENNA 8.6 MG TAB PO SCH ×2 (07:59→21:00)
[2016-11-13] MEDS: POLYETHYLENE GLYCOL 17 GM PKG PO SCH (07:59)
[2016-11-13] MEDS: LACTOBACILLUS ACIDOPHILUS TAB PO SCH ×3 (07:59→16:56)
[2016-11-13] MEDS: amLODIPine BESYLATE 5 MG TAB PO SCH (07:59)
[2016-11-13 08:00] VITALS: BP 161/93; PULSE 95; RESP 18; TEMP 98; O2SAT 99
[2016-11-13] MEDS: SODIUM CHLORIDE 0.9% FLUSH 10 ML FLUSH IV FLUSH SCH ×2 (08:00→22:03)
--- NOTE | 2016-11-13 09:45 | PD.ORT.PN ---
Subjective Subjective Remarks Resting comfortably Objective Vitals Vital Signs Date Time Temp Pulse Resp B/P Pulse Ox O2 Delivery O2 Flow Rate FiO2 11/13/16 08:00 98.0 95 18 161/93 99 11/13/16 03:45 18 11/12/16 23:59 98.3 83 18 157/81 95 11/12/16 22:36 18 11/12/16 22:36 18 11/12/16 20:09 98.9 100 18 160/83 94 11/12/16 16:00 98.8 89 17 165/92 100 11/12/16 12:00 98.1 92 20 161/89 99 I/O 11/12/16 11/12/16 11/12/16 11/13/16 11/13/16 11/13/16 07:00 15:00 23:00 07:00 15:00 23:00 Intake Total 240 ml 860 ml 480 ml 240 ml Output Total 400 ml 450 ml 300 ml 800 ml Balance -160 ml 410 ml 180 ml -560 ml Intake Oral 240 ml 860 ml 480 ml 240 ml Output Urine Total 400 ml 450 ml 300 ml 800 ml # Bowel Movements 2 Result Diagram: 11/13/16 0555 11/13/16 0555 Imaging Last Impressions Ankle X-Ray 11/08/16 0000 Signed Impressions: Service Date/Time: Tuesday, November 08, 2016 20:48 - CONCLUSION: Unremarkable study. Holly Hallman MD Procedures Right Leg compartment syndrome s/p fasciotomies with subsequent wound closures and vac application Objective Remarks RLE: +vac. good seal. remaining dressings clean and dry. intact. thigh supple. calf soft.good cap refills. minimal sensation and movement distally Assessment & Plan Problem List: (1) Compartment syndrome (2) Rhabdomyolysis (3) Substance abuse (4) IV drug abuse Assessment and Plan 1) Right Leg compartment syndrome s/p fasciotomies with subsequent wound closures and vac application with split thickness skin graft- POD 3 -maintain vac right leg on 100mmHg,continuous 3:1 -daily dressing changes to lateral and groin wounds Leave Xeroform and place over skin graft harvest site -will plan for removal of wound vac on Thursday over STSG Sean Alvarez Jr. Nov 13, 2016 09:45
--- NOTE | 2016-11-13 11:13 | HHI.NPPN ---
Subjective History of Present Illness Hx of ARF Rhabdo Objective Data Data 11/12/16 11/13/16 19:00 07:00 Intake Total 860 ml 720 ml Output Total 450 ml 1100 ml Balance 410 ml -380 ml Intake Oral 860 ml 720 ml Output Urine Total 450 ml 1100 ml # Bowel Movements 2 Vital Signs Date Time Temp Pulse Resp B/P Pulse Ox O2 Delivery O2 Flow Rate FiO2 11/13/16 08:00 98.0 95 18 161/93 99 11/13/16 03:45 18 11/12/16 23:59 98.3 83 18 157/81 95 11/12/16 22:36 18 11/12/16 22:36 18 11/12/16 20:09 98.9 100 18 160/83 94 11/12/16 16:00 98.8 89 17 165/92 100 11/12/16 12:00 98.1 92 20 161/89 99 -: 11/13/16 0555 11/13/16 0555 Physical Exam General Appearance: Well Developed, Well Nourished Neck Neck Exam: Neck Supple Pulmonary Resp Exam: Clear Bilaterally, Breath Sounds Equal Cardiology CV Exam: Regular, Normal Sinus Rhythm Gastrointestinal/Abdomen GI Exam: Soft, Non-Tender, Bowel Sounds Present Extremeties Extremities Exam: Moderate Edema Assessment/Plan Problem List: (1) Acute renal failure Plan: Patient on hemodialysis on Thursday and and Saturdays remains dialysis dependant HD UF 3 L seen at dialysis Anemia getting Epogen (2) Compartment syndrome Plan: Orthopedic is following (3) Hyponatremia Plan: Due to renal failure (4) Rhabdomyolysis Plan: As above Gonzalo Navarrete MD Nov 13, 2016 11:13
[2016-11-13] MEDS: HEPARIN SODIUM - IV 10,000 UNITS/10 ML VIAL PRN (11:42)
[2016-11-13] MEDS: GENTAMICIN SULFATE (DIALYSIS USE ONLY) 20 MG/2 ML VIAL IV PRN (11:42)
[2016-11-13] MEDS: EPOETIN ALFA 10,000 UNITS/ML VIAL IV PRN (11:42)
[2016-11-13 12:00] VITALS: BP 159/89; PULSE 93; RESP 18; TEMP 98; O2SAT 98
[2016-11-13 14:00] VITALS: BP 175/97; PULSE 95; RESP 18; TEMP 98.9; O2SAT 100
--- NOTE | 2016-11-13 14:18 | HHI.PR ---
Subjective Remarks Follow-up for wound Patient stated that pain better controlled Percocet. He states ascites better control. No complaints. Patient had dialysis today. He stated that he has good urine output. Objective Vitals Vital Signs Date Time Temp Pulse Resp B/P Pulse Ox O2 Delivery O2 Flow Rate FiO2 11/13/16 08:00 98.0 95 18 161/93 99 11/13/16 03:45 18 11/12/16 23:59 98.3 83 18 157/81 95 11/12/16 22:36 18 11/12/16 22:36 18 11/12/16 20:09 98.9 100 18 160/83 94 11/12/16 16:00 98.8 89 17 165/92 100 I/O 11/12/16 11/12/16 11/12/16 11/13/16 11/13/16 11/13/16 07:00 15:00 23:00 07:00 15:00 23:00 Intake Total 240 ml 860 ml 480 ml 240 ml Output Total 400 ml 450 ml 300 ml 800 ml 3400 ml Balance -160 ml 410 ml 180 ml -560 ml -3400 ml Intake Oral 240 ml 860 ml 480 ml 240 ml Output Urine Total 400 ml 450 ml 300 ml 800 ml 400 ml Hemodialysis 3000 ml # Voids 2 # Bowel Movements 2 Result Diagram: 11/13/1655411/13/16554 Objective Remarks GENERAL: in NAD SKIN: Warm and dry. HEAD: Normocephalic. EYES: No scleral icterus. No injection or drainage. NECK: Supple, trachea midline. No JVD or lymphadenopathy. CARDIOVASCULAR: Regular rate and rhythm without murmurs, gallops, or rubs. RESPIRATORY: Breath sounds equal bilaterally. No accessory muscle use. GASTROINTESTINAL: Abdomen soft, non-tender, nondistended. MUSCULOSKELETAL: Right lateral upper thigh with wound VAC in place. BACK: Nontender without obvious deformity. No CVA tenderness. Psych: flat affect Procedures None. Medications and IVs Current Medications Sodium Chloride (NS Flush) 2 ml UNSCH PRN IV FLUSH FLUSH AFTER USING IV ACCESS Last administered on 11/10/16 05:39; Start 11/03/16 at 13:15 Sodium Chloride (NS Flush) 2 ml BID IV FLUSH Last administered on 11/13/16 08: 00; Start 11/03/16 at 21:00 Acetaminophen (Tylenol) 650 mg Q4H PRN PO Headache, fever; Start 11/03/16 at 13 :15 Ondansetron HCl (Zofran Inj) 4 mg Q6H PRN IVP NAUSEA OR VOMITING Last administered on 11/04/16 20:50; Start 11/03/16 at 13:15 Oxycodone/ Acetaminophen (Percocet 10-325 Mg) 1 tab Q6H PRN PO PAIN SCALE 5 TO 10 Last administered on 11/04/16 12:56; Start 11/03/16 at 13:15; Stop 11/04/16 at 13:22; Status DC Naloxone HCl (Narcan Inj) 0.4 mg UNSCH PRN IV SEE LABEL COMMENTS; Start at 13:15 Senna/Docusate Sodium (Zoila-Colace) 1 tab BID PO Last administered on 07:59; Start 11/03/16 at 21:00 Magnesium Hydroxide (Milk Of Magnesia Liq) 30 ml Q12H PRN PO MILD - MODERATE CONSTIPATION; Start 11/03/16 at 13:15 Sennosides (Senokot) 17.2 mg Q12H PRN PO MODERATE - SEVERE CONSTIPATION; Start 11/03/16 at 13:15 Bisacodyl (Dulcolax Supp) 10 mg DAILY PRN RECTAL SEVERE CONSITIPATION; Start at 13:15 Lactulose (Lactulose Liq) 30 ml DAILY PRN PO SEVERE CONSITIPATION; Start at 13:15 Hydromorphone HCl 0.5 mg 0.5 mg Q4H PRN IV PUSH BREAKTHROUGH PAIN Last administered on 11/04/16 11:02; Start 11/03/16 at 13:15; Stop 11/04/16 at 13:22 ; Status DC Cefepime HCl/ Sodium Chloride (Maxipime Inj/NS Inj) 100 ml @ 200 mls/hr Q24H IV Last administered on 11/12/16 17:12; Start 11/03/16 at 17:00 Metronidazole (Flagyl) 500 mg Q8HR PO Last administered on 11/13/16 12:55; Start 11/03/16 at 14:00 Lactobacillus Acidophilus 1 tab 1 tab TID PO Last administered on 11/13/16 12: 55; Start 11/03/16 at 18:00 Sodium Chloride (NS 1000 ml Inj) 1,000 ml @ 0 mls/hr Q0M PRN IV For Prime & Rinse Back; Start 11/03/16 at 18:40; Stop 11/12/16 at 10:15; Status DC Heparin Sodium (Porcine) 8000 units 8,000 units UNSCH PRN IVF WITH DIALYSIS; Start 11/03/16 at 18:45 Sodium Chloride 1,000 ml @ 200 mls/hr Q5H PRN IV WITH DIALYSIS Last administered on 11/06/16 10:06; Start 11/03/16 at 18:40; Stop 11/12/16 at 10:15 ; Status DC Sodium Chloride (NS 1000 ml Inj) 1,000 ml @ 0 mls/hr Q0M PRN IV WITH DIALYSIS; Start 11/03/16 at 18:40; Stop 11/12/16 at 10:15; Status DC Mannitol (Mannitol Inj) 12.5 gm UNSCH PRN IV WITH DIALYSIS; Start 11/03/16 at 18:45 Albumin Human (Albumin 25% Inj) 25 gm UNSCH PRN IV WITH DIALYSIS; Start at 18:45 Sodium Chloride (NS Flush) 5 ml UNSCH PRN IV FLUSH WITH DIALYSIS; Start at 18:45 Heparin Sodium (Porcine) (Heparin Inj) UNSCH PRN .XX WITH DIALYSIS Last administered on 11/13/16 11:42; Start 11/03/16 at 18:45 Gentamicin Sulfate (Gentamicin (Dialysis) Inj) 20 mg UNSCH PRN IV WITH DIALYSIS Last administered on 11/13/16 11:42; Start 11/03/16 at 18:45 Ondansetron HCl (Zofran Inj) 4 mg UNSCH PRN IV WITH DIALYSIS; Start 11/03/16 at 18:45 Acetaminophen (Tylenol) 650 mg UNSCH PRN PO for headach, pain, temp > 101F; Start 11/03/16 at 18:45 Diphenhydramine HCl (Benadryl) 25 mg UNSCH PRN PO for hives/itching/ anaphylaxis Last administered on 11/08/16 20:29; Start 11/03/16 at 18:45 Nitroglycerin (Nitrostat Sl) 0.4 mg UNSCH PRN SL CHEST PAIN; Start 11/03/16 at 18:45 Clonidine (Catapres) 0.1 mg UNSCH PRN PO for BP > 180/100 X 2 readings Last administered on 11/08/16 11:58; Start 11/03/16 at 18:45 Epoetin Shaquille (Epogen Inj) 10,000 units UNSCH PRN IV WITH DIALYSIS Last administered on 11/13/16 11:42; Start 11/03/16 at 18:45 Gelatin (Gelfoam 12 Mm/7 Mm Top) 1 foam UNSCH PRN TOP SEE LABEL COMMENTS; Start 11/03/16 at 18:45 Hydromorphone HCl (Dilaudid Pf Inj) 1 mg Q4H PRN IV PUSH BREAKTHROUGH PAIN Last administered on 11/13/16 13:55; Start 11/04/16 at 17:15 Oxycodone/ Acetaminophen (Percocet 10-325 Mg) 1 tab Q4H PRN PO PAIN SCALE 5 TO 10 Last administered on 11/08/16 09:08; Start 11/04/16 at 17:15; Stop 11/08/16 at 09:19; Status DC Acetaminophen (Ofirmev Inj) 1,000 mg STK-MED ONCE IV ; Start 11/05/16 at 07:09; Stop 11/05/16 at 07:10; Status DC Midazolam HCl (Versed Inj) 2 mg STK-MED ONCE .ROUTE ; Start 11/05/16 at 07:10; Stop 11/05/16 at 07:11; Status DC Dexamethasone Sodium Phosphate (Decadron Inj) 4 mg STK-MED ONCE .ROUTE ; Start 11/05/16 at 07:10; Stop 11/05/16 at 07:11; Status DC Famotidine (Pepcid Inj) 20 mg STK-MED ONCE .ROUTE ; Start 11/05/16 at 07:10; Stop 11/05/16 at 07:11; Status DC Vancomycin HCl (Vancomycin Inj) 1,000 mg STK-MED ONCE .ROUTE Last administered on 11/05/16 08:18; Start 11/05/16 at 07:12; Stop 11/05/16 at 07:13; Status DC Gentamicin Sulfate 240 mg 240 mg STK-MED ONCE .ROUTE Last administered on 08:19; Start 11/05/16 at 07:12; Stop 11/05/16 at 07:13; Status DC Sodium Chloride (NS 250 ml Inj) 250 ml @ As Directed STK-MED ONCE .ROUTE Last administered on 11/05/16 08:18; Start 11/05/16 at 07:12; Stop 11/05/16 at 07:13 ; Status DC Lidocaine HCl (Xylocaine 2% Jelly) 30 applic STK-MED ONCE .ROUTE ; Start at 07:55; Stop 11/05/16 at 07:56; Status DC Mineral Oil 10 ml 10 ml STK-MED ONCE .ROUTE ; Start 11/05/16 at 07:55; Stop 04/12 at 07:56; Status DC Lactated Ringer's (Lr 1000 ml Inj) 1,000 ml @ 100 mls/hr Q10H IV ; Start at 08:27; Stop 11/09/16 at 12:40; Status DC Cefazolin Sodium (Ancef Inj) 2,000 mg STK-MED ONCE IV Last administered on 11/05 08:18; Start 11/05/16 at 08:18; Stop 11/05/16 at 08:38; Status DC Fentanyl Citrate (fentaNYL INJ) 250 mcg STK-MED ONCE .ROUTE ; Start 11/05/16 at 09:06; Stop 11/05/16 at 09:07; Status DC Meperidine HCl (*DEMEROL INJ PERIprocedural ONLY) 25 mg STK-MED ONCE .ROUTE Last administered on 11/05/16 09:16; Start 11/05/16 at 09:16; Stop 11/05/16 at 09:17; Status DC Miscellaneous Information ALL NURSING DEPARTME... UNSCH PRN .XX SEE LABEL COMMENTS; Start 11/05/16 at 08:57; Stop 11/06/16 at 08:56; Status DC Enoxaparin Sodium (Lovenox Inj) 30 mg Q24H SQ ; Start 11/06/16 at 17:00; Stop at 17:00; Status DC Heparin Sodium (Porcine) 5000 units 5,000 units Q12HR SQ Last administered on 08:07; Start 11/06/16 at 21:00; Stop 11/08/16 at 09:00; Status DC Sodium Chloride (NS 250 ml Inj) 250 ml @ 15 mls/hr ONCE ONCE IV Last administered on 11/07/16 14:47; Start 11/07/16 at 10:00; Stop 11/08/16 at 02:39 ; Status DC Oxycodone HCl (OxyCONTIN CR) 10 mg Q8HR PO Last administered on 11/13/16 12:55 ; Start 11/08/16 at 14:00 Acetaminophen/ Hydrocodone Bitart ([place] 5-325 Mg) 1 tab Q6H PRN PO pain 3-10 Last administered on 11/12/16 08:57; Start 11/08/16 at 09:30; Stop 11/12/16 at 10:34; Status DC Polyethylene Glycol (Miralax) 17 gm ONCE ONCE PO Last administered on 11:05; Start 11/09/16 at 11:00; Stop 11/09/16 at 11:01; Status DC Polyethylene Glycol (Miralax) 17 gm DAILY PO Last administered on 11/13/16 07: 59; Start 11/10/16 at 09:00 Lidocaine HCl (Xylocaine 2% Jelly) 30 applic STK-MED ONCE .ROUTE ; Start at 08:02; Stop 11/10/16 at 08:03; Status DC Mineral Oil (Muri-Lube Oil) 10 ml STK-MED ONCE .ROUTE ; Start 11/10/16 at 08:02 ; Stop 11/10/16 at 08:03; Status DC Gentamicin Sulfate 240 mg 240 mg STK-MED ONCE .ROUTE Last administered on 09:08; Start 11/10/16 at 08:02; Stop 11/10/16 at 08:03; Status DC Lactated Ringer's (Lr 1000 ml Inj) 1,000 ml @ 100 mls/hr Q10H IV ; Start at 09:30; Stop 11/12/16 at 10:15; Status DC Morphine Sulfate (*morphine INJ PERIprocedure ONLY) 8 mg STK-MED ONCE .ROUTE Last administered on 11/10/16 10:03; Start 11/10/16 at 10:03; Stop 11/10/16 at 10:04; Status DC Midazolam HCl (Versed Inj) 2 mg STK-MED ONCE .ROUTE ; Start 11/10/16 at 10:04; Stop 11/10/16 at 10:05; Status DC Fentanyl Citrate (fentaNYL INJ) 250 mcg STK-MED ONCE .ROUTE ; Start 11/10/16 at 10:04; Stop 11/10/16 at 10:05; Status DC Morphine Sulfate (*morphine INJ PERIprocedure ONLY) 8 mg STK-MED ONCE .ROUTE Last administered on 11/10/16 10:21; Start 11/10/16 at 10:21; Stop 11/10/16 at 10:22; Status DC Morphine Sulfate (*morphine INJ PERIprocedure ONLY) 8 mg STK-MED ONCE .ROUTE Last administered on 11/10/16 10:30; Start 11/10/16 at 10:30; Stop 11/10/16 at 10:31; Status DC Hydromorphone HCl (*DILAUDID PF INJ PERIprocedural ONLY) 1 mg STK-MED ONCE .ROUTE Last administered on 11/10/16 10:37; Start 11/10/16 at 10:37; Stop at 10:38; Status DC Labetalol HCl (*TRANDATE INJ PERIprocedural Use ONLY) 100 mg STK-MED ONCE .ROUTE ; Start 11/10/16 at 10:47; Stop 11/10/16 at 10:48; Status DC Miscellaneous Information ALL NURSING DEPARTME... UNSCH PRN .XX SEE LABEL COMMENTS; Start 11/10/16 at 10:00; Stop 11/11/16 at 09:59; Status DC Alteplase, Recombinant (Cathflo Activase Inj) 2 mg ONCE ONCE INTRACATH Last administered on 11/11/16 11:16; Start 11/11/16 at 10:30; Stop 11/11/16 at 10:50 ; Status DC Trazodone HCl (Desyrel) 100 mg HS PO Last administered on 11/12/16 21:27; Start 11/11/16 at 21:00 Clonazepam 0.5 mg 0.5 mg ONCE ONCE PO Last administered on 11/11/16 18:40; Start 11/11/16 at 16:00; Stop 11/11/16 at 16:30; Status DC Vancomycin HCl/ Sodium Chloride (Vancomycin Inj/ NS 250 ml Inj) 250 ml @ 250 mls/hr ONCE ONCE IV Last administered on 11/11/16 18:39; Start 11/11/16 at 16 :45; Stop 11/11/16 at 17:44; Status DC Amlodipine Besylate (Norvasc) 5 mg DAILY PO Last administered on 11/13/16 07: 59; Start 11/12/16 at 10:15 Oxycodone/ Acetaminophen (Percocet 5-325 Mg) 1 tab Q4H PRN PO pain 1-7; Start 11/12/16 at 10:45 Oxycodone/ Acetaminophen (Percocet 5-325 Mg) 2 tab Q4H PRN PO pain 8-10 Last administered on 11/13/16 12:56; Start 11/12/16 at 10:45 Clonazepam (KlonoPIN) 0.5 mg Q12HR PRN PO anxiety Last administered on 17:04; Start 11/12/16 at 10:45 A/P Problem List: (1) Substance abuse ICD Code: F19.10 Status: Chronic (2) Rhabdomyolysis ICD Code: M62.82 Status: Acute (3) Compartment syndrome ICD Code: T79.A0XA Status: Acute (4) Acute renal failure ICD Code: N17.9 Status: Acute (5) Severe sepsis ICD Code: A41.9 Status: Acute (6) Myositis ICD Code: M60.9 Status: Acute Assessment and Plan This is a 35-year-old male IV drug user admitted with compartment syndrome status post fasciotomy, myositis, acute renal failure secondary to rhabdomyolysis presumably from polysubstance use. After for an inadvertent transfer to [facility], patient was transferred back to [place] 11/03/2016. Compartment syndrome, right anterior, posterior, adductor, buttock compartment: Status post fasciotomy and revision. - Orthopedic surgery following. Continue wound VAC s/p I&D of right thigh, repeat surgery on Thursday/Thursday - patient may have wound vac discontinued. - s/p Irrigation and debridement of right thigh wound, split-thickness skin graft 200 cm 11/10/[address] Wakefield. Patient scheduled for wound VAC change on Saturday. - Pain better control. On Percocet and IV Dilaudid. Patient told need to wean off Dilaudid. Right LE edema - likely related to above - Doppler US negative. Hypertension - no documented history of hypertension - D/C IVF - Increase amlodipine to 10 mg by mouth daily. Sepsis, secondary to myositis - s/p fasciotomy quadriceps, hamstring, gluteus medius/karly/minimus with wound vac placement 10/26 Dr. Simms. Wound vac to continuous suction - Intraoperative culture obtained from bursa and from gluteus medius. Blood culture and Urine culture obtained - all cultures negative so far - Per infectious disease, continue cefepime 1 g 24 hours, metronidazole 500 mg by mouth every 8 hours. Acute renal failure secondary to rhabdomyolysis - Reconsulted nephrology for follow-up and dialysis. Dialysis T//THU per Nephrology. - s/p dialysis - Continue with HD per Nephro's recommendations. Anemia - no bleeding source - transfused 1 unit of packed red blood cells - hemoglobin 6.2 --> 7.3 -At the moment hemoglobin is stable. Continue to monitor. Transfuse as needed if hemoglobin is less than 7. - Epogen given yesterday Transaminitis - Resolved. Constipation - Miralax added - continue with Pericolace - monitor for BM depression -Patient was put on trazodone and Klonopin by psychiatrist. DVT Prophylaxis: Heparin Full code. Sirena Pinto MD Nov 13, 2016 14:18
[2016-11-13] MEDS: clonazePAM 0.5 MG TAB PO PRN (15:44)
[2016-11-13] MEDS: CEFEPIME INJ 1,000 MG in SODIUM CHLORIDE 0.9% INJ 100 ML IV SCH (15:45)
[2016-11-13 16:37] VITALS: BP 175/97; PULSE 95; RESP 18; TEMP 98.9; O2SAT 100
[2016-11-13 20:00] VITALS: BP 176/92; PULSE 92; RESP 23; TEMP 97.4; O2SAT 100
[2016-11-13] MEDS: traZODone HCL 100 MG TAB PO SCH (22:02)
[2016-11-14] VITALS: BP_SYST 113; BP_SYST 168; BP_DIAS 67; BP_DIAS 87; PULSE 88; PULSE 93; RESP 20; RESP 23; TEMP 96.8; TEMP 97.9; O2SAT 96; O2SAT 99
[2016-11-14] MEDS: oxyCODONE/ACETAMINOPHEN 5 MG/325 MG TAB PO PRN ×5 (02:43→23:23)
[2016-11-14] MEDS: clonazePAM 0.5 MG TAB PO PRN ×2 (02:43→15:06)
[2016-11-14] MEDS: HYDROmorphone HCL PF 1 MG/ML VIAL IV PUSH PRN ×5 (04:10→22:06)
[2016-11-14] MEDS: metroNIDAZOLE 500 MG TAB PO SCH ×3 (05:45→20:40)
[2016-11-14] MEDS: oxyCODONE HCL 10 MG CONTROLLED RELEASE TAB PO SCH ×3 (06:25→20:40)
[2016-11-14 08:00] VITALS: BP 139/73; PULSE 89; RESP 18; TEMP 96.5; O2SAT 97
[2016-11-14] MEDS: SODIUM CHLORIDE 0.9% FLUSH 10 ML FLUSH IV FLUSH SCH (09:00)
[2016-11-14] MEDS: LACTOBACILLUS ACIDOPHILUS TAB PO SCH ×3 (09:06→17:53)
[2016-11-14] MEDS: DOCUSATE SODIUM 50 MG/SENNA 8.6 MG TAB PO SCH (09:06)
[2016-11-14] MEDS: POLYETHYLENE GLYCOL 17 GM PKG PO SCH (09:06)
--- NOTE | 2016-11-14 10:01 | HHI.PR ---
Subjective Remarks f/u wound infection patient has no complaints. he stated that pain is better controlled. remains afebrile. Objective Vitals Vital Signs Date Time Temp Pulse Resp B/P Pulse Ox O2 Delivery O2 Flow Rate FiO2 11/14/16 08:00 96.5 89 18 139/73 97 11/14/16 00:00 97.9 88 20 113/67 96 11/13/16 20:00 97.4 92 23 176/92 100 11/13/16 16:37 98.9 95 18 175/97 100 11/13/16 14:00 98.9 95 18 175/97 100 11/13/16 12:00 98.0 93 18 159/89 98 I/O 11/13/16 11/13/16 11/13/16 11/14/16 11/14/16 11/14/16 06:59 14:59 22:59 06:59 14:59 22:59 Intake Total 240 ml 2840 ml 240 ml 240 ml Output Total 800 ml 3575 ml 475 ml 0 ml Balance -560 ml -735 ml -235 ml 240 ml Intake Oral 240 ml 2840 ml 240 ml 240 ml Output Urine Total 800 ml 400 ml 475 ml Drainage Total 175 ml 0 ml Hemodialysis 3000 ml # Voids 2 0 Result Diagram: 11/13/16 0511/13/16 05 Objective Remarks GENERAL: in NAD CARDIOVASCULAR: Regular rate and rhythm without murmurs, gallops, or rubs. RESPIRATORY: Breath sounds equal bilaterally. No accessory muscle use. GASTROINTESTINAL: Abdomen soft, non-tender, nondistended. MUSCULOSKELETAL: Right lateral upper thigh with wound VAC in place. BACK: Nontender without obvious deformity. No CVA tenderness. Psych: flat affect Procedures None. Medications and IVs Current Medications Sodium Chloride (NS Flush) 2 ml UNSCH PRN IV FLUSH FLUSH AFTER USING IV ACCESS Last administered on 11/10/16 05:39; Start 11/03/16 at 13:15 Sodium Chloride (NS Flush) 2 ml BID IV FLUSH Last administered on 11/14/16 09: 00; Start 11/03/16 at 21:00 Acetaminophen (Tylenol) 650 mg Q4H PRN PO Headache, fever; Start 11/03/16 at 13 :15 Ondansetron HCl (Zofran Inj) 4 mg Q6H PRN IVP NAUSEA OR VOMITING Last administered on 11/04/16 20:50; Start 11/03/16 at 13:15 Oxycodone/ Acetaminophen (Percocet 10-325 Mg) 1 tab Q6H PRN PO PAIN SCALE 5 TO 10 Last administered on 11/04/16 12:56; Start 11/03/16 at 13:15; Stop 11/04/16 at 13:22; Status DC Naloxone HCl (Narcan Inj) 0.4 mg UNSCH PRN IV SEE LABEL COMMENTS; Start at 13:15 Senna/Docusate Sodium (Zoila-Colace) 1 tab BID PO Last administered on 09:06; Start 11/03/16 at 21:00 Magnesium Hydroxide (Milk Of Magnesia Liq) 30 ml Q12H PRN PO MILD - MODERATE CONSTIPATION; Start 11/03/16 at 13:15 Sennosides (Senokot) 17.2 mg Q12H PRN PO MODERATE - SEVERE CONSTIPATION; Start 11/03/16 at 13:15 Bisacodyl (Dulcolax Supp) 10 mg DAILY PRN RECTAL SEVERE CONSITIPATION; Start at 13:15 Lactulose (Lactulose Liq) 30 ml DAILY PRN PO SEVERE CONSITIPATION; Start at 13:15 Hydromorphone HCl 0.5 mg 0.5 mg Q4H PRN IV PUSH BREAKTHROUGH PAIN Last administered on 11/04/16 11:02; Start 11/03/16 at 13:15; Stop 11/04/16 at 13:22 ; Status DC Cefepime HCl/ Sodium Chloride (Maxipime Inj/NS Inj) 100 ml @ 200 mls/hr Q24H IV Last administered on 11/13/16 15:45; Start 11/03/16 at 17:00 Metronidazole (Flagyl) 500 mg Q8HR PO Last administered on 11/14/16 05:45; Start 11/03/16 at 14:00 Lactobacillus Acidophilus 1 tab 1 tab TID PO Last administered on 11/14/16 09: 06; Start 11/03/16 at 18:00 Sodium Chloride (NS 1000 ml Inj) 1,000 ml @ 0 mls/hr Q0M PRN IV For Prime & Rinse Back; Start 11/03/16 at 18:40; Stop 11/12/16 at 10:15; Status DC Heparin Sodium (Porcine) 8000 units 8,000 units UNSCH PRN IVF WITH DIALYSIS; Start 11/03/16 at 18:45 Sodium Chloride 1,000 ml @ 200 mls/hr Q5H PRN IV WITH DIALYSIS Last administered on 11/06/16 10:06; Start 11/03/16 at 18:40; Stop 11/12/16 at 10:15 ; Status DC Sodium Chloride (NS 1000 ml Inj) 1,000 ml @ 0 mls/hr Q0M PRN IV WITH DIALYSIS; Start 11/03/16 at 18:40; Stop 11/12/16 at 10:15; Status DC Mannitol (Mannitol Inj) 12.5 gm UNSCH PRN IV WITH DIALYSIS; Start 11/03/16 at 18:45 Albumin Human (Albumin 25% Inj) 25 gm UNSCH PRN IV WITH DIALYSIS; Start at 18:45 Sodium Chloride (NS Flush) 5 ml UNSCH PRN IV FLUSH WITH DIALYSIS; Start at 18:45 Heparin Sodium (Porcine) (Heparin Inj) UNSCH PRN .XX WITH DIALYSIS Last administered on 11/13/16 11:42; Start 11/03/16 at 18:45 Gentamicin Sulfate (Gentamicin (Dialysis) Inj) 20 mg UNSCH PRN IV WITH DIALYSIS Last administered on 11/13/16 11:42; Start 11/03/16 at 18:45 Ondansetron HCl (Zofran Inj) 4 mg UNSCH PRN IV WITH DIALYSIS; Start 11/03/16 at 18:45 Acetaminophen (Tylenol) 650 mg UNSCH PRN PO for headach, pain, temp > 101F; Start 11/03/16 at 18:45 Diphenhydramine HCl (Benadryl) 25 mg UNSCH PRN PO for hives/itching/ anaphylaxis Last administered on 11/08/16 20:29; Start 11/03/16 at 18:45 Nitroglycerin (Nitrostat Sl) 0.4 mg UNSCH PRN SL CHEST PAIN; Start 11/03/16 at 18:45 Clonidine (Catapres) 0.1 mg UNSCH PRN PO for BP > 180/100 X 2 readings Last administered on 11/08/16 11:58; Start 11/03/16 at 18:45 Epoetin Shaquille (Epogen Inj) 10,000 units UNSCH PRN IV WITH DIALYSIS Last administered on 11/13/16 11:42; Start 11/03/16 at 18:45 Gelatin (Gelfoam 12 Mm/7 Mm Top) 1 foam UNSCH PRN TOP SEE LABEL COMMENTS; Start 11/03/16 at 18:45 Hydromorphone HCl (Dilaudid Pf Inj) 1 mg Q4H PRN IV PUSH BREAKTHROUGH PAIN Last administered on 11/14/16 09:07; Start 11/04/16 at 17:15 Oxycodone/ Acetaminophen (Percocet 10-325 Mg) 1 tab Q4H PRN PO PAIN SCALE 5 TO 10 Last administered on 11/08/16 09:08; Start 11/04/16 at 17:15; Stop 11/08/16 at 09:19; Status DC Acetaminophen (Ofirmev Inj) 1,000 mg STK-MED ONCE IV ; Start 11/05/16 at 07:09; Stop 11/05/16 at 07:10; Status DC Midazolam HCl (Versed Inj) 2 mg STK-MED ONCE .ROUTE ; Start 11/05/16 at 07:10; Stop 11/05/16 at 07:11; Status DC Dexamethasone Sodium Phosphate (Decadron Inj) 4 mg STK-MED ONCE .ROUTE ; Start 11/05/16 at 07:10; Stop 11/05/16 at 07:11; Status DC Famotidine (Pepcid Inj) 20 mg STK-MED ONCE .ROUTE ; Start 11/05/16 at 07:10; Stop 11/05/16 at 07:11; Status DC Vancomycin HCl (Vancomycin Inj) 1,000 mg STK-MED ONCE .ROUTE Last administered on 11/05/16 08:18; Start 11/05/16 at 07:12; Stop 11/05/16 at 07:13; Status DC Gentamicin Sulfate 240 mg 240 mg STK-MED ONCE .ROUTE Last administered on 08:19; Start 11/05/16 at 07:12; Stop 11/05/16 at 07:13; Status DC Sodium Chloride (NS 250 ml Inj) 250 ml @ As Directed STK-MED ONCE .ROUTE Last administered on 11/05/16 08:18; Start 11/05/16 at 07:12; Stop 11/05/16 at 07:13 ; Status DC Lidocaine HCl (Xylocaine 2% Jelly) 30 applic STK-MED ONCE .ROUTE ; Start at 07:55; Stop 11/05/16 at 07:56; Status DC Mineral Oil 10 ml 10 ml STK-MED ONCE .ROUTE ; Start 11/05/16 at 07:55; Stop 04/12 at 07:56; Status DC Lactated Ringer's (Lr 1000 ml Inj) 1,000 ml @ 100 mls/hr Q10H IV ; Start at 08:27; Stop 11/09/16 at 12:40; Status DC Cefazolin Sodium (Ancef Inj) 2,000 mg STK-MED ONCE IV Last administered on 11/05 08:18; Start 11/05/16 at 08:18; Stop 11/05/16 at 08:38; Status DC Fentanyl Citrate (fentaNYL INJ) 250 mcg STK-MED ONCE .ROUTE ; Start 11/05/16 at 09:06; Stop 11/05/16 at 09:07; Status DC Meperidine HCl (*DEMEROL INJ PERIprocedural ONLY) 25 mg STK-MED ONCE .ROUTE Last administered on 11/05/16 09:16; Start 11/05/16 at 09:16; Stop 11/05/16 at 09:17; Status DC Miscellaneous Information ALL NURSING DEPARTME... UNSCH PRN .XX SEE LABEL COMMENTS; Start 11/05/16 at 08:57; Stop 11/06/16 at 08:56; Status DC Enoxaparin Sodium (Lovenox Inj) 30 mg Q24H SQ ; Start 11/06/16 at 17:00; Stop at 17:00; Status DC Heparin Sodium (Porcine) 5000 units 5,000 units Q12HR SQ Last administered on 08:07; Start 11/06/16 at 21:00; Stop 11/08/16 at 09:00; Status DC Sodium Chloride (NS 250 ml Inj) 250 ml @ 15 mls/hr ONCE ONCE IV Last administered on 11/07/16 14:47; Start 11/07/16 at 10:00; Stop 11/08/16 at 02:39 ; Status DC Oxycodone HCl (OxyCONTIN CR) 10 mg Q8HR PO Last administered on 11/14/16 06:25 ; Start 11/08/16 at 14:00 Acetaminophen/ Hydrocodone Bitart ([place] 5-325 Mg) 1 tab Q6H PRN PO pain 3-10 Last administered on 11/12/16 08:57; Start 11/08/16 at 09:30; Stop 11/12/16 at 10:34; Status DC Polyethylene Glycol (Miralax) 17 gm ONCE ONCE PO Last administered on 11:05; Start 11/09/16 at 11:00; Stop 11/09/16 at 11:01; Status DC Polyethylene Glycol (Miralax) 17 gm DAILY PO Last administered on 11/14/16 09: 06; Start 11/10/16 at 09:00 Lidocaine HCl (Xylocaine 2% Jelly) 30 applic STK-MED ONCE .ROUTE ; Start at 08:02; Stop 11/10/16 at 08:03; Status DC Mineral Oil (Muri-Lube Oil) 10 ml STK-MED ONCE .ROUTE ; Start 11/10/16 at 08:02 ; Stop 11/10/16 at 08:03; Status DC Gentamicin Sulfate 240 mg 240 mg STK-MED ONCE .ROUTE Last administered on 09:08; Start 11/10/16 at 08:02; Stop 11/10/16 at 08:03; Status DC Lactated Ringer's (Lr 1000 ml Inj) 1,000 ml @ 100 mls/hr Q10H IV ; Start at 09:30; Stop 11/12/16 at 10:15; Status DC Morphine Sulfate (*morphine INJ PERIprocedure ONLY) 8 mg STK-MED ONCE .ROUTE Last administered on 11/10/16 10:03; Start 11/10/16 at 10:03; Stop 11/10/16 at 10:04; Status DC Midazolam HCl (Versed Inj) 2 mg STK-MED ONCE .ROUTE ; Start 11/10/16 at 10:04; Stop 11/10/16 at 10:05; Status DC Fentanyl Citrate (fentaNYL INJ) 250 mcg STK-MED ONCE .ROUTE ; Start 11/10/16 at 10:04; Stop 11/10/16 at 10:05; Status DC Morphine Sulfate (*morphine INJ PERIprocedure ONLY) 8 mg STK-MED ONCE .ROUTE Last administered on 11/10/16 10:21; Start 11/10/16 at 10:21; Stop 11/10/16 at 10:22; Status DC Morphine Sulfate (*morphine INJ PERIprocedure ONLY) 8 mg STK-MED ONCE .ROUTE Last administered on 11/10/16 10:30; Start 11/10/16 at 10:30; Stop 11/10/16 at 10:31; Status DC Hydromorphone HCl (*DILAUDID PF INJ PERIprocedural ONLY) 1 mg STK-MED ONCE .ROUTE Last administered on 11/10/16 10:37; Start 11/10/16 at 10:37; Stop at 10:38; Status DC Labetalol HCl (*TRANDATE INJ PERIprocedural Use ONLY) 100 mg STK-MED ONCE .ROUTE ; Start 11/10/16 at 10:47; Stop 11/10/16 at 10:48; Status DC Miscellaneous Information ALL NURSING DEPARTME... UNSCH PRN .XX SEE LABEL COMMENTS; Start 11/10/16 at 10:00; Stop 11/11/16 at 09:59; Status DC Alteplase, Recombinant (Cathflo Activase Inj) 2 mg ONCE ONCE INTRACATH Last administered on 11/11/16 11:16; Start 11/11/16 at 10:30; Stop 11/11/16 at 10:50 ; Status DC Trazodone HCl (Desyrel) 100 mg HS PO Last administered on 11/13/16 22:02; Start 11/11/16 at 21:00 Clonazepam 0.5 mg 0.5 mg ONCE ONCE PO Last administered on 11/11/16 18:40; Start 11/11/16 at 16:00; Stop 11/11/16 at 16:30; Status DC Vancomycin HCl/ Sodium Chloride (Vancomycin Inj/ NS 250 ml Inj) 250 ml @ 250 mls/hr ONCE ONCE IV Last administered on 11/11/16 18:39; Start 11/11/16 at 16 :45; Stop 11/11/16 at 17:44; Status DC Amlodipine Besylate (Norvasc) 5 mg DAILY PO Last administered on 11/13/16 07: 59; Start 11/12/16 at 10:15; Stop 11/13/16 at 14:38; Status DC Oxycodone/ Acetaminophen (Percocet 5-325 Mg) 1 tab Q4H PRN PO pain 1-7; Start 11/12/16 at 10:45 Oxycodone/ Acetaminophen (Percocet 5-325 Mg) 2 tab Q4H PRN PO pain 8-10 Last administered on 11/14/16 05:46; Start 11/12/16 at 10:45 Clonazepam (KlonoPIN) 0.5 mg Q12HR PRN PO anxiety Last administered on 02:43; Start 11/12/16 at 10:45 Amlodipine Besylate (Norvasc) 10 mg DAILY PO Last administered on 11/14/16 09: 06; Start 11/14/16 at 09:00 A/P Problem List: (1) Substance abuse ICD Code: F19.10 Status: Chronic (2) Rhabdomyolysis ICD Code: M62.82 Status: Acute (3) Compartment syndrome ICD Code: T79.A0XA Status: Acute (4) Acute renal failure ICD Code: N17.9 Status: Acute (5) Severe sepsis ICD Code: A41.9 Status: Acute (6) Myositis ICD Code: M60.9 Status: Acute Assessment and Plan This is a 35-year-old male IV drug user admitted with compartment syndrome status post fasciotomy, myositis, acute renal failure secondary to rhabdomyolysis presumably from polysubstance use. Compartment syndrome, right anterior, posterior, adductor, buttock compartment: -Status post fasciotomy and revision. - s/p Irrigation and debridement of right thigh wound, split-thickness skin graft 200 cm 11/10/[address] Wakefield. - scheduled for wound VAC removal tomorrow. - Pain better control. On Percocet and IV Dilaudid. Patient told need to wean off Dilaudid. Hypertension - no documented history of hypertension - controlled with amlodipine to 10 mg PO daily. Sepsis, secondary to myositis - s/p fasciotomy quadriceps, hamstring, gluteus medius/karly/minimus with wound vac placement 10/[address] Simms. - cultures negative. - Per infectious disease, continue cefepime 1 g 24 hours, metronidazole 500 mg by mouth every 8 hours. Acute renal failure secondary to rhabdomyolysis - Dialysis T//SAT per Nephrology. - Continue with HD per Nephro's recommendations. -awaiting renal recovery. Anemia - no bleeding source - transfused 1 unit of packed red blood cells - hemoglobin 6.2 --> 7.3 -At the moment hemoglobin is stable. Continue to monitor. Transfuse as needed if hemoglobin is less than 7. - Epogen given yesterday Transaminitis - Resolved. Constipation - On her Colace and Miralax Depression -Patient was put on trazodone and Klonopin by psychiatrist. DVT Prophylaxis: Heparin Discharge Planning Patient will have wound VAC removed tomorrow. Sirena Pinto MD Nov 14, 2016 10:00
[2016-11-14 12:00] VITALS: BP 162/95; PULSE 96; RESP 18; TEMP 97.8; O2SAT 99
--- NOTE | 2016-11-14 12:43 | HHI.NPPN ---
Subjective History of Present Illness Hx of ARF Rhabdo Objective Data Data 11/13/16 11/14/16 19:00 07:00 Intake Total 2840 ml 480 ml Output Total 3575 ml 475 ml Balance -735 ml 5 ml Intake Oral 2840 ml 480 ml Output Urine Total 400 ml 475 ml Drainage Total 175 ml 0 ml Hemodialysis 3000 ml # Voids 2 0 Vital Signs Date Time Temp Pulse Resp B/P Pulse Ox O2 Delivery O2 Flow Rate FiO2 11/14/16 08:00 96.5 89 18 139/73 97 11/14/16 00:00 97.9 88 20 113/67 96 11/13/16 20:00 97.4 92 23 176/92 100 11/13/16 16:37 98.9 95 18 175/97 100 11/13/16 14:00 98.9 95 18 175/97 100 -: 11/13/16 0555 11/13/16 0555 Physical Exam General Appearance: Well Developed, Well Nourished Neck Neck Exam: Neck Supple Pulmonary Resp Exam: Clear Bilaterally, Breath Sounds Equal Cardiology CV Exam: Regular, Normal Sinus Rhythm Gastrointestinal/Abdomen GI Exam: Soft, Non-Tender, Bowel Sounds Present Extremeties Extremities Exam: Moderate Edema Assessment/Plan Problem List: (1) Acute renal failure Plan: Patient on hemodialysis on Thursday and and Saturdays remains dialysis dependant follow BMP Cr slowly declining may need less dialysis Anemia getting Epogen (2) Compartment syndrome Plan: Orthopedic is following (3) Hyponatremia Plan: Due to renal failure (4) Rhabdomyolysis Plan: As above Gonzalo Navarrete MD Nov 14, 2016 12:43
[2016-11-14] MEDS: CEFEPIME INJ 1,000 MG in SODIUM CHLORIDE 0.9% INJ 100 ML IV SCH (15:05)
[2016-11-14 16:00] VITALS: BP 135/82; PULSE 94; RESP 18; TEMP 98.6; O2SAT 96
[2016-11-14 20:00] VITALS: BP 169/91; PULSE 101; RESP 21; TEMP 97.8; O2SAT 97
[2016-11-14] MEDS: traZODone HCL 100 MG TAB PO SCH (20:40)
[2016-11-15] VITALS: BP 151/87; PULSE 105; RESP 20; TEMP 98.3; O2SAT 95
[2016-11-15] MEDS: HYDROmorphone HCL PF 1 MG/ML VIAL IV PUSH PRN ×5 (02:16→20:37)
[2016-11-15] MEDS: clonazePAM 0.5 MG TAB PO PRN ×2 (02:16→14:10)
[2016-11-15] MEDS: oxyCODONE/ACETAMINOPHEN 5 MG/325 MG TAB PO PRN ×5 (03:56→22:11)
[2016-11-15 04:21] LABS: AUTOMATED NEUTROPHIL # 2.9 TH/MM3 (1.8-7.7); BASOPHIL % 0.6 % (0.0-2.0); EOSINOPHIL # 0.1 TH/MM3 (0-0.4); EOSINOPHIL % 2.1 % (0.0-4.0); HEMATOCRIT 21.4 % (39.0-51.0); HEMO FLAGS DIFF FINAL; LYMPH % 25.5 % (9.0-44.0); LYMPHOCYTE # 1.2 TH/MM3 (1.0-4.8); MEAN CELL VOLUME 87.5 FL (80.0-100.0); MEAN CORPUSCULAR HEMOGLOBIN 30.3 PG (27.0-34.0); MEAN CORPUSCULAR HGB CONC 34.6 % (32.0-36.0); NEUT % 62.8 % (16.0-70.0); PLATELET COUNT 209 TH/MM3 (150-450); RED BLOOD COUNT 2.45 MIL/MM3 (4.50-5.90); WHITE BLOOD COUNT 4.7 TH/MM3 (4.0-11.0)
[2016-11-15 04:45] LABS: BICARBONATE 28.8 MEQ/L (21.0-32.0); POTASSIUM 3.9 MEQ/L (3.5-5.1)
[2016-11-15] MEDS: metroNIDAZOLE 500 MG TAB PO SCH ×2 (05:57→13:06)
[2016-11-15] MEDS: oxyCODONE HCL 10 MG CONTROLLED RELEASE TAB PO SCH ×3 (05:58→21:48)
--- NOTE | 2016-11-15 07:11 | HHI.FF ---
Face to Face Verification Diagnosis: (1) Rhabdomyolysis (2) S/P split thickness skin graft Physical Therapy Right LE Weight Bearing: WB as tolerated S/P Spinal Fusion: Gait training with walker Nursing Dressing Changes: Daily dressing change, Alejandro wrap, Xeroform, Coverderm/ Primapore Additional Instructions Right lower extremity :Daily dressing changes with Xeroform 4 x 4's and Alejandro wrap and paper tape of her skin graft of her posterior hamstrings. Skin graft harvest site leave the Xeroform intact do not remove. Absorbent dressings may be applied I have seen patient Sergio Craig on 11/15/16. My clinical findings support the need for the requested home health care services because: Limited ability to care for self I certify that my clinical findings support that this patient is homebound because: Post-op weakness Sean Alvarez Jr. Nov 15, 2016 07:11
[2016-11-15] MEDS ORDERED: WHEEMIS3 (07:12)
[2016-11-15] MEDS ORDERED: WALKER/ADULT/FO1 MIS (07:12)
--- NOTE | 2016-11-15 07:15 | PD.ORT.PN ---
Subjective Subjective Remarks Resting comfortably Objective Vitals Vital Signs Date Time Temp Pulse Resp B/P Pulse Ox O2 Delivery O2 Flow Rate FiO2 11/15/16 00:00 98.3 105 20 151/87 95 11/14/16 20:00 97.8 101 21 169/91 97 11/14/16 16:00 98.6 94 18 135/82 96 11/14/16 12:00 97.8 96 18 162/95 99 11/14/16 08:00 96.5 89 18 139/73 97 I/O 11/14/16 11/14/16 11/14/16 11/15/16 11/15/16 11/15/16 07:00 15:00 23:00 07:00 15:00 23:00 Intake Total 240 ml 720 ml 480 ml 240 ml Output Total 0 ml 675 ml Balance 240 ml 720 ml -195 ml 240 ml Intake Oral 240 ml 720 ml 480 ml 240 ml Output Urine Total 600 ml Drainage Total 0 ml 75 ml # Voids 0 1 0 Result Diagram: 11/15/16 0405 11/15/16 0405 Imaging Last Impressions Ankle X-Ray 11/08/16 0000 Signed Impressions: Service Date/Time: Tuesday, November 08, 2016 20:48 - CONCLUSION: Unremarkable study. Holly Hallman MD Procedures Right Leg compartment syndrome s/p fasciotomies with subsequent wound closures and vac application Objective Remarks RLE: Wound VAC removed. Split-thickness skin graft intact. No signs of necrosis Continued lack of sensation over ankle and foot and minimal movement of the leg actively. Intact distal pulses Assessment & Plan Problem List: (1) Compartment syndrome (2) Rhabdomyolysis (3) Substance abuse (4) IV drug abuse Assessment and Plan 1) Right Leg compartment syndrome s/p fasciotomies with subsequent wound closures and vac application with split thickness skin graft- POD 5 Discontinue wound VAC Daily dressing changes with Xeroform 4 x 4's ABDs and paper tape and Alejandro wrap PT weightbearing as tolerated Case management for home discharge plan Follow-up with Dr. Walker or PA in 2 weeks Sean Alvarez Jr. Nov 15, 2016 07:15
[2016-11-15 08:00] VITALS: BP 161/94; PULSE 96; RESP 18; TEMP 98.3; O2SAT 98
[2016-11-15] MEDS: LACTOBACILLUS ACIDOPHILUS TAB PO SCH ×3 (08:00→17:04)
[2016-11-15] MEDS: POLYETHYLENE GLYCOL 17 GM PKG PO SCH (08:01)
[2016-11-15] MEDS: DOCUSATE SODIUM 50 MG/SENNA 8.6 MG TAB PO SCH ×2 (08:01→20:39)
[2016-11-15] MEDS: SODIUM CHLORIDE 0.9% FLUSH 10 ML FLUSH IV FLUSH SCH ×3 (08:01→20:39)
--- NOTE | 2016-11-15 10:25 | HHI.NPPN ---
Subjective History of Present Illness Hx of ARF Rhabdo Additional Remarks Patient seen on HD, no SOB, has pain in Rt. thigh and leg. Objective Data Data 11/14/16 11/15/16 19:00 07:00 Intake Total 720 ml 720 ml Output Total 675 ml Balance 720 ml 45 ml Intake Oral 720 ml 720 ml IV Total 0 ml Output Urine Total 600 ml Drainage Total 75 ml # Voids 1 0 Vital Signs Date Time Temp Pulse Resp B/P Pulse Ox O2 Delivery O2 Flow Rate FiO2 11/15/16 08:00 98.3 96 18 161/94 98 11/15/16 00:00 98.3 105 20 151/87 95 11/14/16 20:00 97.8 101 21 169/91 97 11/14/16 16:00 98.6 94 18 135/82 96 11/14/16 12:00 97.8 96 18 162/95 99 -: 11/15/16 0405 11/15/16 0405 Physical Exam General Appearance: No Acute Distress, Comfortable Neck Neck Exam: Neck Supple Pulmonary Resp Exam: Clear Bilaterally, Breath Sounds Equal Cardiology CV Exam: Regular, Normal Sinus Rhythm Gastrointestinal/Abdomen GI Exam: Soft, Non-Tender, Bowel Sounds Present Extremeties Extremities Exam: Moderate Edema, Pitting Edema Extremeties Remarks More in Rt. leg. Assessment/Plan Problem List: (1) Acute renal failure Plan: Patient on hemodialysis on Thursday and and Saturdays remains dialysis dependant follow BMP Cr slowly declining may need less dialysis Anemia getting Epogen. Follow urine out put and Creatinine. Look for renal recovery. (2) Compartment syndrome Plan: Orthopedic is following (3) Hyponatremia Plan: Due to renal failure (4) Rhabdomyolysis Plan: As above Tiffanie Ruiz MD Nov 15, 2016 10:25
[2016-11-15] MEDS: EPOETIN ALFA 10,000 UNITS/ML VIAL IV PRN (10:50)
[2016-11-15] MEDS: GENTAMICIN SULFATE (DIALYSIS USE ONLY) 20 MG/2 ML VIAL IV PRN (10:51)
[2016-11-15] MEDS: HEPARIN SODIUM - IV 10,000 UNITS/10 ML VIAL PRN (10:51)
[2016-11-15 12:00] VITALS: BP 173/99; PULSE 95; RESP 18; TEMP 97.3; O2SAT 100
--- NOTE | 2016-11-15 13:25 | HHI.PR ---
Subjective Remarks Pt complaining of pain in his right leg, he just got back from dialysis. Has a headache as well. RN just gave him pain meds. feels tired discussed w RN, just gave pt pain meds, no concerns at this time. Objective Vitals Vital Signs Date Time Temp Pulse Resp B/P Pulse Ox O2 Delivery O2 Flow Rate FiO2 11/15/16 12:00 97.3 95 18 173/99 100 11/15/16 08:00 98.3 96 18 161/94 98 11/15/16 00:00 98.3 105 20 151/87 95 11/14/16 20:00 97.8 101 21 169/91 97 11/14/16 16:00 98.6 94 18 135/82 96 I/O 11/14/16 11/14/16 11/14/16 11/15/16 11/15/16 11/15/16 06:59 14:59 22:59 06:59 14:59 22:59 Intake Total 240 ml 720 ml 480 ml 240 ml Output Total 0 ml 675 ml 3000 ml Balance 240 ml 720 ml -195 ml 240 ml -3000 ml Intake Oral 240 ml 720 ml 480 ml 240 ml IV Total 0 ml Output Urine Total 600 ml Drainage Total 0 ml 75 ml Hemodialysis 3000 ml # Voids 0 1 0 Result Diagram: 11/15/16 0405 11/15/16 0405 Imaging Last Impressions Lower Extremity Ultrasound 11/09/16 0000 Signed Impressions: Service Date/Time: Wednesday, November 09, 2016 10:34 - CONCLUSION: No evidence of DVT. Medial thigh incision with underlying fluid collection. Sandro Luis MD Ankle X-Ray 11/08/16 0000 Signed Impressions: Service Date/Time: Tuesday, November 08, 2016 20:48 - CONCLUSION: Unremarkable study. Holly Hallman MD Objective Remarks GENERAL: appears tired EYES: EOMI NECK: Trachea midline CARDIOVASCULAR: Regular rate and rhythm without murmurs. RESPIRATORY: Breath sounds equal bilaterally. No accessory muscle use. GASTROINTESTINAL: Abdomen soft, non-tender, nondistended. MUSCULOSKELETAL: Right lateral upper thigh with dressing in place Psych: flat affect Procedures None. A/P Problem List: (1) Substance abuse ICD Code: F19.10 Status: Chronic (2) Rhabdomyolysis ICD Code: M62.82 Status: Acute (3) Compartment syndrome ICD Code: T79.A0XA Status: Acute (4) Acute renal failure ICD Code: N17.9 Status: Acute (5) Severe sepsis ICD Code: A41.9 Status: Acute (6) Myositis ICD Code: M60.9 Status: Acute Assessment and Plan This is a 35-year-old male IV drug user admitted with compartment syndrome status post fasciotomy, myositis, acute renal failure secondary to rhabdomyolysis presumably from polysubstance use. Compartment syndrome, right anterior, posterior, adductor, buttock compartment: -Status post fasciotomy and revision. - s/p Irrigation and debridement of right thigh wound, split-thickness skin graft 200 cm 11/10/[address] Wakefield. - wound VAC removed today and now pt will need dressing changes: Daily dressing changes with Xeroform 4 x 4's ABDs and paper tape and Alejandro wrap Pt can be weightbearing as tolerated. - Pain better control. On Percocet and IV Dilaudid. Patient told need to wean off Dilaudid. Hypertension - no documented history of hypertension - on amlodipine to 10 mg PO daily however BP's continue to be elevated, could be secondary to pain however he seems to be persistent, will start him on clonidine 0.1mg po BID. Sepsis, secondary to myositis - s/p fasciotomy quadriceps, hamstring, gluteus medius/karly/minimus with wound vac placement 10/[address] Simms. - cultures negative. - Per infectious disease, continue cefepime 1 g 24 hours, metronidazole 500 mg by mouth every 8 hours. Awaiting final recs from ID. Acute renal failure secondary to rhabdomyolysis - Dialysis T//THU per Nephrology. - Continue with HD per Nephro's recommendations. -awaiting renal recovery. Continue to trend Cr levels. Anemia - no bleeding source - s/p transfusion of 1 unit of packed red blood cells - hemoglobin 6.2 --> 7.3 - At the moment hemoglobin is stable. Continue to monitor. Transfuse as needed if hemoglobin is less than 7. - Epogen given yesterday Transaminitis - Resolved. Constipation - On her Colace and Miralax Depression -Patient was put on trazodone and Klonopin by psychiatrist. DVT Prophylaxis: Heparin Discharge Planning Pt has been cleared by Ortho, however Cr still at 7.49 and still requiring HD. Awaiting renal recovery. Discuss w CM if possible to set up outpatient HD Also awaiting final recs from Chantelle Lake MD Nov 15, 2016 13:25
[2016-11-15] MEDS: cloNIDine HCL 0.1 MG TAB PO SCH (14:07)
[2016-11-15 16:00] VITALS: BP 159/85; PULSE 112; RESP 19; TEMP 98.8; O2SAT 100
[2016-11-15] MEDS: CEFEPIME INJ 1,000 MG in SODIUM CHLORIDE 0.9% INJ 100 ML IV SCH (16:02)
--- NOTE | 2016-11-15 16:29 | HHI.IDPN ---
Subjective Subjective Remarks doing fine VAC was taken off cont on HD co thigh pain no fever no leukocytosis Antibiotics Cefepime IV Flagyl oral Lines Line sites with no e.o infection Past Medical History reviewed Allergies: Coded Allergies: No Known Allergies (Verified , 10/26/16) Objective . Vital Signs Date Time Temp Pulse Resp B/P Pulse Ox O2 Delivery O2 Flow Rate FiO2 11/15/16 12:00 97.3 95 18 173/99 100 11/15/16 08:00 98.3 96 18 161/94 98 11/15/16 00:00 98.3 105 20 151/87 95 11/14/16 20:00 97.8 101 21 169/91 97 11/14/16 11/14/16 11/15/16 15:00 23:00 07:00 Intake Total 720 ml 480 ml 240 ml Output Total 675 ml Balance 720 ml -195 ml 240 ml Intake Oral 720 ml 480 ml 240 ml IV Total 0 ml Output Urine Total 600 ml Drainage Total 75 ml # Voids 1 0 . Laboratory Tests Test 11/15/16 04:05 White Blood Count 4.7 TH/MM3 Red Blood Count 2.45 MIL/MM3 Hemoglobin 7.4 GM/DL Hematocrit 21.4 % Mean Corpuscular Volume 87.5 FL Mean Corpuscular Hemoglobin 30.3 PG Mean Corpuscular Hemoglobin 34.6 % Concent Red Cell Distribution Width 15.0 % Platelet Count 209 TH/MM3 Mean Platelet Volume 7.3 FL Neutrophils (%) (Auto) 62.8 % Lymphocytes (%) (Auto) 25.5 % Monocytes (%) (Auto) 9.0 % Eosinophils (%) (Auto) 2.1 % Basophils (%) (Auto) 0.6 % Neutrophils # (Auto) 2.9 TH/MM3 Lymphocytes # (Auto) 1.2 TH/MM3 Monocytes # (Auto) 0.4 TH/MM3 Eosinophils # (Auto) 0.1 TH/MM3 Basophils # (Auto) 0.0 TH/MM3 CBC Comment DIFF FINAL Differential Comment Laboratory Tests Test 11/15/16 04:05 Sodium Level 138 MEQ/L Potassium Level 3.9 MEQ/L Chloride Level 100 MEQ/L Carbon Dioxide Level 28.8 MEQ/L Anion Gap 9 MEQ/L Blood Urea Nitrogen 51 MG/DL Creatinine 7.49 MG/DL Estimat Glomerular Filtration 8 ML/MIN Rate Random Glucose 95 MG/DL Calcium Level 8.2 MG/DL Imaging Last Impressions Lower Extremity Ultrasound 11/09/16 0000 Signed Impressions: Service Date/Time: Wednesday, November 09, 2016 10:34 - CONCLUSION: No evidence of DVT. Medial thigh incision with underlying fluid collection. Sandro Luis MD Ankle X-Ray 11/08/16 0000 Signed Impressions: Service Date/Time: Tuesday, November 08, 2016 20:48 - CONCLUSION: Unremarkable study. KJenna Hallman MD Physical Exam GENERAL: This is a well-nourished, well-developed patient, in no apparent distress. R IJ vascath in place SKIN: No rashes, ecchymoses or lesions. Cool and dry. MUSCULOSKELETAL: Right thigh with dressings/vac connection noted. Improved edema,incisions with serous discharge; tender to palpation Assessment & Plan Remarks Pyomyofascitis -op note from 11/10 reviewed: healthy granulations - ortho note from today noted: n necrosis Rhabdomyolysis acute s/p surgical debridements for compartment syndrome/pyomyofascitis. Right Leg compartment syndrome s/p fasciotomies with subsequent wound closures and vac application with split thickness skin graft Acute renal failure Recs dc abx (pt completed 14 days of empiric abx) Roseanne Montanez MD Nov 15, 2016 16:29
--- NOTE | 2016-11-15 17:42 | RADRPT ---
EXAM DATE/TIME: 11/15/2016 17:30 [place] COMPARISON: No previous studies available for comparison. INDICATIONS : Sepsis. Pain and swelling. MEDICAL HISTORY : None. SURGICAL HISTORY : None. ENCOUNTER: Initial ACUITY: 4 - 6 days PAIN SCORE: 6/10 LOCATION: Right lateral FINDINGS: Three view examination of the right foot demonstrates soft tissue swelling without dislocation, or fr acture. The tarsal bones appear intact. The interphalangeal and metatarsophalangeal joints are int act. The calcaneus is intact. Bony mineralization is normal. CONCLUSION: 1. No fracture. 2. There is soft tissue swelling. Júnior Miner MD on November 15, 2016 at 17:40 Board Certified Radiologist. This report was verified electronically.
[2016-11-15 20:00] VITALS: BP 138/82; PULSE 97; RESP 19; TEMP 98.8; O2SAT 98
[2016-11-15] MEDS: traZODone HCL 100 MG TAB PO SCH (21:49)
[2016-11-16] VITALS: BP 116/75; PULSE 92; RESP 21; TEMP 98.8; O2SAT 97
[2016-11-16] MEDS: cloNIDine HCL 0.1 MG TAB PO SCH ×2 (02:00→14:04)
[2016-11-16] MEDS: clonazePAM 0.5 MG TAB PO PRN ×2 (02:08→14:04)
[2016-11-16] MEDS: HYDROmorphone HCL PF 1 MG/ML VIAL IV PUSH PRN ×5 (02:08→21:27)
[2016-11-16] MEDS: oxyCODONE/ACETAMINOPHEN 5 MG/325 MG TAB PO PRN ×5 (03:11→20:34)
[2016-11-16] MEDS: oxyCODONE HCL 10 MG CONTROLLED RELEASE TAB PO SCH ×3 (06:42→22:30)
[2016-11-16] MEDS: LACTOBACILLUS ACIDOPHILUS TAB PO SCH ×3 (07:30→16:37)
[2016-11-16] MEDS: DOCUSATE SODIUM 50 MG/SENNA 8.6 MG TAB PO SCH ×2 (07:30→20:33)
[2016-11-16] MEDS: POLYETHYLENE GLYCOL 17 GM PKG PO SCH (07:33)
[2016-11-16] MEDS: SODIUM CHLORIDE 0.9% FLUSH 10 ML FLUSH IV FLUSH SCH ×2 (07:34→20:31)
[2016-11-16 07:40] LABS: BICARBONATE 27.9 MEQ/L (21.0-32.0); MAGNESIUM 2.1 MG/DL (1.5-2.5); POTASSIUM 3.9 MEQ/L (3.5-5.1)
[2016-11-16 08:00] VITALS: BP 139/82; PULSE 95; RESP 18; TEMP 97.9; O2SAT 98
--- NOTE | 2016-11-16 10:56 | HHI.PR ---
Subjective Remarks No acute events overnight. Afebrile, vital signs stable. Patient complains of a tingling and burning sensation in his right foot which has progressively been worsening over the past 3 days. He states he is able to ambulate despite this pain. Objective Vitals Vital Signs Date Time Temp Pulse Resp B/P Pulse Ox O2 Delivery O2 Flow Rate FiO2 11/16/16 08:00 97.9 95 18 139/82 98 11/16/16 00:00 98.8 92 21 116/75 97 11/15/16 20:00 98.8 97 19 138/82 98 11/15/16 16:00 98.8 112 19 159/85 100 11/15/16 12:00 97.3 95 18 173/99 100 I/O 11/15/16 11/15/16 11/15/16 11/16/16 11/16/16 11/16/16 07:00 15:00 23:00 07:00 15:00 23:00 Intake Total 240 ml 720 ml 500 ml 240 ml Output Total 3900 ml 375 ml Balance 240 ml -3180 ml 500 ml -135 ml Intake Oral 240 ml 720 ml 500 ml 240 ml IV Total 0 ml Output Urine Total 900 ml 375 ml Hemodialysis 3000 ml # Voids 0 2 # Bowel Movements 1 Result Diagram: 11/15/16 0405 11/16/16 0645 Objective Remarks GENERAL: appears tired EYES: EOMI NECK: Trachea midline CARDIOVASCULAR: Regular rate and rhythm without murmurs. RESPIRATORY: Breath sounds equal bilaterally. No accessory muscle use. GASTROINTESTINAL: Abdomen soft, non-tender, nondistended. MUSCULOSKELETAL: Right lateral upper thigh with dressing in place Psych: flat affect A/P Problem List: (1) Substance abuse ICD Code: F19.10 Status: Chronic (2) Rhabdomyolysis ICD Code: M62.82 Status: Acute (3) Compartment syndrome ICD Code: T79.A0XA Status: Acute (4) Acute renal failure ICD Code: N17.9 Status: Acute (5) Severe sepsis ICD Code: A41.9 Status: Acute (6) Myositis ICD Code: M60.9 Status: Acute Assessment and Plan This is a 35-year-old male IV drug user admitted with compartment syndrome status post fasciotomy, myositis, acute renal failure secondary to rhabdomyolysis presumably from polysubstance use. Compartment syndrome, right anterior, posterior, adductor, buttock compartment: -Status post fasciotomy and revision. - s/p Irrigation and debridement of right thigh wound, split-thickness skin graft 200 cm 11/10/[address] Wakefield. - wound VAC removed yesterday and now pt will need dressing changes: Daily dressing changes with Xeroform 4 x 4's ABDs and paper tape and Alejandro wrap - Pt can be weightbearing as tolerated. - Pain control with Percocet and IV Dilaudid. Patient told need to wean off Dilaudid. Hypertension - no documented history of hypertension - on amlodipine to 10 mg PO daily with the addition clonidine 0.1mg po BID. - BP controlled on this regimen Sepsis, secondary to myositis - s/p fasciotomy quadriceps, hamstring, gluteus medius/karly/minimus with wound vac placement 10/[address] Simms. - cultures negative. - Per infectious disease, dc cefepime/flagyl as patient has completed 14 days of abx Acute renal failure secondary to rhabdomyolysis - Dialysis T//THU per Nephrology. - Continue with HD per Nephro's recommendations. - awaiting renal recovery. Continue to trend Cr levels. - CM to assist with the possibility of outpatient dialysis after the weekend Anemia - no bleeding source - s/p transfusion of 1 unit of packed red blood cells - hemoglobin 6.2 --> 7.3 - At the moment hemoglobin is stable. Continue to monitor. Transfuse as needed if hemoglobin is less than 7. - Epogen given yesterday Transaminitis - Resolved. Constipation - On her Colace and Miralax Depression -Patient was put on trazodone and Klonopin by psychiatrist. DVT Prophylaxis: Heparin Discharge Planning Pending renal recovery or outpatient dialysis Joy Fuentes MD R3 Nov 16, 2016 10:56
--- NOTE | 2016-11-16 11:08 | PD.ORT.PN ---
Subjective Subjective Remarks Resting comfortably Objective Vitals Vital Signs Date Time Temp Pulse Resp B/P Pulse Ox O2 Delivery O2 Flow Rate FiO2 11/16/16 08:00 97.9 95 18 139/82 98 11/16/16 00:00 98.8 92 21 116/75 97 11/15/16 20:00 98.8 97 19 138/82 98 11/15/16 16:00 98.8 112 19 159/85 100 11/15/16 12:00 97.3 95 18 173/99 100 I/O 11/15/16 11/15/16 11/15/16 11/16/16 11/16/16 11/16/16 07:00 15:00 23:00 07:00 15:00 23:00 Intake Total 240 ml 720 ml 500 ml 240 ml Output Total 3900 ml 375 ml Balance 240 ml -3180 ml 500 ml -135 ml Intake Oral 240 ml 720 ml 500 ml 240 ml IV Total 0 ml Output Urine Total 900 ml 375 ml Hemodialysis 3000 ml # Voids 0 2 # Bowel Movements 1 Result Diagram: 11/15/16 0405 11/16/16 0645 Imaging Last Impressions Ankle X-Ray 11/08/16 0000 Signed Impressions: Service Date/Time: Tuesday, November 08, 2016 20:48 - CONCLUSION: Unremarkable study. Holly Hallman MD Procedures Right Leg compartment syndrome s/p fasciotomies with subsequent wound closures and vac application Objective Remarks RLE: Clean dry dressings and intact Continued lack of sensation over ankle and foot and minimal movement of the leg actively. Intact distal pulses Assessment & Plan Problem List: (1) Compartment syndrome (2) Rhabdomyolysis (3) Substance abuse (4) IV drug abuse Assessment and Plan 1) Right Leg compartment syndrome s/p fasciotomies with subsequent wound closures and vac application with split thickness skin graft- POD 6 Daily dressing changes with Xeroform 4 x 4's ABDs and paper tape and Alejandro wrap PT weightbearing as tolerated Case management for home discharge plan ortho cleared Follow-up with Dr. Walker or PA in 2 weeks Sean Alvarez Jr. Nov 16, 2016 11:08
[2016-11-16 12:00] VITALS: BP 139/80; PULSE 93; RESP 16; TEMP 98.3; O2SAT 98
--- NOTE | 2016-11-16 13:16 | HHI.NPPN ---
Subjective History of Present Illness Hx of ARF Rhabdo Additional Remarks Patient is alert, no SOB, doing better. Objective Data Data 11/15/16 11/16/16 19:00 07:00 Intake Total 720 ml 740 ml Output Total 3900 ml 375 ml Balance -3180 ml 365 ml Intake Oral 720 ml 740 ml Output Urine Total 900 ml 375 ml Hemodialysis 3000 ml # Voids 2 # Bowel Movements 1 Vital Signs Date Time Temp Pulse Resp B/P Pulse Ox O2 Delivery O2 Flow Rate FiO2 11/16/16 12:00 98.3 93 16 139/80 98 11/16/16 08:00 97.9 95 18 139/82 98 11/16/16 00:00 98.8 92 21 116/75 97 11/15/16 20:00 98.8 97 19 138/82 98 11/15/16 16:00 98.8 112 19 159/85 100 -: 11/15/16 0405 11/16/16 0645 Physical Exam General Appearance: No Acute Distress, Comfortable Neck Neck Exam: Neck Supple Pulmonary Resp Exam: Clear Bilaterally, Breath Sounds Equal Cardiology CV Exam: Regular, Normal Sinus Rhythm Gastrointestinal/Abdomen GI Exam: Soft, Non-Tender, Bowel Sounds Present Extremeties Extremities Exam: Moderate Edema, Pitting Edema Extremeties Remarks More in Rt. leg. Assessment/Plan Problem List: (1) Acute renal failure Plan: Patient on hemodialysis on Thursday and and Saturdays remains dialysis dependant follow BMP Cr slowly declining may need less dialysis Anemia getting Epogen. Follow urine out put and Creatinine. Look for renal recovery. HD as needed, Dr. Navarrete is following. (2) Compartment syndrome Plan: Orthopedic is following (3) Hyponatremia Plan: Due to renal failure (4) Rhabdomyolysis Plan: As above Tiffanie Ruiz MD Nov 16, 2016 13:16
[2016-11-16 16:00] VITALS: BP 134/80; PULSE 99; RESP 17; TEMP 98.4; O2SAT 98
[2016-11-16 20:00] VITALS: BP 134/81; PULSE 91; RESP 20; TEMP 98; O2SAT 98
[2016-11-16] MEDS: traZODone HCL 100 MG TAB PO SCH (20:33)
[2016-11-16] MEDS: SODIUM CHLORIDE 0.9% FLUSH 10 ML FLUSH IV FLUSH PRN (21:27)
[2016-11-17] VITALS (7 sets, daily range): BP systolic 127–150; BP diastolic 70–86; PULSE 80–94; RESP 16–20; TEMP 96.8–98.7; O2SAT 96–100
[2016-11-17] MEDS: oxyCODONE/ACETAMINOPHEN 5 MG/325 MG TAB PO PRN ×6 (00:21→20:57)
[2016-11-17] MEDS: cloNIDine HCL 0.1 MG TAB PO SCH ×2 (01:24→14:42)
[2016-11-17] MEDS: HYDROmorphone HCL PF 1 MG/ML VIAL IV PUSH PRN ×5 (01:24→20:10)
[2016-11-17 05:03] LABS: AUTOMATED NEUTROPHIL # 2.2 TH/MM3 (1.8-7.7); BASOPHIL % 0.7 % (0.0-2.0); EOSINOPHIL # 0.1 TH/MM3 (0-0.4); EOSINOPHIL % 2.7 % (0.0-4.0); LYMPH % 30.5 % (9.0-44.0); LYMPHOCYTE # 1.2 TH/MM3 (1.0-4.8); MEAN CORPUSCULAR HEMOGLOBIN 29.6 PG (27.0-34.0); MEAN CORPUSCULAR HGB CONC 33.3 % (32.0-36.0); MONO % 9.5 % (0.0-8.0); NEUT % 56.6 % (16.0-70.0); PLATELET COUNT 175 TH/MM3 (150-450); RED BLOOD COUNT 2.33 MIL/MM3 (4.50-5.90); RED CELL DISTRIBUTION WIDTH 15.1 % (11.6-17.2); WHITE BLOOD COUNT 3.8 TH/MM3 (4.0-11.0)
[2016-11-17 05:06] LABS: HEMO FLAGS AUTO DIFF
[2016-11-17 05:10] LABS: HEMATOCRIT 20.7 % (39.0-51.0)
[2016-11-17 05:27] LABS: POTASSIUM 3.9 MEQ/L (3.5-5.1)
[2016-11-17] MEDS: SODIUM CHLORIDE 0.9% FLUSH 10 ML FLUSH IV FLUSH PRN (05:32)
[2016-11-17] MEDS ORDERED: SODIUM CHLOR 0.9% 250 ML INJ 250 ML IV ONE (05:45)
[2016-11-17] MEDS: oxyCODONE HCL 10 MG CONTROLLED RELEASE TAB PO SCH ×3 (06:10→22:29)
[2016-11-17 07:04] LABS: PLATELET ESTIMATE SMEAR NORMAL (NORMAL); PLATELET MORPHOLOGY NORMAL (NORMAL); SCAN/DIFF AUTO DIFF CONFIRMED
[2016-11-17] MEDS: DOCUSATE SODIUM 50 MG/SENNA 8.6 MG TAB PO SCH ×2 (09:02→19:57)
[2016-11-17] MEDS: POLYETHYLENE GLYCOL 17 GM PKG PO SCH (09:02)
[2016-11-17] MEDS: LACTOBACILLUS ACIDOPHILUS TAB PO SCH ×3 (09:05→17:42)
[2016-11-17] MEDS: SODIUM CHLORIDE 0.9% FLUSH 10 ML FLUSH IV FLUSH SCH ×2 (09:05→19:58)
--- NOTE | 2016-11-17 12:39 | HHI.PR ---
Addendum to Inpatient Note Addendum Reason: Additional Documentation Additional Information Reviewed chart dw Cultures no growth empirically treated for infection for 2 weeks. Continue following wound off antibiotics. If any change in condition call ID. reviewed note Will sign off please call ID if any change in clinical condition or questions. Mara Jimenez MD Nov 17, 2016 12:39
--- NOTE | 2016-11-17 14:00 | HHI.NPPN ---
Subjective History of Present Illness Hx of ARF Rhabdo Additional Remarks Patient is alert, no SOB, doing better. Objective Data Data 11/16/16 11/17/16 19:00 07:00 Intake Total 480 ml 800 ml Output Total 800 ml Balance 480 ml 0 ml Intake Oral 480 ml 800 ml IV Total 0 ml Output Urine Total 800 ml # Voids 3 # Bowel Movements 1 0 Vital Signs Date Time Temp Pulse Resp B/P Pulse Ox O2 Delivery O2 Flow Rate FiO2 11/17/16 12:00 97.8 89 20 141/86 100 11/17/16 08:00 97.8 89 20 141/86 100 11/17/16 00:00 98.7 94 20 133/70 96 11/16/16 20:00 98.0 91 20 134/81 98 11/16/16 16:00 98.4 99 17 134/80 98 -: 11/17/16 0445 11/17/16 0445 Physical Exam General Appearance: No Acute Distress, Comfortable Neck Neck Exam: Neck Supple Pulmonary Resp Exam: Clear Bilaterally, Breath Sounds Equal Cardiology CV Exam: Regular, Normal Sinus Rhythm Gastrointestinal/Abdomen GI Exam: Soft, Non-Tender, Bowel Sounds Present Extremeties Extremities Exam: Moderate Edema, Pitting Edema Assessment/Plan Problem List: (1) Acute renal failure Plan: Patient on hemodialysis on Thursday and and Saturdays remains dialysis dependant follow BMP Cr slowly declining may need less dialysis Anemia getting Epogen. getting PRBC today as 6.9 check Iron Follow urine out put and Creatinine. Look for renal recovery. HD as needed, (2) Compartment syndrome Plan: Orthopedic is following (3) Hyponatremia Plan: Due to renal failure (4) Rhabdomyolysis Plan: As above Gonzalo Navarrete MD Nov 17, 2016 14:00
--- NOTE | 2016-11-17 14:13 | HHI.PR ---
Subjective Remarks Follow-up acute on chronic kidney disease requiring hemodialysis 11/17/16-patient seen and examined, denies any abdominal pain nausea or vomiting. No acute event overnight. Objective Vitals Vital Signs Date Time Temp Pulse Resp B/P Pulse Ox O2 Delivery O2 Flow Rate FiO2 11/17/16 12:00 97.8 89 20 141/86 100 11/17/16 08:00 97.8 89 20 141/86 100 11/17/16 00:00 98.7 94 20 133/70 96 11/16/16 20:00 98.0 91 20 134/81 98 11/16/16 16:00 98.4 99 17 134/80 98 I/O 11/16/16 11/16/16 11/16/16 11/17/16 11/17/16 11/17/16 07:00 15:00 23:00 07:00 15:00 23:00 Intake Total 240 ml 480 ml 480 ml 320 ml 120 ml Output Total 375 ml 300 ml 500 ml Balance -135 ml 480 ml 180 ml -180 ml 120 ml Intake Oral 240 ml 480 ml 480 ml 320 ml 120 ml IV Total 0 ml Output Urine Total 375 ml 300 ml 500 ml # Voids 3 # Bowel Movements 1 0 0 Result Diagram: 11/17/16 0445 11/17/16 0445 Imaging Last Impressions Foot X-Ray 11/15/16 0000 Signed Impressions: Service Date/Time: Tuesday, November 15, 2016 17:30 - CONCLUSION: 1. No fracture. 2. There is soft tissue swelling. Júnior Miner MD Lower Extremity Ultrasound 11/09/16 0000 Signed Impressions: Service Date/Time: Wednesday, November 09, 2016 10:34 - CONCLUSION: No evidence of DVT. Medial thigh incision with underlying fluid collection. Sandro Luis MD Ankle X-Ray 11/08/16 0000 Signed Impressions: Service Date/Time: Tuesday, November 08, 2016 20:48 - CONCLUSION: Unremarkable study. Holly Hallman MD Objective Remarks GENERAL: NAD SKIN: Warm and dry. HEAD: Normocephalic. EYES: No scleral icterus. No injection or drainage. NECK: Supple, trachea midline. No JVD or lymphadenopathy. CARDIOVASCULAR: Regular rate and rhythm without murmurs, gallops, or rubs. RESPIRATORY: Breath sounds equal bilaterally. No accessory muscle use. GASTROINTESTINAL: Abdomen soft, non-tender, nondistended. MUSCULOSKELETAL: No cyanosis, or edema. BACK: Nontender without obvious deformity. No CVA tenderness. A/P Problem List: (1) Substance abuse ICD Code: F19.10 Status: Chronic (2) Rhabdomyolysis ICD Code: M62.82 Status: Acute (3) Compartment syndrome ICD Code: T79.A0XA Status: Acute (4) Acute renal failure ICD Code: N17.9 Status: Acute (5) Severe sepsis ICD Code: A41.9 Status: Acute (6) Myositis ICD Code: M60.9 Status: Acute Assessment and Plan 36-year-old man with Compartment syndrome, right anterior, posterior, adductor, buttock compartment: -Status post fasciotomy and revision. - s/p Irrigation and debridement of right thigh wound, split-thickness skin graft 200 cm 11/10/[address] Wakefield. - wound VAC removed yesterday and now pt will need dressing changes: Daily dressing changes with Xeroform 4 x 4's ABDs and paper tape and Alejandro wrap - Pain control with Percocet and IV Dilaudid. Hypertension - on amlodipine to 10 mg PO daily with the addition clonidine 0.1mg po BID. Sepsis, secondary to myositis - s/p fasciotomy quadriceps, hamstring, gluteus medius/karly/minimus with wound vac placement 10/[address] Simms. - cultures negative. - Completed cefepime/flagyl Acute renal failure secondary to rhabdomyolysis - Dialysis T//THU per Nephrology. - Continue with HD per Nephro's recommendations. - awaiting renal recovery. Continue to trend Cr levels. - CM to assist with the possibility of outpatient dialysis after the weekend Anemia of chronic disease - s/p transfusion of 1 unit of packed red blood cells, will transfuse 1 unit packed red blood cell today 11/17/16 - Check Iron studies and transfuse accordingly - Epogen per nephrology Transaminitis - Resolved. Constipation - Continue with Colace and Miralax Depression -Continue trazodone and Klonopin by psychiatrist. DVT Prophylaxis: Heparin Júnior Aguilar MD Nov 17, 2016 14:13
[2016-11-17] MEDS: clonazePAM 0.5 MG TAB PO PRN (15:42)
[2016-11-17] MEDS: traZODone HCL 100 MG TAB PO SCH (19:57)
[2016-11-17 21:34] LABS: HEMATOCRIT 22.8 % (39.0-51.0); REVIEW FLAG FINAL
[2016-11-18] VITALS: BP 140/86; PULSE 91; RESP 17; TEMP 97.9; O2SAT 98
[2016-11-18] MEDS: HYDROmorphone HCL PF 1 MG/ML VIAL IV PUSH PRN ×6 (00:02→22:21)
[2016-11-18] MEDS: SODIUM CHLORIDE 0.9% FLUSH 10 ML FLUSH IV FLUSH PRN ×2 (00:03→04:51)
[2016-11-18] MEDS: oxyCODONE/ACETAMINOPHEN 5 MG/325 MG TAB PO PRN ×6 (01:03→23:56)
[2016-11-18] MEDS: clonazePAM 0.5 MG TAB PO PRN ×2 (02:28→14:57)
[2016-11-18] MEDS: cloNIDine HCL 0.1 MG TAB PO SCH ×2 (02:28→14:57)
[2016-11-18] MEDS: oxyCODONE HCL 10 MG CONTROLLED RELEASE TAB PO SCH ×3 (05:38→22:45)
[2016-11-18 06:04] LABS: AUTOMATED NEUTROPHIL # 2.5 TH/MM3 (1.8-7.7); BASOPHIL % 0.9 % (0.0-2.0); EOSINOPHIL # 0.1 TH/MM3 (0-0.4); EOSINOPHIL % 2.9 % (0.0-4.0); HEMATOCRIT 21.6 % (39.0-51.0); HEMO FLAGS DIFF FINAL; LYMPH % 26.4 % (9.0-44.0); LYMPHOCYTE # 1.1 TH/MM3 (1.0-4.8); MEAN CELL VOLUME 87.4 FL (80.0-100.0); MEAN CORPUSCULAR HEMOGLOBIN 30.2 PG (27.0-34.0); MEAN CORPUSCULAR HGB CONC 34.5 % (32.0-36.0); MONO % 8.7 % (0.0-8.0); NEUT % 61.1 % (16.0-70.0); PLATELET COUNT 172 TH/MM3 (150-450); RED BLOOD COUNT 2.47 MIL/MM3 (4.50-5.90); RED CELL DISTRIBUTION WIDTH 14.8 % (11.6-17.2); WHITE BLOOD COUNT 4.2 TH/MM3 (4.0-11.0)
[2016-11-18 06:33] LABS: ANION GAP 9 MEQ/L (5-15); BICARBONATE 24.7 MEQ/L (21.0-32.0); BLOOD UREA NITROGEN 55 MG/DL (7-18); CHLORIDE 104 MEQ/L (98-107); GLOMERULAR FILTRATION RATE 10 ML/MIN (>89); POTASSIUM 3.9 MEQ/L (3.5-5.1); SODIUM (NA) 138 MEQ/L (136-145)
[2016-11-18 06:37] LABS: FERRITIN 212 NG/ML (26-388); TRANSFERRIN IRON PROFILE 150 MG/DL (200-360)
[2016-11-18 08:00] VITALS: BP 136/81; PULSE 93; RESP 20; TEMP 98.3; O2SAT 97
[2016-11-18] MEDS: LACTOBACILLUS ACIDOPHILUS TAB PO SCH ×3 (09:25→17:50)
[2016-11-18] MEDS: POLYETHYLENE GLYCOL 17 GM PKG PO SCH (09:25)
[2016-11-18] MEDS: DOCUSATE SODIUM 50 MG/SENNA 8.6 MG TAB PO SCH ×2 (09:25→21:00)
[2016-11-18] MEDS: SODIUM CHLORIDE 0.9% FLUSH 10 ML FLUSH IV FLUSH SCH ×2 (09:26→21:00)
[2016-11-18 12:00] VITALS: BP 136/80; PULSE 90; RESP 18; RESP 19; TEMP 98.2; O2SAT 97
--- NOTE | 2016-11-18 12:21 | HHI.PR ---
Subjective Remarks Follow-up acute on chronic kidney disease requiring hemodialysis 11/17/16-patient seen and examined, denies any abdominal pain nausea or vomiting. No acute event overnight. 11/18/16-patient seen and examined; complains of lower extremity pain. Per PT patient almost lost his balance while ambulating. Otherwise stable. Objective Vitals Vital Signs Date Time Temp Pulse Resp B/P Pulse Ox O2 Delivery O2 Flow Rate FiO2 11/18/16 08:00 98.3 93 20 136/81 97 11/18/16 00:00 97.9 91 17 140/86 98 11/17/16 20:00 97.5 84 17 127/78 98 11/17/16 16:00 96.8 80 16 128/77 99 11/17/16 15:32 98.3 80 16 135/83 100 11/17/16 15:12 98.0 88 17 150/84 100 I/O 11/17/16 11/17/16 11/17/16 11/18/16 11/18/16 11/18/16 07:00 15:00 23:00 07:00 15:00 23:00 Intake Total 320 ml 340 ml 240 ml 240 ml Output Total 500 ml 600 ml 900 ml 450 ml 120 ml Balance -180 ml -260 ml -660 ml -210 ml -120 ml Intake Oral 320 ml 340 ml 240 ml 240 ml Output Urine Total 500 ml 600 ml 900 ml 450 ml 120 ml # Bowel Movements 0 1 Result Diagram: 11/18/16 0545 11/18/16 0545 Objective Remarks GENERAL: NAD SKIN: Warm and dry. HEAD: Normocephalic. EYES: No scleral icterus. No injection or drainage. NECK: Supple, trachea midline. No JVD or lymphadenopathy. CARDIOVASCULAR: Regular rate and rhythm without murmurs, gallops, or rubs. RESPIRATORY: Breath sounds equal bilaterally. No accessory muscle use. GASTROINTESTINAL: Abdomen soft, non-tender, nondistended. MUSCULOSKELETAL: No cyanosis, or edema. Dressing over right lower extremity BACK: Nontender without obvious deformity. No CVA tenderness. A/P Problem List: (1) Substance abuse ICD Code: F19.10 Status: Chronic (2) Rhabdomyolysis ICD Code: M62.82 Status: Acute (3) Compartment syndrome ICD Code: T79.A0XA Status: Acute (4) Acute renal failure ICD Code: N17.9 Status: Acute (5) Severe sepsis ICD Code: A41.9 Status: Acute (6) Myositis ICD Code: M60.9 Status: Acute Assessment and Plan 36-year-old man with Compartment syndrome, right anterior, posterior, adductor, buttock compartment: -Status post fasciotomy and revision. - s/p Irrigation and debridement of right thigh wound, split-thickness skin graft 200 cm 11/10/[address] Wakefield. - wound VAC removed yesterday and now pt will need dressing changes: Daily dressing changes with Xeroform 4 x 4's ABDs and paper tape and Alejandro wrap - Pain control with Percocet and IV Dilaudid. Hypertension - on amlodipine to 10 mg PO daily with the addition clonidine 0.1mg po BID. Sepsis, secondary to myositis - s/p fasciotomy quadriceps, hamstring, gluteus medius/karly/minimus with wound vac placement 10/[address] Simms. - cultures negative. - Completed cefepime/flagyl Acute renal failure secondary to rhabdomyolysis - Dialysis T//THU per Nephrology. - Continue with HD per Nephro's recommendations. - awaiting renal recovery. Continue to trend Cr levels. - CM to assist with the possibility of outpatient dialysis after the weekend Anemia of chronic disease - s/p transfusion of 2 unit of packed red blood cells - Secondary to low iron, will transfuse for Venofer 200mg 1 today 11/18/16 - Epogen per nephrology Transaminitis - Resolved. Constipation - Resolved and continue Colace and Maalox Depression -Continue trazodone and Klonopin by psychiatrist. DVT Prophylaxis: Heparin Júnior Aguilar MD Nov 18, 2016 12:21
--- NOTE | 2016-11-18 12:21 | HHI.NPPN ---
Subjective History of Present Illness Hx of ARF Rhabdo Additional Remarks Patient is alert, no SOB, doing better. Objective Data Data 11/17/16 11/18/16 19:00 07:00 Intake Total 340 ml 480 ml Output Total 600 ml 1350 ml Balance -260 ml -870 ml Intake Oral 340 ml 480 ml Output Urine Total 600 ml 1350 ml # Bowel Movements 1 Vital Signs Date Time Temp Pulse Resp B/P Pulse Ox O2 Delivery O2 Flow Rate FiO2 11/18/16 08:00 98.3 93 20 136/81 97 11/18/16 00:00 97.9 91 17 140/86 98 11/17/16 20:00 97.5 84 17 127/78 98 11/17/16 16:00 96.8 80 16 128/77 99 11/17/16 15:32 98.3 80 16 135/83 100 11/17/16 15:12 98.0 88 17 150/84 100 -: 11/18/16 0545 11/18/16 0545 Physical Exam General Appearance: No Acute Distress, Comfortable Neck Neck Exam: Neck Supple Pulmonary Resp Exam: Clear Bilaterally, Breath Sounds Equal Cardiology CV Exam: Regular, Normal Sinus Rhythm Gastrointestinal/Abdomen GI Exam: Soft, Non-Tender, Bowel Sounds Present Extremeties Extremities Exam: Moderate Edema (rt leg), Pitting Edema Assessment/Plan Problem List: (1) Acute renal failure Plan: Patient on hemodialysis since passing urine I will decrease the frequency or hold it Labs stable resolving ATN give Iron/Epogen follow BMP Cr slowly declining Anemia getting Epogen. Follow urine out put and Creatinine. Look for renal recovery. HD as needed, (2) Compartment syndrome Plan: Orthopedic is following (3) Hyponatremia Plan: Due to renal failure (4) Rhabdomyolysis Plan: As above Gonzalo Navarrete MD Nov 18, 2016 12:20
[2016-11-18] MEDS ORDERED: IRON SUCROSE INJ 200 MG in SODIUM CHLORIDE 0.9% INJ 100 ML IV ONE (13:00)
[2016-11-18] MEDS ORDERED: EPOETIN ALFA 20,000 UNITS/ML VIAL SQ ONE (13:00)
[2016-11-18 16:00] VITALS: BP 140/83; PULSE 83; RESP 20; TEMP 97.8; O2SAT 100
[2016-11-18 20:00] VITALS: BP 137/82; PULSE 105; RESP 18; TEMP 99.7; O2SAT 99
[2016-11-18] MEDS: traZODone HCL 100 MG TAB PO SCH (22:23)
[2016-11-19] VITALS: BP 135/85; PULSE 105; RESP 18; TEMP 98.7; O2SAT 98
[2016-11-19] MEDS: cloNIDine HCL 0.1 MG TAB PO SCH ×2 (02:19→14:20)
[2016-11-19] MEDS: HYDROmorphone HCL PF 1 MG/ML VIAL IV PUSH PRN ×5 (02:20→20:58)
[2016-11-19] MEDS: clonazePAM 0.5 MG TAB PO PRN ×2 (05:24→17:44)
[2016-11-19] MEDS: oxyCODONE/ACETAMINOPHEN 5 MG/325 MG TAB PO PRN ×5 (05:25→23:10)
[2016-11-19 06:14] LABS: AUTOMATED NEUTROPHIL # 2.3 TH/MM3 (1.8-7.7); BASOPHIL % 0.7 % (0.0-2.0); EOSINOPHIL # 0.1 TH/MM3 (0-0.4); EOSINOPHIL % 3.2 % (0.0-4.0); HEMATOCRIT 23.4 % (39.0-51.0); HEMO FLAGS DIFF FINAL; LYMPH % 27.9 % (9.0-44.0); LYMPHOCYTE # 1.1 TH/MM3 (1.0-4.8); MEAN CELL VOLUME 88.7 FL (80.0-100.0); MEAN CORPUSCULAR HEMOGLOBIN 30.3 PG (27.0-34.0); MEAN CORPUSCULAR HGB CONC 34.1 % (32.0-36.0); NEUT % 60.2 % (16.0-70.0); PLATELET COUNT 186 TH/MM3 (150-450); RED BLOOD COUNT 2.64 MIL/MM3 (4.50-5.90); RED CELL DISTRIBUTION WIDTH 14.9 % (11.6-17.2); WHITE BLOOD COUNT 3.8 TH/MM3 (4.0-11.0)
[2016-11-19 06:29] LABS: POTASSIUM 4.1 MEQ/L (3.5-5.1)
[2016-11-19] MEDS: oxyCODONE HCL 10 MG CONTROLLED RELEASE TAB PO SCH ×3 (06:34→22:03)
[2016-11-19 08:00] VITALS: BP 138/84; PULSE 82; RESP 18; TEMP 98.7; O2SAT 97
[2016-11-19] MEDS: POLYETHYLENE GLYCOL 17 GM PKG PO SCH (09:00)
[2016-11-19] MEDS: LACTOBACILLUS ACIDOPHILUS TAB PO SCH ×3 (10:12→17:44)
[2016-11-19] MEDS: SODIUM CHLORIDE 0.9% FLUSH 10 ML FLUSH IV FLUSH SCH ×2 (10:12→20:58)
[2016-11-19] MEDS: DOCUSATE SODIUM 50 MG/SENNA 8.6 MG TAB PO SCH ×2 (10:12→20:58)
[2016-11-19 12:00] VITALS: BP 131/75; PULSE 82; RESP 19; TEMP 98.3; O2SAT 98
--- NOTE | 2016-11-19 12:15 | HHI.PR ---
Subjective Remarks Follow-up acute on chronic kidney disease requiring hemodialysis 11/17/16-patient seen and examined, denies any abdominal pain nausea or vomiting. No acute event overnight. 11/18/16-patient seen and examined; complains of lower extremity pain. Per PT patient almost lost his balance while ambulating. Otherwise stable. 11/19/16-patient seen and examined, reports improving urine output. Improving creatinine. With some right lower extremity pain otherwise afebrile. Objective Vitals Vital Signs Date Time Temp Pulse Resp B/P Pulse Ox O2 Delivery O2 Flow Rate FiO2 11/19/16 08:00 98.7 82 18 138/84 97 11/19/16 00:00 98.7 105 18 135/85 98 11/18/16 20:00 99.7 105 18 137/82 99 11/18/16 16:00 97.8 83 20 140/83 100 I/O 11/18/16 11/18/16 11/18/16 11/19/16 11/19/16 11/19/16 07:00 15:00 23:00 07:00 15:00 23:00 Intake Total 240 ml 1060 ml 480 ml Output Total 450 ml 1720 ml 1950 ml 950 ml Balance -210 ml -660 ml -1470 ml -950 ml Intake Oral 240 ml 960 ml 480 ml IV Total 100 ml Output Urine Total 450 ml 1720 ml 1950 ml 950 ml # Bowel Movements 1 Result Diagram: 11/19/16 0545 11/19/16 0545 Objective Remarks GENERAL: NAD SKIN: Warm and dry. HEAD: Normocephalic. EYES: No scleral icterus. No injection or drainage. NECK: Supple, trachea midline. No JVD or lymphadenopathy. CARDIOVASCULAR: Regular rate and rhythm without murmurs, gallops, or rubs. RESPIRATORY: Breath sounds equal bilaterally. No accessory muscle use. GASTROINTESTINAL: Abdomen soft, non-tender, nondistended. MUSCULOSKELETAL: No cyanosis, or edema. Dressing over right lower extremity BACK: Nontender without obvious deformity. No CVA tenderness. A/P Problem List: (1) Substance abuse ICD Code: F19.10 Status: Chronic (2) Rhabdomyolysis ICD Code: M62.82 Status: Acute (3) Compartment syndrome ICD Code: T79.A0XA Status: Acute (4) Acute renal failure ICD Code: N17.9 Status: Acute (5) Severe sepsis ICD Code: A41.9 Status: Acute (6) Myositis ICD Code: M60.9 Status: Acute Assessment and Plan 36-year-old man with Compartment syndrome, right anterior, posterior, adductor, buttock compartment: -Status post fasciotomy and revision. - s/p Irrigation and debridement of right thigh wound, split-thickness skin graft 200 cm 11/10/[address] Wakefield. - wound VAC removed yesterday and now pt will need dressing changes: Daily dressing changes with Xeroform 4 x 4's ABDs and paper tape and Alejandro wrap - Pain control with Percocet and IV Dilaudid. Hypertension - Continue amlodipine 10 mg PO daily and clonidine 0.1mg po BID. Sepsis, secondary to myositis - s/p fasciotomy quadriceps, hamstring, gluteus medius/karly/minimus with wound vac placement 10/[address] Simms. - cultures negative. - Completed cefepime/flagyl Acute renal failure secondary to rhabdomyolysis - Dialysis T//THU per Nephrology. - Continue with HD per Nephro's recommendations. - awaiting renal recovery. Cr trending down - CM to assist with the possibility of outpatient dialysis after the weekend Anemia of chronic disease - s/p transfusion of 2 unit of packed red blood cells - Secondary to low iron, transfused Venofer 200mg 1 11/18/16 - Epogen per nephrology Transaminitis - Resolved. Constipation - Resolved and continue Colace and Maalox Depression -Continue trazodone and Klonopin by psychiatrist. DVT Prophylaxis: Júnior Morel MD Nov 19, 2016 12:15
--- NOTE | 2016-11-19 14:10 | HHI.NPPN ---
Subjective History of Present Illness Hx of ARF Rhabdo Additional Remarks Patient is alert, no SOB, doing better. Objective Data Data 11/18/16 11/19/16 18:59 06:59 Intake Total 1060 ml 480 ml Output Total 1720 ml 2900 ml Balance -660 ml -2420 ml Intake Oral 960 ml 480 ml IV Total 100 ml Output Urine Total 1720 ml 2900 ml # Bowel Movements 1 Vital Signs Date Time Temp Pulse Resp B/P Pulse Ox O2 Delivery O2 Flow Rate FiO2 11/19/16 12:00 98.3 82 19 131/75 98 11/19/16 08:00 98.7 82 18 138/84 97 11/19/16 00:00 98.7 105 18 135/85 98 11/18/16 20:00 99.7 105 18 137/82 99 11/18/16 16:00 97.8 83 20 140/83 100 -: 11/19/16 0545 11/19/16 0545 Physical Exam General Appearance: No Acute Distress, Comfortable Neck Neck Exam: Neck Supple Pulmonary Resp Exam: Clear Bilaterally, Breath Sounds Equal Cardiology CV Exam: Regular, Normal Sinus Rhythm Gastrointestinal/Abdomen GI Exam: Soft, Non-Tender, Bowel Sounds Present Extremeties Extremities Exam: Moderate Edema (rt leg), Pitting Edema Assessment/Plan Problem List: (1) Acute renal failure Plan: Patient on hemodialysis since passing urine I held it Labs Cr declined 6.3 Hb improved to 8 resolving ATN give Iron/Epogen follow BMP Cr slowly declining Anemia getting Epogen. Follow urine out put and Creatinine. Look for renal recovery. (2) Compartment syndrome Plan: Orthopedic is following (3) Hyponatremia Plan: Due to renal failure (4) Rhabdomyolysis Plan: As above Gonzalo Navarrete MD Nov 19, 2016 14:09
[2016-11-19 16:00] VITALS: BP 128/78; PULSE 79; RESP 18; TEMP 97.5; O2SAT 99
[2016-11-19 20:00] VITALS: BP 133/74; PULSE 86; RESP 20; TEMP 97.6; O2SAT 100
[2016-11-19] MEDS: traZODone HCL 100 MG TAB PO SCH (22:03)
[2016-11-20] VITALS: BP 135/78; PULSE 83; RESP 18; TEMP 97.8; O2SAT 98
[2016-11-20] MEDS: HYDROmorphone HCL PF 1 MG/ML VIAL IV PUSH PRN ×6 (01:34→20:37)
[2016-11-20] MEDS: cloNIDine HCL 0.1 MG TAB PO SCH ×2 (01:35→14:06)
[2016-11-20] MEDS: oxyCODONE/ACETAMINOPHEN 5 MG/325 MG TAB PO PRN ×5 (03:49→21:54)
[2016-11-20] MEDS: oxyCODONE HCL 10 MG CONTROLLED RELEASE TAB PO SCH ×3 (07:04→21:54)
[2016-11-20 07:24] LABS: AUTOMATED NEUTROPHIL # 2.1 TH/MM3 (1.8-7.7); BASOPHIL % 0.8 % (0.0-2.0); EOSINOPHIL # 0.1 TH/MM3 (0-0.4); HEMATOCRIT 23.8 % (39.0-51.0); HEMO FLAGS DIFF FINAL; LYMPH % 29.3 % (9.0-44.0); LYMPHOCYTE # 1.1 TH/MM3 (1.0-4.8); MEAN CELL VOLUME 88.1 FL (80.0-100.0); MEAN CORPUSCULAR HGB CONC 34.1 % (32.0-36.0); MONO % 9.5 % (0.0-8.0); NEUT % 57.4 % (16.0-70.0); PLATELET COUNT 182 TH/MM3 (150-450); WHITE BLOOD COUNT 3.7 TH/MM3 (4.0-11.0)
[2016-11-20 07:27] LABS: BICARBONATE 23.8 MEQ/L (21.0-32.0); POTASSIUM 4.3 MEQ/L (3.5-5.1)
--- NOTE | 2016-11-20 07:39 | PD.ORT.PN ---
Subjective Subjective Remarks Resting comfortably Objective Vitals Vital Signs Date Time Temp Pulse Resp B/P Pulse Ox O2 Delivery O2 Flow Rate FiO2 11/20/16 00:00 97.8 83 18 135/78 98 11/19/16 20:00 97.6 86 20 133/74 100 11/19/16 16:00 97.5 79 18 128/78 99 11/19/16 12:00 98.3 82 19 131/75 98 11/19/16 08:00 98.7 82 18 138/84 97 I/O 11/19/16 11/19/16 11/19/16 11/20/16 11/20/16 11/20/16 07:00 15:00 23:00 07:00 15:00 23:00 Intake Total 1480 ml 480 ml Output Total 950 ml 2400 ml 800 ml Balance -950 ml -920 ml -320 ml Intake Oral 1480 ml 480 ml Output Urine Total 950 ml 2400 ml 800 ml # Bowel Movements 1 0 Result Diagram: 11/20/16 0625 11/20/16 0625 Imaging Last Impressions Ankle X-Ray 11/08/16 0000 Signed Impressions: Service Date/Time: Tuesday, November 08, 2016 20:48 - CONCLUSION: Unremarkable study. Holly Hallman MD Procedures Right Leg compartment syndrome s/p fasciotomies with subsequent wound closures and vac application Objective Remarks RLE: Clean dry dressings and intact, skin graft is healthy and is maintaining integrity. Incision well aligned with no erythema or drainage. Skin graft harvest site Xeroform is present Continued lack of sensation over ankle and foot and minimal movement of the leg actively. Intact distal pulses Assessment & Plan Problem List: (1) Compartment syndrome (2) Rhabdomyolysis (3) Substance abuse (4) IV drug abuse Assessment and Plan 1) Right Leg compartment syndrome s/p fasciotomies with subsequent wound closures and vac application with split thickness skin graft- POD 10 (11/10) Daily dressing changes with Xeroform 4 x 4's ABDs and paper tape and Alejandro wrap over skin graft Leave Xeroform place at skin graft harvest site. May trim loose edges Xeroform and Primapore over incision PT weightbearing as tolerated Case management for home discharge plan ortho cleared Follow-up with Dr. Walker or PA in 2 weeks Sean Alvarez Jr. Nov 20, 2016 07:39
[2016-11-20 08:00] VITALS: BP 132/75; PULSE 75; RESP 19; TEMP 97.3; O2SAT 98
[2016-11-20] MEDS: LACTOBACILLUS ACIDOPHILUS TAB PO SCH ×3 (08:07→18:09)
[2016-11-20] MEDS: DOCUSATE SODIUM 50 MG/SENNA 8.6 MG TAB PO SCH ×2 (08:07→20:36)
[2016-11-20] MEDS: clonazePAM 0.5 MG TAB PO PRN ×2 (08:07→20:36)
[2016-11-20] MEDS: SODIUM CHLORIDE 0.9% FLUSH 10 ML FLUSH IV FLUSH SCH ×2 (08:09→20:37)
[2016-11-20] MEDS: POLYETHYLENE GLYCOL 17 GM PKG PO SCH (08:09)
[2016-11-20] MEDS ORDERED: IRON SUCROSE INJ 200 MG in SODIUM CHLORIDE 0.9% INJ 100 ML IV ONE (09:00)
[2016-11-20 12:00] VITALS: BP 138/84; PULSE 80; RESP 18; TEMP 96.5; O2SAT 100
--- NOTE | 2016-11-20 12:38 | HHI.PR ---
Subjective Remarks Follow-up acute on chronic kidney disease requiring hemodialysis 11/17/16-patient seen and examined, denies any abdominal pain nausea or vomiting. No acute event overnight. 11/18/16-patient seen and examined; complains of lower extremity pain. Per PT patient almost lost his balance while ambulating. Otherwise stable. 11/19/16-patient seen and examined, reports improving urine output. Improving creatinine. With some right lower extremity pain otherwise afebrile. 11/20/16-patient seen and examined, complains of right lower extremity pain otherwise stable. good urine output Objective Vitals Vital Signs Date Time Temp Pulse Resp B/P Pulse Ox O2 Delivery O2 Flow Rate FiO2 11/20/16 08:00 97.3 75 19 132/75 98 11/20/16 00:00 97.8 83 18 135/78 98 11/19/16 20:00 97.6 86 20 133/74 100 11/19/16 16:00 97.5 79 18 128/78 99 I/O 11/19/16 11/19/16 11/19/16 11/20/16 11/20/16 11/20/16 06:59 14:59 22:59 06:59 14:59 22:59 Intake Total 1480 ml 480 ml 100 ml Output Total 950 ml 2400 ml 800 ml Balance -950 ml -920 ml -320 ml 100 ml Intake Oral 1480 ml 480 ml IV Total 100 ml Output Urine Total 950 ml 2400 ml 800 ml # Bowel Movements 1 0 Result Diagram: 11/20/1625 11/20/16 0625 Objective Remarks GENERAL: NAD SKIN: Warm and dry. HEAD: Normocephalic. EYES: No scleral icterus. No injection or drainage. NECK: Supple, trachea midline. No JVD or lymphadenopathy. CARDIOVASCULAR: Regular rate and rhythm without murmurs, gallops, or rubs. RESPIRATORY: Breath sounds equal bilaterally. No accessory muscle use. GASTROINTESTINAL: Abdomen soft, non-tender, nondistended. MUSCULOSKELETAL: No cyanosis, or edema. Dressing over right lower extremity BACK: Nontender without obvious deformity. No CVA tenderness. Procedures s/p Irrigation and debridement of right thigh wound, split-thickness skin graft 200 cm 11/10/[address] Wakefield. A/P Problem List: (1) Substance abuse ICD Code: F19.10 Status: Chronic (2) Rhabdomyolysis ICD Code: M62.82 Status: Acute (3) Compartment syndrome ICD Code: T79.A0XA Status: Acute (4) Acute renal failure ICD Code: N17.9 Status: Acute (5) Severe sepsis ICD Code: A41.9 Status: Acute (6) Myositis ICD Code: M60.9 Status: Acute Assessment and Plan 36-year-old man with Compartment syndrome, right anterior, posterior, adductor, buttock compartment: -Status post fasciotomy and revision. - s/p Irrigation and debridement of right thigh wound, split-thickness skin graft 200 cm 11/10/[address] Wakefield. - s/p wound VAC removed and continue with dressing changes: Daily dressing changes with Xeroform 4 x 4's ABDs and paper tape and Alejandro wrap - Pain control with Percocet and IV Dilaudid. Hypertension - Continue amlodipine 10 mg PO daily and clonidine 0.1mg po BID. Sepsis, secondary to myositis - s/p fasciotomy quadriceps, hamstring, gluteus medius/karly/minimus with wound vac placement 10/[address] Simms. - cultures negative. - Completed cefepime/flagyl Acute renal failure secondary to rhabdomyolysis - Dialysis T//THU per Nephrology. - Continue with HD per Nephro's recommendations. - awaiting renal recovery. Cr trending down - CM to assist with the possibility of outpatient dialysis after the weekend Anemia of chronic disease - s/p transfusion of 2 unit of packed red blood cells - Secondary to low iron, will transfuse Venofer 200mg 1 11/20/16 - Epogen per nephrology Transaminitis - Resolved. Constipation - Resolved and continue Colace and Maalox Depression -Continue trazodone and Klonopin by psychiatrist. DVT Prophylaxis: Heparin Júnior Aguilar MD Nov 20, 2016 12:38
--- NOTE | 2016-11-20 12:54 | HHI.NPPN ---
Subjective History of Present Illness Hx of ARF Rhabdo Additional Remarks Patient is alert, no SOB, doing better. Objective Data Data 11/19/16 11/20/16 19:00 07:00 Intake Total 1960 ml Output Total 3200 ml Balance -1240 ml Intake Oral 1960 ml Output Urine Total 3200 ml # Bowel Movements 1 Vital Signs Date Time Temp Pulse Resp B/P Pulse Ox O2 Delivery O2 Flow Rate FiO2 11/20/16 08:00 97.3 75 19 132/75 98 11/20/16 00:00 97.8 83 18 135/78 98 11/19/16 20:00 97.6 86 20 133/74 100 11/19/16 16:00 97.5 79 18 128/78 99 -: 11/20/16 0625 11/20/16 0625 Physical Exam General Appearance: No Acute Distress, Comfortable Neck Neck Exam: Neck Supple Pulmonary Resp Exam: Clear Bilaterally, Breath Sounds Equal Cardiology CV Exam: Regular, Normal Sinus Rhythm Gastrointestinal/Abdomen GI Exam: Soft, Non-Tender, Bowel Sounds Present Extremeties Extremities Exam: Moderate Edema (rt leg), Pitting Edema Assessment/Plan Problem List: (1) Acute renal failure Plan: Patient not on hemodialysis since passing urine Labs Cr declined 6 Hb improved to 8.1 resolving ATN give Iron/Epogen follow BMP Cr slowly declining Anemia getting Epogen. Follow urine out put and Creatinine. Look for renal recovery. jordon mckeon by am (2) Compartment syndrome Plan: Orthopedic is following (3) Hyponatremia Plan: Due to renal failure (4) Rhabdomyolysis Plan: As above Gonzalo Navarrete MD Nov 20, 2016 12:54
[2016-11-20 16:00] VITALS: BP 127/73; PULSE 83; RESP 19; TEMP 97.9; O2SAT 98
[2016-11-20 20:00] VITALS: BP 140/80; PULSE 85; RESP 20; TEMP 97.6; O2SAT 100
[2016-11-20] MEDS: traZODone HCL 100 MG TAB PO SCH (20:36)
[2016-11-21] VITALS: BP 135/75; PULSE 86; RESP 18; TEMP 99; O2SAT 99
[2016-11-21] MEDS: HYDROmorphone HCL PF 1 MG/ML VIAL IV PUSH PRN ×6 (00:34→21:37)
[2016-11-21] MEDS: oxyCODONE/ACETAMINOPHEN 5 MG/325 MG TAB PO PRN ×6 (02:00→23:00)
[2016-11-21] MEDS: cloNIDine HCL 0.1 MG TAB PO SCH ×2 (02:00→14:04)
[2016-11-21] MEDS: oxyCODONE HCL 10 MG CONTROLLED RELEASE TAB PO SCH ×3 (05:58→23:00)
[2016-11-21 06:31] LABS: AUTOMATED NEUTROPHIL # 2.1 TH/MM3 (1.8-7.7); BASOPHIL % 0.9 % (0.0-2.0); EOSINOPHIL # 0.1 TH/MM3 (0-0.4); EOSINOPHIL % 3.4 % (0.0-4.0); HEMATOCRIT 23.3 % (39.0-51.0); HEMO FLAGS DIFF FINAL; LYMPH % 31.1 % (9.0-44.0); LYMPHOCYTE # 1.2 TH/MM3 (1.0-4.8); MEAN CORPUSCULAR HEMOGLOBIN 30.3 PG (27.0-34.0); MEAN CORPUSCULAR HGB CONC 34.4 % (32.0-36.0); MONO % 9.8 % (0.0-8.0); NEUT % 54.8 % (16.0-70.0); PLATELET COUNT 180 TH/MM3 (150-450); RED BLOOD COUNT 2.65 MIL/MM3 (4.50-5.90); RED CELL DISTRIBUTION WIDTH 14.4 % (11.6-17.2); WHITE BLOOD COUNT 3.8 TH/MM3 (4.0-11.0)
[2016-11-21 07:00] LABS: BICARBONATE 25.6 MEQ/L (21.0-32.0); POTASSIUM 4.5 MEQ/L (3.5-5.1)
[2016-11-21 08:00] VITALS: BP 123/70; PULSE 75; RESP 19; TEMP 97.6; O2SAT 98
[2016-11-21] MEDS: clonazePAM 0.5 MG TAB PO PRN ×2 (08:45→21:36)
[2016-11-21] MEDS: LACTOBACILLUS ACIDOPHILUS TAB PO SCH ×3 (08:45→18:25)
[2016-11-21] MEDS: DOCUSATE SODIUM 50 MG/SENNA 8.6 MG TAB PO SCH ×2 (08:45→20:49)
[2016-11-21] MEDS: POLYETHYLENE GLYCOL 17 GM PKG PO SCH (08:45)
[2016-11-21] MEDS: SODIUM CHLORIDE 0.9% FLUSH 10 ML FLUSH IV FLUSH SCH ×2 (08:46→20:49)
[2016-11-21 12:00] VITALS: BP 129/74; PULSE 81; RESP 17; TEMP 97.4; O2SAT 98
[2016-11-21] MEDS ORDERED: IRON SUCROSE INJ 200 MG in SODIUM CHLORIDE 0.9% INJ 100 ML IV ONE (12:15)
[2016-11-21] MEDS ORDERED: EPOETIN ALFA 20,000 UNITS/ML VIAL SQ ONE (12:15)
--- NOTE | 2016-11-21 12:49 | HHI.NPPN ---
Subjective History of Present Illness Hx of ARF Rhabdo Additional Remarks Patient is alert, no SOB, doing better. Objective Data Data 11/20/16 11/21/16 18:59 06:59 Intake Total 700 ml 960 ml Output Total 1475 ml 2950 ml Balance -775 ml -1990 ml Intake Oral 600 ml 960 ml IV Total 100 ml Output Urine Total 1475 ml 2950 ml # Bowel Movements 1 0 Vital Signs Date Time Temp Pulse Resp B/P Pulse Ox O2 Delivery O2 Flow Rate FiO2 11/21/16 12:00 97.4 81 17 129/74 98 11/21/16 08:00 97.6 75 19 123/70 98 11/21/16 00:00 99.0 86 18 135/75 99 11/20/16 20:00 97.6 85 20 140/80 100 11/20/16 16:00 97.9 83 19 127/73 98 -: 11/21/16 0605 11/21/16 0605 Physical Exam General Appearance: No Acute Distress, Comfortable Neck Neck Exam: Neck Supple Pulmonary Resp Exam: Clear Bilaterally, Breath Sounds Equal Cardiology CV Exam: Regular, Normal Sinus Rhythm Gastrointestinal/Abdomen GI Exam: Soft, Non-Tender, Bowel Sounds Present Extremeties Extremities Exam: Moderate Edema (rt leg), Pitting Edema Assessment/Plan Problem List: (1) Acute renal failure Plan: Patient off hemodialysis since passing urine Cr 5.4 resolving ATN give Iron/Epogen follow BMP Cr slowly declining Anemia getting Epogen. Follow urine out put and Creatinine. Look for renal recovery. (2) Compartment syndrome Plan: Orthopedic is following (3) Hyponatremia Plan: Due to renal failure (4) Rhabdomyolysis Plan: As above Gonzalo Navarrete MD Nov 21, 2016 12:49
--- NOTE | 2016-11-21 13:32 | HHI.PR ---
Subjective Remarks Follow-up acute on chronic kidney disease requiring hemodialysis 11/17/16-patient seen and examined, denies any abdominal pain nausea or vomiting. No acute event overnight. 11/18/16-patient seen and examined; complains of lower extremity pain. Per PT patient almost lost his balance while ambulating. Otherwise stable. 11/19/16-patient seen and examined, reports improving urine output. Improving creatinine. With some right lower extremity pain otherwise afebrile. 11/20/16-patient seen and examined, complains of right lower extremity pain otherwise stable. good urine output 11/21/16-patient seen and examined, good urine output. Patient requesting increase pain management. Case discussed with nephrology. Objective Vitals Vital Signs Date Time Temp Pulse Resp B/P Pulse Ox O2 Delivery O2 Flow Rate FiO2 11/21/16 12:00 97.4 81 17 129/74 98 11/21/16 08:00 97.6 75 19 123/70 98 11/21/16 00:00 99.0 86 18 135/75 99 11/20/16 20:00 97.6 85 20 140/80 100 11/20/16 16:00 97.9 83 19 127/73 98 I/O 11/20/16 11/20/16 11/20/16 11/21/16 11/21/16 11/21/16 06:59 14:59 22:59 06:59 14:59 22:59 Intake Total 480 ml 700 ml 480 ml 480 ml Output Total 800 ml 1475 ml 1150 ml 1800 ml Balance -320 ml -775 ml -670 ml -1320 ml Intake Oral 480 ml 600 ml 480 ml 480 ml IV Total 100 ml Output Urine Total 800 ml 1475 ml 1150 ml 1800 ml # Bowel Movements 0 1 0 0 Result Diagram: 11/21/1660411/21/16604 Objective Remarks GENERAL: NAD SKIN: Warm and dry. HEAD: Normocephalic. EYES: No scleral icterus. No injection or drainage. NECK: Supple, trachea midline. No JVD or lymphadenopathy. CARDIOVASCULAR: Regular rate and rhythm without murmurs, gallops, or rubs. RESPIRATORY: Breath sounds equal bilaterally. No accessory muscle use. GASTROINTESTINAL: Abdomen soft, non-tender, nondistended. MUSCULOSKELETAL: No cyanosis, or edema. Dressing over right lower extremity BACK: Nontender without obvious deformity. No CVA tenderness. Procedures s/p Irrigation and debridement of right thigh wound, split-thickness skin graft 200 cm 11/10/[address] Wakefield. A/P Problem List: (1) Substance abuse ICD Code: F19.10 Status: Chronic (2) Rhabdomyolysis ICD Code: M62.82 Status: Acute (3) Compartment syndrome ICD Code: T79.A0XA Status: Acute (4) Acute renal failure ICD Code: N17.9 Status: Acute (5) Severe sepsis ICD Code: A41.9 Status: Acute (6) Myositis ICD Code: M60.9 Status: Acute Assessment and Plan 36-year-old man with Compartment syndrome, right anterior, posterior, adductor, buttock compartment: -Status post fasciotomy and revision. - s/p Irrigation and debridement of right thigh wound, split-thickness skin graft 200 cm 11/10/16 - s/p wound VAC removed and continue with dressing changes: Daily dressing changes with Xeroform 4 x 4's ABDs and paper tape and Alejandro wrap - Pain control with Percocet and IV Dilaudid. Hypertension - Continue amlodipine 10 mg PO daily and clonidine 0.1mg po BID. Sepsis, secondary to myositis - s/p fasciotomy quadriceps, hamstring, gluteus medius/karly/minimus with wound vac placement 10/[address] Simms. - cultures negative. - Completed cefepime/flagyl Acute renal failure secondary to rhabdomyolysis - Dialysis T//THU per Nephrology however currently on hold as patient with good urine outputs. - Continue with HD per Nephro's recommendations. - awaiting renal recovery. Cr trending down Anemia of chronic disease - s/p transfusion of 2 unit of packed red blood cells - Secondary to low iron, transfused Venofer 200mg 1 11/20/16 - Epogen per nephrology Transaminitis - Resolved. Constipation - Resolved and continue Colace and Maalox Depression -Continue trazodone and Klonopin by psychiatrist. yeast Infection Start nystatin DVT Prophylaxis: Heparin Júnior Aguilar MD Nov 21, 2016 13:32
[2016-11-21] MEDS: NYSTATIN 100,000 U/GM PWD 15 GM BTL TOPICAL SCH ×2 (14:03→21:00)
[2016-11-21 16:00] VITALS: BP 131/78; PULSE 77; RESP 19; TEMP 97.5; O2SAT 98
[2016-11-21 20:19] VITALS: BP 138/78; PULSE 83; RESP 18; TEMP 97.3; O2SAT 99
[2016-11-21] MEDS: traZODone HCL 100 MG TAB PO SCH (21:36)
[2016-11-22 00:40] VITALS: BP 142/82; PULSE 84; RESP 18; TEMP 98.3; O2SAT 99
[2016-11-22] MEDS: cloNIDine HCL 0.1 MG TAB PO SCH ×2 (01:49→13:46)
[2016-11-22] MEDS: HYDROmorphone HCL PF 1 MG/ML VIAL IV PUSH PRN ×6 (01:50→21:31)
[2016-11-22] MEDS: oxyCODONE/ACETAMINOPHEN 5 MG/325 MG TAB PO PRN ×5 (03:06→20:24)
[2016-11-22 04:03] LABS: BICARBONATE 24.5 MEQ/L (21.0-32.0); POTASSIUM 4.5 MEQ/L (3.5-5.1)
[2016-11-22 04:12] LABS: AUTOMATED NEUTROPHIL # 3.2 TH/MM3 (1.8-7.7); BASOPHIL % 0.6 % (0.0-2.0); EOSINOPHIL # 0.1 TH/MM3 (0-0.4); EOSINOPHIL % 2.5 % (0.0-4.0); HEMATOCRIT 25.9 % (39.0-51.0); HEMO FLAGS DIFF FINAL; LYMPH % 22.5 % (9.0-44.0); LYMPHOCYTE # 1.1 TH/MM3 (1.0-4.8); MEAN CORPUSCULAR HEMOGLOBIN 29.9 PG (27.0-34.0); MEAN CORPUSCULAR HGB CONC 34.4 % (32.0-36.0); MONO % 7.8 % (0.0-8.0); NEUT % 66.6 % (16.0-70.0); PLATELET COUNT 209 TH/MM3 (150-450); RED BLOOD COUNT 2.98 MIL/MM3 (4.50-5.90); RED CELL DISTRIBUTION WIDTH 14.3 % (11.6-17.2); WHITE BLOOD COUNT 4.8 TH/MM3 (4.0-11.0)
[2016-11-22] MEDS: oxyCODONE HCL 10 MG CONTROLLED RELEASE TAB PO SCH ×3 (06:07→22:26)
[2016-11-22 08:00] VITALS: BP 131/75; PULSE 78; RESP 15; TEMP 97.6; O2SAT 97
[2016-11-22] MEDS: POLYETHYLENE GLYCOL 17 GM PKG PO SCH (08:15)
[2016-11-22] MEDS: DOCUSATE SODIUM 50 MG/SENNA 8.6 MG TAB PO SCH ×2 (08:16→20:24)
[2016-11-22] MEDS: LACTOBACILLUS ACIDOPHILUS TAB PO SCH ×3 (08:16→16:20)
[2016-11-22] MEDS: SODIUM CHLORIDE 0.9% FLUSH 10 ML FLUSH IV FLUSH SCH ×2 (08:19→20:24)
[2016-11-22] MEDS: NYSTATIN 100,000 U/GM PWD 15 GM BTL TOPICAL SCH ×2 (08:19→20:24)
[2016-11-22] MEDS: clonazePAM 0.5 MG TAB PO PRN ×2 (09:52→22:26)
--- NOTE | 2016-11-22 11:36 | HHI.PR ---
Subjective Remarks Follow-up acute on chronic kidney disease requiring hemodialysis 11/17/16-patient seen and examined, denies any abdominal pain nausea or vomiting. No acute event overnight. 11/18/16-patient seen and examined; complains of lower extremity pain. Per PT patient almost lost his balance while ambulating. Otherwise stable. 11/19/16-patient seen and examined, reports improving urine output. Improving creatinine. With some right lower extremity pain otherwise afebrile. 11/20/16-patient seen and examined, complains of right lower extremity pain otherwise stable. good urine output 11/21/16-patient seen and examined, good urine output. Patient requesting increase pain management. Case discussed with nephrology. 11/22/16-patient seen and examined, reports some slight improvement of right lower extremity pain. Continues to have good urine output Objective Vitals Vital Signs Date Time Temp Pulse Resp B/P Pulse Ox O2 Delivery O2 Flow Rate FiO2 11/22/16 08:00 97.6 78 15 131/75 97 11/22/16 00:40 98.3 84 18 142/82 99 11/21/16 20:19 97.3 83 18 138/78 99 11/21/16 16:00 97.5 77 19 131/78 98 11/21/16 12:00 97.4 81 17 129/74 98 I/O 11/21/16 11/21/16 11/21/16 11/22/16 11/22/16 11/22/16 06:59 14:59 22:59 06:59 14:59 22:59 Intake Total 480 ml 700 ml 100 ml Output Total 1800 ml 1550 ml 3850 ml 1200 ml Balance -1320 ml -850 ml -3750 ml -1200 ml Intake Oral 480 ml 600 ml 100 ml IV Total 100 ml Output Urine Total 1800 ml 1550 ml 3850 ml 1200 ml # Bowel Movements 0 0 Result Diagram: 11/22/1631211/22/16312 Objective Remarks GENERAL: NAD SKIN: Warm and dry. HEAD: Normocephalic. EYES: No scleral icterus. No injection or drainage. NECK: Supple, trachea midline. No JVD or lymphadenopathy. CARDIOVASCULAR: Regular rate and rhythm without murmurs, gallops, or rubs. RESPIRATORY: Breath sounds equal bilaterally. No accessory muscle use. GASTROINTESTINAL: Abdomen soft, non-tender, nondistended. MUSCULOSKELETAL: No cyanosis, or edema. BACK: Nontender without obvious deformity. No CVA tenderness. Procedures s/p Irrigation and debridement of right thigh wound, split-thickness skin graft 200 cm 11/10/[address] Wakefield. A/P Problem List: (1) Substance abuse ICD Code: F19.10 Status: Chronic (2) Rhabdomyolysis ICD Code: M62.82 Status: Acute (3) Compartment syndrome ICD Code: T79.A0XA Status: Acute (4) Acute renal failure ICD Code: N17.9 Status: Acute (5) Severe sepsis ICD Code: A41.9 Status: Acute (6) Myositis ICD Code: M60.9 Status: Acute Assessment and Plan 36-year-old man with Compartment syndrome, right anterior, posterior, adductor, buttock compartment: -Status post fasciotomy and revision. - s/p Irrigation and debridement of right thigh wound, split-thickness skin graft 200 cm 11/10/16 - s/p wound VAC removed and continue with dressing changes: Daily dressing changes with Xeroform 4 x 4's ABDs and paper tape and Alejandro wrap - Pain control with Percocet and IV Dilaudid. Hypertension - Continue amlodipine 10 mg PO daily and clonidine 0.1mg po BID. Sepsis, secondary to myositis-resolved Acute renal failure secondary to rhabdomyolysis - Dialysis T//THU per Nephrology however currently on hold as patient with good urine outputs. - Continue with HD per Nephro's recommendations however patient has been off HD. - awaiting renal recovery. Cr trending down -Monitor BUN and creatinine Anemia of chronic disease - s/p transfusion of 2 unit of packed red blood cells - Secondary to low iron, transfused Venofer 200mg 1 11/20/16 - Epogen per nephrology Transaminitis - Resolved. Constipation - Resolved and continue Colace and Maalox Depression -Continue trazodone and Klonopin by psychiatrist. yeast Infection Continue nystatin DVT Prophylaxis: Júnior Morel MD Nov 22, 2016 11:36
[2016-11-22 12:00] VITALS: BP 124/76; PULSE 95; RESP 18; TEMP 98.1; O2SAT 98
[2016-11-22 17:05] VITALS: BP 137/84; PULSE 81; RESP 18; TEMP 98.3; O2SAT 98
--- NOTE | 2016-11-22 18:00 | HHI.NPPN ---
Subjective History of Present Illness Hx of ARF Rhabdo Additional Remarks Patient is alert, no SOB, doing better. Objective Data Data 11/21/16 11/22/16 19:00 07:00 Intake Total 700 ml 100 ml Output Total 1550 ml 5050 ml Balance -850 ml -4950 ml Intake Oral 600 ml 100 ml IV Total 100 ml Output Urine Total 1550 ml 5050 ml # Bowel Movements 0 Vital Signs Date Time Temp Pulse Resp B/P Pulse Ox O2 Delivery O2 Flow Rate FiO2 11/22/16 17:05 98.3 81 18 137/84 98 11/22/16 12:00 98.1 95 18 124/76 98 11/22/16 08:00 97.6 78 15 131/75 97 11/22/16 00:40 98.3 84 18 142/82 99 11/21/16 20:19 97.3 83 18 138/78 99 -: 11/22/16 0313 11/22/16 0313 Physical Exam General Appearance: No Acute Distress, Comfortable Neck Neck Exam: Neck Supple Pulmonary Resp Exam: Clear Bilaterally, Breath Sounds Equal Cardiology CV Exam: Regular, Normal Sinus Rhythm Gastrointestinal/Abdomen GI Exam: Soft, Non-Tender, Bowel Sounds Present Extremeties Extremities Exam: Moderate Edema (rt leg), Pitting Edema Assessment/Plan Problem List: (1) Acute renal failure Plan: Patient off hemodialysis since passing urine Cr 5.06 resolving ATN give Iron/Epogen follow BMP Cr slowly declining Anemia getting Epogen. Follow urine out put and Creatinine. i will follow less frequently (2) Compartment syndrome Plan: Orthopedic is following (3) Hyponatremia Plan: Due to renal failure (4) Rhabdomyolysis Plan: As above Gonzalo Navarrete MD Nov 22, 2016 18:00
[2016-11-22 20:00] VITALS: BP 136/79; PULSE 84; RESP 18; TEMP 97.9; O2SAT 100
[2016-11-22] MEDS: traZODone HCL 100 MG TAB PO SCH (20:23)
[2016-11-23] VITALS: BP 142/80; PULSE 87; RESP 18; TEMP 99; O2SAT 98
[2016-11-23] MEDS: oxyCODONE/ACETAMINOPHEN 5 MG/325 MG TAB PO PRN ×6 (00:22→21:32)
[2016-11-23] MEDS: cloNIDine HCL 0.1 MG TAB PO SCH ×2 (01:32→12:15)
[2016-11-23] MEDS: HYDROmorphone HCL PF 1 MG/ML VIAL IV PUSH PRN ×6 (01:33→23:13)
[2016-11-23] MEDS: oxyCODONE HCL 10 MG CONTROLLED RELEASE TAB PO SCH ×3 (06:34→21:32)
[2016-11-23 08:00] VITALS: BP 122/77; PULSE 78; RESP 18; TEMP 96.6; O2SAT 99
[2016-11-23] MEDS: POLYETHYLENE GLYCOL 17 GM PKG PO SCH (08:50)
[2016-11-23] MEDS: LACTOBACILLUS ACIDOPHILUS TAB PO SCH ×3 (08:50→17:08)
[2016-11-23] MEDS: DOCUSATE SODIUM 50 MG/SENNA 8.6 MG TAB PO SCH ×2 (08:50→21:32)
[2016-11-23] MEDS: NYSTATIN 100,000 U/GM PWD 15 GM BTL TOPICAL SCH ×2 (08:51→21:00)
[2016-11-23] MEDS: SODIUM CHLORIDE 0.9% FLUSH 10 ML FLUSH IV FLUSH SCH ×2 (08:51→21:33)
[2016-11-23] MEDS: clonazePAM 0.5 MG TAB PO PRN (11:59)
[2016-11-23 12:00] VITALS: BP 135/76; PULSE 80; RESP 16; TEMP 96.8; O2SAT 100
--- NOTE | 2016-11-23 12:20 | HHI.PR ---
Subjective Remarks Follow-up acute on chronic kidney disease requiring hemodialysis 11/17/16-patient seen and examined, denies any abdominal pain nausea or vomiting. No acute event overnight. 11/18/16-patient seen and examined; complains of lower extremity pain. Per PT patient almost lost his balance while ambulating. Otherwise stable. 11/19/16-patient seen and examined, reports improving urine output. Improving creatinine. With some right lower extremity pain otherwise afebrile. 11/20/16-patient seen and examined, complains of right lower extremity pain otherwise stable. good urine output 11/21/16-patient seen and examined, good urine output. Patient requesting increase pain management. Case discussed with nephrology. 11/22/16-patient seen and examined, reports some slight improvement of right lower extremity pain. Continues to have good urine output 11/23/16-patient seen and examined, able to move his right lower extremity. Good urine output Objective Vitals Vital Signs Date Time Temp Pulse Resp B/P Pulse Ox O2 Delivery O2 Flow Rate FiO2 11/23/16 12:00 96.8 80 16 135/76 100 11/23/16 08:00 96.6 78 18 122/77 99 11/23/16 05:48 18 11/23/16 00:00 99.0 87 18 142/80 98 11/22/16 22:20 20 11/22/16 20:00 97.9 84 18 136/79 100 11/22/16 17:05 98.3 81 18 137/84 98 I/O 11/22/16 11/22/16 11/22/16 11/23/16 11/23/16 11/23/16 07:00 15:00 23:00 07:00 15:00 23:00 Intake Total 480 ml 360 ml Output Total 1200 ml 600 ml 1200 ml 1050 ml Balance -1200 ml -600 ml -720 ml -690 ml Intake Oral 480 ml 360 ml IV Total 0 ml Output Urine Total 1200 ml 600 ml 1200 ml 1050 ml Result Diagram: 11/22/1631211/22/16312 Objective Remarks GENERAL: NAD SKIN: Warm and dry. HEAD: Normocephalic. EYES: No scleral icterus. No injection or drainage. NECK: Supple, trachea midline. No JVD or lymphadenopathy. CARDIOVASCULAR: Regular rate and rhythm without murmurs, gallops, or rubs. RESPIRATORY: Breath sounds equal bilaterally. No accessory muscle use. GASTROINTESTINAL: Abdomen soft, non-tender, nondistended. MUSCULOSKELETAL: No cyanosis, or edema. BACK: Nontender without obvious deformity. No CVA tenderness. Procedures s/p Irrigation and debridement of right thigh wound, split-thickness skin graft 200 cm 11/10/[address] Wakefield. A/P Problem List: (1) Substance abuse ICD Code: F19.10 Status: Chronic (2) Rhabdomyolysis ICD Code: M62.82 Status: Acute (3) Compartment syndrome ICD Code: T79.A0XA Status: Acute (4) Acute renal failure ICD Code: N17.9 Status: Acute (5) Severe sepsis ICD Code: A41.9 Status: Acute (6) Myositis ICD Code: M60.9 Status: Acute Assessment and Plan 36-year-old man with Compartment syndrome, right anterior, posterior, adductor, buttock compartment: -Status post fasciotomy and revision. - s/p Irrigation and debridement of right thigh wound, split-thickness skin graft 200 cm 11/10/16 - s/p wound VAC removed and continue with dressing changes: Daily dressing changes with Xeroform 4 x 4's ABDs and paper tape and Alejandro wrap - Pain control with Percocet and IV Dilaudid. Hypertension-normotensive - Continue amlodipine 10 mg PO daily and clonidine 0.1mg po BID. Sepsis, secondary to myositis-resolved Acute renal failure secondary to rhabdomyolysis - Dialysis T//SAT per Nephrology however currently on hold as patient with good urine outputs. - Continue with HD per Nephro's recommendations however patient has been off HD. - awaiting renal recovery. Cr trending down -Monitor BUN and creatinine Anemia of chronic disease Iron deficiency anemia - s/p transfusion of 2 unit of packed red blood cells - Secondary to low iron, transfused Venofer 200mg 1 11/20/16 - Epogen per nephrology Transaminitis - Resolved. Constipation - Resolved and continue Colace and Maalox Depression -Continue trazodone and Klonopin by psychiatrist. yeast Infection-improving Continue nystatin DVT Prophylaxis: Heparin Júnior Aguilar MD Nov 23, 2016 12:20
[2016-11-23 16:00] VITALS: BP 124/65; PULSE 75; RESP 16; TEMP 97.2; O2SAT 98
[2016-11-23 20:00] VITALS: BP 130/78; PULSE 80; RESP 18; TEMP 98.5; O2SAT 99
[2016-11-23] MEDS: traZODone HCL 100 MG TAB PO SCH (21:32)
[2016-11-24] VITALS: BP 128/78; PULSE 82; RESP 18; TEMP 98.8; O2SAT 97
[2016-11-24] MEDS: clonazePAM 0.5 MG TAB PO PRN (01:52)
[2016-11-24] MEDS: cloNIDine HCL 0.1 MG TAB PO SCH ×2 (01:53→12:13)
[2016-11-24] MEDS: oxyCODONE/ACETAMINOPHEN 5 MG/325 MG TAB PO PRN ×4 (01:53→14:13)
[2016-11-24] MEDS: HYDROmorphone HCL PF 1 MG/ML VIAL IV PUSH PRN ×3 (03:13→12:13)
[2016-11-24] MEDS: oxyCODONE HCL 10 MG CONTROLLED RELEASE TAB PO SCH ×2 (05:59→15:51)
--- NOTE | 2016-11-24 07:26 | PD.ORT.PN ---
Subjective Subjective Remarks Resting comfortably Objective Vitals Vital Signs Date Time Temp Pulse Resp B/P Pulse Ox O2 Delivery O2 Flow Rate FiO2 11/24/16 00:00 98.8 82 18 128/78 97 11/23/16 20:00 98.5 80 18 130/78 99 11/23/16 16:00 97.2 75 16 124/65 98 11/23/16 12:00 96.8 80 16 135/76 100 11/23/16 08:00 96.6 78 18 122/77 99 I/O 11/23/16 11/23/16 11/23/16 11/24/16 11/24/16 11/24/16 07:00 15:00 23:00 07:00 15:00 23:00 Intake Total 360 ml 1000 ml 360 ml 240 ml Output Total 1050 ml 1200 ml 650 ml 825 ml Balance -690 ml -200 ml -290 ml -585 ml Intake Oral 360 ml 1000 ml 360 ml 240 ml Output Urine Total 1050 ml 1200 ml 650 ml 825 ml # Bowel Movements 1 Result Diagram: 11/22/16 0313 11/22/16 0313 Imaging Last Impressions Ankle X-Ray 11/08/16 0000 Signed Impressions: Service Date/Time: Tuesday, November 08, 2016 20:48 - CONCLUSION: Unremarkable study. Holly Hallman MD Procedures Right Leg compartment syndrome s/p fasciotomies with subsequent wound closures and vac application Objective Remarks RLE: Clean dry dressings and intact, skin graft is healthy and is maintaining integrity. Incision well aligned with no erythema or drainage. Skin graft harvest site Xeroform is present Continued lack of sensation over ankle and foot and minimal movement of the leg actively. Intact distal pulses Assessment & Plan Problem List: (1) Compartment syndrome (2) Rhabdomyolysis (3) Substance abuse (4) IV drug abuse Assessment and Plan 1) Right Leg compartment syndrome s/p fasciotomies with subsequent wound closures and vac application with split thickness skin graft- POD 14 (11/10) Daily dressing changes with Xeroform 4 x 4's ABDs and paper tape and Alejandro wrap over skin graft Leave Xeroform place at skin graft harvest site. May trim loose edges Xeroform and Primapore over incision PT weightbearing as tolerated Case management for home discharge plan ortho cleared Follow-up with Dr. Walker or PA in 2 weeks Sean Alvarez Jr. Nov 24, 2016 07:26
[2016-11-24 08:00] VITALS: BP 131/75; PULSE 77; RESP 14; TEMP 98; O2SAT 98
[2016-11-24] MEDS: POLYETHYLENE GLYCOL 17 GM PKG PO SCH (09:19)
[2016-11-24] MEDS: DOCUSATE SODIUM 50 MG/SENNA 8.6 MG TAB PO SCH (09:19)
[2016-11-24] MEDS: LACTOBACILLUS ACIDOPHILUS TAB PO SCH ×2 (09:19→12:13)
[2016-11-24] MEDS: NYSTATIN 100,000 U/GM PWD 15 GM BTL TOPICAL SCH (09:22)
--- NOTE | 2016-11-24 10:52 | HHI.PR ---
Subjective Remarks Follow-up acute on chronic kidney disease requiring hemodialysis 11/17/16-patient seen and examined, denies any abdominal pain nausea or vomiting. No acute event overnight. 11/18/16-patient seen and examined; complains of lower extremity pain. Per PT patient almost lost his balance while ambulating. Otherwise stable. 11/19/16-patient seen and examined, reports improving urine output. Improving creatinine. With some right lower extremity pain otherwise afebrile. 11/20/16-patient seen and examined, complains of right lower extremity pain otherwise stable. good urine output 11/21/16-patient seen and examined, good urine output. Patient requesting increase pain management. Case discussed with nephrology. 11/22/16-patient seen and examined, reports some slight improvement of right lower extremity pain. Continues to have good urine output 11/23/16-patient seen and examined, able to move his right lower extremity. Good urine output 11/24/16-patient seen and examined; still complain of right foot pain, however patient was cleared for discharge by orthopedic surgery. Continue to have good urine output. Objective Vitals Vital Signs Date Time Temp Pulse Resp B/P Pulse Ox O2 Delivery O2 Flow Rate FiO2 11/24/16 08:00 98.0 77 14 131/75 98 11/24/16 00:00 98.8 82 18 128/78 97 11/23/16 20:00 98.5 80 18 130/78 99 11/23/16 16:00 97.2 75 16 124/65 98 11/23/16 12:00 96.8 80 16 135/76 100 I/O 11/23/16 11/23/16 11/23/16 11/24/16 11/24/16 11/24/16 07:00 15:00 23:00 07:00 15:00 23:00 Intake Total 360 ml 1000 ml 360 ml 240 ml Output Total 1050 ml 1200 ml 650 ml 825 ml Balance -690 ml -200 ml -290 ml -585 ml Intake Oral 360 ml 1000 ml 360 ml 240 ml Output Urine Total 1050 ml 1200 ml 650 ml 825 ml # Bowel Movements 1 Result Diagram: 11/22/16 0313 11/22/16 0313 Imaging Last Impressions Foot X-Ray 11/15/16 0000 Signed Impressions: Service Date/Time: Tuesday, November 15, 2016 17:30 - CONCLUSION: 1. No fracture. 2. There is soft tissue swelling. Júnior Miner MD Lower Extremity Ultrasound 11/09/16 0000 Signed Impressions: Service Date/Time: Wednesday, November 09, 2016 10:34 - CONCLUSION: No evidence of DVT. Medial thigh incision with underlying fluid collection. Sandro Luis MD Ankle X-Ray 11/08/16 0000 Signed Impressions: Service Date/Time: Tuesday, November 08, 2016 20:48 - CONCLUSION: Unremarkable study. Holly Hallman MD Objective Remarks GENERAL: NAD SKIN: Warm and dry. HEAD: Normocephalic. EYES: No scleral icterus. No injection or drainage. NECK: Supple, trachea midline. No JVD or lymphadenopathy. CARDIOVASCULAR: Regular rate and rhythm without murmurs, gallops, or rubs. RESPIRATORY: Breath sounds equal bilaterally. No accessory muscle use. GASTROINTESTINAL: Abdomen soft, non-tender, nondistended. MUSCULOSKELETAL: No cyanosis, or edema. BACK: Nontender without obvious deformity. No CVA tenderness. Procedures s/p Irrigation and debridement of right thigh wound, split-thickness skin graft 200 cm 11/10/[address] Wakefield. A/P Problem List: (1) Substance abuse ICD Code: F19.10 Status: Chronic (2) Rhabdomyolysis ICD Code: M62.82 Status: Acute (3) Compartment syndrome ICD Code: T79.A0XA Status: Resolved (4) Acute renal failure ICD Code: N17.9 Status: Acute (5) Severe sepsis ICD Code: A41.9 Status: Resolved (6) Myositis ICD Code: M60.9 Status: Acute Assessment and Plan 36-year-old man with Compartment syndrome, right anterior, posterior, adductor, buttock compartment: -Status post fasciotomy and revision. - s/p Irrigation and debridement of right thigh wound, split-thickness skin graft 200 cm 11/10/16 - s/p wound VAC removed and continue with dressing changes: Daily dressing changes with Xeroform 4 x 4's ABDs and paper tape and Alejandro wrap - Pain control with Percocet and IV Dilaudid. - Patient has been cleared for discharge by orthopedic surgery Hypertension-normotensive - Continue amlodipine 10 mg PO daily and clonidine 0.1mg po BID. Sepsis, secondary to myositis-resolved Acute renal failure secondary to rhabdomyolysis - Dialysis T/TH/SAT per Nephrology however currently on hold as patient with good urine outputs. - Continue with HD per Nephro's recommendations however patient has been off HD. - Cr trending down -Monitor BUN and creatinine Anemia of chronic disease Iron deficiency anemia - s/p transfusion of 2 unit of packed red blood cells - Secondary to low iron, transfused Venofer 200mg 1 11/20/16 - Epogen per nephrology Transaminitis - Resolved. Constipation - Resolved and continue Colace and Maalox Depression -Continue trazodone and Klonopin by psychiatrist. yeast Infection-improving Continue nystatin DVT Prophylaxis: Heparin Júnior Aguilar MD Nov 24, 2016 10:52
[2016-11-24] MEDS ORDERED: TRAZ50TA12 PO (10:55)
[2016-11-24] MEDS ORDERED: AMLO10 PO (10:55)
[2016-11-24] MEDS ORDERED: CLON.1 PO (10:55)
[2016-11-24] MEDS ORDERED: SENN1TAB PO (10:55)
[2016-11-24] MEDS ORDERED: OXYC1TAB63 PO (10:55)
[2016-11-24] MEDS ORDERED: CLON.5 PO (10:55)
--- NOTE | 2016-11-24 11:02 | HHI.DS ---
Discharge Summary Admission Date Nov 03, 2016 at 13:13 Discharge Date: Nov 24, 2016 Admitting Diagnosis (1) Substance abuse ICD Code: F19.10 (2) Rhabdomyolysis ICD Code: M62.82 (3) Compartment syndrome ICD Code: T79.A0XA (4) Acute renal failure ICD Code: N17.9 (5) Severe sepsis ICD Code: A41.9 (6) Myositis ICD Code: M60.9 Procedures s/p Irrigation and debridement of right thigh wound, split-thickness skin graft 200 cm 11/10/[address] Wakefield. Brief History - From Admission Mr. Craig is a 35-year-old male with a history of IV drug use who was transferred back to [place] from [facility] after an inadvertent transfer to [facility]. Patient originally presented to [place] on 2016 due to back pain that started 2 weeks before presentation to the ED. He goes to a pain clinic in [place] for suboxone. There he was prescribed 5 day course of prednisone. Pain continued to worsen and he took heroin to self medicate several times in the last week (states injection site was upper extremity). For 2 days prior to coming to the hospital patient experienced excruciating pain and inability to ambulate. MRI was negative for epidural abscess. However abnormal enhancement of erector spinae, gluteus karly/ medius and thigh were felt to be related to myositis. On 10/27/2016 orthopedic surgery performed surgical release of anterior thigh compartment, posterior thigh compartment, adductor thigh compartment and gluteus karly, medius and minimus buttocks compartment with trochanteric bursectomy and muscular debridement of gluteus medius. On 10/31/2016 patient underwent irrigation and debridement of right hip, irrigation debridement of right thigh, closure of lateral hip and thigh wound as well as wound VAC placement. During previous admission, nephrology was following closely with regards to acute renal failure requiring dialysis. Infectious disease followed patient closely as well. Today, patient was seen after he was transferred back to [facility]. He denies any chest pain, shortness of breath, fever or chills. He reports lack of appetite. No changes in bladder or bowel habits. CBC/BMP: 11/22/16 0313 11/22/16 0313 Significant Findings Laboratory Tests Test 11/22/16 03:13 Red Blood Count 2.98 MIL/MM3 (4.50-5.90) Hemoglobin 8.9 GM/DL (13.0-17.0) Hematocrit 25.9 % (39.0-51.0) Blood Urea Nitrogen 51 MG/DL (7-18) Creatinine 5.06 MG/DL (0.60-1.30) Estimat Glomerular Filtration 13 ML/MIN (>89) Rate PE at Discharge GENERAL: NAD SKIN: Warm and dry. HEAD: Normocephalic. EYES: No scleral icterus. No injection or drainage. NECK: Supple, trachea midline. No JVD or lymphadenopathy. CARDIOVASCULAR: Regular rate and rhythm without murmurs, gallops, or rubs. RESPIRATORY: Breath sounds equal bilaterally. No accessory muscle use. GASTROINTESTINAL: Abdomen soft, non-tender, nondistended. MUSCULOSKELETAL: No cyanosis, or edema. BACK: Nontender without obvious deformity. No CVA tenderness. Hospital Course Patient initially admitted secondary to sepsis due to myositis for which infectious disease patient was consulted and he was started on IV antibiotics event to worsening renal functions due to rhabdomyolysis nephrology was consulted and patient underwent hemodialysis, however renal function improved. And after a few sessions of HD, patient renal function was monitored with improving renal indices. His stay was complicated by compartment syndrome for which orthopedic surgery was consulted and patient underwent fasciotomy and revision; as well as irrigation and debridement of right type wound with split thickness skin graft on 11/10/16. Eventually wound VAC was discontinued. And patient has dressing change. And management was provided accordingly, and physical therapy was consulted. He was transfused both PRBC as well as Venofer with monitoring of H&H. Patient completed oral antibiotics. He was started on oral antihypertensive medications including Norvasc and Clonidine. Prior to discharge, patient's condition improved and vital remain stable. Pt Condition on Discharge: Stable Discharge Disposition: Disch w/ Home Health Serv Discharge Time: > 30 minutes Discharge Instructions DIET: Follow Instructions for: Heart Healthy Diet Activities you can perform: Regular-No Restrictions Follow up Referrals: Nephrology Orthopedics - 2 Weeks @ [facility] with Dickson Wakefield MD PCP Follow-up - 1 Week New Orders: BASIC METABOLIC PROF - 3-5 Days New Medications: Walker/Adult/Folding (Walker/Adult/Folding) 1 Mis Mis 1 EA .ROUTE DIRECTED #1 Ref 0 EA Wheelchair Elevated Leg (Wheelchair Elevated Leg) 1 Mis Mis 1 EA .ROUTE DIRECTED #1 Ref 0 EA Amlodipine (Norvasc) 10 Mg Tab 10 MG PO DAILY Blood Pressure Management #30 Ref 3 TAB Clonazepam (Klonopin) 0.5 Mg Tab 0.5 MG PO Q12HR PRN anxiety #20 TAB Clonidine (Catapres) 0.1 Mg Tab 0.1 MG PO Q12H Blood Pressure Management #60 Ref 3 TAB Oxycodone-Acetaminophen (Oxycodone-Acetaminophen) 5-325 mg Tab 1 TAB PO Q4H PRN pain 1-7 #20 TAB Sennosides-Docusate Sodium (Senna Plus 8.6-50 mg) 1 Tab Tab 1 TAB PO BID Bowel Management #20 TAB Trazodone (Trazodone) 50 Mg Tab 100 MG PO HS Control Anxiety #30 TAB Continued Medications: Buprenorphine HCl-Naloxone HCl (Bunavail 6.3-1 mg) 1 Mis Mis Zubsolv 5.7-1.4 mg (Zubsolv 5.7-1.4 mg) 1 Sub Sub 1 TAB SL TID Discontinued Medications: Diazepam (Valium) 10 Mg Tab 10 MG PO BID PRN PAIN SCALE 5 TO 10 #1 Ref 0 TAB ([toradol]) Júnior Aguilar MD Nov 24, 2016 11:02
[2016-11-24] MEDS ORDERED: OXYC-259 PO (11:03)
[2016-11-24 12:00] VITALS: BP 131/79; PULSE 88; RESP 16; TEMP 97.1; O2SAT 99
[2016-11-24] MEDS ORDERED: WALKER WHEELS/F1 MIS (12:40)
== END 2016-11-24 16:25 | disposition home health service (06) | DRG 463 ==
LOC: N07B 13:00 → OBSVTOIN 13:13
PROVIDERS: ADMIT Internal Medicine; ATTEND Hospitalist
PROC: 5A1D60Z (ICD-10-PCS; 2016-11-03)
PROC: 0KBQ0ZZ Excision of Right Upper Leg Muscle, Open Approach (ICD-10-PCS; 2016-11-05)
PROC: 30233N1 Transfusion of Nonautologous Red Blood Cells into Peripheral Vein, Percutaneous Approach (ICD-10-PCS; 2016-11-07)
PROC: 0JBL0ZZ Excision of Right Upper Leg Subcutaneous Tissue and Fascia, Open Approach (ICD-10-PCS; 2016-11-10)
PROC: 0HRHX74 Replacement of Right Upper Leg Skin with Autologous Tissue Substitute, Partial Thickness, External Approach (ICD-10-PCS; principal; 2016-11-10 08:39)
PROC: 0HBHXZZ Excision of Right Upper Leg Skin, External Approach (ICD-10-PCS; 2016-11-10 08:39)
DX: M79.A21 Nontraumatic compartment syndrome of right lower extremity (principal); A41.9 Sepsis, unspecified organism; R65.20 Severe sepsis without septic shock; N17.0 Acute kidney failure with tubular necrosis; N18.6 End stage renal disease; M62.82 Rhabdomyolysis; E87.1 Hypo-osmolality and hyponatremia; B37.9 Candidiasis, unspecified; I12.0 Hypertensive chronic kidney disease with stage 5 chronic kidney disease or end stage renal disease; M60.9 Myositis, unspecified; F19.10 Other psychoactive substance abuse, uncomplicated; G89.29 Other chronic pain; F17.210 Nicotine dependence, cigarettes, uncomplicated; F14.10 Cocaine abuse, uncomplicated; Z99.2 Dependence on renal dialysis; D63.8 Anemia in other chronic diseases classified elsewhere; K59.00 Constipation, unspecified; R74.0 Nonspecific elevation of levels of transaminase and lactic acid dehydrogenase [LDH]; F43.23 Adjustment disorder with mixed anxiety and depressed mood; R51 Headache; R20.8 Other disturbances of skin sensation
CPT/HCPCS: 36430; 73610; 73630; 80048; 80053; 80069; 82550; 82728; 83540; 83550; 83735; 84100; 84155; 85014; 85018; 85025; 85027; 86077; 86850; 86870; 86900; 86901; 86902; 86920; 86922; 90935; 93971; 96374; 96375; J0131; J0690; J0692; J1100; J1170; J1580; J1644; J1756; J2175; J2250; J2270; J2405; J2997; J3010; J3370; J7030; J7050; P9016; Q4081

== ENCOUNTER 2017-01-09 23:29 | Emergency (ER) | payer BC, OTHER ==
[~2017-01-09] VITALS: Ht 180.3 cm; Wt 89.0 kg
[~2017-01-09 23:29] MED LIST changes: +AMLO10 PO; +CLON.1 PO; +CLON.5 PO; -DIAZ10 PO; +OXYC-259 PO; +OXYC1TAB63 PO; +SENN1TAB PO; +TRAZ50TA12 PO; +WALKER WHEELS/F1 MIS; +WALKER/ADULT/FO1 MIS; +WHEEMIS3; -toradol
[2017-01-09 23:39] VITALS: BP 119/60; PULSE 112; RESP 18; TEMP 99.2; O2SAT 95
[2017-01-09] MEDS ORDERED: SODIUM CHLOR 0.9% 1000 ML INJ 1,000 ML IV ONE (23:45)
[2017-01-09] MEDS ORDERED: SODIUM CHLORIDE 0.9% FLUSH 10 ML FLUSH IVF PRN (23:45)
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
[2017-01-09] MEDS ORDERED: BUPR1SUB SL (23:58)
[2017-01-09] MEDS ORDERED: BUPR1MIS BUCCAL (23:58)
[2017-01-09] MEDS ORDERED: GABA300C5 PO (23:59)
[2017-01-10] MEDS ORDERED: SODIUM CHLOR 0.9% 1000 ML INJ 1,000 ML IV ONE
[2017-01-10 00:02] VITALS: PULSE 112; RESP 14; O2SAT 92
--- NOTE | 2017-01-10 00:16 | RADRPT ---
EXAM DATE/TIME: 01/09/2017 23:53 [facility] COMPARISON: CT BRAIN W/O CONTRAST, June 22, 2016, 21:44. INDICATIONS : Trauma, fall. RADIATION DOSE: 56.35 CTDIvol (mGy) MEDICAL HISTORY : None SURGICAL HISTORY : None. ENCOUNTER: Initial ACUITY: 1 day PAIN SCALE: Non-responsive LOCATION: cranial TECHNIQUE: Multiple contiguous axial images were obtained of the head. Using automated exposure control and adj ustment of the mA and/or kV according to patient size, radiation dose was kept as low as reasonably a chievable to obtain optimal diagnostic quality images. DICOM format image data is available electro nically for review and comparison. FINDINGS: CEREBRUM: The ventricles are normal for age. No evidence of midline shift, mass lesion, hemorrhage or acute in farction. No extra-axial fluid collections are seen. POSTERIOR FOSSA: The cerebellum and brainstem are intact. The 4th ventricle is midline. The cerebellopontine angle i s unremarkable. EXTRACRANIAL: The visualized portion of the orbits is intact. SKULL: The calvaria is intact. No evidence of skull fracture. CONCLUSION: That exam. No acute intracranial process, trauma or fracture. Gerry Fritz MD on January 10, 2017 at 0:13 Board Certified Radiologist. This report was verified electronically.
[2017-01-10 05:52] VITALS: BP 115/79; PULSE 79; RESP 16; O2SAT 99
--- NOTE | 2017-01-10 05:58 | PD ---
Physical Exam Time Seen by Provider: 05:57 Data Data Last Documented VS Vital Signs Date Time Temp Pulse Resp B/P (MAP) Pulse Ox O2 Delivery O2 Flow Rate FiO2 01/10/17 05:52 01/10/17 05:52 79 16 99 Room Air 01/09/17 23:55 3.00 01/09/17 23:39 99.2 Orders Orders Ecg Monitoring (01/09/17 23:45) Oximetry (01/09/17 23:45) Ct Brain W/O Iv Contrast(Rout) (01/09/17 ) Alcohol (Ethanol) (01/09/17 23:53) Sodium Chlor 0.9% 1000 Ml Inj (Ns 1000 M (01/10/17 00:00) Labs Laboratory Tests Test 01/09/17 23:55 Ethyl Alcohol Level LESS THAN 3 MG/DL [facility] Medical Record Reviewed: Yes Supervised Visit with BK: No Narrative Course Patient is awake and alert. He has remained stable throughout the night. In eyes any suicidal homicidal ideations. He is ready for discharge. Diagnosis Primary Impression: Adjustment disorder with mixed anxiety and depressed mood Additional Impression: Substance abuse Patient Instructions: General Instructions Departure Forms: Tests/Procedures Disposition: 01 DISCHARGE HOME Condition: Stable DaltonHarika nuñez MARYLOU Jan 10, 2017 05:58
== END 2017-01-10 07:03 | disposition home or self-care (01) ==
LOC: NEPD 23:29
DX: F43.23 Adjustment disorder with mixed anxiety and depressed mood (principal); F19.129 Other psychoactive substance abuse with intoxication, unspecified; Z72.0 Tobacco use; Z79.899 Other long term (current) drug therapy
CPT/HCPCS: 70450; 80307; 96360; 99285; J7030

== ENCOUNTER 2017-10-19 12:54 | Emergency (ER) | payer BC, OTHER ==
[~2017-10-19] VITALS: Ht 180.3 cm; Wt 95.0 kg
[~2017-10-19 12:54] MED LIST changes: -BUPR1MIS; +BUPR1MIS BUCCAL; +GABA300C5 PO; +OXYC-103 PO; -OXYC-259 PO
[2017-10-19 13:08] VITALS: BP 141/80; PULSE 85; RESP 20; TEMP 98; O2SAT 100
--- NOTE | 2017-10-19 17:44 | PD ---
HPI Chief Complaint: Psychiatric Symptoms Time Seen by Provider: 17:32 Travel History International Travel<30 days: No Contact w/Intl Traveler<30days: No Traveled to known affect area: No History of Present Illness HPI 36 YO M presents to the ED for PFSH Past Medical History Medical History: Unable to Obtain Arthritis: No Autoimmune Disease: No Anxiety: Yes Depression: Yes Cancer: No Cardiovascular Problems: Yes Diminished Hearing: No Endocrine: No Gastrointestinal Disorders: No Genitourinary: Yes Hypertension: Yes Immune Disorder: No Implanted Vascular Access Dvce: Yes (RUE PICC LINE) Musculoskeletal: Yes Neurologic: Yes Psychiatric: Yes Reproductive: No Respiratory: No Migraines: Yes Renal Failure: Yes (ACUTE RENAL FAILURE) Seizures: Yes Tetanus Vaccination: Unknown PNEUMOCCOCAL Vaccine (Year): 2 Past Surgical History Surgical History: Unable to Obtain Abdominal Surgery: No Cardiac Surgery: No Ear Surgery: No Endocrine Surgery: No Eye Surgery: No Genitourinary Surgery: No Gynecologic Surgery: No Oral Surgery: No Thoracic Surgery: No Other Surgery: Yes (NASAL RECONSTRUCTION) Social History Alcohol Use: Yes Tobacco Use: No Substance Use: Yes (SUBOXONE, XANAX, IV DRUG USE) Allergies-Medications (Allergen,Severity, Reaction): Coded Allergies: No Known Allergies (Verified Adverse Reaction, Unknown, 10/19/17) Reported Meds & Prescriptions Reported Meds & Active Scripts Active Walker with Front Wheels (Device) 1 Mis Mis 1 Ea .ROUTE DIRECTED Oxycontin (Oxycodone HCl) 10 Mg Tab 10 Mg PO Q8HR Senna Plus 8.6-50 mg (Sennosides-Docusate Sodium) 1 Tab Tab 1 Tab PO BID Trazodone (Trazodone HCl) 50 Mg Tab 100 Mg PO HS Oxycodone-Acetaminophen 5-325 mg Tab 1 Tab PO Q4H PRN Catapres (Clonidine) 0.1 Mg Tab 0.1 Mg PO Q12H Klonopin (Clonazepam) 0.5 Mg Tab 0.5 Mg PO Q12HR PRN Norvasc (Amlodipine Besylate) 10 Mg Tab 10 Mg PO DAILY Wheelchair Elevated Leg (Device) 1 Mis Mis 1 Ea .ROUTE DIRECTED Walker/Adult/Folding (Device) 1 Mis Mis 1 Ea .ROUTE DIRECTED Reported Gabapentin 300 Mg Cap 300 Mg PO TID Bunavail Buccal Film (Buprenorphine-Naloxone Buccal Film) 6.3-1 Mg Film 1 Film BUCCAL DAILY Zubsolv (Buprenorphine-Naloxone) 5.7-1.4 Mg Subl 1 Tab SL Data Data Last Documented VS Vital Signs Date Time Temp Pulse Resp B/P (MAP) Pulse Ox O2 Delivery O2 Flow Rate FiO2 10/19/17 13:08 98.0 85 20 141/80 (100) 100 Orders Orders Complete Blood Count With Diff (10/19/17 17:31) Comprehensive Metabolic Panel (10/19/17 17:31) Thyroid Stimulating Hormone (10/19/17 17:31) Psych Screen (10/19/17 17:31) Drug Screen, Random Urine (10/19/17 17:31) Alcohol (Ethanol) (10/19/17 17:31) Labs Laboratory Tests Test 10/19/17 18:15 Elisa Barnes Oct 19, 2017 17:44
[2017-10-19 19:19] LABS: AUTOMATED NEUTROPHIL # 1.5 TH/MM3 (1.8-7.7); BASOPHIL % 0.4 % (0.0-2.0); EOSINOPHIL # 0.1 TH/MM3 (0-0.4); EOSINOPHIL % 3.4 % (0.0-4.0); HEMATOCRIT 43.9 % (39.0-51.0); HEMOGLOBIN 14.7 GM/DL (13.0-17.0); LYMPH % 49.9 % (9.0-44.0); MEAN CELL VOLUME 80.1 FL (80.0-100.0); MEAN CORPUSCULAR HEMOGLOBIN 26.8 PG (27.0-34.0); MEAN CORPUSCULAR HGB CONC 33.4 % (32.0-36.0); MONO % 9.4 % (0.0-8.0); MONOCYTE # 0.4 TH/MM3 (0-0.9); NEUT % 36.9 % (16.0-70.0); PLATELET COUNT 173 TH/MM3 (150-450); RED BLOOD COUNT 5.49 MIL/MM3 (4.50-5.90); RED CELL DISTRIBUTION WIDTH 14.1 % (11.6-17.2)
[2017-10-19 19:26] LABS: ALBUMIN 3.9 GM/DL (3.4-5.0); AST (GOT) 21 U/L (15-37); BICARBONATE 21.1 MEQ/L (21.0-32.0); BLOOD UREA NITROGEN 26 MG/DL (7-18); CALCIUM 8.7 MG/DL (8.5-10.1); CHLORIDE 108 MEQ/L (98-107); CREATININE 1.28 MG/DL (0.60-1.30); GLOMERULAR FILTRATION RATE 64 ML/MIN (>89); GLUCOSE,RANDOM 76 MG/DL (74-106); SODIUM (NA) 139 MEQ/L (136-145)
--- NOTE | 2017-10-19 19:34 | PD ---
HPI Chief Complaint: Psychiatric Symptoms Time Seen by Provider: 19:08 Travel History International Travel<30 days: No Contact w/Intl Traveler<30days: No Traveled to known affect area: No History of Present Illness HPI 36-year-old white male presents emergency department on a voluntary basis for evaluation of substance abuse. The patient was seen earlier today by his doctor at his office. His doctor did not feel comfortable evaluating the patient because of his level of the intoxication. He was advised to come to the hospital with his mother. His mother brought the patient to the hospital. The patient now has been sleeping for several hours. The patient is now arousable. He denies any suicidal or homicidal ideation. He does admit to IV drug abuse. He states that he had not been sleeping. PFSH Past Medical History Narrative Medical Anxiety, depression, IV drug abuse, history of diskitis treated with T6-C7 laminectomy, diskectomy by Dr. Garcia March 05, 2011. Medical History: Unable to Obtain Arthritis: No Autoimmune Disease: No Anxiety: Yes Depression: Yes Cancer: No Cardiovascular Problems: Yes Diminished Hearing: No Endocrine: No Gastrointestinal Disorders: No Genitourinary: Yes Hypertension: Yes Immune Disorder: No Implanted Vascular Access Dvce: Yes (RUE PICC LINE) Musculoskeletal: Yes Neurologic: Yes Psychiatric: Yes Reproductive: No Respiratory: No Migraines: Yes Renal Failure: Yes (ACUTE RENAL FAILURE) Seizures: Yes Tetanus Vaccination: Unknown PNEUMOCCOCAL Vaccine (Year): 2 Past Surgical History Surgical History: Unable to Obtain Abdominal Surgery: No Cardiac Surgery: No Ear Surgery: No Endocrine Surgery: No Eye Surgery: No Genitourinary Surgery: No Gynecologic Surgery: No Oral Surgery: No Thoracic Surgery: No Other Surgery: Yes (NASAL RECONSTRUCTION) Social History Alcohol Use: Yes Tobacco Use: No Substance Use: Yes (SUBOXONE, XANAX, IV DRUG USE) Allergies-Medications (Allergen,Severity, Reaction): Coded Allergies: No Known Allergies (Verified Adverse Reaction, Unknown, 10/19/17) Reported Meds & Prescriptions Reported Meds & Active Scripts Active Walker with Front Wheels (Device) 1 Mis Mis 1 Ea .ROUTE DIRECTED Oxycontin (Oxycodone HCl) 10 Mg Tab 10 Mg PO Q8HR Senna Plus 8.6-50 mg (Sennosides-Docusate Sodium) 1 Tab Tab 1 Tab PO BID Trazodone (Trazodone HCl) 50 Mg Tab 100 Mg PO HS Oxycodone-Acetaminophen 5-325 mg Tab 1 Tab PO Q4H PRN Catapres (Clonidine) 0.1 Mg Tab 0.1 Mg PO Q12H Klonopin (Clonazepam) 0.5 Mg Tab 0.5 Mg PO Q12HR PRN Norvasc (Amlodipine Besylate) 10 Mg Tab 10 Mg PO DAILY Wheelchair Elevated Leg (Device) 1 Mis Mis 1 Ea .ROUTE DIRECTED Walker/Adult/Folding (Device) 1 Mis Mis 1 Ea .ROUTE DIRECTED Reported Gabapentin 300 Mg Cap 300 Mg PO TID Bunavail Buccal Film (Buprenorphine-Naloxone Buccal Film) 6.3-1 Mg Film 1 Film BUCCAL DAILY Zubsolv (Buprenorphine-Naloxone) 5.7-1.4 Mg Subl 1 Tab SL Review of Systems ROS Limitations: Intoxication, Poor Historian Physical Exam Narrative GENERAL: Well-nourished, well-developed patient. The patient is somnolent. He falls asleep during the interview but awakens to stimuli. SKIN: Warm and dry. Evidence of IV drug abuse but no signs of any abscess HEAD: Normocephalic and atraumatic. EYES: No scleral icterus. No injection or drainage. ENT: No nasal drainage noted. Mucous membranes pink. Airway patent. NECK: Supple, trachea midline. Moves head freely without obvious discomfort. CARDIOVASCULAR: Regular rate and rhythm without murmurs, gallops, or rubs. RESPIRATORY: Breath sounds equal bilaterally. No accessory muscle use. GASTROINTESTINAL: Abdomen soft, non-tender, nondistended. EXTREMITIES: No cyanosis or edema. BACK: Nontender without obvious deformity. No CVA tenderness. NEURO: Patient is alert and oriented. no sensorimotor deficits. Nonfocal. Somewhat slurred speech. PSYCH: No delusions. No auditory or visual hallucinations. Data Data Last Documented VS Vital Signs Date Time Temp Pulse Resp B/P (MAP) Pulse Ox O2 Delivery O2 Flow Rate FiO2 10/19/17 13:08 98.0 85 20 141/80 (100) 100 Orders Orders Complete Blood Count With Diff (10/19/17 17:31) Comprehensive Metabolic Panel (10/19/17 17:31) Thyroid Stimulating Hormone (10/19/17 17:31) Psych Screen (10/19/17 17:31) Drug Screen, Random Urine (10/19/17 17:31) Alcohol (Ethanol) (10/19/17 17:31) Ed Discharge Order (10/19/17 20:33) Labs Laboratory Tests Test 10/19/17 18:15 10/19/17 19:35 White Blood Count 4.0 TH/MM3 Red Blood Count 5.49 MIL/MM3 Hemoglobin 14.7 GM/DL Hematocrit 43.9 % Mean Corpuscular Volume 80.1 FL Mean Corpuscular Hemoglobin 26.8 PG Mean Corpuscular Hemoglobin Concent 33.4 % Red Cell Distribution Width 14.1 % Platelet Count 173 TH/MM3 Mean Platelet Volume 8.0 FL Neutrophils (%) (Auto) 36.9 % Lymphocytes (%) (Auto) 49.9 % Monocytes (%) (Auto) 9.4 % Eosinophils (%) (Auto) 3.4 % Basophils (%) (Auto) 0.4 % Neutrophils # (Auto) 1.5 TH/MM3 Lymphocytes # (Auto) 2.0 TH/MM3 Monocytes # (Auto) 0.4 TH/MM3 Eosinophils # (Auto) 0.1 TH/MM3 Basophils # (Auto) 0.0 TH/MM3 CBC Comment DIFF FINAL Differential Comment Blood Urea Nitrogen 26 MG/DL Creatinine 1.28 MG/DL Random Glucose 76 MG/DL Total Protein 7.9 GM/DL Albumin 3.9 GM/DL Calcium Level 8.7 MG/DL Alkaline Phosphatase 102 U/L Aspartate Amino Transf (AST/SGOT) 21 U/L Alanine Aminotransferase (ALT/SGPT) 27 U/L Total Bilirubin 0.5 MG/DL Sodium Level 139 MEQ/L Potassium Level 4.3 MEQ/L Chloride Level 108 MEQ/L Carbon Dioxide Level 21.1 MEQ/L Anion Gap 10 MEQ/L Estimat Glomerular Filtration Rate 64 ML/MIN Thyroid Stimulating Hormone 3rd Gen 0.567 uIU/ML Ethyl Alcohol Level LESS THAN 3 MG/DL Urine Opiates Screen NEG Urine Barbiturates Screen NEG Urine Amphetamines Screen POS Urine Benzodiazepines Screen POS Urine Cocaine Screen NEG Urine Cannabinoids Screen POS MDM Medical Decision Making Medical Screen Exam Complete: Yes Emergency Medical Condition: Yes Medical Record Reviewed: Yes Differential Diagnosis Differential diagnoses: Alcohol intoxication, substance abuse, electrolyte abnormality, malingering, depression, anxiety Narrative Course The patient here is somnolent. He has slept for 6 hours. He is now more alert but still falls asleep during the interview. He is not here under a Davis act. He denies suicidal homicidal ideation. The patient will be allowed to sleep here in the ER until he appears more sober. Nursing staff will contact his mother and advised her of the situation. There is no indication for a Davis act at this time. I have encouraged the staff to encourage the patient's mother to get an ex partake for substance abuse. The psych nurse has contacted the patient's mother. She is aware of the situation and feels comfortable taking him home. The patient has been more articulate and ambulatory. He is considered medically stable for discharge. The psych nurse also concurs that the patient is not a threat to himself or others. She feels comfortable discharging him. This is altered mental status, IV drug abuse Diagnosis Primary Impression: Altered mental status Additional Impression: IV drug abuse Patient Instructions: General Instructions Additional Instructions: Rest. Increase fluids. Avoid alcohol. Avoid illegal substances. Follow-up with [facility] for detox. Do not operate a car or any heavy machinery under the influence of alcohol or drugs. Follow-up with a medical doctor this week. Return to the ER for emergencies Med/Other Pt SpecificInfo: No Meds Exist/No RX given Disposition: 01 DISCHARGE HOME Condition: Stable Pilo Schwartz Oct 19, 2017 19:34
[2017-10-19 19:37] LABS: ALKALINE PHOSPHATASE 102 U/L (45-117); ALT (GPT) 27 U/L (12-78); TOTAL BILIRUBIN ADULT 0.5 MG/DL (0.2-1.0); TOTAL PROTEIN 7.9 GM/DL (6.4-8.2)
== END 2017-10-19 20:44 | disposition home or self-care (01) ==
LOC: NEPJ 12:54
DX: F19.10 Other psychoactive substance abuse, uncomplicated (principal); R41.82 Altered mental status, unspecified; I10 Essential (primary) hypertension; Z79.899 Other long term (current) drug therapy
CPT/HCPCS: 80053; 80307; 84443; 85025; 99283